=== PATIENT | male | born 1995 | race Caucasian/White ===

== ENCOUNTER 2017-02-07 20:12 | Emergency (ER) | payer OTHER ==
[2017-02-07 20:17] VITALS: RESP 20
[2017-02-07] MEDS ORDERED: KETOROLAC 30 MG/ML 1 ML VIAL IVP STA (21:03)
[2017-02-07] MEDS ORDERED: SODIUM CHLORIDE 0.9% 1,000 ML IV ONE (21:05)
[2017-02-07] MEDS ORDERED: SODIUM CHLORIDE 0.9% 1,000 ML IV SCH (21:15)
[2017-02-07 21:55] LABS: Basophils # (A) 0.1 k/uL (0-0.2); Basophils % (A) 1 %; CH 25.8; CHCM 31.8; Eosinophils # (A) 0.1 k/uL (0-0.7); Eosinophils % (A) 1 %; HCT 48.5 % (39.0-53.0); HDW 2.68; HGB 15.6 gm/dL (13.0-17.5); Hypochromasia Slight; Luc # (Auto) 0.27; Luc % (Auto) 3; Lymphocytes # (A) 1.5 k/uL (1.0-4.8); Lymphocytes % (A) 15 %; MCH 26.1 pg (25.0-35.0); MCHC 32.1 g/dL (31.0-37.0); MCV 81.2 fL (80.0-100.0); Mean Platelet Volume 7.5; Monocytes # (A) 0.5 k/uL (0-1.0); Monocytes % (A) 6 %; Neutrophils % (A) 74 %; RBC 5.97 m/uL (4.30-5.90); RDW 14.4 % (11.5-15.5); WBC 9.4 k/uL (3.8-10.6)
--- NOTE | 2017-02-07 21:58 | ED ---
Headache HPI - General Chief Complaint: Headache Stated Complaint: HBP; hx of open heart surgery Time Seen by Provider: 02/07/17 20:53 Source: RN notes reviewed Mode of arrival: ambulatory Limitations: no limitations - History of Present Illness Initial Comments: Patient is a 21-year-old male with a chief complaint of a headache for approximately few hours. Patient reports that he has a history of tricuspid valve replacement. 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 He states that he had a heart valve replacement in 2011. Patient states that today he did drink 5 red bulls which could be the cause of his headache. He states that he's had no chest pain or shortness of breath. Patient denies any nausea or vomiting fever or chills. Patient reports last drug use was approximately one month ago. - Related Data Home Medications Medication Instructions Recorded Confirmed Aspirin [Adult Low Dose Aspirin EC] 1 tab PO DAILY 02/07/17 02/07/17 Metoprolol Succinate [Toprol XL] 1 tab PO DAILY 02/07/17 02/07/17 Allergies Allergy/AdvReac Type Severity Reaction Status Date / Time No Known Allergies Allergy Verified 02/07/17 20:15 Review of Systems ROS Statement: Those systems with pertinent positive or pertinent negative responses have been documented in the HPI. ROS Other: All systems not noted in ROS Statement are negative. Past Medical History Past Medical History: Hypertension History of Any Multi-Drug Resistant Organisms: None Reported Additional Past Surgical History / Comment(s): heart valve Past Psychological History: No Psychological Hx Reported Smoking Status: Current every day smoker Past Alcohol Use History: Occasional Past Drug Use History: Marijuana General Exam Limitations: no limitations General appearance: alert, in no apparent distress Head exam: Present: atraumatic, normocephalic, normal inspection Eye exam: Present: normal appearance, PERRL, EOMI, other (Her dilated.). Absent : scleral icterus, conjunctival injection, periorbital swelling ENT exam: Present: normal exam, mucous membranes moist Neck exam: Present: normal inspection. Absent: tenderness, meningismus, lymphadenopathy Respiratory exam: Present: normal lung sounds bilaterally. Absent: respiratory distress, wheezes, rales, rhonchi, stridor Cardiovascular Exam: Present: regular rate, normal rhythm, normal heart sounds. Absent: systolic murmur, diastolic murmur, rubs, gallop, clicks GI/Abdominal exam: Present: soft, normal bowel sounds. Absent: distended, tenderness, guarding, rebound, rigid Extremities exam: Present: normal inspection, full ROM, normal capillary refill. Absent: tenderness, pedal edema, joint swelling, calf tenderness Back exam: Present: normal inspection Neurological exam: Present: alert, oriented X3, CN II-XII intact Psychiatric exam: Present: normal affect, normal mood Skin exam: Present: warm, dry, intact, normal color. Absent: rash Course Vital Signs 02/07/17 02/07/17 20:16 23:10 Temperature 98.2 F 98.3 F Pulse Rate 54 L 56 L Respiratory 20 20 Rate Blood Pressure 142/86 122/58 O2 Sat by Pulse 97 99 Oximetry - Reevaluation(s) Reevaluation #1: 02/07/17 22:43 Patient was reevaluated this time and reports that he is feeling much better after IV fluids and Toradol for his headache. Patient reports that he will follow-up with primary care provider. Return parameters were discussed. Medical Decision Making - Medical Decision Making Patient is a 21 year old male with a hcomplaint of headache for a few. hours. Patient reports he took his blood pressure and ti was 170/90. He reports he drank 5 redbulls today. Patient statesn that he has a history of endocarditis with IV drug use. He states he has had no fever, chest pain, shortness of breath , nausea, or vomiting. Patient noriega a history of heart valve replacement . Patient given IV fluids, toradol and labs obtained. Labs show no acute abnormalities. PAtient advised to follow up with PCP and reports that he is feeling much better after medication. Patient wants to go home at this time. Retrun prameters dicussed. - Lab Data Result diagrams: 02/07/17 21:40 02/07/17 21:40 Lab Results 02/07/17 02/07/17 02/07/17 Range/Units 21:40 21:40 21:40 WBC 9.4 (3.8-10.6) k/uL RBC 5.97 H (4.30-5.90) m/uL Hgb 15.6 (13.0-17.5) gm/dL Hct 48.5 (39.0-53.0) % MCV 81.2 (80.0-100.0) fL MCH 26.1 (25.0-35.0) pg MCHC 32.1 (31.0-37.0) g/dL RDW 14.4 (11.5-15.5) % Plt Count 292 (150-450) k/uL Neutrophils % 74 % Lymphocytes % 15 % Monocytes % 6 % Eosinophils % 1 % Basophils % 1 % Neutrophils # 7.0 (1.3-7.7) k/uL Lymphocytes # 1.5 (1.0-4.8) k/uL Monocytes # 0.5 (0-1.0) k/uL Eosinophils # 0.1 (0-0.7) k/uL Basophils # 0.1 (0-0.2) k/uL Hypochromasia Slight Sodium 146 H (137-145) mmol/L Potassium 4.1 (3.5-5.1) mmol/L Chloride 106 (98-107) mmol/L Carbon Dioxide 25 (22-30) mmol/L Anion Gap 15 mmol/L BUN 8 L (9-20) mg/dL Creatinine 1.00 (0.66-1.25) mg/dL Est GFR (MDRD) Af Amer >60 (>60 ml/min/1.73 sqM) Est GFR (MDRD) Non-Af >60 (>60 ml/min/1.73 sqM) Glucose 100 H (74-99) mg/dL Calcium 10.6 H (8.4-10.2) mg/dL Total Creatine Kinase 70 (55-170) U/L CK-MB (CK-2) 0.3 (0.0-2.4) ng/mL CK-MB (CK-2) Rel Index 0.4 Troponin I <0.012 (0.000-0.034) ng/mL 02/07/17 22:43 EKG shows sinus bradycardia with ventricular rate of 56 bpm. IN 26 ms. QRS duration 96 seconds. QT/QTc is 4:30/422 Alexsandra's hands. No evidence of ST elevation or T-wave inversion. Disposition Clinical Impression: Headache Disposition: HOME SELF-CARE Condition: Good Instructions: Acute Headache (ED) Additional Instructions: She must follow-up with his primary care provider. Return to emergency department if any alarming signs or symptoms occur. Continue taking Motrin Tylenol for headache. Referrals: Ian Do MD [Primary Care Provider] - 1-2 days Time of Disposition: 22:44
[2017-02-07 22:04] LABS: Anion Gap 15 mmol/L; Blood Urea Nitrogen 8 mg/dL (9-20); Calcium 10.6 mg/dL (8.4-10.2); Carbon Dioxide 25 mmol/L (22-30); Chloride 106 mmol/L (98-107); Glucose 100 mg/dL (74-99); Non-African American GFR(MDRD) >60 (>60 ml/min/1.73 sqM); Potassium 4.1 mmol/L (3.5-5.1); Sodium 146 mmol/L (137-145)
[2017-02-07 22:14] LABS: Creatine Kinase 70 U/L (55-170)
[2017-02-07 22:27] LABS: Creatine Kinase MB 0.3 ng/mL (0.0-2.4); Troponin I <0.012 ng/mL (0.000-0.034)
[2017-02-07 23:15] VITALS: BP 122/58; PULSE 56; TEMP 98.3
== END 2017-02-07 23:10 | disposition home or self-care (01) ==
LOC: EC 20:12
DX: R51 Headache (principal); I10 Essential (primary) hypertension; F17.200 Nicotine dependence, unspecified, uncomplicated; Z95.2 Presence of prosthetic heart valve; Z79.82 Long term (current) use of aspirin; Z79.899 Other long term (current) drug therapy
CPT/HCPCS: 99284; 96374; 96361; 93005; 36415; 80048; 82550; 82553; 84484; 85025; J1885

== ENCOUNTER 2017-02-20 01:34 | Emergency (ER) | payer OTHER ==
[2017-02-20 02:05] VITALS: BP 139/87; PULSE 117; RESP 20; TEMP 97.4
--- NOTE | 2017-02-20 03:02 | ED ---
Psych HPI - General Chief Complaint: Psychiatric Symptoms Stated Complaint: Mental Health Time Seen by Provider: 02/20/17 02:14 Source: patient, RN notes reviewed Mode of arrival: ambulatory - History of Present Illness Initial Comments: Patient is a 21-year-old male with chief complaint of suicidal ideation and depression. Patient states that he has no specific plan to harm himself he just has thoughts of a needs to. Patient denies any homicidal or auditory or visual hallucinations. Patient reports that she's had multiple stressors in his life including not having a current place to stay, loosing his girlfriend, having a job over the past 2 months. Patient reports that he does not see psychiatrist or his ever been evaluated. Eating does not take any medication regularly. Patient reports that he does have a history of heroin abuse. He has a history of heart valve replacement due to IV drug use. Patient reports he is currently on probation. Patient states that he has not abused heroin in the past month. He does smoke marijuana occasionally. He denies any alcohol use. Patient reports that he was diagnosed with a history of social anxiety and does have tremors whenever he is in a social situation. Patient denies any recent fever, chills, shortness of breath, chest pain, back pain, abdominal pain , nausea vomiting, numbness or tingling, dysuria or hematuria, constipation or diarrhea, headaches or visual changes, or any other current symptoms - Related Data Home Medications Medication Instructions Recorded Confirmed Aspirin [Adult Low Dose Aspirin EC] 1 tab PO DAILY 02/07/17 02/20/17 Metoprolol Succinate [Toprol XL] 1 tab PO DAILY 02/07/17 02/20/17 Allergies Allergy/AdvReac Type Severity Reaction Status Date / Time No Known Allergies Allergy Verified 02/07/17 20:15 Review of Systems ROS Statement: Those systems with pertinent positive or pertinent negative responses have been documented in the HPI. ROS Other: All systems not noted in ROS Statement are negative. Past Medical History Past Medical History: Hypertension History of Any Multi-Drug Resistant Organisms: None Reported Additional Past Surgical History / Comment(s): heart valve Past Psychological History: No Psychological Hx Reported Smoking Status: Current every day smoker Past Alcohol Use History: Occasional Past Drug Use History: Marijuana General Exam - General Exam Comments Initial Comments: Well-appearing 21-year-old male. No acute distress. Limitations: no limitations General appearance: alert, in no apparent distress Head exam: Present: atraumatic, normocephalic, normal inspection Eye exam: Present: normal appearance, PERRL, EOMI. Absent: scleral icterus, conjunctival injection, periorbital swelling ENT exam: Present: normal exam, mucous membranes moist Neck exam: Present: normal inspection. Absent: tenderness, meningismus, lymphadenopathy Respiratory exam: Present: normal lung sounds bilaterally. Absent: respiratory distress, wheezes, rales, rhonchi, stridor Cardiovascular Exam: Present: regular rate, normal rhythm, normal heart sounds. Absent: systolic murmur, diastolic murmur, rubs, gallop, clicks GI/Abdominal exam: Present: soft, normal bowel sounds. Absent: distended, tenderness, guarding, rebound, rigid Extremities exam: Present: normal inspection, full ROM, normal capillary refill. Absent: tenderness, pedal edema, joint swelling, calf tenderness Back exam: Present: normal inspection Neurological exam: Present: alert, oriented X3, CN II-XII intact Psychiatric exam: Present: anxious, suicidal ideation (Patient denies any specific plan, and has vague suggestions of suicidal thoughts.). Absent: normal affect, normal mood Skin exam: Present: warm, dry, intact, normal color. Absent: rash Course Vital Signs 02/20/17 02:01 Temperature 97.4 F L Pulse Rate 117 H Respiratory 20 Rate Blood Pressure 139/87 O2 Sat by Pulse 98 Oximetry Medical Decision Making - Medical Decision Making Patient is a 21-year-old male with chief complaint of depression and anxiety. Patient states he's had a few thoughts of harming himself. He denies any specific plan to do so. Patient was medically cleared and evaluated by EPS. EPS was talking to the patient he stated that he does not have any suicidal thoughts. He reports he does have plans in the future. He states that he is currently staying with a friend ariadne. Patient was given resources and patient refuses to sign in at this time. He adamantly admits that he does not want to harm himself at this time. Patient is tachycardic with a heart rate of 110/m. He does appear to be extremely anxious. Patient will be given 1 mg of Ativan by mouth and discharge. Patient reports he plans to follow up with [facility] tomorrow. Patient is agrees with the treatment plan and states that he will comply. Patient agrees to a safety contract, and plans return if he has any thoughts of harming himself. Disposition Clinical Impression: Anxiety, Depression Disposition: HOME SELF-CARE Condition: Good Instructions: Generalized Anxiety Disorder (ED) Additional Instructions: Patient advised to follow-up tomorrow with [facility]. Return to emergency Department if any alarming signs or symptoms occur including increased suicidal thoughts. Referrals: Ian Do MD [Primary Care Provider] - 1-2 days Time of Disposition: 04:31
[2017-02-20] MEDS ORDERED: LORazepam 1 MG TAB PO STA (04:30)
== END 2017-02-20 04:41 | disposition home or self-care (01) ==
LOC: EC 01:34
DX: F41.9 Anxiety disorder, unspecified (principal); F32.9 Major depressive disorder, single episode, unspecified; R45.851 Suicidal ideations; Z95.2 Presence of prosthetic heart valve; F12.90 Cannabis use, unspecified, uncomplicated; F11.90 Opioid use, unspecified, uncomplicated; Z79.82 Long term (current) use of aspirin; I10 Essential (primary) hypertension; F17.200 Nicotine dependence, unspecified, uncomplicated
CPT/HCPCS: 82075; 99283

== ENCOUNTER 2018-03-05 12:32 | Emergency (ER) | payer OTHER ==
[2018-03-05 12:46] VITALS: TEMP 97.6
[2018-03-05] MEDS ORDERED: MORPHINE SULFATE 4MG/4ML SYRG IVP STA (13:01)
--- NOTE | 2018-03-05 13:10 | XR ---
EXAMINATION TYPE: XR shoulder limited RT DATE OF EXAM: 03/05/2018 COMPARISON: NONE HISTORY: Pain TECHNIQUE: 2 views are submitted FINDINGS: Osseous structures are intact. There is an anterior dislocation of the humeral head. IMPRESSION: Anterior dislocation of the humeral head.
[2018-03-05] MEDS ORDERED: PROPOFOL 10 MG/ML 20 ML VIAL IV STA (13:45)
[2018-03-05] MEDS ORDERED: KETOROLAC 30 MG/ML 1 ML VIAL IVP STA (14:01)
--- NOTE | 2018-03-05 14:09 | ED ---
General Adult HPI - General Source: patient, RN notes reviewed Mode of arrival: ambulatory Limitations: no limitations <Marvin Hernandez - Last Filed: 03/05/18 14:49> <Cameron Pedersen - Last Filed: 03/05/18 15:07> - General Chief complaint: Extremity Injury, Upper Stated complaint: Shoulder pain Time Seen by Provider: 03/05/18 12:49 - History of Present Illness Initial comments: 22-year-old male presents to the emergency department for a chief complaint of right shoulder dislocation. Patient has previously dislocated his shoulder multiple times in the past. He has never seen an orthopedic physician for this. Patient states he was walking down the steps and tripped and fell down about 6 stairs. He caught himself with his right hand shoulder dislocated. Patient denies hitting his head or loss of consciousness. Patient denies injuring any other part of the body. Patient states he has full sensation in the right upper extremity. Patient states he is able to move his right hand. Patient states he is in considerable pain at this time and requests pain medication. Patient has a ride home from the emergency department. (Marvin Hernandez) - Related Data Home Medications Medication Instructions Recorded Confirmed Aspirin [Adult Low Dose Aspirin EC] 1 tab PO DAILY 02/07/17 03/05/18 Metoprolol Tartrate [Metoprolol 25 mg PO TID 03/05/18 03/05/18 Tartrate] Allergies Allergy/AdvReac Type Severity Reaction Status Date / Time Penicillins Allergy Unknown Verified 03/05/18 13:32 Review of Systems ROS Other: All systems not noted in ROS Statement are negative. <Marvin Hernandez - Last Filed: 03/05/18 14:49> ROS Other: All systems not noted in ROS Statement are negative. <Cameron Pedersen - Last Filed: 03/05/18 15:07> ROS Statement: Those systems with pertinent positive or pertinent negative responses have been documented in the HPI. Past Medical History Past Medical History: Hypertension History of Any Multi-Drug Resistant Organisms: None Reported Additional Past Surgical History / Comment(s): heart valve Past Psychological History: No Psychological Hx Reported Smoking Status: Current every day smoker Past Alcohol Use History: Occasional Past Drug Use History: Marijuana <Marvin Hernandez - Last Filed: 03/05/18 14:49> General Exam Limitations: no limitations Head exam: Present: atraumatic, normocephalic, normal inspection Eye exam: Present: normal appearance, PERRL, EOMI. Absent: scleral icterus, conjunctival injection, periorbital swelling Neck exam: Present: normal inspection. Absent: tenderness, meningismus, lymphadenopathy Respiratory exam: Present: normal lung sounds bilaterally. Absent: respiratory distress, wheezes, rales, rhonchi, stridor Cardiovascular Exam: Present: regular rate, normal rhythm, normal heart sounds. Absent: systolic murmur, diastolic murmur, rubs, gallop, clicks Extremities exam: Present: other (Patient's right shoulder appears dislocated. Patient has full range of motion in the right hand. Patient's radial pulses 2+ . Patient has full sensation in the right upper extremity. Neurovascular intact. Capillary refill less than 2 seconds. No tenderness to the shoulder or clavicle.) <Marvin Hernandez P - Last Filed: 03/05/18 14:49> Course <Marvin Hernandez - Last Filed: 03/05/18 14:49> <Cameron Pedersen - Last Filed: 03/05/18 15:07> Vital Signs 03/05/18 03/05/18 03/05/18 12:43 14:10 14:14 Temperature 97.6 F Pulse Rate 87 68 82 Respiratory 18 16 16 Rate Blood Pressure 123/59 118/64 107/58 O2 Sat by Pulse 100 100 100 Oximetry 03/05/18 03/05/18 03/05/18 14:21 14:26 14:38 Temperature Pulse Rate 85 84 78 Respiratory 16 16 16 Rate Blood Pressure 165/68 98/56 100/54 O2 Sat by Pulse 100 98 99 Oximetry - Reevaluation(s) Reevaluation #1: 03/05/18 15:06 I did reevaluate the patient prior to discharge is awake alert oriented 3 in no distress he feels much improved he has a shoulder immobilizer placed. I have performed a [id number] evaluation the patient was able to reduce patient shoulder and also did perform IV sedation for the procedure. Post reduction x- ray reveals the shoulder is in proper position. (Cameron Pedersen) Procedures - Orthopedic Joint Reduction Joint #1 Consent Obtained: verbal consent, written consent Time Out Performed: Yes Side: right Joint Reduction Location: shoulder Analgesia: procedural sedation Local Anesthetic Used: other anesthetic (Propofol, initially 100 mg or 10 mL was given the patient did require 50 additional milligrams or 5 mL. Done by me. ) Amount of Anesthetic Used (mLs): 15 Shoulder Technique Used (if applicable): external rotation Post-Reduction Neuro Exam: intact Post-Reduction Vascular Exam: intact Post Reduction X-Ray Obtained: Yes Post Reduction X-Ray Results: reduced Splint Applied: Yes Patient Tolerated Procedure: well - Procedural Sedation Procedural Sedation Start Time: 14:12 Procedural Sedation Stop Time: 14:38 Indications: fracture/dislocation reduction ASA Class: I Mallampati Airway Score: 1 Preparation: equipment monitor phototypesetting applied, pulse oximeter, capnometry used, supplemental O2 applied, suction/airway equipment at bedside, IV secured IV Propofol Dose (mgs): 150 <Cameron Pedersen - Last Filed: 03/05/18 15:07> Medical Decision Making <Marvin Hernandez - Last Filed: 03/05/18 14:49> <Cameron Pedersen - Last Filed: 03/05/18 15:07> - Medical Decision Making 22-year-old male presents to the emergency department for a chief complaint of right shoulder dislocation. This has happened multiple times before. Neurovascular intact before procedure. X-ray obtained shows anterior dislocation of the humeral head. Relocation was attempted using 4 mg of morphine. Patient could not tolerate this procedure. Patient was consciously sedated with propofol with Dr. Pedersen. Right shoulder was reduced with no difficulties. Patient tolerated this procedure well. Shoulder x-ray done after the re-reduction shows a reduction of the glenohumeral joint. Hill-Sachs impaction defect is noted. AC joint appears intact. Neurovascular intact after reduction. Shoulder was immobilized. He is now doing much better. He states his shoulder pain is resolved. Patient will follow up with orthopedics in one to 2 days. He is to return to the emergency department if he has continuing pain or any other issues. (Marvin Hernandez) Disposition Time of Disposition: 14:57 <Marvin Hernandez - Last Filed: 03/05/18 14:49> <Cameron Pedersen - Last Filed: 03/05/18 15:07> Clinical Impression: Dislocation of shoulder, anterior Disposition: HOME SELF-CARE Condition: Good Instructions: Shoulder Dislocation (ED) Additional Instructions: Please follow up with orthopedics in one to 2 days. Please return to the emergency department if you have increasing pain or any other difficulties. Please take ibuprofen for pain relief. Please immobilize the shoulder until orthopedics is seen. Referrals: None,Stated [Primary Care Provider] - 1-2 days Willi Liu MD [STAFF PHYSICIAN] - 1-2 days Addendum entered and electronically signed by Marvin Hernandez, PAJosiah 03/05/18 15 :03: Patient is fully alert and oriented on discharge.
[2018-03-05 14:12] VITALS: RESP 16
--- NOTE | 2018-03-05 14:37 | XR ---
EXAMINATION TYPE: XR shoulder limited RT DATE OF EXAM: 03/05/2018 COMPARISON: NONE HISTORY: 22-year-old male with pain, post reduction right shoulder TECHNIQUE: Single AP view FINDINGS: Interval satisfactory reduction of the glenohumeral joint. Hill-Sachs impaction injury is identified superolateral aspect of the humeral head. AC joint appears intact. IMPRESSION: Interval reduction of the glenohumeral joint. Hill-Sachs impaction defect is noted.
[2018-03-05 15:07] VITALS: BP 100/57; PULSE 80
== END 2018-03-05 15:06 | disposition home or self-care (01) ==
LOC: EC 12:32
DX: S43.014A Anterior dislocation of right humerus, initial encounter (principal); I10 Essential (primary) hypertension; F17.200 Nicotine dependence, unspecified, uncomplicated; Z95.2 Presence of prosthetic heart valve; Z79.82 Long term (current) use of aspirin; Z79.899 Other long term (current) drug therapy; Z88.0 Allergy status to penicillin; W10.9XXA Fall (on) (from) unspecified stairs and steps, initial encounter; Y93.01 Activity, walking, marching and hiking; Y92.009 Unspecified place in unspecified non-institutional (private) residence as the place of occurrence of the external cause
CPT/HCPCS: 73020; 99284; 23650; 99152; 99153; 96374; 96372 ×2; L3670; J1885; J2704; J2270

== ENCOUNTER 2018-05-11 14:40 | Emergency (ER) | payer OTHER ==
[2018-05-11] MEDS ORDERED: SODIUM CHLORIDE 0.9% 1,000 ML IV ONE (15:02)
[2018-05-11] MEDS ORDERED: SODIUM CHLORIDE 0.9% 500 ML IV ONE (15:02)
[2018-05-11] MEDS ORDERED: LORazepam 2 MG/ML INJ IV STA (15:03)
--- NOTE | 2018-05-11 15:08 | ED ---
General Adult HPI - General Source: EMS, RN notes reviewed, old records reviewed Mode of arrival: EMS Limitations: altered mental status <Solomon Meadows - Last Filed: 05/11/18 15:08> <Cameron Pedersen - Last Filed: 05/11/18 23:41> - General Chief complaint: Altered Mental Status Stated complaint: Mental Health Time Seen by Provider: 05/11/18 15:01 - History of Present Illness Initial comments: This is a 22-year-old male the ER for evaluation. Patient admits to ER for evaluation of psychiatric evaluation and altered mental state, manic episode, patient doing meth admits to doing meth and hasn't slept in 4 days. Patient manic (Solomon Meadows) - Related Data Home Medications Medication Instructions Recorded Confirmed Aspirin [Adult Low Dose Aspirin EC] 1 tab PO DAILY 02/07/17 05/11/18 Metoprolol Tartrate [Metoprolol 25 mg PO TID 03/05/18 05/11/18 Tartrate] Multivitamin,Therapeutic [Thera] 1 tab PO DAILY 05/11/18 05/11/18 Allergies Allergy/AdvReac Type Severity Reaction Status Date / Time Penicillins Allergy Unknown Verified 03/05/18 13:32 piperacillin [From Zosyn] Allergy Unknown Verified 05/11/18 14:58 tazobactam [From Zosyn] Allergy Unknown Verified 05/11/18 14:58 Review of Systems ROS Other: All systems not noted in ROS Statement are negative. <Solomon Meadows - Last Filed: 05/11/18 15:08> ROS Other: All systems not noted in ROS Statement are negative. <Cameron Pedersen - Last Filed: 05/11/18 23:41> ROS Statement: Those systems with pertinent positive or pertinent negative responses have been documented in the HPI. Past Medical History Past Medical History: Hypertension History of Any Multi-Drug Resistant Organisms: None Reported Additional Past Surgical History / Comment(s): heart valve Past Psychological History: No Psychological Hx Reported Smoking Status: Current every day smoker Past Alcohol Use History: Occasional Past Drug Use History: Marijuana, Methamphetamine <Solomon Meadows - Last Filed: 05/11/18 15:08> General Exam Limitations: altered mental status General appearance: alert, appears intoxicated, anxious Head exam: Present: atraumatic, normocephalic, normal inspection Eye exam: Present: normal appearance, PERRL, EOMI. Absent: scleral icterus, conjunctival injection, periorbital swelling ENT exam: Present: normal exam, mucous membranes dry Neck exam: Present: normal inspection. Absent: tenderness, meningismus, lymphadenopathy Respiratory exam: Present: normal lung sounds bilaterally. Absent: respiratory distress, wheezes, rales, rhonchi, stridor Cardiovascular Exam: Present: normal rhythm, tachycardia, normal heart sounds. Absent: systolic murmur, diastolic murmur, rubs, gallop, clicks GI/Abdominal exam: Present: soft, normal bowel sounds. Absent: distended, tenderness, guarding, rebound, rigid Extremities exam: Present: normal inspection, full ROM, normal capillary refill. Absent: tenderness, pedal edema, joint swelling, calf tenderness Back exam: Present: normal inspection Neurological exam: Present: alert, oriented X3, CN II-XII intact Psychiatric exam: Present: normal affect, normal mood Skin exam: Present: warm, dry, intact, normal color. Absent: rash <Solomon Meadows - Last Filed: 05/11/18 15:08> Course <Solomon Meadows - Last Filed: 05/11/18 15:08> <Cameron Pedersen - Last Filed: 05/11/18 23:41> Vital Signs 05/11/18 05/11/18 05/11/18 14:48 19:25 21:54 Temperature 99.0 F Pulse Rate 124 H 127 H 99 Respiratory 20 19 17 Rate Blood Pressure 140/85 150/81 120/51 O2 Sat by Pulse 99 99 98 Oximetry - Reevaluation(s) Reevaluation #1: 05/11/18 20:33 The patient was endorsed to me by Dr. Meadows at our shift change. The patient is demonstrating erratic behavior with tangential thoughts some outbursts. Patient was evaluated by psychiatric service he does require admission at this time no beds are available. Patient will require sedation and IV hydration as he pulled out his IV. After this he should be medically cleared for transfer to an appropriate facility. A clinical physician certification was filled out by me. (Cameron Pedersen) Medical Decision Making <Solomon Meadows - Last Filed: 05/11/18 15:08> - Lab Data Result diagrams: 05/11/18 15:03 05/11/18 15:03 <Cameron Pedersen - Last Filed: 05/11/18 23:41> - Medical Decision Making The patient was evaluated by psychiatric service she will be transferred to [facility]. Dr. Abbasi is the accepting physician. (Cameron Pedersen) - Lab Data Lab Results 05/11/18 05/11/18 05/11/18 Range/Units 15:03 15:03 15:03 WBC (3.8-10.6) k/uL RBC (4.30-5.90) m/uL Hgb (13.0-17.5) gm/dL Hct (39.0-53.0) % MCV (80.0-100.0) fL MCH (25.0-35.0) pg MCHC (31.0-37.0) g/dL RDW (11.5-15.5) % Plt Count (150-450) k/uL Neutrophils % % Lymphocytes % % Monocytes % % Eosinophils % % Basophils % % Neutrophils # (1.3-7.7) k/uL Lymphocytes # (1.0-4.8) k/uL Monocytes # (0-1.0) k/uL Eosinophils # (0-0.7) k/uL Basophils # (0-0.2) k/uL PT (9.0-12.0) sec INR (<1.2) APTT (22.0-30.0) sec Sodium 147 H (137-145) mmol/L Potassium 3.9 (3.5-5.1) mmol/L Chloride 109 H (98-107) mmol/L Carbon Dioxide 17 L (22-30) mmol/L Anion Gap 21 mmol/L BUN 16 (9-20) mg/dL Creatinine 1.00 (0.66-1.25) mg/dL Est GFR (CKD-EPI)AfAm >90 (>60 ml/min/1.73 sqM) Est GFR (CKD-EPI)NonAf >90 (>60 ml/min/1.73 sqM) Glucose 77 (74-99) mg/dL Calcium 10.3 H (8.4-10.2) mg/dL Total Bilirubin 2.3 H (0.2-1.3) mg/dL AST 62 H (17-59) U/L ALT 84 H (21-72) U/L Alkaline Phosphatase 101 (38-126) U/L Ammonia 23 (<30) umol/L Total Creatine Kinase 791 H (55-170) U/L CK-MB (CK-2) 6.7 H* (0.0-2.4) ng/mL CK-MB (CK-2) Rel Index 0.8 Troponin I <0.012 (0.000-0.034) ng/mL Total Protein 8.1 (6.3-8.2) g/dL Albumin 5.0 (3.5-5.0) g/dL Lipase 19 L (23-300) U/L Urine Color Urine Appearance (Clear) Urine pH (5.0-8.0) Ur Specific [place] (1.001-1.035) Urine Protein (Negative) Urine Glucose (UA) (Negative) Urine Ketones (Negative) Urine Blood (Negative) Urine Nitrite (Negative) Urine Bilirubin (Negative) Urine Urobilinogen (<2.0) mg/dL Ur Leukocyte Esterase (Negative) Urine RBC (0-5) /hpf Urine WBC (0-5) /hpf Urine Mucus (None) /hpf Salicylates <1.0 mg/dL Urine Opiates Screen (NotDetected) Ur Oxycodone Screen (NotDetected) Urine Methadone Screen (NotDetected) Ur Propoxyphene Screen (NotDetected) Acetaminophen <10.0 ug/mL Ur Barbiturates Screen (NotDetected) U Tricyclic Antidepress (NotDetected) Ur Phencyclidine Scrn (NotDetected) Ur Amphetamines Screen (NotDetected) U Methamphetamines Scrn (NotDetected) U Benzodiazepines Scrn (NotDetected) Urine Cocaine Screen (NotDetected) U Marijuana (THC) Screen (NotDetected) Serum Alcohol <10 mg/dL 05/11/18 05/11/18 05/11/18 Range/Units 15:03 15:03 19:58 WBC 11.2 H (3.8-10.6) k/uL RBC 5.63 (4.30-5.90) m/uL Hgb 15.4 (13.0-17.5) gm/dL Hct 48.0 (39.0-53.0) % MCV 85.2 (80.0-100.0) fL MCH 27.3 (25.0-35.0) pg MCHC 32.1 (31.0-37.0) g/dL RDW 14.5 (11.5-15.5) % Plt Count 260 (150-450) k/uL Neutrophils % 72 % Lymphocytes % 14 % Monocytes % 11 % Eosinophils % 0 % Basophils % 0 % Neutrophils # 8.1 H (1.3-7.7) k/uL Lymphocytes # 1.5 (1.0-4.8) k/uL Monocytes # 1.2 H (0-1.0) k/uL Eosinophils # 0.0 (0-0.7) k/uL Basophils # 0.0 (0-0.2) k/uL PT 12.0 (9.0-12.0) sec INR 1.3 H (<1.2) APTT 24.2 (22.0-30.0) sec Sodium (137-145) mmol/L Potassium (3.5-5.1) mmol/L Chloride (98-107) mmol/L Carbon Dioxide (22-30) mmol/L Anion Gap mmol/L BUN (9-20) mg/dL Creatinine (0.66-1.25) mg/dL Est GFR (CKD-EPI)AfAm (>60 ml/min/1.73 sqM) Est GFR (CKD-EPI)NonAf (>60 ml/min/1.73 sqM) Glucose (74-99) mg/dL Calcium (8.4-10.2) mg/dL Total Bilirubin (0.2-1.3) mg/dL AST (17-59) U/L ALT (21-72) U/L Alkaline Phosphatase (38-126) U/L Ammonia (<30) umol/L Total Creatine Kinase (55-170) U/L CK-MB (CK-2) (0.0-2.4) ng/mL CK-MB (CK-2) Rel Index Troponin I (0.000-0.034) ng/mL Total Protein (6.3-8.2) g/dL Albumin (3.5-5.0) g/dL Lipase (23-300) U/L Urine Color Yellow Urine Appearance Clear (Clear) Urine pH 6.0 (5.0-8.0) Ur Specific [place] 1.027 (1.001-1.035) Urine Protein 2+ H (Negative) Urine Glucose (UA) Negative (Negative) Urine Ketones 4+ H (Negative) Urine Blood Negative (Negative) Urine Nitrite Negative (Negative) Urine Bilirubin 1+ H (Negative) Urine Urobilinogen 3.0 (<2.0) mg/dL Ur Leukocyte Esterase Negative (Negative) Urine RBC <1 (0-5) /hpf Urine WBC 2 (0-5) /hpf Urine Mucus Many H (None) /hpf Salicylates mg/dL Urine Opiates Screen Not Detected (NotDetected) Ur Oxycodone Screen Not Detected (NotDetected) Urine Methadone Screen Not Detected (NotDetected) Ur Propoxyphene Screen Not Detected (NotDetected) Acetaminophen ug/mL Ur Barbiturates Screen Not Detected (NotDetected) U Tricyclic Antidepress Not Detected (NotDetected) Ur Phencyclidine Scrn Not Detected (NotDetected) Ur Amphetamines Screen Detected H (NotDetected) U Methamphetamines Scrn Detected H (NotDetected) U Benzodiazepines Scrn Detected H (NotDetected) Urine Cocaine Screen Not Detected (NotDetected) U Marijuana (THC) Screen Detected H (NotDetected) Serum Alcohol mg/dL Disposition <Solomon Meadows - Last Filed: 05/11/18 15:08> - Out of Hospital Transfer - Req. Specs Out of Hospital Transfer - Requested Specifics: Psychiatric Non-ICU <Cameron Pedersen - Last Filed: 05/11/18 23:41> Clinical Impression: Acute psychosis, Drug abuse Disposition: TRANSFER TO PSYCH HOSP/UNIT Condition: Stable Referrals: None,Stated [Primary Care Provider] - 1-2 days
[2018-05-11 15:40] LABS: INR 1.3 (<1.2); Partial Thromboplastin Time 24.2 sec (22.0-30.0)
[2018-05-11 15:43] LABS: Basophils % (A) 0 %; Eosinophils % (A) 0 %; HGB 15.4 gm/dL (13.0-17.5); Lymphocytes # (A) 1.5 k/uL (1.0-4.8); Lymphocytes % (A) 14 %; MCH 27.3 pg (25.0-35.0); MCHC 32.1 g/dL (31.0-37.0); MCV 85.2 fL (80.0-100.0); Monocytes # (A) 1.2 k/uL (0-1.0); Monocytes % (A) 11 %; Neutrophils # (A) 8.1 k/uL (1.3-7.7); Neutrophils % (A) 72 %; Platelet Count 260 k/uL (150-450); RBC 5.63 m/uL (4.30-5.90); RDW 14.5 % (11.5-15.5); WBC 11.2 k/uL (3.8-10.6)
[2018-05-11 15:50] LABS: ALT 84 U/L (21-72); AST 62 U/L (17-59); Acetaminophen <10.0 ug/mL; Alcohol <10 mg/dL; Alkaline Phosphatase 101 U/L (38-126); Anion Gap 21 mmol/L; Blood Urea Nitrogen 16 mg/dL (9-20); Calcium 10.3 mg/dL (8.4-10.2); Carbon Dioxide 17 mmol/L (22-30); Chloride 109 mmol/L (98-107); Glucose 77 mg/dL (74-99); Lipase 19 U/L (23-300); Potassium 3.9 mmol/L (3.5-5.1); Salicylate <1.0 mg/dL; Sodium 147 mmol/L (137-145); Total Bilirubin 2.3 mg/dL (0.2-1.3); Total Protein 8.1 g/dL (6.3-8.2)
[2018-05-11 15:52] LABS: Creatine Kinase 791 U/L (55-170)
[2018-05-11 16:05] LABS: Troponin I <0.012 ng/mL (0.000-0.034)
[2018-05-11 16:08] LABS: Creatine Kinase MB 6.7 ng/mL (0.0-2.4)
[2018-05-11] MEDS ORDERED: SODIUM CHLORIDE 0.9% 1,000 ML IV STA ×2 (16:22→19:22)
[2018-05-11] MEDS ORDERED: LORazepam 2 MG/ML INJ IM STA (19:21)
[2018-05-11] MEDS ORDERED: ZIPRASIDONE 20 MG VIAL IM STA (19:21)
[2018-05-11] MEDS ORDERED: SODIUM CHLORIDE 0.9% 2,000 ML IV ONE (19:22)
[2018-05-11 20:08] LABS: Appearance,Urine Clear (Clear); Bilirubin,Urine 1+ (Negative); Blood,Urine Negative (Negative); Color,Urine Yellow; Glucose,Urine (UA) Negative (Negative); Ketones,Urine 4+ (Negative); Leukocyte Esterase,Urine Negative (Negative); Mucus,Urine Many /hpf; Nitrite,Urine Negative (Negative); Protein,Urine 2+ (Negative); RBC,Urine <1 /hpf (0-5); Specific Gravity,Urine 1.027 (1.001-1.035); WBC,Urine 2 /hpf (0-5)
[2018-05-11 20:15] LABS: Amphetamine Screen,Urine Detected (NotDetected); Barbiturate Screen,Urine Not Detected (NotDetected); Benzodiazepines Screen,Urine Detected (NotDetected); Cocaine Screen,Urine Not Detected (NotDetected); Methadone Screen, Urine Not Detected (NotDetected); Opiate Screen,Urine Not Detected (NotDetected); Oxycodone Screen, Urine Not Detected (NotDetected); Phencyclidine Screen,Urine Not Detected (NotDetected); Tricyclic Antidepressant,Urine Not Detected (NotDetected); Urn Cannabinoid Scrn Detected (NotDetected)
[2018-05-12 00:03] VITALS: BP 96/53; PULSE 83; RESP 18; TEMP 97.7
== END 2018-05-12 00:21 ==
LOC: EC 14:40
DX: F23 Brief psychotic disorder (principal); F15.10 Other stimulant abuse, uncomplicated; I10 Essential (primary) hypertension; F17.200 Nicotine dependence, unspecified, uncomplicated; Z79.82 Long term (current) use of aspirin; Z79.899 Other long term (current) drug therapy; Z88.0 Allergy status to penicillin; Z88.1 Allergy status to other antibiotic agents
CPT/HCPCS: 36415; 80053; 82140; 82550; 82553; 83690; 84484; 85025; 85610; 85730; 81001; 80306; 83520 ×2; 80320; 99285; 96374; 96360; 96361 ×5; 96372 ×2; J2060; J3486

== ENCOUNTER 2018-05-15 17:01 | Emergency (ER) | payer OTHER ==
[2018-05-15 17:17] VITALS: RESP 18
[2018-05-15] MEDS ORDERED: BENZTROPINE 2 MG/2 ML AMP IV STA (17:41)
[2018-05-15] MEDS ORDERED: SODIUM CHLORIDE 0.9% 500 ML IV STA (17:44)
--- NOTE | 2018-05-15 18:08 | ED ---
General Adult HPI - General Chief complaint: Recheck/Abnormal Lab/Rx Stated complaint: POSS MED REACTION, FACE AND NECK TENSION Time Seen by Provider: 05/15/18 17:32 Source: patient Mode of arrival: ambulatory Limitations: no limitations - History of Present Illness Initial comments: 22 yo male presenting for evaluation of neck and face pain. Started on Haldol and Vistoril 2 days ago and sx just started today. States his head is being forced into a flexed and right rotated direction and his jaw feels tight. Denies previous symptoms similar. Never taken medications before. No SOB, chest pain, change in voice, rashes, or other symptoms. - Related Data Home Medications Medication Instructions Recorded Confirmed Aspirin [Adult Low Dose Aspirin EC] 1 tab PO DAILY 02/07/17 05/11/18 Metoprolol Tartrate [Metoprolol 25 mg PO TID 03/05/18 05/11/18 Tartrate] Multivitamin,Therapeutic [Thera] 1 tab PO DAILY 05/11/18 05/11/18 Previous Rx's Medication Instructions Recorded Benztropine Mesylate [Cogentin] 1 mg PO DAILY #3 tablet 05/15/18 Allergies Allergy/AdvReac Type Severity Reaction Status Date / Time Penicillins Allergy Unknown Verified 05/15/18 17:12 piperacillin [From Zosyn] Allergy Unknown Verified 05/15/18 17:12 tazobactam [From Zosyn] Allergy Unknown Verified 05/15/18 17:12 Review of Systems ROS Statement: Those systems with pertinent positive or pertinent negative responses have been documented in the HPI. ROS Other: All systems not noted in ROS Statement are negative. Constitutional: Denies: fever, chills Eyes: Denies: eye pain, vision change ENT: Denies: ear pain, throat pain Respiratory: Denies: cough, dyspnea, wheezes, hemoptysis, stridor Cardiovascular: Denies: chest pain, palpitations, dyspnea on exertion, orthopnea , edema Endocrine: Denies: fatigue, polydipsia, polyuria Gastrointestinal: Denies: abdominal pain, nausea, vomiting Genitourinary: Denies: urgency, dysuria Musculoskeletal: Reports: other (facial and neck pain). Denies: back pain, arthralgia, myalgia Skin: Denies: rash, lesions Neurological: Denies: headache, weakness Psychiatric: Denies: anxiety, depression Hematological/Lymphatic: Denies: easy bleeding, easy bruising Past Medical History Past Medical History: Hypertension History of Any Multi-Drug Resistant Organisms: None Reported Additional Past Surgical History / Comment(s): heart valve replacement Past Psychological History: Bipolar, Depression Smoking Status: Current every day smoker Past Alcohol Use History: Occasional Past Drug Use History: Marijuana, Methamphetamine General Exam Limitations: no limitations General appearance: alert, in no apparent distress Head exam: Present: atraumatic, normocephalic, other (face in grimace, neck in flexion/right-rotation) Eye exam: Present: normal appearance, PERRL, EOMI. Absent: scleral icterus, conjunctival injection, periorbital swelling ENT exam: Present: normal exam, mucous membranes moist Neck exam: Present: other. Absent: normal inspection, full ROM Respiratory exam: Present: normal lung sounds bilaterally. Absent: respiratory distress, wheezes, rales, rhonchi, stridor Cardiovascular Exam: Present: regular rate, normal rhythm, normal heart sounds. Absent: systolic murmur, diastolic murmur, rubs, gallop, clicks GI/Abdominal exam: Present: soft, normal bowel sounds. Absent: distended, tenderness, guarding, rebound, rigid Rectal exam: Present: deferred Extremities exam: Present: normal inspection, full ROM, normal capillary refill. Absent: tenderness, pedal edema, joint swelling, calf tenderness Back exam: Present: normal inspection Neurological exam: Present: alert, oriented X3, CN II-XII intact Psychiatric exam: Present: normal affect, normal mood Skin exam: Present: warm, dry, intact, normal color. Absent: rash Course Vital Signs 05/15/18 05/15/18 17:12 19:02 Temperature 98.4 F 97.6 F Pulse Rate 80 63 Respiratory 18 18 Rate Blood Pressure 128/77 110/63 O2 Sat by Pulse 99 97 Oximetry Medical Decision Making - Medical Decision Making 22 yo male recently started on Haldol and Vistoril presenting for evaluation of face and neck pain due to spasm forcing neck into flexion/rotation and face into grimace. Presentation is consistent with dystonic reaction. Patient provided with a 2 mg dose of Cogentin and on reevaluation 15 minutes later had resolution of all symptoms. Advised to discontinue taking the Haldol and given a three-day prescription of Cogentin to continue taking. He has outpatient psychiatry follow-up and was advised to keep that appointment to determine whether or not a another medication would be more suitable. Further advised to return if symptoms should worsen or persist. The patient and his family acknowledged an understanding of all information provided and agreed with this plan of care. Disposition Clinical Impression: Dystonic drug reaction Disposition: HOME SELF-CARE Condition: Stable Instructions: Haloperidol (By injection) Additional Instructions: Please use medication as discussed. Please follow up with family doctor if symptoms have not improved over the next two days. Please return to the emergency room if your symptoms increase or worsen or for any other concerns. Prescriptions: Benztropine Mesylate [Cogentin] 1 mg PO DAILY #3 tablet Is patient prescribed a controlled substance at d/c from ED?: No Referrals: Sanam Christopher MD [STAFF PHYSICIAN] - 1-2 days Time of Disposition: 18:51
[2018-05-15 19:06] VITALS: BP 110/63; PULSE 63; TEMP 97.6
== END 2018-05-15 19:07 | disposition home or self-care (01) ==
LOC: EC 17:01
DX: G24.09 Other drug induced dystonia (principal); T43.4X5A Adverse effect of butyrophenone and thiothixene neuroleptics, initial encounter; T43.595A Adverse effect of other antipsychotics and neuroleptics, initial encounter; I10 Essential (primary) hypertension; F17.200 Nicotine dependence, unspecified, uncomplicated; Z88.0 Allergy status to penicillin; Z88.1 Allergy status to other antibiotic agents; Z79.82 Long term (current) use of aspirin; Z79.899 Other long term (current) drug therapy
CPT/HCPCS: 99283; 96374; 96361; J0515

== ENCOUNTER 2018-05-29 13:50 | Observation (INO) | payer OTHER ==
[2018-05-29] MEDS ORDERED: SODIUM CHLORIDE 0.9% 1,000 ML IV STA ×2 (14:15)
[2018-05-29] MEDS ORDERED: LORazepam 2 MG/ML INJ IV STA (14:16)
--- NOTE | 2018-05-29 14:18 | ED ---
SOB HPI - General Chief Complaint: Shortness of Breath Stated Complaint: Tachycardia Time Seen by Provider: 05/29/18 14:11 Source: patient Mode of arrival: EMS Limitations: no limitations - History of Present Illness Initial Comments: Patient is a 22-year-old male presenting for shortness breath. He says that he ate methamphetamines approximately 24 hours ago and he noted that his blood pressure was high when he was walking today. He admits to some shortness of breath but no chest pain. He denies any abdominal pain or nausea/vomiting/ diarrhea. He also denies any other neurologic symptoms. - Related Data Home Medications Medication Instructions Recorded Confirmed Aspirin [Adult Low Dose Aspirin EC] 1 tab PO DAILY 02/07/17 05/11/18 Metoprolol Tartrate 25 mg PO TID 03/05/18 05/11/18 Multivitamin,Therapeutic [Thera] 1 tab PO DAILY 05/11/18 05/11/18 Previous Rx's Medication Instructions Recorded Benztropine Mesylate [Cogentin] 1 mg PO DAILY #3 tablet 05/15/18 Allergies Allergy/AdvReac Type Severity Reaction Status Date / Time Penicillins Allergy Unknown Verified 05/15/18 17:12 piperacillin [From Zosyn] Allergy Unknown Verified 05/15/18 17:12 tazobactam [From Zosyn] Allergy Unknown Verified 05/15/18 17:12 Review of Systems ROS Statement: Those systems with pertinent positive or pertinent negative responses have been documented in the HPI. Constitutional: Negative for chills, fatigue and fever. HENT: Negative for congestion. Respiratory: Negative for chest tightness, and wheezing. Negative for cough. Positive for shortness of breath Cardiovascular: Negative for chest pain and palpitations. Gastrointestinal: Negative for abdominal pain. Negative for abdominal distention , diarrhea, nausea and vomiting. Genitourinary: Negative for dysuria. Musculoskeletal: Negative for back pain, neck pain and neck stiffness. Skin: Negative for color change. Neurological: Negative for dizziness, speech difficulty, weakness and light- headedness. Psychiatric/Behavioral: Negative for agitation and confusion. The patient is not nervous/anxious. ROS Other: All systems not noted in ROS Statement are negative. Past Medical History Past Medical History: Hypertension Additional Past Medical History / Comment(s): Endocarditis History of Any Multi-Drug Resistant Organisms: None Reported Additional Past Surgical History / Comment(s): heart valve replacement Past Psychological History: Bipolar, Depression Smoking Status: Current every day smoker Past Alcohol Use History: Daily Past Drug Use History: Marijuana, Methamphetamine General Exam - General Exam Comments Initial Comments: Constitutional: Pt is oriented to person, place, and time. Pt appears well- developed and well-nourished. No distress. HENT: Head: Normocephalic and atraumatic. Eyes: EOM are normal. Pupils dilated bilaterally at 7 mm and reactive to light. Neck: Normal range of motion. Neck supple. Cardiovascular: Tachycardia present, regular rhythm, S1 normal, S2 normal and normal heart sounds. Exam reveals no gallop and no friction rub. No murmur heard. Pulmonary/Chest: Effort normal and breath sounds normal. No tachypnea and no bradypnea. No respiratory distress. No wheezes or rales noted. Abdominal: Soft. Bowel sounds are normal. Pt exhibits no shifting dullness, no distension, no pulsatile liver, no fluid wave, no abdominal bruit and no ascites. There is no tenderness. There is no rigidity, no rebound, no guarding, no tenderness at McBurney's point and negative Liu's sign. Musculoskeletal: Normal range of motion. Neurological: Pt is alert and oriented to person, place, and time. No cranial nerve deficit. Skin: Skin is warm and dry. No rash noted. Pt is not diaphoretic. No erythema. No pallor. Psychiatric: Pt has a normal mood and affect. Pt behavior is normal. Thought content normal. Limitations: no limitations Course Vital Signs 05/29/18 05/29/18 05/29/18 14:11 15:23 15:49 Temperature 98.8 F Pulse Rate 137 H 133 H 129 H Respiratory 24 18 18 Rate Blood Pressure 161/97 157/86 138/68 O2 Sat by Pulse 99 98 100 Oximetry Medical Decision Making - Medical Decision Making Laboratory studies showed his service mild leukocytosis of 13.9 but there is no identifiable source of infection as chest x-ray was negative. There was findings concerning on the EKG with ST depressions noted as documented on the portion of this note. Therefore the patient was given aspirin. Additionally because of the prolonged QTC, this felt that the patient was not safe to be discharged home as he was at a significant risk of developing torsades and therefore the patient was given magnesium intravenously. Additionally, he has other risk factors such as artificial heart valve that predispose him for etiology such as endocarditis. Explained all labs and diagnostic test results and that we will admit patient to hospital. Pt is agreeable to plan and case has been discussed with Dr. Dawn and they agree to accept the pt. - Lab Data Result diagrams: 05/29/18 14:31 05/29/18 14:31 Lab Results 05/29/18 05/29/18 05/29/18 Range/Units 14:31 14:31 14:31 WBC 13.9 H (3.8-10.6) k/uL RBC 5.91 H (4.30-5.90) m/uL Hgb 16.2 (13.0-17.5) gm/dL Hct 49.5 (39.0-53.0) % MCV 83.8 (80.0-100.0) fL MCH 27.4 (25.0-35.0) pg MCHC 32.7 (31.0-37.0) g/dL RDW 14.3 (11.5-15.5) % Plt Count 332 (150-450) k/uL Neutrophils % 78 % Lymphocytes % 10 % Monocytes % 9 % Eosinophils % 0 % Basophils % 1 % Neutrophils # 10.8 H (1.3-7.7) k/uL Lymphocytes # 1.4 (1.0-4.8) k/uL Monocytes # 1.3 H (0-1.0) k/uL Eosinophils # 0.0 (0-0.7) k/uL Basophils # 0.1 (0-0.2) k/uL PT 11.9 (9.0-12.0) sec INR 1.3 H (<1.2) APTT 24.0 (22.0-30.0) sec Sodium 140 (137-145) mmol/L Potassium 3.7 (3.5-5.1) mmol/L Chloride 104 (98-107) mmol/L Carbon Dioxide 18 L (22-30) mmol/L Anion Gap 18 mmol/L BUN 26 H (9-20) mg/dL Creatinine 1.90 H (0.66-1.25) mg/dL Est GFR (CKD-EPI)AfAm 56 (>60 ml/min/1.73 sqM) Est GFR (CKD-EPI)NonAf 49 (>60 ml/min/1.73 sqM) Glucose 127 H (74-99) mg/dL Calcium 10.6 H (8.4-10.2) mg/dL Magnesium 1.8 (1.6-2.3) mg/dL Total Bilirubin 1.7 H (0.2-1.3) mg/dL AST 43 (17-59) U/L ALT 59 (21-72) U/L Alkaline Phosphatase 98 (38-126) U/L Troponin I (0.000-0.034) ng/mL Total Protein 8.3 H (6.3-8.2) g/dL Albumin 5.1 H (3.5-5.0) g/dL 05/29/18 Range/Units 14:31 WBC (3.8-10.6) k/uL RBC (4.30-5.90) m/uL Hgb (13.0-17.5) gm/dL Hct (39.0-53.0) % MCV (80.0-100.0) fL MCH (25.0-35.0) pg MCHC (31.0-37.0) g/dL RDW (11.5-15.5) % Plt Count (150-450) k/uL Neutrophils % % Lymphocytes % % Monocytes % % Eosinophils % % Basophils % % Neutrophils # (1.3-7.7) k/uL Lymphocytes # (1.0-4.8) k/uL Monocytes # (0-1.0) k/uL Eosinophils # (0-0.7) k/uL Basophils # (0-0.2) k/uL PT (9.0-12.0) sec INR (<1.2) APTT (22.0-30.0) sec Sodium (137-145) mmol/L Potassium (3.5-5.1) mmol/L Chloride (98-107) mmol/L Carbon Dioxide (22-30) mmol/L Anion Gap mmol/L BUN (9-20) mg/dL Creatinine (0.66-1.25) mg/dL Est GFR (CKD-EPI)AfAm (>60 ml/min/1.73 sqM) Est GFR (CKD-EPI)NonAf (>60 ml/min/1.73 sqM) Glucose (74-99) mg/dL Calcium (8.4-10.2) mg/dL Magnesium (1.6-2.3) mg/dL Total Bilirubin (0.2-1.3) mg/dL AST (17-59) U/L ALT (21-72) U/L Alkaline Phosphatase (38-126) U/L Troponin I <0.012 (0.000-0.034) ng/mL Total Protein (6.3-8.2) g/dL Albumin (3.5-5.0) g/dL - EKG Data EKG Comments: EKG shows sinus tachycardia with a rate of 1 25 bpm, NE interval 148, QRS duration 96, QTC 583. There is mild ST depressions in lead 2, V4, V5, V6 measuring 1-2 mm with no elevation Disposition Clinical Impression: Acute electrocardiogram changes, SIRS (systemic inflammatory response syndrome) Disposition: [facility] Condition: Fair Referrals: None,Stated [Primary Care Provider] - 1-2 days Decision to Admit Reason: Admit from EC Decision Date: 05/29/18 Decision Time: 16:24
[2018-05-29 14:50] LABS: Basophils # (A) 0.1 k/uL (0-0.2); Basophils % (A) 1 %; Eosinophils % (A) 0 %; HCT 49.5 % (39.0-53.0); HGB 16.2 gm/dL (13.0-17.5); Lymphocytes # (A) 1.4 k/uL (1.0-4.8); Lymphocytes % (A) 10 %; MCH 27.4 pg (25.0-35.0); MCHC 32.7 g/dL (31.0-37.0); MCV 83.8 fL (80.0-100.0); Mean Platelet Volume 6.9; Monocytes # (A) 1.3 k/uL (0-1.0); Monocytes % (A) 9 %; Neutrophils # (A) 10.8 k/uL (1.3-7.7); Neutrophils % (A) 78 %; Platelet Count 332 k/uL (150-450); RBC 5.91 m/uL (4.30-5.90); RDW 14.3 % (11.5-15.5); WBC 13.9 k/uL (3.8-10.6)
[2018-05-29 14:55] LABS: Albumin 5.1 g/dL (3.5-5.0); Calcium 10.6 mg/dL (8.4-10.2); Magnesium 1.8 mg/dL (1.6-2.3); Potassium 3.7 mmol/L (3.5-5.1); Total Bilirubin 1.7 mg/dL (0.2-1.3); Total Protein 8.3 g/dL (6.3-8.2)
[2018-05-29 14:56] LABS: INR 1.3 (<1.2); Prothrombin Time 11.9 sec (9.0-12.0)
--- NOTE | 2018-05-29 15:16 | XR ---
EXAMINATION TYPE: XR chest 2V DATE OF EXAM: 05/29/2018 COMPARISON: NONE HISTORY: Chest pain, difficulty breathing TECHNIQUE: Frontal and lateral views of the chest are obtained. FINDINGS: Patient is post median sternotomy. There are overlying cardiac leads. Patient is post cardi ac valve replacement. There is no focal air space opacity, pleural effusion, or pneumothorax seen. The cardiac silhouette size is within normal limits. Prominent lung volume could be indicative of CO PD. The osseous structures are intact. IMPRESSION: No acute cardiopulmonary process.
[2018-05-29] MEDS ORDERED: ASPIRIN 81 MG PO STA (16:17)
[2018-05-29] MEDS ORDERED: MAGNESIUM SULFATE-D5W PMX 1 GM in DEXTROSE/WATER 1 100ML.BAG IVPB STA (16:17)
[2018-05-29] MEDS ORDERED: NALOXONE 0.4 MG/ML 1 ML VIAL IV PRN (16:19)
--- NOTE | 2018-05-29 17:03 | P.HPIM ---
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 In the emergency department he underwent an extensive evaluation. On arrival he was found to be tachycardic with a pulse of 137. Laboratory analysis reveals an elevated white blood cell count at 13.9. Elevated BUNs 26 and elevated creatinine at 1.90. Patient also had an anion gap metabolic acidosis. He was given a dose of aspirin. A 1 L fluid bolus and 1 dose of Ativan. We were called for admission. Patient seen and examined at bedside in the emergency department. He states that he took meth 2 days ago. Since that point in time he has been up and walking the streets all over the city. He has not slept. Yesterday he started developing shortness of breath that was worse with exertion and better with rest. He felt slightly lightheaded and dizzy but did not pass out. He noticed diffuse diaphoresis yesterday that stopped today. He is trying to keep up on drinking water but started having vomiting of water. He also noted a dry cough. He denied any palpitations or chest pain. He denies any diarrhea or constipation. He is not sure if he had a fever. He denies any dysuria. He had been at rehab and had been clean for 2 years and then relapsed approximately one month ago. He has been using the meth IV. He reports that he has had endocarditis 2 times in the past one require a bioprosthetic valve in the second resulting in a otoniel-valvular leak. He is supposed to taking aspirin 81 mg every day and metoprolol 25 mg daily but has not been taking either. He denies any other complaints. He is not having any numbness or tingling. No weakness. No blurry vision. Review of Systems Pertinent positives and negatives as discussed in HPI, a complete review of systems was performed and all other systems are negative. 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 Past Psychological History: Bipolar, Depression Smoking Status: Current every day smoker Past Alcohol Use History: Rare Past Drug Use History: Marijuana, Methamphetamine Additional History: Lives with his mother, works doing odd jobs, history of IV heroin abuse - Past Family History family Additional Family Medical History / Comment(s): States multiple family members with heart disease on his mother's side of the family. Medications and Allergies Home Medications Medication Instructions Recorded Confirmed Type Haloperidol [Haldol] 5 mg PO BID 05/29/18 05/29/18 History Allergies Allergy/AdvReac Type Severity Reaction Status Date / Time Penicillins Allergy Unknown Verified 05/29/18 16:38 piperacillin [From Zosyn] Allergy Unknown Verified 05/29/18 16:38 tazobactam [From Zosyn] Allergy Unknown Verified 05/29/18 16:38 Physical Exam Osteopathic Statement: *. No significant issues noted on an osteopathic structural exam other than those noted in the History and Physical/Consult. Vitals: Vital Signs Temp Pulse Resp BP Pulse Ox 05/29/18 15:49 129 H 18 138/68 100 05/29/18 15:23 133 H 18 157/86 98 05/29/18 14:11 98.8 F 137 H 24 161/97 99 Intake and Output 05/29/18 05/29/18 05/29/18 06:59 14:59 22:59 Other: Weight 81.647 kg General: non toxic, no distress, appears at stated age, normal weight Derm: no unusual rashes/lesions no unusual ecchymoses, warm, dry Head: atraumatic, normocephalic, symmetric Eyes: EOMI, no lid lag, anicteric sclera, dilated but reactive to light ENT: Nose and ears atraumatic, no thrush, no pharyngeal erythema Neck: No thyromegaly, no cervical lymphadenopathy, trachea midline, supple Mouth: no lip lesion, mucus membranes dry Cardiovascular: S1 and S2 tachycardic, no murmur, positive posterior tibial pulse bilateral, no edema, capillary refill less than 2 seconds Lungs: Decreased breath sounds bilateral bases, no rhonchi, no rales , no accessory muscle use Abdominal: soft, nontender to palpation, no guarding, no appreciable organomegaly, normal bowel sounds Ext: no gross muscle atrophy, muscle strength 5 out of 5 in all 4 extremities grossly, no contractures, Neuro: CN II-XI grossly intact, light touch intact all 4 extremities, finger to nose within normal limits, Psych: Alert, oriented, flight of ideas, difficulty sitting still Results CBC & Chem 7: 05/29/18 14:31 05/29/18 14:31 Labs: Abnormal Lab Results - Last 24 Hours (Table) 05/29/18 05/29/18 05/29/18 Range/Units 14:31 14:31 14:31 WBC 13.9 H (3.8-10.6) k/uL RBC 5.91 H (4.30-5.90) m/uL Neutrophils # 10.8 H (1.3-7.7) k/uL Monocytes # 1.3 H (0-1.0) k/uL INR 1.3 H (<1.2) Carbon Dioxide 18 L (22-30) mmol/L BUN 26 H (9-20) mg/dL Creatinine 1.90 H (0.66-1.25) mg/dL Glucose 127 H (74-99) mg/dL Calcium 10.6 H (8.4-10.2) mg/dL Total Bilirubin 1.7 H (0.2-1.3) mg/dL Total Protein 8.3 H (6.3-8.2) g/dL Albumin 5.1 H (3.5-5.0) g/dL Comments: EKG is reviewed by myself reveals sinus tachycardia at rate of 125. Prolonged QT interval with nonspecific ST-T wave changes. Normal axis Thrombosis Risk Factor Assmnt - DVT/VTE Prophylaxis DVT/VTE Prophylaxis: Pharmacologic Prophylaxis ordered Assessment and Plan Assessment: KAYLI due to dehydration - IVF - avoid nephrotoxic agents - repeat BMP in AM if not improved then renal ultrasound SIRS - no identified infection at this time - history of endocarditis - check blood cultures and UA, CXR is negative. Anion gap metabolic acidosis -Check stat lactic acid -IV fluids -Await urine drug screen -Check serum osmolality IVDA with meth - cesstion - ativan for withdrawal symptoms. Tobacco abuse - Cessation - nicotine replacement Tachycardia - likely due to dehydration, possibly due to betablocker withdrawal - resume home metoprolol The patient is admitted with an anticipated greater than 2 midnight stay for evaluation of acute kidney injury due to dehydration and systemic inflammatory response syndrome with high probability of infectious endocarditis. Surrogate decision-maker: Mother CODE STATUS:Full DVT prophylaxis: Lovenox Discussed with: Patient, ED physician Anticipated discharge date: 05/31/[address]: home A total of 65 minutes was spent on the care of this complex patient more than 50% of the time was spent in counseling and care coordination.
[2018-05-29] MEDS ORDERED: ACETAMINOPHEN TAB 325 MG TAB PO PRN (17:09)
[2018-05-29] MEDS ORDERED: HYDROcodone/APAP 5-325MG 1 EACH TAB PO PRN (17:09)
[2018-05-29 17:24] LABS: Cocaine Screen,Urine Not Detected (NotDetected); Phencyclidine Screen,Urine Not Detected (NotDetected); Urn Cannabinoid Scrn Detected (NotDetected)
[2018-05-29 17:25] LABS: Amphetamine Screen,Urine Detected (NotDetected); Barbiturate Screen,Urine Not Detected (NotDetected); Benzodiazepines Screen,Urine Detected (NotDetected); Methadone Screen, Urine Not Detected (NotDetected); Opiate Screen,Urine Not Detected (NotDetected); Oxycodone Screen, Urine Not Detected (NotDetected); Tricyclic Antidepressant,Urine Not Detected (NotDetected)
[2018-05-29] MEDS: METOPROLOL TARTRATE 25 MG TAB PO SCH (17:45)
[2018-05-29] MEDS: LORazepam 1 MG TAB PO PRN (17:45)
[2018-05-29 17:49] LABS: Appearance,Urine Cloudy (Clear); Bilirubin,Urine Negative (Negative); Blood,Urine Trace (Negative); Color,Urine Yellow; Glucose,Urine (UA) Negative (Negative); Hyaline Casts,Urine 116 /lpf (0-2); Ketones,Urine Trace (Negative); Leukocyte Esterase,Urine Negative (Negative); Mucus,Urine Moderate /hpf; Nitrite,Urine Negative (Negative); PH, Urine 5.5 (5.0-8.0); Protein,Urine 2+ (Negative); Specific Gravity,Urine 1.024 (1.001-1.035); Squamous Epithelial Cell,Urine 1 /hpf (0-4); WBC,Urine 3 /hpf (0-5)
[2018-05-29 21:56] VITALS: BMI 24.4
[2018-05-30] MEDS: SODIUM CHLORIDE 0.9% 1,000 ML IV SCH ×3 (00:30→08:58)
[2018-05-30] MEDS: LORazepam 1 MG TAB PO PRN (00:30)
[2018-05-30] MEDS ORDERED: HALOPERIDOL 5 MG TAB PO STA (00:59)
[2018-05-30 05:54] VITALS: RESP 16
[2018-05-30 06:16] LABS: HCT 41.7 % (39.0-53.0); HGB 13.7 gm/dL (13.0-17.5); MCH 28.3 pg (25.0-35.0); MCHC 32.9 g/dL (31.0-37.0); Mean Platelet Volume 6.7; Platelet Count 253 k/uL (150-450); RBC 4.84 m/uL (4.30-5.90); RDW 14.2 % (11.5-15.5); WBC 8.4 k/uL (3.8-10.6)
[2018-05-30 06:27] LABS: ALT 53 U/L (21-72); AST 39 U/L (17-59); Albumin 3.8 g/dL (3.5-5.0); Alkaline Phosphatase 68 U/L (38-126); Anion Gap 11 mmol/L; Blood Urea Nitrogen 25 mg/dL (9-20); Calcium 9.3 mg/dL (8.4-10.2); Carbon Dioxide 21 mmol/L (22-30); Chloride 110 mmol/L (98-107); Glucose 78 mg/dL (74-99); Potassium 4.1 mmol/L (3.5-5.1); Sodium 142 mmol/L (137-145); Total Bilirubin 1.2 mg/dL (0.2-1.3); Total Protein 6.3 g/dL (6.3-8.2)
[2018-05-30] MEDS ORDERED: PANTOPRAZOLE 40 MG TABLET PO SCH (07:30)
[2018-05-30] MEDS: METOPROLOL TARTRATE 25 MG TAB PO SCH (08:55)
[2018-05-30] MEDS ORDERED: NICOTINE 21MG/24HR PATCH TRANSDERM SCH (09:00)
[2018-05-30] MEDS ORDERED: ASPIRIN 81 MG PO SCH (09:00)
--- NOTE | 2018-05-30 11:17 | P.DS ---
Providers Date of admission: 05/29/18 16:19 Expected date of discharge: 05/30/18 Attending physician: Gwendolyn Dawn DO Primary care physician: Stated None Hospital Course: Discharge Diagnosis: Acute kidney injury due to dehydration Systemic inflammatory response syndrome. No evidence of sepsis. 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 In the emergency department he underwent an extensive evaluation. On arrival he was found to be tachycardic with a pulse of 137. Laboratory analysis reveals an elevated white blood cell count at 13.9. Elevated BUN 26 and elevated creatinine at 1.90. Patient also had an anion gap metabolic acidosis. He was given a dose of aspirin. A 1 L fluid bolus and 1 dose of Ativan. He was admitted with concern for developing sepsis with his history of endocarditis. He was started on IV fluids. Blood cultures were obtained. He did become agitated overnight requiring a sitter. By the morning after admission he was alert and oriented 3. He had a clear thought process was able to understand his reason for hospitalization. His labs are back to baseline. He had not developed any fevers. He was determined stable for discharge and had improved faster than anticipated. He will need to establish a primary care physician is given the [facility]. He will also need to follow with cardiology and has given Dr. Singer information. He was out of his metoprolol at home and this will be refilled for him. He was also informed to start taking his baby aspirin again. We discussed staying hydrated over the next several days. We also discussed abstaining from illicit substances and thinking about going back to rehab. He was discharged home in stable condition. Patient seen and examined at bedside. No chest pain, shortness of breath, nausea, or vomiting. Feeling better than yesterday but still tired. Vital signs reviewed and stable. General: non toxic, no distress, appears at stated age, disheveled Derm: warm, dry Head: atraumatic, normocephalic, symmetric Eyes: EOMI, no lid lag, anicteric sclera Mouth: no lip lesion, mucus membranes moist Cardiovascular: S1S2 reg, no murmur, positive posterior tibial pulse bilateral, Lungs: CTA bilateral, no rhonchi, no rales , no accessory muscle use Abdominal: soft, nontender to palpation, no guarding, no appreciable organomegaly Ext: no gross muscle atrophy, no edema, no contractures Neuro: CN II-XI grossly intact, no focal neuro deficits Psych: Alert, oriented, appropriate affect A total of 25 minutes of time were spent preparing this complex discharge summary . Patient Condition at Discharge: Fair Plan - Discharge Summary New Discharge Prescriptions: New Aspirin 81 mg PO DAILY chew Metoprolol Tartrate [Lopressor] 25 mg PO DAILY #30 tab Discontinued Haloperidol [Haldol] 5 mg PO BID Discharge Medication List Aspirin 81 mg PO DAILY chew 05/30/18 [Rx] Metoprolol Tartrate [Lopressor] 25 mg PO DAILY #30 tab 05/30/18 [Rx] Follow up Appointment(s)/Referral(s): None,Stated [Primary Care Provider] - 1-2 days [facility] [NON-STAFF] - 1 Week Roberto Singer MD [STAFF PHYSICIAN] - 1 Week Patient Instructions/Handouts: Dehydration (DC) Activity/Diet/Wound Care/Special Instructions: Heart healthy diet activity as tolerated Abstain from illicit drugs Discharge Disposition: HOME SELF-CARE
[2018-05-30 11:57] VITALS: BP 101/55; PULSE 66; TEMP 97.6
== END 2018-05-30 13:46 | disposition home or self-care (01) ==
LOC: EC 13:50 → INTOOBSV 16:19 → 6SEL 16:19 → UNDODISIN 05-30 13:46
PROVIDERS: ADMIT Internal Medicine; ATTEND Internal Medicine
DX: N17.9 Acute kidney failure, unspecified (principal); E86.0 Dehydration; R65.10 Systemic inflammatory response syndrome (SIRS) of non-infectious origin without acute organ dysfunction; E87.2 Acidosis; F15.93 Other stimulant use, unspecified with withdrawal; F17.200 Nicotine dependence, unspecified, uncomplicated; F31.9 Bipolar disorder, unspecified; Z95.2 Presence of prosthetic heart valve; I10 Essential (primary) hypertension; R45.1 Restlessness and agitation; Z79.82 Long term (current) use of aspirin; Z79.899 Other long term (current) drug therapy; Z88.1 Allergy status to other antibiotic agents; Z88.0 Allergy status to penicillin; Z82.49 Family history of ischemic heart disease and other diseases of the circulatory system; Z71.6 Tobacco abuse counseling; Z71.51 Drug abuse counseling and surveillance of drug abuser; T44.7X5A Adverse effect of beta-adrenoreceptor antagonists, initial encounter; I45.81 Long QT syndrome; T39.016A Underdosing of aspirin, initial encounter; T44.7X6A Underdosing of beta-adrenoreceptor antagonists, initial encounter; R06.02 Shortness of breath
CPT/HCPCS: 96366 ×2; 96361 ×3; 96365; 96375; 99285; 36415; 93005; 83930; 80053 ×2; 83605; 83735 ×2; 84484; 85025; 85027; 85610; 85730; 81001; 87040; 80306; 71046; G0378 ×2; S4990; J2060; J3475

== ENCOUNTER 2018-07-31 18:23 | Emergency (ER) | payer OTHER ==
[2018-07-31] MEDS ORDERED: SODIUM CHLORIDE 0.9% 1,000 ML IV STA (19:04)
[2018-07-31] MEDS ORDERED: SODIUM CHLORIDE 0.9% 2,000 ML IV STA (19:04)
--- NOTE | 2018-07-31 19:25 | XR ---
EXAMINATION TYPE: XR chest 2V DATE OF EXAM: 07/31/2018 COMPARISON: 05/29/2018 HISTORY: 22-year-old male with chest pain TECHNIQUE: PA and lateral views FINDINGS: The cardiomediastinal silhouette, aorta, and pulmonary vasculature are within normal limits. Median s ternotomy wires are present with prosthetic cardiac valve. Increased AP chest dimension. Lungs and pl eural spaces are clear. IMPRESSION: Prosthetic cardiac valve. No acute cardiopulmonary process.
[2018-07-31 19:43] VITALS: TEMP 97.7
[2018-07-31 19:43] LABS: Basophils % (A) 0 %; Eosinophils # (A) 0.1 k/uL (0-0.7); Eosinophils % (A) 1 %; HCT 50.3 % (39.0-53.0); HGB 16.3 gm/dL (13.0-17.5); Lymphocytes % (A) 8 %; MCH 28.1 pg (25.0-35.0); MCHC 32.4 g/dL (31.0-37.0); MCV 86.8 fL (80.0-100.0); Mean Platelet Volume 6.8; Monocytes # (A) 1.1 k/uL (0-1.0); Monocytes % (A) 9 %; Neutrophils # (A) 9.9 k/uL (1.3-7.7); Neutrophils % (A) 81 %; Platelet Count 287 k/uL (150-450); RDW 15.2 % (11.5-15.5); WBC 12.2 k/uL (3.8-10.6)
[2018-07-31 19:52] LABS: INR 1.2 (<1.2); Partial Thromboplastin Time 23.4 sec (22.0-30.0); Prothrombin Time 11.8 sec (9.0-12.0)
[2018-07-31 19:53] LABS: Albumin 5.8 g/dL (3.5-5.0); Magnesium 1.7 mg/dL (1.6-2.3); Total Bilirubin 1.8 mg/dL (0.2-1.3); Total Protein 9.9 g/dL (6.3-8.2)
[2018-07-31 20:37] VITALS: BP 122/36; PULSE 111; RESP 20
--- NOTE | 2018-07-31 20:49 | ED ---
General Adult HPI - General Chief complaint: Recheck/Abnormal Lab/Rx Stated complaint: cough Time Seen by Provider: 07/31/18 18:53 Source: patient Mode of arrival: ambulatory Limitations: no limitations - History of Present Illness Initial comments: Patient is a 22-year-old male presenting with a history of alcohol and drug abuse. 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 The pain was a stabbing sensation without radiation and he said that his heart rate was 180. He also admits to having at least 30 episodes of vomiting but no diarrhea and stated that he was lightheaded. Initially, he said that he uses no drugs within the last couple weeks but then finally admitted to using methamphetamine this morning. - Related Data Previous Rx's Medication Instructions Recorded Aspirin 81 mg PO DAILY chew 05/30/18 Metoprolol Tartrate 25 mg PO BID #60 tab 05/30/18 Allergies Allergy/AdvReac Type Severity Reaction Status Date / Time Penicillins Allergy Unknown Verified 07/31/18 18:40 piperacillin [From Zosyn] Allergy Unknown Verified 07/31/18 18:40 tazobactam [From Zosyn] Allergy Unknown Verified 07/31/18 18:40 Review of Systems ROS Statement: Those systems with pertinent positive or pertinent negative responses have been documented in the HPI. Constitutional: Negative for chills, fatigue and fever. HENT: Negative for congestion. Respiratory: Negative for chest tightness, shortness of breath and wheezing. Negative for cough Cardiovascular: Negative for chest pain and palpitations. Gastrointestinal: Positive for abdominal pain. Negative for abdominal distention , diarrhea, positive for nausea and vomiting. Genitourinary: Negative for dysuria. Musculoskeletal: Negative for back pain, neck pain and neck stiffness. Skin: Negative for color change. Neurological: Negative for dizziness, speech difficulty, weakness and positive for light-headedness. Psychiatric/Behavioral: Negative for agitation and confusion. Negative for anxiety ROS Other: All systems not noted in ROS Statement are negative. 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 Past Psychological History: Bipolar, Depression Smoking Status: Current every day smoker Past Alcohol Use History: Rare Past Drug Use History: Heroin, IV Drug Use, Marijuana, Methamphetamine - Past Family History family Additional Family Medical History / Comment(s): States multiple family members with heart disease on his mother's side of the family. General Exam - General Exam Comments Initial Comments: Constitutional: Pt is oriented to person, place, and time. Pt appears well- developed and well-nourished. No distress. HENT: Head: Normocephalic and atraumatic. Eyes: EOM are normal. Pupils 7-8 mm bilaterally and reactive Neck: Normal range of motion. Neck supple. Cardiovascular: Tachycardic, regular rhythm, S1 normal, S2 normal and normal heart sounds. Exam reveals no gallop and no friction rub. No murmur heard. Pulmonary/Chest: Effort normal and breath sounds normal. No tachypnea and no bradypnea. No respiratory distress. No wheezes or rales noted. Abdominal: Soft. Bowel sounds are normal. Pt exhibits no shifting dullness, no distension, no pulsatile liver, no fluid wave, no abdominal bruit and no ascites. There is no tenderness. There is no rigidity, no rebound, no guarding, no tenderness at McBurney's point and negative Liu's sign. Musculoskeletal: Normal range of motion. Neurological: Pt is alert and oriented to person, place, and time. No cranial nerve deficit. Skin: Skin is warm and dry. No rash noted. Pt is not diaphoretic. No erythema. No pallor. Psychiatric: Pt has a normal mood and affect. Pt behavior is normal. Thought content normal. Limitations: no limitations Course Vital Signs 07/31/18 07/31/18 07/31/18 18:37 19:42 20:00 Temperature 99.1 F 97.7 F Pulse Rate 134 H 119 H 111 H Respiratory 18 18 20 Rate Blood Pressure 133/73 123/77 122/36 O2 Sat by Pulse 98 99 97 Oximetry - Reevaluation(s) Reevaluation #1: 07/31/18 20:58 Patient was explained that he had evidence of acute kidney injury and that he should be admitted to hospital. However, he stated that he did not want to and he would like to leave. It was explained that this would not be advisable as leaving AGAINST MEDICAL ADVICE could result in or disability. He expressed understanding and stated that he was willing to take that risk. He also requested a prescription for metoprolol but is explained that this would not be appropriate as he was still tachycardic in the 125 and the evaluation and workup has not been completed. Nonetheless, he was advised to follow-up with cardiology and GI an outpatient basis and/or return to emergency department if the symptoms worsen.. EKG Findings - EKG Comments: EKG Findings:: EKG shows sinus tachycardia rate of 113, NV interval 126, QRS 100 , QTC 559. There is no significant ST depressions or elevations. Medical Decision Making - Medical Decision Making As described in the progress note section, patient left against bilingual medical assistant. It was also explained to him that he had prolonged QTC and that this could result in arrhythmias which could be fatal.Explained all labs and diagnostic test results and that we will discharge the patient home and patient is to follow up with PCP in 1-2 days and return to the ED if symptoms worsen. Pt is agreeable to plan. - Lab Data Result diagrams: 07/31/18 19:33 07/31/18 19:33 Lab Results 07/31/18 07/31/18 07/31/18 Range/Units 19:33 19:33 19:33 WBC 12.2 H (3.8-10.6) k/uL RBC 5.80 (4.30-5.90) m/uL Hgb 16.3 (13.0-17.5) gm/dL Hct 50.3 (39.0-53.0) % MCV 86.8 (80.0-100.0) fL MCH 28.1 (25.0-35.0) pg MCHC 32.4 (31.0-37.0) g/dL RDW 15.2 (11.5-15.5) % Plt Count 287 (150-450) k/uL Neutrophils % 81 % Lymphocytes % 8 % Monocytes % 9 % Eosinophils % 1 % Basophils % 0 % Neutrophils # 9.9 H (1.3-7.7) k/uL Lymphocytes # 1.0 (1.0-4.8) k/uL Monocytes # 1.1 H (0-1.0) k/uL Eosinophils # 0.1 (0-0.7) k/uL Basophils # 0.0 (0-0.2) k/uL PT 11.8 (9.0-12.0) sec INR 1.2 H (<1.2) APTT 23.4 (22.0-30.0) sec Sodium 145 (137-145) mmol/L Potassium 5.0 (3.5-5.1) mmol/L Chloride 100 (98-107) mmol/L Carbon Dioxide 21 L (22-30) mmol/L Anion Gap 24 mmol/L BUN 37 H (9-20) mg/dL Creatinine 2.14 H (0.66-1.25) mg/dL Est GFR (CKD-EPI)AfAm 49 (>60 ml/min/1.73 sqM) Est GFR (CKD-EPI)NonAf 42 (>60 ml/min/1.73 sqM) Glucose 86 (74-99) mg/dL Calcium 11.0 H (8.4-10.2) mg/dL Magnesium 1.7 (1.6-2.3) mg/dL Total Bilirubin 1.8 H (0.2-1.3) mg/dL AST 62 H (17-59) U/L ALT 26 (21-72) U/L Alkaline Phosphatase 106 (38-126) U/L Troponin I (0.000-0.034) ng/mL Total Protein 9.9 H (6.3-8.2) g/dL Albumin 5.8 H (3.5-5.0) g/dL Lipase (23-300) U/L 07/31/18 07/31/18 Range/Units 19:33 19:33 WBC (3.8-10.6) k/uL RBC (4.30-5.90) m/uL Hgb (13.0-17.5) gm/dL Hct (39.0-53.0) % MCV (80.0-100.0) fL MCH (25.0-35.0) pg MCHC (31.0-37.0) g/dL RDW (11.5-15.5) % Plt Count (150-450) k/uL Neutrophils % % Lymphocytes % % Monocytes % % Eosinophils % % Basophils % % Neutrophils # (1.3-7.7) k/uL Lymphocytes # (1.0-4.8) k/uL Monocytes # (0-1.0) k/uL Eosinophils # (0-0.7) k/uL Basophils # (0-0.2) k/uL PT (9.0-12.0) sec INR (<1.2) APTT (22.0-30.0) sec Sodium (137-145) mmol/L Potassium (3.5-5.1) mmol/L Chloride (98-107) mmol/L Carbon Dioxide (22-30) mmol/L Anion Gap mmol/L BUN (9-20) mg/dL Creatinine (0.66-1.25) mg/dL Est GFR (CKD-EPI)AfAm (>60 ml/min/1.73 sqM) Est GFR (CKD-EPI)NonAf (>60 ml/min/1.73 sqM) Glucose (74-99) mg/dL Calcium (8.4-10.2) mg/dL Magnesium (1.6-2.3) mg/dL Total Bilirubin (0.2-1.3) mg/dL AST (17-59) U/L ALT (21-72) U/L Alkaline Phosphatase (38-126) U/L Troponin I 0.023 (0.000-0.034) ng/mL Total Protein (6.3-8.2) g/dL Albumin (3.5-5.0) g/dL Lipase 33 (23-300) U/L Disposition Clinical Impression: Hematemesis, Tachycardia, Acute kidney injury Disposition: Left Against Medical Advice Condition: Poor Referrals: None,Stated [Primary Care Provider] - 1-2 days Zhane Bar MD [STAFF PHYSICIAN] - 1-2 days Dhruv Bar MD [STAFF PHYSICIAN] - 1-2 days Time of Disposition: 21:01
== END 2018-07-31 21:08 | disposition left against medical advice (07) ==
LOC: EC 18:23
DX: N17.9 Acute kidney failure, unspecified (principal); K92.0 Hematemesis; R00.0 Tachycardia, unspecified; F17.200 Nicotine dependence, unspecified, uncomplicated; Z88.0 Allergy status to penicillin; Z88.1 Allergy status to other antibiotic agents; Z95.2 Presence of prosthetic heart valve
CPT/HCPCS: 36415; 71046; 80053; 83690; 83735; 84484; 85025; 85610; 85730; 93005; 96360; 99284

== ENCOUNTER 2018-08-01 10:34 | Emergency (ER) | payer OTHER ==
[2018-08-01 10:43] VITALS: TEMP 98.2
[2018-08-01] MEDS ORDERED: SODIUM CHLORIDE 0.9% 1,000 ML IV STA (10:59)
[2018-08-01 11:29] LABS: Basophils % (A) 0 %; Eosinophils # (A) 0.1 k/uL (0-0.7); Eosinophils % (A) 1 %; HCT 47.7 % (39.0-53.0); Lymphocytes # (A) 1.6 k/uL (1.0-4.8); Lymphocytes % (A) 16 %; MCH 28.5 pg (25.0-35.0); MCHC 33.6 g/dL (31.0-37.0); MCV 84.7 fL (80.0-100.0); Mean Platelet Volume 7.3; Monocytes # (A) 1.1 k/uL (0-1.0); Monocytes % (A) 11 %; Neutrophils # (A) 6.8 k/uL (1.3-7.7); Neutrophils % (A) 68 %; Platelet Count 286 k/uL (150-450); RBC 5.63 m/uL (4.30-5.90); RDW 15.3 % (11.5-15.5); WBC 9.9 k/uL (3.8-10.6)
--- NOTE | 2018-08-01 11:30 | ED ---
General Adult HPI - General Chief complaint: Recheck/Abnormal Lab/Rx Stated complaint: hematemesis Source: patient Mode of arrival: ambulatory Limitations: no limitations - History of Present Illness Initial comments: Dictation was produced using [facility] dictation software. please excuse any grammatical, word or spelling errors. Chief Complaint: 22-year-old male with past medical history of polysubstance abuse presents after leaving AMA yesterday for acute kidney injury and GI bleed. History of Present Illness: Patient is a 22 male who was seen in the emergency department yesterday. He was diagnosed with acute kidney injury and GI bleed. He was told that they would like to admit him to the emergency department yesterday however he left AGAINST MEDICAL ADVICE due to personal reasons. Patient states that he went to work earlier today however left. Patient denies any other complaints. The ROS documented in this emergency department record has been reviewed and confirmed by me. Those systems with pertinent positive or negative responses have been documented in the HPI. All other systems are other negative and/or noncontributory. - Related Data Previous Rx's Medication Instructions Recorded Aspirin 81 mg PO DAILY chew 05/30/18 Metoprolol Tartrate 25 mg PO BID #60 tab 05/30/18 Famotidine [Pepcid] 40 mg PO BID #20 tab 08/01/18 Metoprolol Tartrate [Lopressor] 25 mg PO BID #20 tablet 08/01/18 Allergies Allergy/AdvReac Type Severity Reaction Status Date / Time Penicillins Allergy Unknown Verified 08/01/18 10:43 piperacillin [From Zosyn] Allergy Unknown Verified 08/01/18 10:43 tazobactam [From Zosyn] Allergy Unknown Verified 08/01/18 10:43 Review of Systems ROS Statement: Those systems with pertinent positive or pertinent negative responses have been documented in the HPI. ROS Other: All systems not noted in ROS Statement are negative. 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 Past Psychological History: Bipolar, Depression Smoking Status: Current every day smoker Past Alcohol Use History: Rare Past Drug Use History: IV Drug Use, Marijuana, Methamphetamine - Past Family History family Additional Family Medical History / Comment(s): States multiple family members with heart disease on his mother's side of the family. General Exam - General Exam Comments Initial Comments: PHYSICAL EXAM: General Impression: Alert and oriented x3, not in acute distress HEENT: Normocephalic atraumatic, extra-ocular movements intact, pupils equal and reactive to light bilaterally, mucous membranes moist. Cardiovascular: Heart regular rate and rhythm, S1&S2 audible, no murmurs, rubs or gallops Chest: Lungs clear to auscultation bilaterally, no rhonchi, no wheeze, no rales Abdomen: Bowel sounds present, abdomen soft, non-tender, non-distended, no organomegaly Musculoskeletal: Pulses present and equal in all extremities, no peripheral edema Motor: Power 5/5 bilaterally, no focal deficits noted Neurological: CN II-XII grossly intact, no focal motor or sensory deficits noted Skin: Intact with no visualized rashes Psych: Normal affect and mood Limitations: no limitations Course Vital Signs 08/01/18 08/01/18 10:40 10:56 Temperature 98.2 F Pulse Rate 114 H Pulse Rate [ 114 H Pulse Oximetery ] Respiratory 16 Rate Blood Pressure 123/68 O2 Sat by Pulse 98 Oximetry Medical Decision Making - Medical Decision Making ED course: 32-year-old male presents after being diagnosed yesterday for acute kidney injury and GI bleed presents after leaving AMA yesterday. As upon arrival shows heart rate of 114. Repeat labs obtained. CBC is unremarkable. Hemoglobin stable at 16.0. Cardiac panel is negative. Metabolic panel shows cranial 1.05 which is dramatically improved from yesterday. Patient states he has been hydrating himself since yesterday. Mom hyperglycemia 113. Rest of laboratory evaluation obtained is within acceptable limits. Patient has a bilirubin of 1.8. not having any right upper quadrant symptoms. X-ray of the abdomen and chest shows no acute processes. Patient was not expecting any episodes of emesis or diarrhea in the emergency department. He is given GI follow-up. Patient also given prescription for Pepcid. Still to follow-up with the GI doctor for likely upper endoscopy for possible gastritis versus peptic ulcer disease. Patient is understandable and agreeable to discharge. He is told to come back to the emergency Department with any worsening symptoms. He also requested refill on his metoprolol. EKG Interpretation: A 12 lead EKG was obtained. It was interpreted by myself and attending physician. There is a P wave before every QRS complex. Rate is 103. Rhythm is sinus tachycardia, ID interval 122, QRS 94, QTc 442. QT is not prolonged. No ST segment depression or elevation. Overall, this EKG is unremarkable - Lab Data Result diagrams: 08/01/18 11:17 08/01/18 11:17 Lab Results 08/01/18 08/01/18 08/01/18 Range/Units 11:17 11:17 11:17 WBC 9.9 (3.8-10.6) k/uL RBC 5.63 (4.30-5.90) m/uL Hgb 16.0 (13.0-17.5) gm/dL Hct 47.7 (39.0-53.0) % MCV 84.7 (80.0-100.0) fL MCH 28.5 (25.0-35.0) pg MCHC 33.6 (31.0-37.0) g/dL RDW 15.3 (11.5-15.5) % Plt Count 286 (150-450) k/uL Neutrophils % 68 % Lymphocytes % 16 % Monocytes % 11 % Eosinophils % 1 % Basophils % 0 % Neutrophils # 6.8 (1.3-7.7) k/uL Lymphocytes # 1.6 (1.0-4.8) k/uL Monocytes # 1.1 H (0-1.0) k/uL Eosinophils # 0.1 (0-0.7) k/uL Basophils # 0.0 (0-0.2) k/uL PT 11.5 (9.0-12.0) sec INR 1.2 H (<1.2) Sodium 140 (137-145) mmol/L Potassium 3.6 (3.5-5.1) mmol/L Chloride 103 (98-107) mmol/L Carbon Dioxide 22 (22-30) mmol/L Anion Gap 15 mmol/L BUN 29 H (9-20) mg/dL Creatinine 1.05 (0.66-1.25) mg/dL Est GFR (CKD-EPI)AfAm >90 (>60 ml/min/1.73 sqM) Est GFR (CKD-EPI)NonAf >90 (>60 ml/min/1.73 sqM) Glucose 113 H (74-99) mg/dL Calcium 10.0 (8.4-10.2) mg/dL Total Bilirubin 1.8 H (0.2-1.3) mg/dL AST 62 H (17-59) U/L ALT 32 (21-72) U/L Alkaline Phosphatase 80 (38-126) U/L Total Protein 8.0 (6.3-8.2) g/dL Albumin 4.8 (3.5-5.0) g/dL Lipase 27 (23-300) U/L Disposition Clinical Impression: Dehydration Disposition: HOME SELF-CARE Condition: Good Prescriptions: Famotidine [Pepcid] 40 mg PO BID #20 tab Metoprolol Tartrate [Lopressor] 25 mg PO BID #20 tablet Is patient prescribed a controlled substance at d/c from ED?: No Referrals: None,Stated [Primary Care Provider] - 1-2 days Maik Castillo MD [STAFF PHYSICIAN] - 1-2 days Time of Disposition: 12:23
[2018-08-01 11:40] LABS: ALT 32 U/L (21-72); AST 62 U/L (17-59); Albumin 4.8 g/dL (3.5-5.0); Alkaline Phosphatase 80 U/L (38-126); Anion Gap 15 mmol/L; Blood Urea Nitrogen 29 mg/dL (9-20); Carbon Dioxide 22 mmol/L (22-30); Chloride 103 mmol/L (98-107); Glucose 113 mg/dL (74-99); Lipase 27 U/L (23-300); Potassium 3.6 mmol/L (3.5-5.1); Sodium 140 mmol/L (137-145); Total Bilirubin 1.8 mg/dL (0.2-1.3)
[2018-08-01 11:48] LABS: INR 1.2 (<1.2); Prothrombin Time 11.5 sec (9.0-12.0)
--- NOTE | 2018-08-01 12:05 | XR ---
EXAMINATION TYPE: Acute abdominal series DATE OF EXAM: 08/01/2018 COMPARISON: Chest 07/31/2020 HISTORY: 22-year-old male acute kidney injury, GI bleed, pain TECHNIQUE: Supine, upright, and left side down lateral decubitus views of the abdomen are obtained. FINDINGS: Portable view of the chest is stable with median sternotomy wires, prosthetic cardiac valve, normal a blanche, and pulmonary vasculature. Hazy peripheral mid to lower lung densities likely relate to overlyi ng soft tissue. No consolidation or pleural effusion. No evidence for free intraperitoneal air. No dilated small bowel or air-fluid levels. No significant stool burden. Scattered air is seen throughout the colon extending distally into the rectum. Calcifications in the pelvis likely represent phleboliths. No suspicious calcifications are seen. IMPRESSION: 1. Stable exam of the chest without acute process. 2. No evidence for free air or bowel obstruction. No significant stool burden.
[2018-08-01 12:40] VITALS: BP 125/69; PULSE 68; RESP 18
[2018-08-03 09:58] LABS: Hemoglobin A1C 4.8 % (4.0-6.0)
== END 2018-08-01 12:47 | disposition home or self-care (01) ==
LOC: EC 10:34
DX: E86.0 Dehydration (principal); R73.9 Hyperglycemia, unspecified; R00.0 Tachycardia, unspecified; F17.200 Nicotine dependence, unspecified, uncomplicated; Z88.0 Allergy status to penicillin; Z95.2 Presence of prosthetic heart valve; Z82.49 Family history of ischemic heart disease and other diseases of the circulatory system; Z53.20 Procedure and treatment not carried out because of patient's decision for unspecified reasons
CPT/HCPCS: 36415; 74022; 80053; 83036; 83690; 85025; 85610; 86850; 86900; 86901; 93005; 99285

== ENCOUNTER 2018-08-28 19:52 | Inpatient (IN) | payer MEDICAID, OTHER ==
--- NOTE | 2018-08-28 20:48 | ED ---
Psych HPI - General Source: patient, RN notes reviewed Mode of arrival: ambulatory Limitations: no limitations <Flor Mak - Last Filed: 08/29/18 02:58> <Dandy Cole - Last Filed: 08/29/18 07:01> <Cricket Alan - Last Filed: 08/30/18 14:34> - General Chief Complaint: Psychiatric Symptoms Stated Complaint: Mental Health Time Seen by Provider: 08/28/18 20:13 - History of Present Illness Initial Comments: This is a 22-year-old male who presents to the emergency department for mental health evaluation. Patient reports doing methamphetamine at 3 AM. He states that he does frequently do methamphetamine. He reports a history of bipolar depression. He states that he used to take medication for it but has not been taking it for the past 7-8 months. Patient states that throughout the day today he feels like he was being followed by a regional director. He states that he feels suicidal. He states earlier today he tied a brick to his leg and planned on drowning himself. Instead, he called his mom and came to the emergency department. He denies any auditory hallucinations. States he does methamphetamine and marijuana. Denies alcohol use. Patient does report a history of endocarditis with valve replacement in 2011. He denies any recent fevers or chills, chest pain or shortness of breath, abdominal pain, nausea or vomiting. He states he is prescribed something for hypertension but lost it a while back. (Flor Mak) - Related Data Previous Rx's Medication Instructions Recorded Aspirin 81 mg PO DAILY chew 05/30/18 Metoprolol Tartrate 25 mg PO BID #60 tab 05/30/18 Famotidine [Pepcid] 40 mg PO BID #20 tab 08/01/18 Metoprolol Tartrate [Lopressor] 25 mg PO BID #20 tablet 08/01/18 Allergies Allergy/AdvReac Type Severity Reaction Status Date / Time Penicillins Allergy Unknown Verified 08/28/18 19:58 piperacillin [From Zosyn] Allergy Unknown Verified 08/28/18 19:58 tazobactam [From Zosyn] Allergy Unknown Verified 08/28/18 19:58 Review of Systems ROS Other: All systems not noted in ROS Statement are negative. <Flor Mak - Last Filed: 08/29/18 02:58> ROS Other: All systems not noted in ROS Statement are negative. <Dandy Cole - Last Filed: 08/29/18 07:01> ROS Other: All systems not noted in ROS Statement are negative. <Cricket Alan - Last Filed: 08/30/18 14:34> ROS Statement: Those systems with pertinent positive or pertinent negative responses have been documented in the HPI. 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 Past Psychological History: Bipolar, Depression Smoking Status: Current every day smoker Past Alcohol Use History: None Reported Past Drug Use History: IV Drug Use, Marijuana, Methamphetamine - Past Family History family Additional Family Medical History / Comment(s): States multiple family members with heart disease on his mother's side of the family. <Flor Mak - Last Filed: 08/29/18 02:58> General Exam Limitations: no limitations <lFor Mak - Last Filed: 08/29/18 02:58> <Dandy Cole - Last Filed: 08/29/18 07:01> <Cricket Alan - Last Filed: 08/30/18 14:34> - General Exam Comments Initial Comments: General: Awake and alert, well-developed; in no apparent distress. HEENT: Head atraumatic, normocephalic. Pupils are equal, round and reactive to light. Pupils are equally dilated. Extraocular movements intact. Oropharynx moist without erythema or exudate. Neck: Supple. Normal ROM. Cardiovascular: Regular rate and rhythm. No murmurs, rubs or gallops. Chest symmetrical. Respiratory: Lungs clear to auscultation bilaterally. No wheezes, rales or rhonchi. Normal respiratory effort with no use of accessory muscles. Musculoskeletal: Normal ROM, no tenderness bilateral upper and lower extremities. Ambulating normally. Skin: [place], warm and dry. Neurological: Alert and oriented x3. CN II-XII grossly intact. Speech is fluent and answers are appropriate. No focal neuro deficits. Psychiatric: Anxious and shaking. Hyperverbal. Paranoid. (Flor Mak) Course <Flor Mak - Last Filed: 08/29/18 02:58> <Dandy Cole - Last Filed: 08/29/18 07:01> <Cricket Alan - Last Filed: 08/30/18 14:34> Vital Signs 08/28/18 08/28/18 08/29/18 19:54 23:43 12:15 Temperature 97.6 F 97.6 F Pulse Rate 124 H 110 H 76 Respiratory 18 20 16 Rate Blood Pressure 158/82 153/98 95/54 O2 Sat by Pulse 97 99 Oximetry 08/29/18 08/30/18 08/30/18 19:18 06:39 13:02 Temperature 97.6 F 97.8 F Pulse Rate 81 65 86 Respiratory 16 16 18 Rate Blood Pressure 107/55 124/70 127/68 O2 Sat by Pulse 100 97 100 Oximetry - Reevaluation(s) Reevaluation #1: Patient evaluated by [facility] and they are recommending admission for suicidal ideation and paranoia. Petition signed by the EPS nurseEugenia. Labs are drawn for pending transfer. 08/28/18 23:28 (Flor Mak) Medical Decision Making - Lab Data Result diagrams: 08/28/18 23:23 08/28/18 23:23 <Flor Mak - Last Filed: 08/29/18 02:58> - Lab Data Result diagrams: 08/28/18 23:23 08/28/18 23:23 <Dandy Cole - Last Filed: 08/29/18 07:01> - Lab Data Result diagrams: 08/28/18 23:23 08/28/18 23:23 <Cricket Alan - Last Filed: 08/30/18 14:34> - Medical Decision Making This is a 22-year-old male who presents to the emergency department for mental health evaluation. Patient does admit to taking methamphetamine. He reports a history of bipolar depression. He states today he has been paranoid about a regional director following him. He also reports suicidal ideation and plans. He was evaluated by [facility] and they are recommending inpatient treatment. Petition filled out by [facility] nurseEugenia and cert is completed by attending physician, Dr. Cole. (Flor Mak) I saw this patient in conjunction with the physician gallery assistant. I performed independent history and physical exam. Agree with case management. I did see this patient and conduct history and physical. He is displaying disorganized thought processes as well as delusional thought content, being very paranoid as well. He is not completely forthcoming but does discuss suicidal ideation. The clinical certification is completed. (Dandy Cole) Notified by mental health services that repeat certificate would need to be done and that they would admit patient. Patient reevaluated by myself, Dr. Alan. Patient admits to feeling paranoid and does relate this with his methamphetamine use. Patient states he has been using methamphetamine intermittently over the past 6 months. Patient has not been sleeping for 2 days prior to coming to the hospital. Patient states he has slept very well since being here. Patient states he did have suicidal thoughts. Patient states his paranoia was related to thinking the police were going to get him for his warrants. Positive clinical certificate completed again. Previous certificate was completed by Dr. Beal. (Cricket Alan) - Lab Data Lab Results 08/28/18 08/28/18 08/29/18 Range/Units 23:23 23:23 09:55 WBC 7.9 (3.8-10.6) k/uL RBC 5.27 (4.30-5.90) m/uL Hgb 15.1 (13.0-17.5) gm/dL Hct 46.7 (39.0-53.0) % MCV 88.6 (80.0-100.0) fL MCH 28.6 (25.0-35.0) pg MCHC 32.3 (31.0-37.0) g/dL RDW 15.2 (11.5-15.5) % Plt Count 233 (150-450) k/uL Neutrophils % 64 % Lymphocytes % 23 % Monocytes % 9 % Eosinophils % 1 % Basophils % 0 % Neutrophils # 5.0 (1.3-7.7) k/uL Lymphocytes # 1.8 (1.0-4.8) k/uL Monocytes # 0.7 (0-1.0) k/uL Eosinophils # 0.1 (0-0.7) k/uL Basophils # 0.0 (0-0.2) k/uL Sodium 141 (137-145) mmol/L Potassium 4.3 (3.5-5.1) mmol/L Chloride 108 H (98-107) mmol/L Carbon Dioxide 21 L (22-30) mmol/L Anion Gap 12 mmol/L BUN 15 (9-20) mg/dL Creatinine 0.95 (0.66-1.25) mg/dL Est GFR (CKD-EPI)AfAm >90 (>60 ml/min/1.73 sqM) Est GFR (CKD-EPI)NonAf >90 (>60 ml/min/1.73 sqM) Glucose 69 L (74-99) mg/dL Calcium 9.8 (8.4-10.2) mg/dL Total Bilirubin 1.9 H (0.2-1.3) mg/dL AST 43 (17-59) U/L ALT 29 (21-72) U/L Alkaline Phosphatase 82 (38-126) U/L Total Protein 7.8 (6.3-8.2) g/dL Albumin 4.7 (3.5-5.0) g/dL Urine Color Yellow Urine Appearance Cloudy (Clear) Urine pH 5.5 (5.0-8.0) Ur Specific [place] 1.029 (1.001-1.035) Urine Protein 1+ H (Negative) Urine Glucose (UA) Negative (Negative) Urine Ketones 1+ H (Negative) Urine Blood Negative (Negative) Urine Nitrite Negative (Negative) Urine Bilirubin Negative (Negative) Urine Urobilinogen 3.0 (<2.0) mg/dL Ur Leukocyte Esterase Negative (Negative) Urine RBC 1 (0-5) /hpf Urine WBC 6 H (0-5) /hpf Urine Mucus Many H (None) /hpf Urine Opiates Screen Not Detected (NotDetected) Ur Oxycodone Screen Not Detected (NotDetected) Urine Methadone Screen Not Detected (NotDetected) Ur Propoxyphene Screen Not Detected (NotDetected) Ur Barbiturates Screen Not Detected (NotDetected) U Tricyclic Antidepress Not Detected (NotDetected) Ur Phencyclidine Scrn Not Detected (NotDetected) Ur Amphetamines Screen Detected H (NotDetected) U Methamphetamines Scrn Detected H (NotDetected) U Benzodiazepines Scrn Detected H (NotDetected) Urine Cocaine Screen Detected H (NotDetected) U Marijuana (THC) Screen Detected H (NotDetected) Disposition Is patient prescribed a controlled substance at d/c from ED?: No <Flor Mak - Last Filed: 08/29/18 02:58> <Dandy Cole - Last Filed: 08/29/18 07:01> <Cricket Alan - Last Filed: 08/30/18 14:34> Clinical Impression: Suicidal ideation, Acute paranoia Disposition: TRANSFER TO PSYCH HOSP/UNIT Condition: Fair Referrals: None,Stated [Primary Care Provider] - 1-2 days
[2018-08-28 23:47] LABS: Basophils % (A) 0 %; Eosinophils # (A) 0.1 k/uL (0-0.7); Eosinophils % (A) 1 %; HCT 46.7 % (39.0-53.0); HGB 15.1 gm/dL (13.0-17.5); Lymphocytes # (A) 1.8 k/uL (1.0-4.8); Lymphocytes % (A) 23 %; MCH 28.6 pg (25.0-35.0); MCHC 32.3 g/dL (31.0-37.0); MCV 88.6 fL (80.0-100.0); Monocytes # (A) 0.7 k/uL (0-1.0); Monocytes % (A) 9 %; Neutrophils % (A) 64 %; Platelet Count 233 k/uL (150-450); RBC 5.27 m/uL (4.30-5.90); RDW 15.2 % (11.5-15.5); WBC 7.9 k/uL (3.8-10.6)
[2018-08-28 23:54] LABS: ALT 29 U/L (21-72); AST 43 U/L (17-59); Albumin 4.7 g/dL (3.5-5.0); Anion Gap 12 mmol/L; Blood Urea Nitrogen 15 mg/dL (9-20); Calcium 9.8 mg/dL (8.4-10.2); Carbon Dioxide 21 mmol/L (22-30); Chloride 108 mmol/L (98-107); Glucose 69 mg/dL (74-99); Potassium 4.3 mmol/L (3.5-5.1); Sodium 141 mmol/L (137-145); Total Bilirubin 1.9 mg/dL (0.2-1.3); Total Protein 7.8 g/dL (6.3-8.2)
[2018-08-28 23:55] LABS: Alkaline Phosphatase 82 U/L (38-126)
[2018-08-29] MEDS ORDERED: LORazepam 1 MG TAB PO STA (00:06)
[2018-08-29 10:20] LABS: Appearance,Urine Cloudy (Clear); Bilirubin,Urine Negative (Negative); Blood,Urine Negative (Negative); Color,Urine Yellow; Glucose,Urine (UA) Negative (Negative); Ketones,Urine 1+ (Negative); Leukocyte Esterase,Urine Negative (Negative); Mucus,Urine Many /hpf; Nitrite,Urine Negative (Negative); PH, Urine 5.5 (5.0-8.0); Protein,Urine 1+ (Negative); RBC,Urine 1 /hpf (0-5); Specific Gravity,Urine 1.029 (1.001-1.035); WBC,Urine 6 /hpf (0-5)
[2018-08-29 10:28] LABS: Amphetamine Screen,Urine Detected (NotDetected); Benzodiazepines Screen,Urine Detected (NotDetected); Cocaine Screen,Urine Detected (NotDetected); Opiate Screen,Urine Not Detected (NotDetected); Phencyclidine Screen,Urine Not Detected (NotDetected); Urn Cannabinoid Scrn Detected (NotDetected)
[2018-08-29 10:29] LABS: Barbiturate Screen,Urine Not Detected (NotDetected); Methadone Screen, Urine Not Detected (NotDetected); Oxycodone Screen, Urine Not Detected (NotDetected); Tricyclic Antidepressant,Urine Not Detected (NotDetected)
[2018-08-30] MEDS ORDERED: MAG HYDROX/AL HYDROX/SIMETH 30 ML CUP PO PRN (15:31)
[2018-08-30] MEDS ORDERED: ACETAMINOPHEN TAB 325 MG TAB PO PRN (15:31)
[2018-08-30] MEDS ORDERED: LORazepam 1 MG TAB PO PRN (15:31)
[2018-08-30] MEDS ORDERED: MAGNESIUM HYDROXIDE 2,400 MG/10 ML CUP PO PRN (15:31)
[2018-08-30] MEDS ORDERED: HALOPERIDOL LACTATE 5 MG/ML 1 ML VIAL IM PRN (15:34)
[2018-08-30] MEDS ORDERED: HALOPERIDOL 1 MG TAB PO PRN (15:34)
[2018-08-30 16:00] VITALS: BMI 22.5
--- NOTE | 2018-08-30 18:14 | P.MDCNMH ---
History of Present Illness H&P Date: 08/30/18 Chief Complaint: Suicidal ideation 22-year-old male with PMH of HTN, endocarditis status post valve replacement, bipolar disorder, methamphetamine use presents to the ED for suicidal ideation. Patient reports feeling paranoid after doing methamphetamines and on Thursday around 3 AM. Patient reports that he felt like he was being followed by the police. He was actively concerned as he had a warrant out for his arrest at that time. Patient reports coming to the hospital to "calm down". He also had suicidal ideation at that time. He also has a history of endocarditis, underwent open heart valve replacement in 2011. He denies any exertional shortness of breath or chest pain. He denies orthopnea, PND or lower extremity edema. He denies headaches, nausea, vomiting, fever, cough, palpitations, changes in urination or bowel habits. No changes in appetite or weight. No numbness, weakness, or tingling of the extremities. Of note, patient has a history of IV drug use. Patient reports no IV drug use in the past 2 months. Patient reports doing half gram of methamphetamines daily , about $50. Of note, patient smokes one pack a day since the age of 15. 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 Past Psychological History: Bipolar, Depression Smoking Status: Current every day smoker Past Alcohol Use History: None Reported Past Drug Use History: IV Drug Use, Marijuana, Methamphetamine - Past Family History family Additional Family Medical History / Comment(s): States multiple family members with heart disease on his mother's side of the family. Medications and Allergies Home Medications Medication Instructions Recorded Confirmed Type Aspirin 81 mg PO DAILY chew 05/30/18 08/30/18 Rx Metoprolol Tartrate 25 mg PO BID #60 tab 05/30/18 08/30/18 Rx Famotidine [Pepcid] 40 mg PO BID #20 tab 08/01/18 08/30/18 Rx Buspar 1 tab PO BID 08/30/18 08/30/18 History QUEtiapine FUMARATE [SEROquel] 200 mg PO HS 08/30/18 08/30/18 History Seroquel 1 tab PO HS 08/30/18 08/30/18 History Allergies Allergy/AdvReac Type Severity Reaction Status Date / Time Penicillins Allergy Unknown Verified 08/30/18 17:12 piperacillin [From Zosyn] Allergy Unknown Verified 08/30/18 17:12 tazobactam [From Zosyn] Allergy Unknown Verified 08/30/18 17:12 haloperidol [From Haldol] AdvReac Anaphylaxis Verified 08/30/18 17:12 Physical Exam Vitals: Vital Signs Temp Pulse Pulse Resp BP BP Pulse Ox 08/30/18 16:06 97.2 F L 75 18 112/81 08/30/18 15:52 97.2 F L 78 18 112/81 08/30/18 13:02 97.8 F 86 18 127/68 100 08/30/18 06:39 97.6 F 65 16 124/70 97 08/29/18 19:18 81 16 107/55 100 Intake and Output 08/30/18 08/30/18 08/30/18 06:59 14:59 22:59 Other: Weight 75.299 kg General: [non toxic], [no distress], [appears at stated age] Derm: [warm], [dry] Head: [atraumatic], [normocephalic], [symmetric] Eyes: [EOMI], [no lid lag], [anicteric sclera] Mouth: [no lip lesion], [mucus membranes moist] Cardiovascular: [S1S2 reg], [+ murmur], [positive DP pulse bilateral] Lungs: [CTA bilateral], [no rhonchi, no rales] , [no accessory muscle use] Abdominal: [soft], [ nontender to palpation], [no guarding], [no appreciable organomegaly] Ext: [no gross muscle atrophy], [no edema], [no contractures] Neuro: [ CN II-XI grossly intact], [no focal neuro deficits] Psych: [Alert], [oriented], [appropriate affect] Cranial Nerve Examination - Cranial Nerves Cranial Nerve II- Optic: Intact Cranial Nerve III- Oculomotor: Intact Cranial Nerve IV- Trochlear: Intact Cranial Nerve V- Trigeminal: Intact Cranial Nerve - Abducens: Intact Cranial Nerve VII- Facial: Intact Cranial Nerve VIII- Auditory: Intact Cranial Nerve IX- Glossopharyngeal: Intact Cranial Nerve X- Vagus: Intact Cranial Nerve XI- Accessory: Intact Cranial Nerve XII- Hypoglossal: Intact Results CBC & Chem 7: 08/28/18 23:23 08/28/18 23:23 Assessment and Plan Assessment: Assessment and Plan 1. Hypertension: BP is 112/81. Continue metoprolol 25 mg by mouth twice a day. Monitor vitals, adjust medications as necessary. 2. h/o Endocarditis: Stable. Patient has no concerns for heart failure. He has lost follow-up with his investment accounting clerk, and will need one prior to discharge. Continue metoprolol. Patient previously on aspirin, will discontinue as aspirin has not shown to decrease the risk of embolic events in patients with infective endocarditis. 3. Polysubstance abuse: UDS is positive for marijuana, cocaine, benzodiazepine, methamphetamine, amphetamines. Continue Ativan 1 mg by mouth 3 times a day as needed for anxiety and agitation. Continue nicotine patch 14 mg/24H. 4. Suicidal ideation/ Bipolar disorder: Patient is not currently suicidal. Previously on Buspar and Seroquel, has not taken medication recently. Management per Psych. 5. DVT/GI Prophylaxis: Low concern for DVT, encourage early mobilization. Pepcid 40 mg by mouth twice a day. Patient was likely paranoid, secondary to methamphetamine use given that he had a warrant out for his arrest. He is currently not suicidal. We will resume his home medications. He will need a investment accounting clerk on discharge. The rest of management as per psych.
[2018-08-30] MEDS: FAMOTIDINE 20 MG TAB PO SCH (20:27)
[2018-08-30] MEDS: METOPROLOL TARTRATE 25 MG TAB PO SCH (20:27)
[2018-08-31 07:06] VITALS: TEMP 97.7
[2018-08-31] MEDS: METOPROLOL TARTRATE 25 MG TAB PO SCH ×2 (08:46→20:19)
[2018-08-31] MEDS: FAMOTIDINE 20 MG TAB PO SCH ×2 (08:46→20:19)
[2018-08-31] MEDS ORDERED: NICOTINE 14MG/24HR PATCH TRANSDERM SCH (09:00)
--- NOTE | 2018-08-31 11:37 | P.HP ---
Psychiatric H&P - . History & Physical: Allergies Allergy/AdvReac Type Severity Reaction Status Date / Time Penicillins Allergy Unknown Verified 08/30/18 17:12 piperacillin [From Zosyn] Allergy Unknown Verified 08/30/18 17:12 tazobactam [From Zosyn] Allergy Unknown Verified 08/30/18 17:12 haloperidol [From Haldol] AdvReac Anaphylaxis Verified 08/30/18 17:12 Vital Signs Temp 97.7 F 08/31/18 06:44 Pulse 89 08/31/18 09:22 Resp 18 08/31/18 09:22 BP 134/61 08/31/18 09:22 Pulse Ox 100 08/30/18 13:02 Intake & Output 08/30/18 08/31/18 08/31/18 18:59 06:59 18:59 Weight 75.299 kg 75.299 kg Laboratory Last Values WBC 7.9 k/uL (3.8-10.6) 08/28/18 23:23 RBC 5.27 m/uL (4.30-5.90) 08/28/18 23:23 Hgb 15.1 gm/dL (13.0-17.5) 08/28/18 23:23 Hct 46.7 % (39.0-53.0) 08/28/18 23:23 MCV 88.6 fL (80.0-100.0) 08/28/18 23:23 MCH 28.6 pg (25.0-35.0) 08/28/18 23:23 MCHC 32.3 g/dL (31.0-37.0) 08/28/18 23:23 RDW 15.2 % (11.5-15.5) 08/28/18 23:23 Plt Count 233 k/uL (150-450) 08/28/18 23:23 Neutrophils % 64 % 08/28/18 23:23 Lymphocytes % 23 % 08/28/18 23:23 Monocytes % 9 % 08/28/18 23:23 Eosinophils % 1 % 08/28/18 23:23 Basophils % 0 % 08/28/18 23:23 Neutrophils # 5.0 k/uL (1.3-7.7) 08/28/18 23:23 Lymphocytes # 1.8 k/uL (1.0-4.8) 08/28/18 23:23 Monocytes # 0.7 k/uL (0-1.0) 08/28/18 23:23 Eosinophils # 0.1 k/uL (0-0.7) 08/28/18 23:23 Basophils # 0.0 k/uL (0-0.2) 08/28/18 23:23 Sodium 141 mmol/L (137-145) 08/28/18 23:23 Potassium 4.3 mmol/L (3.5-5.1) 08/28/18 23:23 Chloride 108 mmol/L (98-107) H 08/28/18 23:23 Carbon Dioxide 21 mmol/L (22-30) L 08/28/18 23:23 Anion Gap 12 mmol/L 08/28/18 23:23 BUN 15 mg/dL (9-20) 08/28/18 23:23 Creatinine 0.95 mg/dL (0.66-1.25) 08/28/18 23:23 Est GFR (CKD-EPI)AfAm >90 (>60 ml/min/1.73 sqM) 08/28/18 23:23 Est GFR (CKD-EPI)NonAf >90 (>60 ml/min/1.73 sqM) 08/28/18 23:23 Glucose 69 mg/dL (74-99) L 08/28/18 23:23 Calcium 9.8 mg/dL (8.4-10.2) 08/28/18 23:23 Total Bilirubin 1.9 mg/dL (0.2-1.3) H 08/28/18 23:23 AST 43 U/L (17-59) 08/28/18 23:23 ALT 29 U/L (21-72) 08/28/18 23:23 Alkaline Phosphatase 82 U/L (38-126) 08/28/18 23:23 Total Protein 7.8 g/dL (6.3-8.2) 08/28/18 23:23 Albumin 4.7 g/dL (3.5-5.0) 08/28/18 23:23 Triglycerides 65 mg/dL (<150) 08/28/18 23:23 Cholesterol 144 mg/dL (<200) 08/28/18 23:23 LDL Cholesterol, Calc 74 mg/dL (0-99) 08/28/18 23:23 HDL Cholesterol 57 mg/dL (40-60) 08/28/18 23:23 TSH 1.120 mIU/L (0.465-4.680) 08/28/18 23:23 Urine Color Yellow 08/29/18 09:55 Urine Appearance Cloudy (Clear) 08/29/18 09:55 Urine pH 5.5 (5.0-8.0) 08/29/18 09:55 Ur Specific [place] 1.029 (1.001-1.035) 08/29/18 09:55 Urine Protein 1+ (Negative) H 08/29/18 09:55 Urine Glucose (UA) Negative (Negative) 08/29/18 09:55 Urine Ketones 1+ (Negative) H 08/29/18 09:55 Urine Blood Negative (Negative) 08/29/18 09:55 Urine Nitrite Negative (Negative) 08/29/18 09:55 Urine Bilirubin Negative (Negative) 08/29/18 09:55 Urine Urobilinogen 3.0 mg/dL (<2.0) 08/29/18 09:55 Ur Leukocyte Esterase Negative (Negative) 08/29/18 09:55 Urine RBC 1 /hpf (0-5) 08/29/18 09:55 Urine WBC 6 /hpf (0-5) H 08/29/18 09:55 Urine Mucus Many /hpf (None) H 08/29/18 09:55 Urine Opiates Screen Not Detected (NotDetected) 08/29/18 09:55 Ur Oxycodone Screen Not Detected (NotDetected) 08/29/18 09:55 Urine Methadone Screen Not Detected (NotDetected) 08/29/18 09:55 Ur Propoxyphene Screen Not Detected (NotDetected) 08/29/18 09:55 Ur Barbiturates Screen Not Detected (NotDetected) 08/29/18 09:55 U Tricyclic Antidepress Not Detected (NotDetected) 08/29/18 09:55 Ur Phencyclidine Scrn Not Detected (NotDetected) 08/29/18 09:55 Ur Amphetamines Screen Detected (NotDetected) H 08/29/18 09:55 U Methamphetamines Scrn Detected (NotDetected) H 08/29/18 09:55 U Benzodiazepines Scrn Detected (NotDetected) H 08/29/18 09:55 Urine Cocaine Screen Detected (NotDetected) H 08/29/18 09:55 U Marijuana (THC) Screen Detected (NotDetected) H 08/29/18 09:55 08/31/18 11:27 IDENTIFYING DATA: This patient is a 22-year-old single male who is admitted to the mental health unit through the emergency room for acute symptoms of psychosis and suicidal ideation. HPI: Patient presents with a petition stating "Rudy is experiencing significant paranoia and suicidal intent by overdose. Rudy has extensive history of substance use challenges opiates cocaine and methamphetamine." The patient states he presented to the hospital Kee evening. He admits that he was feeling paranoid and felt that the police were after him. As a result he felt unsafe and had suicidal thoughts. He has an extensive history of substance use. He has been in the emergency room for an extended period of time and he states that the symptoms of psychosis have abated. He believes they were induced by regular use of methamphetamine and cocaine and marijuana. He states he has experienced substance induced psychosis several times in the past. He reports that he came to the hospital as he felt unsafe and he knew that he would be Safe here. He reports no auditory or visual hallucinations at this time he reports no paranoid or persecutory thinking. He states he does not feel hopeless he has no suicidal or homicidal ideation intent or plan. He does struggle with anxiety symptoms. He endorses no history of hypomanic or manic episodes. He reports no immediate access to firearms. PAST PSYCHIATRIC HISTORY: This is his third inpatient psychiatric admission. He reports no intentional suicide attempts but he has had overdoses in the past which required use of Narcan. He had been prescribed Haldol Seroquel and BuSpar in the past but he does not take those on an outpatient basis and does not feel that he needs any prescribed psychotropic medication at this time. He endorses no history of cutting or other self-injurious behavior. PMH: History of endocarditis he has undergone repair/for placement of his tricuspid valve and states that he will require another surgery. This was due to intravenous use of heroin. ALLERGIES: Penicillin Haldol tazobactam MEDICATIONS: None CHEMICAL DEPENDENCY HISTORY: Reports no use of alcohol, he reports using marijuana daily, cocaine use is intermittent and not regular, methamphetamine has been frequent for the last 6 months. He states that he will go on several day binges using methamphetamine. He states that he last used heroin 2 weeks ago he did overuse and required use of Narcan. He has been in inpatient chemical dependency treatment for 90 days in the past he states he was clean for 1 year afterwards. He is hoping to go to rehab again. FAMILY PSYCHIATRIC HISTORY: His sister is known to have bipolar disorder, no suicides in the family FAMILY CHEMICAL DEPENDENCY HISTORY: His mother is known to be opiate-dependent she has been clean from heroin for 1.5 years, his father is known to use alcohol and methamphetamine SOCIAL HISTORY: The patient is 22 years old she single he has a 2-year-old daughter that resides with her mother in [place]. He states that he gets to see her on video chat every 2 weeks. The patient is unemployed he states he lives with his mother and stays on couches of friends when he is using. He has an 11th grade education no history of service. He is originally from the [facility]. He has 1 biological sibling a sister. Legal history is extensive he's been arrested for larceny manufacturing and delivery of controlled substances possession of cocaine, etc. He states he was placed on probation in 2011 that was due to in 18 months but he keeps violating and the probation gets extended period he states it's possible he could face 1 year in alf. Abuse history none reported. MENTAL STATUS EXAM: The patient is a thin male appearing his stated age he is dressed in his own clothing hygiene and grooming are adequate. Speech is fluent he does have a mild lisp. He reports his mood is much improved he is reporting no acute suicidal or homicidal ideation intent or plan. He is endorsing no auditory or visual hallucinations or any specific delusions. There is no observed evidence of psychosis. He is observed early in the day relating appropriately to peers. He does not appear hypomanic or manic. He is mildly circumstantial but demonstrates no tangential thinking loose associations or flight of ideas. He demonstrates no verbal or physical aggressiveness. He demonstrates no abnormal involuntary movements. He is chewing on a straw during the course of the interview. He is oriented to person place and date he is able to spell world backwards. STRENGTHS/WEAKNESSES: During to receive voluntary treatment and attend inpatient chemical dependency treatment, weaknesses: Ongoing substance use INTELLECTUAL FUNCTIONING: Average IMPRESSIONS: [] 1. Substance induced psychosis, anxiety unspecified, methamphetamine use disorder, opioid use disorder, cannabis use disorder, cocaine use disorder 2. History of endocarditis with repair of tricuspid valve PLAN: The patient has been admitted to the mental health unit he is willing to sign in voluntarily. We reviewed his presenting symptoms and treatment options. It does not appear he requires a psychiatric medication at this time. We agree that he should attend inpatient chemical dependency treatment and he will call the access line this morning. He will be seen by internal medicine for routine history and physical exam. Social work will meet with him to complete a psychosocial assessment. We will monitor him for safety and encourage full participation in group. We will involve family in treatment and discharge planning as he will allow. I expect she'll be appropriate for discharge in the next 1-2 days.
[2018-08-31 16:00] LABS: Hemoglobin A1C 4.9 % (4.0-6.0)
[2018-08-31] MEDS: NICOTINE POLACRILEX 2 MG GUM BUCCAL PRN ×2 (17:25→20:38)
[2018-09-01] MEDS: METOPROLOL TARTRATE 25 MG TAB PO SCH (08:05)
[2018-09-01] MEDS: FAMOTIDINE 20 MG TAB PO SCH (08:05)
[2018-09-01 08:06] VITALS: BP 110/75; PULSE 77; RESP 18
[2018-09-01] MEDS: NICOTINE POLACRILEX 2 MG GUM BUCCAL PRN (08:54)
--- NOTE | 2018-09-01 10:01 | P.DS ---
Providers Date of admission: 08/30/18 15:12 Expected date of discharge: 09/01/18 Attending physician: Travis Fernando Consults: 08/30/18 15:31 Consult Physician Routine Consulting Provider: Nicolás Freed Consult Reason/Comments: H and P Do you want consulting provider notified?: Yes Primary care physician: Stated None - Discharge Diagnosis(es) (1) Substance-induced psychotic disorder Current Visit: Yes Status: Acute Priority: High (2) Methamphetamine use disorder, moderate Current Visit: Yes Status: Acute Priority: High (3) Opioid use disorder Current Visit: Yes Status: Acute Priority: Medium (4) Cannabis use disorder, mild, abuse Current Visit: Yes Status: Acute Priority: Medium (5) Cocaine use disorder Current Visit: Yes Status: Acute Priority: Medium Hospital Course: Brief summary of admission note: This patient is a 22-year-old single male who was admitted to the mental health unit through the emergency room for acute symptoms of psychosis and reported suicidal ideation. The patient reported feeling paranoid and felt that the police were after him. He felt unsafe and presented to the hospital. He has an extensive history of substance use. He has been using methamphetamine on a daily basis as well as cocaine and marijuana less frequently. For full details please refer to the psychiatric evaluation dated 08/31/2018. Summary of hospital course: The patient was admitted to the mental health unit he did sign in voluntarily. We reviewed his presenting symptoms and treatment options. Yesterday his symptoms of psychosis had resolved. We did not need to initiate an antipsychotic medication. He has been participating in group he has been able to sleep at night he is attending to his activities of daily living. It's clear that his presentation was due to substance use. He is willing to attend inpatient chemical dependency treatment and those arrangements are being made. He plans on staying with his mother upon discharge. The patient was seen by internal medicine for routine history and physical exam. Social work has met with the patient to complete a psychosocial assessment and begin discharge planning. He demonstrated no aggressive behavior and has been cooperative throughout his stay. Mental status exam: The patient is a male appearing his stated age. He is dressed in his own clothing hygiene grooming are adequate. Eye contact is appropriate. Speech is fluent spontaneous nonpressured. He endorses his mood as being good. Affect is euthymic and appropriately expressive. He reports no hopelessness thinking and no suicidal ideation intent or plan. He is reporting no homicidal ideation intent or plan. He reports no auditory or visual hallucinations or any specific delusions. There is no observed evidence of psychosis. He demonstrates a linear thought process he demonstrates no tangential thinking loose associations or flight of ideas. He does not appear hypomanic or manic. He is oriented to person place and date. He demonstrates no verbal or physical aggressiveness. Impressions 1. Substance induced psychosis, anxiety unspecified, methamphetamine use disorder, opioid use disorder, cannabis use disorder, cocaine use disorder 2. History of endocarditis with repair of tricuspid valve Plan: The patient will be discharged from the mental health unit today. He plans on residing with his mother. He is not prescribed any psychotropic medication at this time. He plans on attending inpatient chemical dependency treatment and arrangements are being made in terms of the start date. The patient is instructed to abstain from any use of alcohol marijuana or any other illicit drug as it will again exacerbate symptoms of psychosis and elevate his safety risk. There is no imminent safety risk at this time he is appropriate for discharge to inpatient chemical dependency treatment/outpatient care. He is instructed to return to the hospital with any acute safety concerns. He strongly encouraged to follow up with a primary care physician and cardiology regarding his previous history of endocarditis. He will be continued on the Lopressor as prescribed. Patient Condition at Discharge: Stable Plan - Discharge Summary Discharge Rx Participant: No New Discharge Prescriptions: New Nicotine Polacrilex [Nicorette] 2 mg BUCCAL Q2HR PRN #30 gum PRN Reason: Nicotine Cravings Continue Aspirin 81 mg PO DAILY #30 chew Famotidine [Pepcid] 40 mg PO BID #60 tab Metoprolol Tartrate 25 mg PO BID #60 tab Discontinued QUEtiapine FUMARATE [SEROquel] 200 mg PO HS Seroquel 1 tab PO HS Buspar 1 tab PO BID Discharge Medication List Aspirin 81 mg PO DAILY #30 chew 09/01/18 [Rx] Famotidine [Pepcid] 40 mg PO BID #60 tab 09/01/18 [Rx] Metoprolol Tartrate 25 mg PO BID #60 tab 09/01/18 [Rx] Nicotine Polacrilex [Nicorette] 2 mg BUCCAL Q2HR PRN #30 gum 09/01/18 [Rx] Follow up Appointment(s)/Referral(s): None,Stated [Primary Care Provider] - 1-2 days Activity/Diet/Wound Care/Special Instructions: Per medical Dr. Delcid, please make appointment with a property worker prior to being discharged from mental health.
== END 2018-09-01 12:39 | disposition home or self-care (01) | DRG 897 ==
LOC: EC 19:52 → 3MHU 08-30 15:12 → UNDODISIN 08-31 12:19 → 3MHU 09-01 06:35
PROVIDERS: ADMIT Psychiatry & Neurology Psychiatry; ATTEND Psychiatry & Neurology Psychiatry
DX: F11.159 Opioid abuse with opioid-induced psychotic disorder, unspecified (principal); F15.259 Other stimulant dependence with stimulant-induced psychotic disorder, unspecified; F31.30 Bipolar disorder, current episode depressed, mild or moderate severity, unspecified; R45.851 Suicidal ideations; F12.159 Cannabis abuse with psychotic disorder, unspecified; F14.159 Cocaine abuse with cocaine-induced psychotic disorder, unspecified; F17.200 Nicotine dependence, unspecified, uncomplicated; F41.9 Anxiety disorder, unspecified; I10 Essential (primary) hypertension; Z79.82 Long term (current) use of aspirin; Z95.2 Presence of prosthetic heart valve; Z88.1 Allergy status to other antibiotic agents; Z88.0 Allergy status to penicillin; Z79.899 Other long term (current) drug therapy
CPT/HCPCS: 36415; 80053; 80061; 80306; 81001; 82075; 83036; 84443; 85025; 99285

== ENCOUNTER 2019-01-26 13:56 | Emergency (ER) | payer OTHER ==
[2019-01-26 14:04] VITALS: TEMP 98.5
[2019-01-26] MEDS ORDERED: LORazepam 2 MG/ML INJ IV STA (14:16)
[2019-01-26] MEDS ORDERED: SODIUM CHLORIDE 0.9% 1,000 ML IV ONE (14:30)
--- NOTE | 2019-01-26 14:30 | ED ---
General Adult HPI - General Source: patient, RN notes reviewed Mode of arrival: ambulatory Limitations: no limitations <Solomon Barros - Last Filed: 01/26/19 16:53> <Solomon Meadows - Last Filed: 01/26/19 19:19> - General Chief complaint: Arrhythmia/Palpitations Stated complaint: palpitations Time Seen by Provider: 01/26/19 14:00 - History of Present Illness Initial comments: This is a 23-year-old male with a past medical history significant for drug abuse in particular methamphetamines. Patient states he took it today family states he did not per patient comes in because his heart is racing and according to family is not making sense. Patient keeps stating he feels his heart racing and he keeps grabbing his chest. Patient is babbling and not making much sense of family is giving most of the history. Family states is far as they know he hasn't done any methamphetamines has been home all day. Family states he has gone through episodes like this where he gets very paranoid and hyper and had his heart is racing after he used methamphetamine. Family states they have not noted him to be sick recently with a cough short of breath or any nausea vomiting diarrhea. Patient does deny any pain (Solomon Barros) - Related Data Home Medications Medication Instructions Recorded Confirmed No Known Home Medications 01/26/19 01/26/19 Allergies Allergy/AdvReac Type Severity Reaction Status Date / Time Penicillins Allergy Unknown Verified 01/26/19 14:17 piperacillin [From Zosyn] Allergy Unknown Verified 01/26/19 14:17 tazobactam [From Zosyn] Allergy Unknown Verified 01/26/19 14:17 haloperidol [From Haldol] AdvReac Anaphylaxis Verified 01/26/19 14:17 Review of Systems ROS Other: All systems not noted in ROS Statement are negative. <Solomon Barros - Last Filed: 01/26/19 16:53> ROS Other: All systems not noted in ROS Statement are negative. <Solomon Meadows - Last Filed: 01/26/19 19:19> ROS Statement: Those systems with pertinent positive or pertinent negative responses have been documented in the HPI. 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 Past Psychological History: Bipolar, Depression Smoking Status: Current every day smoker Past Alcohol Use History: None Reported Past Drug Use History: IV Drug Use, Marijuana, Methamphetamine - Past Family History family Additional Family Medical History / Comment(s): States multiple family members with heart disease on his mother's side of the family. <Solomon Barros - Last Filed: 01/26/19 16:53> General Exam Limitations: no limitations <Solomon Barros - Last Filed: 01/26/19 16:53> <Solomon Meadows - Last Filed: 01/26/19 19:19> - General Exam Comments Initial Comments: GENERAL: Patient is well-developed and well-nourished. Patient is nontoxic and well- hydrated and is in mild distress. ENT: Neck is soft and supple. No significant lymphadenopathy is noted. Oropharynx is clear. Moist mucous membranes. Neck has full range of motion without eliciting any pain. EYES: The sclera were anicteric and conjunctiva were pink and moist. Extraocular movements were intact and pupils were equal round and reactive to light. Eyelids were unremarkable. PULMONARY: Unlabored respirations. Good breath sounds bilaterally. No audible rales rhonchi or wheezing was noted. CARDIOVASCULAR: Patient is tachycardic at about 140 beats a minute. ABDOMEN: Soft and nontender with normal bowel sounds. No palpable organomegaly was noted. There is no palpable pulsatile mass. SKIN: Skin is clear with no lesions or rashes and otherwise unremarkable. NEUROLOGIC: Patient is alert and oriented x3 patient appears to know where he is and answers questions fairly accurately but in between the questions she babbles about things that don't really pertain to what is going on in front of him.. Cranial nerves II through XII are grossly intact. Motor all 4 extremities appears to be intact. Speech to be intact. MUSCULOSKELETAL: Normal extremities with adequate strength and full range of motion. No lower extremity swelling or edema. No calf tenderness. LYMPHATICS: No significant lymphadenopathy is noted PSYCHIATRIC: Patient is babbling and not always making sense. (Solomon Barros) Vital Signs 01/26/19 01/26/19 01/26/19 14:02 15:30 16:54 Temperature 98.5 F Pulse Rate 150 H 111 H 95 Pulse Rate [ 111 H Bilateral Radial] Respiratory 20 22 16 Rate Blood Pressure 166/118 137/97 O2 Sat by Pulse 100 96 96 Oximetry Medical Decision Making - Lab Data Result diagrams: 01/26/19 15:18 01/26/19 15:18 <Solomon Barros - Last Filed: 01/26/19 16:53> - Lab Data Result diagrams: 01/26/19 15:18 01/26/19 15:18 <Solomon Meadows - Last Filed: 01/26/19 19:19> - Medical Decision Making EKG shows sinus tachycardia at 137 bpm OK interval is 112 QRS 98 QT interval 370 QTC is 558. Patient's chest x-ray shows no acute abnormality. Patient received 2 of Ativan. I went back into the room I reevaluated the patient had pulled out his IV fully dressed and refused to give us a urine and refused to do any more testing and wanted to leave immediately. At this point time patient states he is not leaving but is not definitely stating he is can wait and talk to his mother and determine what to do from there. Dr. Meadows take over the care of this patient at 5 PM. (Solomon Barros) 23 male the ER for evaluation. Patient's family is at bedside, patient is refusing admission, mother will take patient home (Solomon Meadows) - Lab Data Lab Results 01/26/19 01/26/19 01/26/19 Range/Units 15:18 15:18 15:18 WBC 5.4 (3.8-10.6) k/uL RBC 5.51 (4.30-5.90) m/uL Hgb 15.9 (13.0-17.5) gm/dL Hct 48.5 (39.0-53.0) % MCV 88.0 (80.0-100.0) fL MCH 28.9 (25.0-35.0) pg MCHC 32.8 (31.0-37.0) g/dL RDW 13.6 (11.5-15.5) % Plt Count 288 (150-450) k/uL Neutrophils % 64 % Lymphocytes % 22 % Monocytes % 9 % Eosinophils % 2 % Basophils % 1 % Neutrophils # 3.5 (1.3-7.7) k/uL Lymphocytes # 1.2 (1.0-4.8) k/uL Monocytes # 0.5 (0-1.0) k/uL Eosinophils # 0.1 (0-0.7) k/uL Basophils # 0.0 (0-0.2) k/uL PT 11.4 (9.0-12.0) sec INR 1.1 (<1.2) APTT 25.8 (22.0-30.0) sec Sodium 143 (137-145) mmol/L Potassium 3.6 (3.5-5.1) mmol/L Chloride 108 H (98-107) mmol/L Carbon Dioxide 21 L (22-30) mmol/L Anion Gap 14 mmol/L BUN 15 (9-20) mg/dL Creatinine 0.88 (0.66-1.25) mg/dL Est GFR (CKD-EPI)AfAm >90 (>60 ml/min/1.73 sqM) Est GFR (CKD-EPI)NonAf >90 (>60 ml/min/1.73 sqM) Glucose 91 (74-99) mg/dL Calcium 10.7 H (8.4-10.2) mg/dL Magnesium 1.8 (1.6-2.3) mg/dL Total Bilirubin 2.1 H (0.2-1.3) mg/dL AST 27 (17-59) U/L ALT 41 (21-72) U/L Alkaline Phosphatase 92 (38-126) U/L Troponin I (0.000-0.034) ng/mL Total Protein 8.5 H (6.3-8.2) g/dL Albumin 5.3 H (3.5-5.0) g/dL Urine Opiates Screen (NotDetected) Ur Oxycodone Screen (NotDetected) Urine Methadone Screen (NotDetected) Ur Propoxyphene Screen (NotDetected) Ur Barbiturates Screen (NotDetected) U Tricyclic Antidepress (NotDetected) Ur Phencyclidine Scrn (NotDetected) Ur Amphetamines Screen (NotDetected) U Methamphetamines Scrn (NotDetected) U Benzodiazepines Scrn (NotDetected) Urine Cocaine Screen (NotDetected) U Marijuana (THC) Screen (NotDetected) 01/26/19 01/26/19 Range/Units 15:18 18:10 WBC (3.8-10.6) k/uL RBC (4.30-5.90) m/uL Hgb (13.0-17.5) gm/dL Hct (39.0-53.0) % MCV (80.0-100.0) fL MCH (25.0-35.0) pg MCHC (31.0-37.0) g/dL RDW (11.5-15.5) % Plt Count (150-450) k/uL Neutrophils % % Lymphocytes % % Monocytes % % Eosinophils % % Basophils % % Neutrophils # (1.3-7.7) k/uL Lymphocytes # (1.0-4.8) k/uL Monocytes # (0-1.0) k/uL Eosinophils # (0-0.7) k/uL Basophils # (0-0.2) k/uL PT (9.0-12.0) sec INR (<1.2) APTT (22.0-30.0) sec Sodium (137-145) mmol/L Potassium (3.5-5.1) mmol/L Chloride (98-107) mmol/L Carbon Dioxide (22-30) mmol/L Anion Gap mmol/L BUN (9-20) mg/dL Creatinine (0.66-1.25) mg/dL Est GFR (CKD-EPI)AfAm (>60 ml/min/1.73 sqM) Est GFR (CKD-EPI)NonAf (>60 ml/min/1.73 sqM) Glucose (74-99) mg/dL Calcium (8.4-10.2) mg/dL Magnesium (1.6-2.3) mg/dL Total Bilirubin (0.2-1.3) mg/dL AST (17-59) U/L ALT (21-72) U/L Alkaline Phosphatase (38-126) U/L Troponin I <0.012 (0.000-0.034) ng/mL Total Protein (6.3-8.2) g/dL Albumin (3.5-5.0) g/dL Urine Opiates Screen Not Detected (NotDetected) Ur Oxycodone Screen Not Detected (NotDetected) Urine Methadone Screen Not Detected (NotDetected) Ur Propoxyphene Screen Not Detected (NotDetected) Ur Barbiturates Screen Not Detected (NotDetected) U Tricyclic Antidepress Not Detected (NotDetected) Ur Phencyclidine Scrn Not Detected (NotDetected) Ur Amphetamines Screen Detected H (NotDetected) U Methamphetamines Scrn Detected H (NotDetected) U Benzodiazepines Scrn Detected H (NotDetected) Urine Cocaine Screen Not Detected (NotDetected) U Marijuana (THC) Screen Detected H (NotDetected) Disposition <Solomon Barros - Last Filed: 01/26/19 16:53> Is patient prescribed a controlled substance at d/c from ED?: No <Solomon Meadows - Last Filed: 01/26/19 19:19> Clinical Impression: Methamphetamine abuse, Acute paranoia Disposition: HOME SELF-CARE Condition: Fair Instructions (If sedation given, give patient instructions): Polysubstance Abuse (ED) Referrals: None,Stated [Primary Care Provider] - 1-2 days
[2019-01-26 15:38] LABS: Basophils % (A) 1 %; Eosinophils # (A) 0.1 k/uL (0-0.7); Eosinophils % (A) 2 %; HCT 48.5 % (39.0-53.0); HGB 15.9 gm/dL (13.0-17.5); Lymphocytes # (A) 1.2 k/uL (1.0-4.8); Lymphocytes % (A) 22 %; MCH 28.9 pg (25.0-35.0); MCHC 32.8 g/dL (31.0-37.0); Mean Platelet Volume 6.3; Monocytes # (A) 0.5 k/uL (0-1.0); Monocytes % (A) 9 %; Neutrophils # (A) 3.5 k/uL (1.3-7.7); Neutrophils % (A) 64 %; Platelet Count 288 k/uL (150-450); RBC 5.51 m/uL (4.30-5.90); RDW 13.6 % (11.5-15.5); WBC 5.4 k/uL (3.8-10.6)
[2019-01-26 15:50] LABS: INR 1.1 (<1.2); Partial Thromboplastin Time 25.8 sec (22.0-30.0); Prothrombin Time 11.4 sec (9.0-12.0)
[2019-01-26 15:56] LABS: ALT 41 U/L (21-72); AST 27 U/L (17-59); Albumin 5.3 g/dL (3.5-5.0); Alkaline Phosphatase 92 U/L (38-126); Anion Gap 14 mmol/L; Blood Urea Nitrogen 15 mg/dL (9-20); Calcium 10.7 mg/dL (8.4-10.2); Carbon Dioxide 21 mmol/L (22-30); Chloride 108 mmol/L (98-107); Glucose 91 mg/dL (74-99); Magnesium 1.8 mg/dL (1.6-2.3); Potassium 3.6 mmol/L (3.5-5.1); Sodium 143 mmol/L (137-145); Total Bilirubin 2.1 mg/dL (0.2-1.3); Total Protein 8.5 g/dL (6.3-8.2)
[2019-01-26 16:58] VITALS: PULSE 95; RESP 16
--- NOTE | 2019-01-26 17:28 | XR ---
EXAMINATION TYPE: XR chest 2V DATE OF EXAM: 01/26/2019 COMPARISON: 07/31/2018 HISTORY: Palpitations TECHNIQUE: Frontal and lateral views of the chest are obtained. FINDINGS: There is no heart failure nor confluent pneumonic infiltrate. Costophrenic angles are miya r. There is cardiac surgery noted. Bony thorax is intact. Heart size is normal. IMPRESSION: No active cardiopulmonary disease. Normal heart. No change.
[2019-01-26 18:49] LABS: Cocaine Screen,Urine Not Detected (NotDetected); Phencyclidine Screen,Urine Not Detected (NotDetected); Urn Cannabinoid Scrn Detected (NotDetected)
[2019-01-26 18:50] LABS: Amphetamine Screen,Urine Detected (NotDetected); Barbiturate Screen,Urine Not Detected (NotDetected); Benzodiazepines Screen,Urine Detected (NotDetected); Methadone Screen, Urine Not Detected (NotDetected); Opiate Screen,Urine Not Detected (NotDetected); Oxycodone Screen, Urine Not Detected (NotDetected); Tricyclic Antidepressant,Urine Not Detected (NotDetected)
[2019-01-26 19:27] VITALS: BP 128/83
== END 2019-01-26 19:27 | disposition home or self-care (01) ==
LOC: EC 13:56
DX: F22 Delusional disorders (principal); F15.10 Other stimulant abuse, uncomplicated; F17.200 Nicotine dependence, unspecified, uncomplicated; Z88.0 Allergy status to penicillin; Z88.1 Allergy status to other antibiotic agents; Z88.8 Allergy status to other drugs, medicaments and biological substances; R00.0 Tachycardia, unspecified
CPT/HCPCS: 36415; 93005; 80053; 83735; 84484; 85025; 85610; 85730; 80306; 71046; 99285; 96374; 96361 ×4; J2060

== ENCOUNTER 2020-02-12 | Emergency (ER) | payer OTHER | END 2020-02-12 10:57 | disposition home or self-care (01) | CPT/HCPCS: 99283 ==

== ENCOUNTER 2020-03-02 11:56 | Emergency (ER) | payer OTHER ==
[2020-03-02 12:03] VITALS: BP 123/82; RESP 20; TEMP 98.5
[2020-03-02] MEDS ORDERED: LORazepam 1 MG TAB PO STA (12:26)
--- NOTE | 2020-03-02 12:27 | ED ---
General Adult HPI - General Chief complaint: Anxiety Stated complaint: Anexity Time Seen by Provider: 03/02/20 12:00 Source: patient, RN notes reviewed, old records reviewed Mode of arrival: ambulatory Limitations: no limitations - History of Present Illness Initial comments: This is a 24-year-old male who presents emergency Department complaining of an xiety. Patient states she's had for at least a year. Patient states he has not followed up with anybody but he would like to follow-up with [facility] but he has not made any effort. Patient denies any suicidal homicidal ideations. Patient denies hearing any voices or seeing anything abnormal. Patient denies any drug use or alcohol use. Patient denies any physical complaints today. Patient states if he could just have some information about who to call her who to contact for follow-up he would be happy with that. - Related Data Home Medications Medication Instructions Recorded Confirmed No Known Home Medications 01/26/19 01/26/19 Allergies Allergy/AdvReac Type Severity Reaction Status Date / Time Penicillins Allergy Unknown Verified 03/02/20 12:02 piperacillin [From Zosyn] Allergy Unknown Verified 03/02/20 12:02 tazobactam [From Zosyn] Allergy Unknown Verified 03/02/20 12:02 haloperidol [From Haldol] AdvReac Anaphylaxis Verified 03/02/20 12:02 Review of Systems ROS Statement: Those systems with pertinent positive or pertinent negative responses have been documented in the HPI. ROS Other: All systems not noted in ROS Statement are negative. 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 Past Psychological History: Bipolar, Depression Smoking Status: Current every day smoker Past Alcohol Use History: None Reported Past Drug Use History: IV Drug Use, Marijuana, Methamphetamine - Past Family History family Additional Family Medical History / Comment(s): States multiple family members with heart disease on his mother's side of the family. General Exam - General Exam Comments Initial Comments: GENERAL: Patient is well-developed and well-nourished. Patient is nontoxic and well- hydrated and is in mild distress. ENT: Neck is soft and supple. No significant lymphadenopathy is noted. Oropharynx is clear. Moist mucous membranes. Neck has full range of motion without eliciting any pain. EYES: The sclera were anicteric and conjunctiva were pink and moist. Extraocular mo vements were intact and pupils were equal round and reactive to light. Eyelids were unremarkable. PULMONARY: Unlabored respirations. Good breath sounds bilaterally. No audible rales rhonchi or wheezing was noted. CARDIOVASCULAR: There is a regular rate and rhythm without any murmurs gallops or rubs. ABDOMEN: Soft and nontender with normal bowel sounds. SKIN: Skin is clear with no lesions or rashes and otherwise unremarkable. NEUROLOGIC: Patient is alert and oriented x3. Cranial nerves II through XII are grossly intact. Motor and sensory are also intact. Normal speech, volume and content. Symmetrical smile. MUSCULOSKELETAL: Normal extremities with adequate strength and full range of motion. LYMPHATICS: No significant lymphadenopathy is noted PSYCHIATRIC: Patient is mildly anxious Limitations: no limitations Course Vital Signs 03/02/20 12:00 Temperature 98.5 F Pulse Rate 131 H Respiratory 20 Rate Blood Pressure 123/82 O2 Sat by Pulse 97 Oximetry Disposition Clinical Impression: Anxiety Disposition: HOME SELF-CARE Condition: Good Instructions (If sedation given, give patient instructions): Generalized Anxiety Disorder (ED) Is patient prescribed a controlled substance at d/c from ED?: No Referrals: None,Stated [Primary Care Provider] - 1-2 days Time of Disposition: 12:27
[2020-03-02 12:37] VITALS: PULSE 110
== END 2020-03-02 12:37 | disposition home or self-care (01) ==
LOC: EC 11:56
DX: F41.9 Anxiety disorder, unspecified (principal); F17.200 Nicotine dependence, unspecified, uncomplicated; Z88.0 Allergy status to penicillin; Z88.8 Allergy status to other drugs, medicaments and biological substances; Z86.59 Personal history of other mental and behavioral disorders
CPT/HCPCS: 99283

== ENCOUNTER 2020-08-14 23:11 | Emergency (ER) | payer OTHER ==
[2020-08-14 23:18] VITALS: BP 120/79; PULSE 100; RESP 18; TEMP 98.7
--- NOTE | 2020-08-14 23:32 | ED ---
Psych HPI - General Chief Complaint: Psychiatric Symptoms Stated Complaint: Mental health Time Seen by Provider: 08/14/20 23:16 Source: patient, RN notes reviewed Mode of arrival: ambulatory Limitations: no limitations - History of Present Illness Initial Comments: 24-year-old male presents emergency Department with chief complaint of anxiety, depression. Patient states that he has severe anxiety he started on medications. Patient's been having intermittent suicidal patient with out plan. Patient states that it's he does not have a current counselor or psychiatrist. He denies any homicidal ideation. He does have a history of drug abuse but states he has not been using recently no alcohol abuse. Patient states that he had a tricuspid valve replacement secondary to endocarditis from IV drug use. Patient states this was performed in 2012. Patient denies any other complaints at this time. - Related Data Home Medications Medication Instructions Recorded Confirmed No Known Home Medications 01/26/19 01/26/19 Allergies Allergy/AdvReac Type Severity Reaction Status Date / Time Penicillins Allergy Unknown Verified 08/14/20 23:18 piperacillin [From Zosyn] Allergy Unknown Verified 08/14/20 23:18 tazobactam [From Zosyn] Allergy Unknown Verified 08/14/20 23:18 haloperidol [From Haldol] AdvReac Anaphylaxis Verified 08/14/20 23:18 Review of Systems ROS Statement: Those systems with pertinent positive or pertinent negative responses have been documented in the HPI. ROS Other: All systems not noted in ROS Statement are negative. 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 Past Psychological History: Bipolar, Depression Smoking Status: Current every day smoker Past Alcohol Use History: None Reported Past Drug Use History: IV Drug Use, Marijuana, Methamphetamine - Past Family History family Additional Family Medical History / Comment(s): States multiple family members with heart disease on his mother's side of the family. General Exam General appearance: alert, in no apparent distress Head exam: Present: atraumatic, normocephalic, normal inspection Eye exam: Present: normal appearance, PERRL, EOMI. Absent: scleral icterus, conjunctival injection, periorbital swelling ENT exam: Present: normal exam, normal oropharynx, mucous membranes moist Neck exam: Present: normal inspection, full ROM. Absent: tenderness, meningismus, lymphadenopathy Respiratory exam: Present: normal lung sounds bilaterally. Absent: respiratory distress, wheezes, rales, rhonchi, stridor Cardiovascular Exam: Present: regular rate, normal rhythm. Absent: normal heart sounds, systolic murmur, diastolic murmur, rubs, gallop, clicks GI/Abdominal exam: Present: soft, normal bowel sounds. Absent: distended, tenderness, guarding, rebound, rigid Neurological exam: Present: alert, oriented X3 Psychiatric exam: Present: depressed Course Vital Signs 08/14/20 23:14 Temperature 98.7 F Pulse Rate 100 Respiratory 18 Rate Blood Pressure 120/79 O2 Sat by Pulse 99 Oximetry Medical Decision Making - Medical Decision Making 24-year-old male presented for psychiatric evaluation evaluated by EPS case discussed with psychiatrist recommends outpatient treatment. Patient denies an suicidal currently. Patient contracted for safety. Patient's mother was conta cted and agrees with the patient being discharged home. Disposition Clinical Impression: Depression Disposition: HOME SELF-CARE Condition: Stable Instructions (If sedation given, give patient instructions): Depression (DC) Additional Instructions: Please return to the Emergency Department if symptoms worsen or any other concerns. Is patient prescribed a controlled substance at d/c from ED?: No Referrals: None,Stated [Primary Care Provider] - 1-2 days Time of Disposition: 01:47
[2020-08-15 01:57] LABS: Amphetamine Screen,Urine Not Detected (NotDetected); Barbiturate Screen,Urine Not Detected (NotDetected); Benzodiazepines Screen,Urine Not Detected (NotDetected); Cocaine Screen,Urine Not Detected (NotDetected); Methadone Screen, Urine Not Detected (NotDetected); Opiate Screen,Urine Not Detected (NotDetected); Oxycodone Screen, Urine Not Detected (NotDetected); Phencyclidine Screen,Urine Not Detected (NotDetected); Tricyclic Antidepressant,Urine Not Detected (NotDetected); Urn Cannabinoid Scrn Detected (NotDetected)
== END 2020-08-15 02:04 | disposition home or self-care (01) ==
LOC: EC 23:11
DX: F32.9 Major depressive disorder, single episode, unspecified (principal); F17.200 Nicotine dependence, unspecified, uncomplicated; F19.11 Other psychoactive substance abuse, in remission; F41.9 Anxiety disorder, unspecified; Z88.0 Allergy status to penicillin; Z88.8 Allergy status to other drugs, medicaments and biological substances; Z95.2 Presence of prosthetic heart valve
CPT/HCPCS: 80306; 82075; 99285

== ENCOUNTER 2020-08-28 07:01 | Inpatient (IN) | payer MEDICAID ==
[2020-08-28] MEDS ORDERED: MAGNESIUM HYDROXIDE 2,400 MG/10 ML CUP PO PRN (12:14)
[2020-08-28] MEDS ORDERED: LORazepam 1 MG TAB PO PRN (12:14)
[2020-08-28] MEDS ORDERED: ZIPRASIDONE 20 MG VIAL IM PRN (12:14)
[2020-08-28] MEDS: NICOTINE 21MG/24HR PATCH TRANSDERM SCH ×2 (13:03→20:27)
--- NOTE | 2020-08-28 14:44 | P.HP ---
Psychiatric H&P - . H&P Date: 08/28/20 History & Physical: Allergies Allergy/AdvReac Type Severity Reaction Status Date / Time Penicillins Allergy Unknown Unknown Verified 08/28/20 12:22 piperacillin From Zosyn Allergy Unknown Unknown Verified 08/28/20 12:22 tazobactam From Zosyn Allergy Unknown Unknown Verified 08/28/20 12:22 haloperidol From Haldol AdvReac Severe Anaphylaxis Verified 08/28/20 12:22 Vital Signs Temp 97.6 F 08/28/20 11:55 Pulse 90 08/28/20 11:55 Resp 20 08/28/20 11:55 BP 114/68 08/28/20 11:55 Pulse Ox 97 08/28/20 11:55 Intake & Output 08/27/20 08/28/20 08/28/20 18:59 06:59 18:59 Weight 79.832 kg 08/28/20 14:37 IDENTIFYING DATA: Patient is a 24-year-old male who currently lives in apartment with other roommates has no kids is single and unemployed. HPI: Patient presented to the hospital after being transferred from [facility] on petition and certificate. Patient claims that he "kept getting high" with drugs and spoke about mold poisoning at his house. He is claiming that he is feeling terrible and appeared to be lethargic and bizarre with loose associations. Patient was also noted to be responding to internal stimuli during the interview. He briefly stated that he was walking from "[facility]" to the hospital however was unclear about why he showed up at the hospital. He is claiming that "I was his walking and walking". He did endorse some mild paranoia. He claims that his mood has been "all right" however did endorse some mild depression at times. He states that he does have some mild anxiety. He claims that his appetite is poor however he says his sleep is fair. He claims that he was hearing voices earlier before coming in the hospital however they have been improving since being on the unit. When asked further about his drug use patient denied using any drugs. He appeared to be guarded at times during the interview. Patient was calm and directable and agreeable to sign voluntary today. He was also agreeable to start Risperdal at nighttime.Pat mayco denies any suicidal or homicidal ideations intent or plan. At this time patient denies any auditory or visual hallucinations. Patient admits to getting high however denies any drug use. He states that he does smoke cigarettes daily. PAST PSYCHIATRIC HISTORY: Patient states that he has a history of substance abuse psychotic episode in the past. Patient denies being on any psychiatric medications. Patient was previously admitted to the mental health unit in 2018 for a substance-induced psychotic episode. Patient denies any psychiatric outpatient follow-up. Patient denies any history of suicide attempts in the past. PMH: He claims that he has a right tricuspid valve replaced. ALLERGIES: as per EMR CHEMICAL DEPENDENCY HISTORY: as per HPI FAMILY PSYCHIATRIC/SUBSTANCE USE HISTORY: He states that his sister has schizophrenia. He claims that there is multiple people in his family with substance use problems. SOCIAL HISTORY: Patient was born and raised in [place] and moved to [facility]. He currently lives with roommates in a apartment and has no kids is single and unemployed. He denies having worked in the past. He states that he did not finish high school. He denies any legal history. MENTAL STATUS EXAM: General Appearance: Patient appears to be stated age is lethargic, responding to internal stimuli however at times to cooperate. Patient appears to have poor hygiene and grooming. Behavior: Patient is seated without any agitated behavior. Responding to internal stimuli at times. Speech: Patient's speech is fluent and nonpressured. Mumbling at times. Mood/Affect: Patient reports their mood is "ok", affect is congruent and constricted. Suicidality/Homicidality: Patient denies having any homicidal ideation intent or plan. Denies any suicidal ideations intent or plan Perceptions: Patient denies any visual hallucinations and denies any auditory hallucinations however did state that he was hearing voices prior to coming into the hospital. Though content/process: Patient is tangential, loose associations at times. Bizarre content at times. Mild paranoia. Memory and concentration: AOX3, grossly intact for the purposes of this session. Can spell "WORLD" backwards Judgment and insight: poor STRENGTHS/WEAKNESSES: strength is that patient is resilient. Weakness is that patient has poor judgment and is impulsive INTELLECT: average IMPRESSIONS: Psychosis unspecified, rule out secondary to substance use. Nicotine dependence PLAN: -Patient is admitted under voluntary status to MHU for stabilization of psychiatric symptoms and safety. Patient has signed adult voluntary form and medication consent and is placed in patient's chart. -Medications : Will start patient on Risperdal 1 mg daily at bedtime for psychosis/insomnia. -Ativan and Geodon PRN for agitation/aggression -Patient adamantly declines using recreational drugs however does have a history of using drugs. Patient is agreeable to give a urine drug screen. -Patient was informed of the risks, benefits and side effects of the medication and patient verbally consented to taking the medications. Patient signed med consent form and was placed in chart. -Internal Medicine consult to perform medical evaluation and physical. -NRT - nicotine patch -SW on board for discharge planning. Encourage patient to participate in groups to work on coping skills. We'll speak with patient about possibly going to rehab upon discharge versus home.
--- NOTE | 2020-08-28 18:39 | P.HPMEDMHU ---
History of Present Illness H&P Date: 08/28/20 Chief Complaint: Psychosis Patient is a 24-year-old male who reports that he has a history of substance abuse psychotic episode in the past that required inpatient psychiatric admission and endocarditis that required tricuspid valve repair who presents as a transfer from [facility] to the inpatient psychiatric unit for psychosis. Medicine has been consulted for history and physical. Patient currently denies any complaints. Patient does not know why he is in no psychiatric unit. Review of Systems 10 ROS reviewed and are negative except as noted in HPI 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 Past Anesthesia/Blood Transfusion Reactions: No Reported Reaction Past Psychological History: Bipolar, Depression Smoking Status: Current every day smoker Past Alcohol Use History: None Reported Past Drug Use History: IV Drug Use, Marijuana, Methamphetamine Additional Drug Use History / Comment(s): amphetamines - Past Family History family Additional Family Medical History / Comment(s): States multiple family members with heart disease on his mother's side of the family. Medications and Allergies Home Medications Medication Instructions Recorded Confirmed Type Metoprolol Tartrate [Lopressor] 25 mg PO DAILY 08/28/20 08/28/20 History Allergies Allergy/AdvReac Type Severity Reaction Status Date / Time Penicillins Allergy Unknown Unknown Verified 08/28/20 12:22 piperacillin [From Zosyn] Allergy Unknown Unknown Verified 08/28/20 12:22 tazobactam [From Zosyn] Allergy Unknown Unknown Verified 08/28/20 12:22 haloperidol [From Haldol] AdvReac Severe Anaphylaxis Verified 08/28/20 12:22 Physical Exam Osteopathic Statement: *. No significant issues noted on an osteopathic structural exam other than those noted in the History and Physical/Consult. Vitals: Vital Signs Temp Pulse Resp BP Pulse Ox 08/28/20 11:55 97.6 F 90 20 114/68 97 Intake and Output 08/28/20 08/28/20 08/28/20 06:59 14:59 22:59 Other: Weight 79.832 kg General: [Alert and oriented, well nourished, no acute distress]. Eye: [PERRL, EOMI, normal conjunctiva]. HENT: [Normocephalic, clear tympanic membranes, normal hearing, moist oral mucosa, no scleral icterus, no sinus tenderness]. Neck: [Supple, non-tender, no carotid bruits, no JVD, no lymphadenopathy]. Lungs: [Clear to auscultation and percussion, non-labored respiration]. Heart: [Normal rate, regular rhythm, no murmur, gallop or edema]. Abdomen: [Soft, non-tender, non-distended, normal bowel sounds, no masses]. Musculoskeletal: [Normal range of motion and strength, no tenderness or swelling]. Skin: [Skin is warm, dry and pink, no rashes or lesions]. Neurologic: [Awake, alert, and oriented X3, CN II-XII intact]. Psychiatric: [Cooperative, appropriate mood and affect]. Cranial Nerve Examination - Cranial Nerves Cranial Nerve II- Optic: Intact Cranial Nerve III- Oculomotor: Intact Cranial Nerve IV- Trochlear: Intact Cranial Nerve V- Trigeminal: Intact Cranial Nerve - Abducens: Intact Cranial Nerve VII- Facial: Intact Cranial Nerve VIII- Auditory: Intact Cranial Nerve IX- Glossopharyngeal: Intact Cranial Nerve X- Vagus: Intact Cranial Nerve XI- Accessory: Intact Cranial Nerve XII- Hypoglossal: Intact Assessment and Plan Assessment: #Psychosis: Neuropsychiatric management. Agree to rule out substance use. Patient started on Risperdal at bedtime. Ativan and Geodon when necessary for agitation. Check urine drug screen. Patient denies any history of IV drug abuse for several years #Hypertension: Resume metoprolol #History of endocarditis that required fine tricuspid repair. Stable CODE STATUS:full code DVT prophylaxis: mechanical Anticipated length of stay > than [address]: home A total of 30 minutes was spent on the care of this complex patient more than 50% of the time was spent in counseling and care coordination.
[2020-08-28] MEDS: ACETAMINOPHEN TAB 325 MG TAB PO PRN (20:26)
[2020-08-28] MEDS ORDERED: risperiDONE 1 MG TAB PO SCH (21:00)
[2020-08-29] MEDS: NICOTINE 21MG/24HR PATCH TRANSDERM SCH ×2 (08:59→21:01)
[2020-08-29 09:34] LABS: Albumin 4.5 g/dL (3.5-5.0); Bilirubin, Delta 0.3 mg/dL (0.0-0.2); Bilirubin,Unconjugated 0.5 mg/dL (0.0-1.1); Total Bilirubin 0.8 mg/dL (0.2-1.3); Total Protein 7.2 g/dL (6.3-8.2)
--- NOTE | 2020-08-29 09:47 | P.PN ---
Progress Note - Text Progress Note Date: 08/29/20 Interval History: Patient was seen sitting in on group this morning and was directable and agree able to speak with news writer in the office. Patient appeared to be calmer and more directable with news writer however continues to endorse paranoia. When asked about his symptoms patient was fairly guarded and claims that he does not know the difference between "magnetic energy and the voices in my head". Patient was speaking about bizarre content however was fluent and logical. He was not responding to internal stimuli today. Patient claims that his mood is "fine" and denies any anxiety today. When asked about the group that he was in he states that "it's freedom of speech". He states that he did not sleep well last night however did not describe why. At this time patient denies any suicidal or homical ideations, intent or plan. Patient denies any visual hallucinations and denies any paranoia or delusions. Patient denies any side effects from the medications and has been compliant with meds. Mental Status Exam: General Appearance: Patient appears to be stated age is more alert today, continues to be guarded and bizarre. Patient appears to have improving hygiene and grooming. Behavior: Patient is seated without any agitated behavior. Guarded and bizarre. Speech: Patient's speech is fluent and nonpressured. Mood/Affect: Patient reports their mood is "fine", affect is congruent and constricted. Suicidality/Homicidality: Patient denies having any homicidal ideation intent or plan. Denies any suicidal ideations intent or plan Perceptions: Patient denies any visual hallucinations and denies any auditory hallucinations Though content/process: Patient is tangential. Bizarre content at times. paranoia. Memory and concentration: AOX3, grossly intact for the purposes of this session Judgment and insight: poor, improving midlyl Assessment Psychosis unspecified, rule out secondary to substance use. Nicotine dependence Plan: -Patient continues to meet criteria for inpatient psychiatric admission for symptom stabilization and safety. Patient has signed adult voluntary form and medication consent and was placed in patient's chart. -Medications: Increased Risperdal 2 mg daily at bedtime for psychosis/insomnia. -When necessary Ativan and Geodon for agitation/aggression. -uds currently pending. -NRT - nicotine patch -SW on board for discharge planning. Encouraged the patient to participate in milieu. We'll speak with patient about possibly going to rehab upon discharge versus home.
[2020-08-29] MEDS: METOPROLOL TARTRATE 25 MG TAB PO SCH ×2 (12:14→21:01)
[2020-08-29] MEDS: risperiDONE 2 MG TAB PO SCH (21:00)
[2020-08-29 22:22] LABS: Hemoglobin A1C 5.1 % (4.0-6.0)
[2020-08-30] MEDS: NICOTINE 21MG/24HR PATCH TRANSDERM SCH (09:38)
[2020-08-30] MEDS: METOPROLOL TARTRATE 25 MG TAB PO SCH ×2 (09:39→20:48)
--- NOTE | 2020-08-30 09:41 | P.PN ---
Progress Note - Text Progress Note Date: 08/30/20 Interval History: Patient was seen laying on his bed this morning and was directable and agreeable to speak with investment underwriter in the office. Patient appeared to be calmer and more directable today. Patient's paranoia has significantly been improving and patient was not mentioning anybody to follow him or out to harm him. He was more trustworthy of investment underwriter today during conversation. He continues to be vague about his situation at home and states that "I'm going to the same situation when I leave here". He claims that the voices he was experiencing have been significantly improving. He states that he was able to sleep well throughout the night. Today he denies any depression or anxiety. He was more fluent and logical in his thought process. He was not responding to internal stimuli today. At this time patient denies any suicidal or homical ideations, intent or plan. Patient denies any visual hallucinations and denies any paranoia or delusions. Patient denies any side effects from the medications and has been compliant with meds. Mental Status Exam: General Appearance: Patient appears to be stated age is more alert today, less guarded and attempts to cooperate. Patient appears to have improving hygiene and grooming. Behavior: Patient is seated without any agitated behavior. Less guarded today. Speech: Patient's speech is fluent and nonpressured. Mood/Affect: Patient reports their mood is "ok", affect is congruent and constricted. Suicidality/Homicidality: Patient denies having any homicidal ideation intent or plan. Denies any suicidal ideations intent or plan Perceptions: Patient denies any visual hallucinations and denies any auditory hallucinations Though content/process: Patient is tangential. Improvement in paranoia. Poverty of content continues to be vague Memory and concentration: AOX3, grossly intact for the purposes of this session Judgment and insight: poor, improving midlyl Assessment Psychosis unspecified, rule out secondary to substance use. Nicotine dependence Plan: -Patient continues to meet criteria for inpatient psychiatric admission for symptom stabilization and safety. Patient has signed adult voluntary form and medication consent and was placed in patient's chart. -Medications: Continue with Risperdal 2 mg daily at bedtime for psychosis/insomnia. -When necessary Ativan and Geodon for agitation/aggression. -uds currently pending. Patient has refused other labs ordered. -NRT - nicotine patch -SW on board for discharge planning. Encouraged the patient to participate in milieu. We'll speak with patient about possibly going to rehab upon discharge versus home. Likely discharge tomorrow.
--- NOTE | 2020-08-30 12:23 | XR ---
EXAMINATION TYPE: XR chest 2V DATE OF EXAM: 08/30/2020 COMPARISON: 01/26/2019 TECHNIQUE: PA and lateral views submitted. HISTORY: Cough FINDINGS: The lungs are clear and there is no pneumothorax, pleural effusion, or focal pneumonia. Postoperati ve change. Heart size normal. No overt failure. Hyperinflation suggests COPD. IMPRESSION: 1. No acute process. 2. COPD.
[2020-08-30] MEDS: risperiDONE 2 MG TAB PO SCH (20:48)
[2020-08-31] MEDS: METOPROLOL TARTRATE 25 MG TAB PO SCH ×2 (08:13→21:29)
[2020-08-31] MEDS: NICOTINE 21MG/24HR PATCH TRANSDERM SCH (08:13)
--- NOTE | 2020-08-31 11:43 | P.PN ---
Progress Note - Text Progress Note Date: 08/31/20 Interval History: Patient was seen laying on his bed this morning sleeping and was directable and agreeable to speak with auto service writer in the office. Patient appeared to be calmer and more directable today however continues to endorse mild paranoia and had poverty of content and speech today. Patient has a flat affect and did not endorse any overnight complaints. Patient is difficult to engage with an conversation however appeared to be less bizarre than yesterday. He continues to be vague and uncooperative with discharge planning and claimed that "I'll stay with some family". He claims that the voices he was experiencing have been significantly improving. He states that he was able to sleep well throughout the night. Today he denies any depression or anxiety. He was not responding to internal stimuli today. At this time patient denies any suicidal or homical ideations, intent or plan. Patient denies any visual hallucinations and denies any paranoia or delusions. Patient denies any side effects from the medications and has been compliant with meds. Patient was noted to be delusional yesterday with nurse according to note and uncooperative when given cup for urine sample. Mental Status Exam: General Appearance: Patient appears to be stated age is more alert today, less guarded however continues to be vague and evasive. Patient appears to have improving hygiene and grooming. Behavior: Patient is seated without any agitated behavior. Vague and evasive today. Speech: Patient's speech is fluent and nonpressured. Mood/Affect: Patient reports their mood is "ok", affect is congruent and constricted. Suicidality/Homicidality: Patient denies having any homicidal ideation intent or plan. Denies any suicidal ideations intent or plan Perceptions: Patient denies any visual hallucinations and denies any auditory hallucinations Though content/process: Patient is tangential. Improvement in paranoia. Poverty of content continues to be vague and evasive when asked about discharge planning. Memory and concentration: AOX3, grossly intact for the purposes of this session Judgment and insight: poor, improving midlyl Assessment Psychosis unspecified, rule out secondary to substance use. Nicotine dependence Plan: -Patient continues to meet criteria for inpatient psychiatric admission for symptom stabilization and safety. Patient has signed adult voluntary form and medication consent and was placed in patient's chart. -Medications: Continue with Risperdal 2 mg daily at bedtime for psychosis/insomnia. Consider increasing over the weekend if needed. -When necessary Ativan and Geodon for agitation/aggression. -uds was refused by patient. Patient has refused other labs ordered. -NRT - nicotine patch -SW on board for discharge planning. Encouraged the patient to participate in milieu. Patient has been uncooperative with discharge planning and not signing release of information to help with planning. We'll continue to work with patient and look at possible discharge early next week.
[2020-08-31] MEDS: risperiDONE 2 MG TAB PO SCH (21:29)
[2020-09-01] MEDS: NICOTINE 21MG/24HR PATCH TRANSDERM SCH (10:01)
[2020-09-01] MEDS: METOPROLOL TARTRATE 25 MG TAB PO SCH ×2 (10:01→21:34)
[2020-09-01] MEDS: ACETAMINOPHEN TAB 325 MG TAB PO PRN (10:02)
--- NOTE | 2020-09-01 20:46 | PN ---
PROGRESS NOTE DATE OF SERVICE: 09/01/2020 CHIEF COMPLAINT: The patient had disorganized thoughts and behavior. He had psychotic symptoms. He had significant substance use issues. INTERVAL HISTORY: The patient has been doing fair. He had a quiet day yesterday. He will come out some in the day area, though mostly he seems to keep to himself and spends a fair amount of time in his room. He did attend a few groups yesterday, though only showed minimal participation. He said that he slept well last night. Today he has been up. Again, he has not chosen to attend groups. When I reviewed substance use issues with the patient, he notes that he had 168 days clean from use of any abusive substances, though then relapsed on August 16. It is noted that he is anticipating discharge fairly soon. We talked about discharge planning. It was difficult to follow his train of thought. He made some odd references about not being discharged this last week because of some group of people who were discharged. There was also some suggestions he made about apparent threatening situations in the community. He was not able to clarify this to any extent. He tolerates his psychotropic medications. MENTAL STATUS: Patient sat with some restlessness. He gave fair eye contact. He responded to questions though very frequently the things he said were somewhat disconnected from the questions at hand. He made references that were hard to follow. His affect was somewhat constricted though not significantly so. He had a fairly calm manner. His mood was reserved, though not down or depressed. He did not appear to be distressed. He seemed to make references that suggested paranoid delusions. He voiced no thoughts of harm. On cognitive exam he did not make an effort to answer formal cognitive questions though was oriented to his circumstances and surroundings. ASSESSMENT: I will continue the current diagnosis and treatment plan. We will continue to engage the patient in individual and group therapeutic activities. I will continue him on Risperdal, though will increase the dose to 3 mg twice a day for apparent continued thought disorder symptoms. I made an effort to review medications briefly, though the patient did not seem to follow the conversation too well. I did make mention of metabolics and movement disorder issues. We will focus on stabilization and discharge planning. MMODL / IJN: [id number] /
[2020-09-01] MEDS: risperiDONE 1 MG TAB PO SCH (21:34)
[2020-09-02] MEDS: METOPROLOL TARTRATE 25 MG TAB PO SCH ×2 (09:04→20:56)
[2020-09-02] MEDS: risperiDONE 1 MG TAB PO SCH ×2 (09:04→20:55)
[2020-09-02] MEDS: NICOTINE 21MG/24HR PATCH TRANSDERM SCH (09:04)
--- NOTE | 2020-09-03 02:11 | PN ---
PROGRESS NOTE DATE OF SERVICE: 09/02/2020 CHIEF COMPLAINT: The patient had disorganized thoughts and behavior. He had psychotic symptoms. He had significant substance use issues. INTERVAL HISTORY: Patient has been doing fair. He had a quiet day yesterday. He comes out in the day area. He wanders about. He will interact some with others. Mostly he seems to have a quiet manner and often appears to be just caught up in his own thoughts. He attended one group yesterday though only stayed about half a group. He did not participate too much in group. He said that he slept well last night. Today he has been up pretty much things are the same for him. He attended one group today and staff noted that he had difficulty attending to activities for more than 5 minutes at a time. He would easily get distracted. When I talked to the patient, he did not voice any specific complaints or concerns. He was still focused on discharge. He suggested he has a family to live with though he was vague about particulars. He did not say much today, so it was hard to assess what issues he may be having with thought disorder. He has not had a problem with increase in his Risperdal. MENTAL STATUS EXAM: Patient gave fair eye contact at best. Psychomotor activity was restless. He answered questions with 1 or 2 word responses. He did not say much. His voice was soft and monotone. Mostly he responded with yes and no answers. His affect was blunted. His mood reserved. It was difficult to say if he was distressed in any way. It was difficult to assess for thought disorder given that he barely made any effort to talk at all. It was difficult to assess for thoughts of harm. He was oriented to circumstances and surroundings. ASSESSMENT: I will continue the current diagnosis and treatment plan. I will continue psychotropic medications the same. I briefly discussed some discharge planning issues with the patient, though he did not really make much effort to engage in the conversation. We will focus on stabilization and discharge planning. MMMIKKIL / IJN: [id number] /
[2020-09-03 06:45] VITALS: TEMP 97.8
[2020-09-03] MEDS: risperiDONE 1 MG TAB PO SCH (09:22)
[2020-09-03] MEDS: NICOTINE 21MG/24HR PATCH TRANSDERM SCH (09:22)
[2020-09-03] MEDS: METOPROLOL TARTRATE 25 MG TAB PO SCH ×2 (09:22→19:54)
--- NOTE | 2020-09-03 11:09 | P.PN ---
Progress Note - Text Progress Note Date: 09/03/20 Interval History: Patient was seen laying on his bed this morning sleeping and was directable and agreeable to speak with magnetic tape typewriter operator in the office. Patient appeared to be somewhat lethargic this morning however was attempting to cooperate more today with a magnetic tape typewriter operator. He appeared to be more appropriate during conversation and was not endorsing any delusions today. No paranoia. Paper Pattern Inspector explained patient's chest x-ray results and the possibility of him having COPD patient wanted to follow-up as an outpatient as he is not expressing any shortness of breath or wheezing. He claims that he is sleeping excessively at nighttime approximately 8 hours. He states that he is no longer hearing any voices at this time. Patient was mildly more cooperative with discharge planning and states that he would like to go back to his mother's house to live with her. Today he denies any depression or anxiety. At this time patient denies any suicidal or homical ideations, intent or plan. Patient denies any visual hallucinations and denies any paranoia or delusions. Patient denies any side effects from the medications and has been compliant with meds. Mental Status Exam: General Appearance: Patient appears to be stated age is mildly more lethargic today, more directable more cooperative. Patient appears to have improving hygiene and grooming. Behavior: Patient is seated without any agitated behavior. More cooperative today. Speech: Patient's speech is fluent and nonpressured. Mood/Affect: Patient reports their mood is "good", affect is congruent and constricted. Suicidality/Homicidality: Patient denies having any homicidal ideation intent or plan. Denies any suicidal ideations intent or plan Perceptions: Patient denies any visual hallucinations and denies any auditory hallucinations Though content/process: Patient is more goal oriented. Continues to have poverty of content. More logical, denies any delusions or paranoia. Memory and concentration: AOX3, grossly intact for the purposes of this session Judgment and insight: Chronically poor, improving midlyl Assessment Psychosis unspecified, rule out secondary to substance use. Nicotine dependence Plan: -Patient continues to meet criteria for inpatient psychiatric admission for symptom stabilization and safety. Patient has signed adult voluntary form and medication consent and was placed in patient's chart. -Medications: Decreased Risperdal 2 mg daily at bedtime + 1mg daily for psychosis/insomnia. -When necessary Ativan and Geodon for agitation/aggression. -uds was refused by patient. Patient has refused other labs ordered. -NRT - nicotine patch -SW on board for discharge planning. Encouraged the patient to participate in milieu. Patient is more cooperative today with discharge planning and claims that he would like to go to his mother's house upon discharge. He was refusing rehab however want to go to narcotics anonymous.
[2020-09-03] MEDS ORDERED: risperiDONE 2 MG TAB PO SCH (21:00)
[2020-09-04 06:47] VITALS: RESP 17
[2020-09-04] MEDS ORDERED: risperiDONE 1 MG TAB PO SCH (09:00)
[2020-09-04] MEDS: METOPROLOL TARTRATE 25 MG TAB PO SCH (09:05)
[2020-09-04] MEDS: NICOTINE 21MG/24HR PATCH TRANSDERM SCH (09:05)
[2020-09-04 09:07] VITALS: BP 131/71; PULSE 97
--- NOTE | 2020-09-04 09:47 | P.DS ---
Providers Date of admission: 08/28/20 11:48 Expected date of discharge: 09/04/20 Attending physician: Fidel Hernandez MD Consults: 08/28/20 12:14 Consult Physician Routine Consulting Provider: Nicolás Freed Consult Reason/Comments: H & P and medical mgmt. Do you want consulting provider notified?: Yes Primary care physician: Stated None - Discharge Diagnosis(es) (1) Unspecified psychosis Current Visit: Yes Status: Acute Priority: High (2) Nicotine dependence Current Visit: Yes Status: Acute Priority: Low Hospital Course: Admission HPI: Patient is a 24-year-old male who currently lives in apartment with other roommates has no kids is single and unemployed. Patient presented to the hospital after being transferred from [facility] on petition and certificate. Patient claims that he "kept getting high" with drugs and spoke about mold poisoning at his house. He is claiming that he is feeling terrible and appeared to be lethargic and bizarre with loose associations. Patient was also noted to be responding to internal stimuli during the interview. He briefly stated that he was walking from "[facility]" to the hospital however was unclear about why he showed up at the hospital. He is claiming that "I was his walking and walking". He did endorse some mild paranoia. He claims that his mood has been "all right" however did endorse some mild depression at times. He states that he does have some mild anxiety. He claims that his appetite is poor however he says his sleep is fair. He claims that he was hearing voices earlier before coming in the hospital however they have been improving since being on the unit. When asked further about his drug use patient denied using any drugs. He appeared to be guarded at times during the interview. Patient was calm and directable and agreeable to sign voluntary today. He was also agreeable to start Risperdal at nighttime.Patient denies any suicidal or homicidal ideations intent or plan. At this time patient denies any auditory or visual hallucinations. Patient admits to getting high however denies any drug use. He states that he does smoke cigarettes daily. Hospital course: Upon admission to the unit patient was initially bizarre and psychotic. Patient was however directable and agreeable to commence treatment. Patient ended up signing voluntary. Patient mainly isolated however overall got along well with other patients on the unit and followed unit protocol. Patient was compliant with the medications and denied any side effects throughout hospital course. Patient was started on Risperdal and titrated up to dose off 2 mg daily at bedtime +1 mg daily for psychosis/insomnia. Patient spoke of his stressors and engaged in therapy both group and individual. Patient was also seen by medical team for history and physical exam. Throughout the course of the hospitalization patient gradually improved with regards to psychosis, mood/anxiety, sleep and improved with reagrds to his insight and judgment. On the day of discharge patient denied any suicidal or homicidal ideations intent or plan denied any auditory or visual hallucinations. Patient endorsed wanting to live for his sobriety and his future. The patient denied any access to guns or weapons. Patient denied any paranoia and did not endorse any delusions. Patient does have a significant history of substance abuse and was counseled on abstaining from all substances including alcohol and marijuana. Patient was offered however declined inpatient substance-abuse rehab. Patient claims that he wanted to cut back his drug use on his own. Patient did not give a urine drug screen on the unit. Patient was also counseled on the medications and need for regular compliance and was encouraged to follow-up with their outpatient appointment for mental health and also for primary care. Prior to discharge, social worker palliative care will return to patient's mother where patient will be discharged to her care to address any concerns or questions. Mental status exam: General Appearance: Patient appears to be stated age is alert, directable, and cooperative. Patient is in no acute distress and has improved hygiene and grooming Behavior: Patient is calmly seated without any agitated behavior. Cooperative Speech: Patient's speech is fluent and nonpressured. Mood/Affect: Patient reports their mood is "ok", affect is congruent and constricted Suicidality/Homicidality: Patient denies having any suicidal or homicidal ideation intent or plan. Perceptions: Patient denies any auditory or visual hallucinations. Though content/process: There is no evidence of any delusional thought content and thought process is linear and goal-directed. Memory and concentration: AOX3, grossly intact for the purposes of this session. Can spell "WORLD" backwards correctly. Judgment and insight: chronically poor, however has improved with guarded prognosis Impression: Psychosis unspecified, likely secondary to substance use Nicotine dependence Plan: -Continue with discharge today as patient has improved and stabilized psychiatrically and is not currently an imminent threat to himself and/or other s. Patient will remain at chronically elevated risk for harm to self and/or others due to his chronically poor insight and substance abuse. -Continue medications: Continue with Risperdal 2 mg daily at bedtime +1 mg daily for psychosis/insomnia. -Patient was counseled on the need for medication compliance and appropriate follow-up at mental health and also primary care for medical issues. Patient verbalized understanding and agreed. -Social work to arrange for and conduct family meeting with patient's mother to ensure safety upon discharge and answer any questions/concerns. Social work also to arrange for patients follow up appointments with [facility] for psychiatric care along with follow up with primary care provider. -Patient counseled on abstaining from recreational drugs and marijuana and a lcohol. Was informed/educated on the adverse effects on their physical and mental health. Patient verbally agreed and understood. Patient was offered substance abuse treatment however declined at this time. Patient claims that he wants to cut back on his drug use himself. Patient was advised to consider rehab in the future. -Patient was instructed to return to the hospital or seek immediate medical care if their psychiatric or medical symptoms do worsen or reoccur. Allergies Allergy/AdvReac Type Severity Reaction Status Date / Time Penicillins Allergy Unknown Unknown Verified 08/28/20 12:22 piperacillin [From Zosyn] Allergy Unknown Unknown Verified 08/28/20 12:22 tazobactam [From Zosyn] Allergy Unknown Unknown Verified 08/28/20 12:22 haloperidol [From Haldol] AdvReac Severe Anaphylaxis Verified 08/28/20 12:[address] Glu mg/dL 100 08/29/20 09:03 Hemoglobin A1c 5.1 % (4.0-6.0) 08/29/20 09:03 Total Bilirubin 0.8 mg/dL (0.2-1.3) 08/29/20 09:03 Conjugated Bilirubin 0.0 mg/dL (0.0-0.3) 08/29/20 09:03 Unconjugated Bilirubin 0.5 mg/dL (0.0-1.1) 08/29/20 09:03 Delta Bilirubin 0.3 mg/dL (0.0-0.2) H 08/29/20 09:03 AST 37 U/L (17-59) 08/29/20 09:03 ALT 40 U/L (4-49) 08/29/20 09:03 Alkaline Phosphatase 93 U/L (38-126) 08/29/20 09:03 Total Protein 7.2 g/dL (6.3-8.2) 08/29/20 09:03 Albumin 4.5 g/dL (3.5-5.0) 08/29/20 09:03 Triglycerides 92 mg/dL (<150) 08/29/20 09:03 Cholesterol 129 mg/dL (<200) 08/29/20 09:03 LDL Cholesterol, Calc 56 mg/dL (0-99) 08/29/20 09:03 HDL Cholesterol 55 mg/dL (40-60) 08/29/20 09:03 TSH 1.320 mIU/L (0.465-4.680) 08/29/20 09:03 Vital Signs Temp 97.8 F 09/03/20 06:45 Pulse 97 09/04/20 09:00 Resp 17 09/04/20 06:46 BP 131/71 09/04/20 09:00 Pulse Ox 99 09/04/20 06:46 Patient Condition at Discharge: Stable Plan - Discharge Summary Discharge Rx Participant: No New Discharge Prescriptions: New Nicotine 21Mg/24Hr Patch [Habitrol] 1 patch TRANSDERM DAILY 14 Days patch Metoprolol Tartrate [Lopressor] 25 mg PO BID 30 Days tab risperiDONE [RisperDAL] 1 mg PO DAILY 30 Days tab risperiDONE [RisperDAL] 2 mg PO HS 30 Days tab Acetaminophen Tab [Tylenol] 650 mg PO Q4HR PRN tab PRN Reason: Pain/Discomfort Discontinued Metoprolol Tartrate [Lopressor] 25 mg PO DAILY Discharge Medication List Acetaminophen Tab [Tylenol] 650 mg PO Q4HR PRN tab 09/04/20 [Rx] Metoprolol Tartrate [Lopressor] 25 mg PO BID 30 Days tab 09/04/20 [Rx] Nicotine 21Mg/24Hr Patch [Habitrol] 1 patch TRANSDERM DAILY 14 Days patch 09/04/20 [Rx] risperiDONE [RisperDAL] 1 mg PO DAILY 30 Days tab 09/04/20 [Rx] risperiDONE [RisperDAL] 2 mg PO HS 30 Days tab 09/04/20 [Rx] Activity/Diet/Wound Care/Special Instructions: Activity and diet as tolerated. Avoid the use of street drugs and alcohol. Take all medications as prescribed. When you are in need of refills on your medications please contact your medical provider and/or outpatient psychiatrist to have this done. Please go to scheduled outpatient appointment for aftercare treatment. If symptoms return or become worse, call the crisis line at and/or go to the nearest emergency room for evaluation. Discharge Disposition: HOME SELF-CARE
[2020-09-04 12:31] VITALS: BMI 26.4
== END 2020-09-04 14:20 | disposition home or self-care (01) | DRG 885 ==
LOC: 3MHU 11:48
PROVIDERS: ADMIT Psychiatry & Neurology Psychiatry; ATTEND Psychiatry & Neurology Psychiatry
DX: F29 Unspecified psychosis not due to a substance or known physiological condition (principal); F17.210 Nicotine dependence, cigarettes, uncomplicated; F22 Delusional disorders; F41.9 Anxiety disorder, unspecified; G47.00 Insomnia, unspecified; I10 Essential (primary) hypertension; Z81.8 Family history of other mental and behavioral disorders; Z91.83 Wandering in diseases classified elsewhere; Z95.2 Presence of prosthetic heart valve; Z79.899 Other long term (current) drug therapy; Z56.0 Unemployment, unspecified; F15.11 Other stimulant abuse, in remission; F11.11 Opioid abuse, in remission; F12.11 Cannabis abuse, in remission
CPT/HCPCS: 71046; 80061; 80076; 83036; 84443

== ENCOUNTER 2020-09-21 02:42 | Inpatient (IN) | payer MEDICAID, OTHER ==
[2020-09-21] MEDS ORDERED: SODIUM CHLORIDE 0.9% 1,000 ML IV STA (03:07)
[2020-09-21 03:45] LABS: Basophils % (A) 1 %; Eosinophils # (A) 0.1 k/uL (0-0.7); Eosinophils % (A) 2 %; HCT 46.7 % (39.0-53.0); Lymphocytes # (A) 1.3 k/uL (1.0-4.8); Lymphocytes % (A) 31 %; MCH 30.5 pg (25.0-35.0); MCHC 32.1 g/dL (31.0-37.0); MCV 94.9 fL (80.0-100.0); Mean Platelet Volume 7.3; Monocytes # (A) 0.4 k/uL (0-1.0); Monocytes % (A) 8 %; Neutrophils # (A) 2.4 k/uL (1.3-7.7); Neutrophils % (A) 56 %; Platelet Count 204 k/uL (150-450); RBC 4.92 m/uL (4.30-5.90); RDW 13.3 % (11.5-15.5); WBC 4.3 k/uL (3.8-10.6)
[2020-09-21 03:56] LABS: ALT 77 U/L (4-49); AST 39 U/L (17-59); Acetaminophen <10.0 ug/mL; African American GFR (CKD) >90 (>60 ml/min/1.73 sqM); Albumin 4.3 g/dL (3.5-5.0); Alcohol <10 mg/dL; Alkaline Phosphatase 90 U/L (38-126); Anion Gap 8 mmol/L; Blood Urea Nitrogen 15 mg/dL (9-20); Calcium 9.6 mg/dL (8.4-10.2); Carbon Dioxide 21 mmol/L (22-30); Chloride 109 mmol/L (98-107); Glucose 106 mg/dL (74-99); Non-African American GFR(CKD) >90 (>60 ml/min/1.73 sqM); Potassium 4.1 mmol/L (3.5-5.1); Salicylate <1.0 mg/dL; Sodium 138 mmol/L (137-145); Total Bilirubin 0.8 mg/dL (0.2-1.3); Total Protein 7.3 g/dL (6.3-8.2)
--- NOTE | 2020-09-21 05:22 | ED ---
Overdose HPI - General Source: patient Mode of arrival: ambulatory Limitations: no limitations - History of Present Illness MD Complaint: intentional overdose Onset/Timin -: hour(s) Intent: want to go to sleep How Overdose Was Discovered: called family/friend Treatments Prior to Arrival: none <Dandy Cole - Last Filed: 09/21/20 05:42> <Solomon Barros - Last Filed: 09/21/20 11:48> - General Chief Complaint: Overdose Stated Complaint: Overdose Time Seen by Provider: 09/21/20 02:45 - History of Present Illness Initial Comments: This patient is 24-year-old man who presents to have evaluation after he had taken an overdose of his risperidone. The patient states that he was feeling stressed and anxious. He took 6-8 mg of risperidone. He states that he was not for feeling suicidal he had just wanted to sleep. (Dandy Cole) - Related Data Home Medications Medication Instructions Recorded Confirmed Sertraline HCl [Zoloft] 50 mg PO DAILY 09/21/20 09/21/20 Previous Rx's Medication Instructions Recorded Acetaminophen Tab [Tylenol] 650 mg PO Q4HR PRN tab 09/04/20 Metoprolol Tartrate [Lopressor] 25 mg PO BID 30 Days tab 09/04/20 Nicotine 21Mg/24Hr Patch [Habitrol] 1 patch TRANSDERM DAILY 14 Days 09/04/20 patch risperiDONE [RisperDAL] 2 mg PO HS 30 Days tab 09/04/20 Allergies Allergy/AdvReac Type Severity Reaction Status Date / Time Penicillins Allergy Unknown Unknown Verified 09/21/20 09:31 piperacillin [From Zosyn] Allergy Unknown Unknown Verified 09/21/20 09:31 tazobactam [From Zosyn] Allergy Unknown Unknown Verified 09/21/20 09:31 haloperidol [From Haldol] AdvReac Severe Anaphylaxis Verified 09/21/20 09:31 Review of Systems ROS Other: All systems not noted in ROS Statement are negative. Constitutional: Denies: fever Eyes: Denies: vision change Respiratory: Denies: cough, dyspnea Cardiovascular: Denies: chest pain, palpitations, orthopnea Gastrointestinal: Denies: abdominal pain, nausea, vomiting Genitourinary: Denies: dysuria Musculoskeletal: Denies: back pain Skin: Denies: as per HPI Neurological: Denies: headache, weakness, numbness Psychiatric: Reports: anxiety, suicidal thoughts. Denies: auditory hallucinations, visual hallucinations, homicidal thoughts <Dandy Cole - Last Filed: 09/21/20 05:42> ROS Other: All systems not noted in ROS Statement are negative. <Solomon Barros - Last Filed: 09/21/20 11:48> ROS Statement: Those systems with pertinent positive or pertinent negative responses have been documented in the HPI. 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 Past Anesthesia/Blood Transfusion Reactions: No Reported Reaction Past Psychological History: Bipolar, Depression Smoking Status: Current every day smoker Past Alcohol Use History: None Reported Past Drug Use History: IV Drug Use, Marijuana, Methamphetamine - Past Family History family Additional Family Medical History / Comment(s): States multiple family members with heart disease on his mother's side of the family. <Dandy Cole - Last Filed: 09/21/20 05:42> General Exam Limitations: no limitations General appearance: alert, in no apparent distress Head exam: Present: atraumatic, normocephalic Eye exam: Present: normal appearance. Absent: scleral icterus, conjunctival injection ENT exam: Present: normal oropharynx Respiratory exam: Present: normal lung sounds bilaterally. Absent: respiratory distress, wheezes, rales, rhonchi, stridor Cardiovascular Exam: Present: regular rate, normal rhythm, normal heart sounds. Absent: systolic murmur, diastolic murmur, rubs GI/Abdominal exam: Absent: distended, tenderness, guarding, rebound, rigid Extremities exam: Present: normal inspection, normal capillary refill. Absent: pedal edema Back exam: Present: normal inspection. Absent: CVA tenderness (R), CVA tenderness (L) Neurological exam: Present: alert Psychiatric exam: Present: normal mood, suicidal ideation. Absent: depressed, agitated, manic, homicidal ideation Skin exam: Present: warm, dry, intact, normal color. Absent: rash <JayeDandy newton - Last Filed: 09/21/20 05:42> Course Vital Signs 09/21/20 09/21/20 09/21/20 02:43 07:27 10:18 Temperature 97.1 F L Pulse Rate 92 69 119 H Respiratory 20 18 18 Rate Blood Pressure 133/83 149/68 139/69 O2 Sat by Pulse 100 98 96 Oximetry 09/21/20 11:18 Temperature Pulse Rate 90 Respiratory 18 Rate Blood Pressure 119/74 O2 Sat by Pulse 99 Oximetry Medical Decision Making - Lab Data Result diagrams: 09/21/20 03:28 09/21/20 03:28 - EKG Data -: EKG Interpreted by Ne EKG shows normal: sinus rhythm, axis (Normal), intervals (Normal), QRS complexes (Incomplete right bundle branch block) Rate: normal (Rate 99 bpm) Interpretation: nonspecific ST-T wave changes <Dandy Cole - Last Filed: 09/21/20 05:42> - Lab Data Result diagrams: 09/21/20 03:28 09/21/20 03:28 <Solomon Barros - Last Filed: 09/21/20 11:48> - Lab Data Lab Results 09/21/20 09/21/20 09/21/20 Range/Units 03:28 03:28 03:28 WBC 4.3 (3.8-10.6) k/uL RBC 4.92 (4.30-5.90) m/uL Hgb 15.0 (13.0-17.5) gm/dL Hct 46.7 (39.0-53.0) % MCV 94.9 (80.0-100.0) fL MCH 30.5 (25.0-35.0) pg MCHC 32.1 (31.0-37.0) g/dL RDW 13.3 (11.5-15.5) % Plt Count 204 (150-450) k/uL Neutrophils % 56 % Lymphocytes % 31 % Monocytes % 8 % Eosinophils % 2 % Basophils % 1 % Neutrophils # 2.4 (1.3-7.7) k/uL Lymphocytes # 1.3 (1.0-4.8) k/uL Monocytes # 0.4 (0-1.0) k/uL Eosinophils # 0.1 (0-0.7) k/uL Basophils # 0.0 (0-0.2) k/uL Sodium 138 (137-145) mmol/L Potassium 4.1 (3.5-5.1) mmol/L Chloride 109 H (98-107) mmol/L Carbon Dioxide 21 L (22-30) mmol/L Anion Gap 8 mmol/L BUN 15 (9-20) mg/dL Creatinine 0.82 (0.66-1.25) mg/dL Est GFR (CKD-EPI)AfAm >90 (>60 ml/min/1.73 sqM) Est GFR (CKD-EPI)NonAf >90 (>60 ml/min/1.73 sqM) Glucose 106 H (74-99) mg/dL Calcium 9.6 (8.4-10.2) mg/dL Total Bilirubin 0.8 (0.2-1.3) mg/dL AST 39 (17-59) U/L ALT 77 H (4-49) U/L Alkaline Phosphatase 90 (38-126) U/L Total Protein 7.3 (6.3-8.2) g/dL Albumin 4.3 (3.5-5.0) g/dL Salicylates <1.0 mg/dL Urine Opiates Screen Not Detected (NotDetected) Ur Oxycodone Screen Not Detected (NotDetected) Urine Methadone Screen Not Detected (NotDetected) Ur Propoxyphene Screen Not Detected (NotDetected) Acetaminophen <10.0 ug/mL Ur Barbiturates Screen Not Detected (NotDetected) U Tricyclic Antidepress Not Detected (NotDetected) Ur Phencyclidine Scrn Not Detected (NotDetected) Ur Amphetamines Screen Not Detected (NotDetected) U Methamphetamines Scrn Not Detected (NotDetected) U Benzodiazepines Scrn Not Detected (NotDetected) Urine Cocaine Screen Not Detected (NotDetected) U Marijuana (THC) Screen Detected H (NotDetected) Serum Alcohol <10 mg/dL Disposition <Dandy Cole - Last Filed: 09/21/20 05:42> Time of Disposition: 11:48 <Solomon Barros - Last Filed: 09/21/20 11:48> Clinical Impression: Overdose, Psychosis, Impulsive Disposition: ADMITTED IP TO THIS [facility] Referrals: None,Stated [Primary Care Provider] - 1-2 days
[2020-09-21 06:39] LABS: Amphetamine Screen,Urine Not Detected (NotDetected); Barbiturate Screen,Urine Not Detected (NotDetected); Benzodiazepines Screen,Urine Not Detected (NotDetected); Cocaine Screen,Urine Not Detected (NotDetected); Methadone Screen, Urine Not Detected (NotDetected); Opiate Screen,Urine Not Detected (NotDetected); Oxycodone Screen, Urine Not Detected (NotDetected); Phencyclidine Screen,Urine Not Detected (NotDetected); Tricyclic Antidepressant,Urine Not Detected (NotDetected); Urn Cannabinoid Scrn Detected (NotDetected)
[2020-09-21] MEDS ORDERED: MAG HYDROX/AL HYDROX/SIMETH 30 ML CUP PO PRN (12:53)
[2020-09-21] MEDS ORDERED: ZIPRASIDONE 20 MG VIAL IM PRN (12:53)
[2020-09-21] MEDS ORDERED: LORazepam 1 MG TAB PO PRN (12:53)
[2020-09-21] MEDS ORDERED: ACETAMINOPHEN TAB 325 MG TAB PO PRN (12:53)
[2020-09-21] MEDS ORDERED: MAGNESIUM HYDROXIDE 2,400 MG/10 ML CUP PO PRN (12:53)
[2020-09-21] MEDS: NICOTINE 21MG/24HR PATCH TRANSDERM SCH ×2 (13:27→13:33)
[2020-09-21] MEDS: SERTRALINE 50 MG TAB PO SCH (13:27)
--- NOTE | 2020-09-21 20:06 | P.CONS ---
History of Present Illness - Reason for Consult Consult date: 09/21/20 - History of Present Illness Patient is a 24-year-old male with a PMH of endocarditis and subsequent tricuspid valve replacement secondary to substance abuse, tobacco abuse, marijuana abuse, and depression who presented to the emergency room after a Risperdal overdose. The patient reports that he was simply trying to sleep and took a handful of his Risperdal roughly 18-20 hours ago. He reports that initially he did feel lethargic but now feels better. He denied any active complaints at the time of evaluation. And, shortness of breath, palpitations. Right cough, fever, chills. Denied abdominal pain, nausea, vomiting, diarrhea. Laboratory evaluation was reviewed with ALT 77, glucose 106, CO2 21, and chloride 109 with urine toxicology positive for marijuana. EKG had revealed a normal sinus rhythm at 99 bpm with an incomplete right bundle dante block with T-wave flattening diffusely. Review of Systems Pertinent positives and negatives as discussed in HPI, a complete review of systems was performed and all other systems are negative. 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 Past Anesthesia/Blood Transfusion Reactions: No Reported Reaction Past Psychological History: Bipolar, Depression Smoking Status: Current every day smoker Past Alcohol Use History: None Reported Past Drug Use History: IV Drug Use, Marijuana, Methamphetamine Additional Drug Use History / Comment(s): amphetamines - Past Family History family Additional Family Medical History / Comment(s): States multiple family members with heart disease on his mother's side of the family. Medications and Allergies Home Medications Medication Instructions Recorded Confirmed Type Acetaminophen Tab [Tylenol] 650 mg PO Q4HR PRN tab 09/04/20 09/21/20 Rx Metoprolol Tartrate [Lopressor] 25 mg PO BID 30 Days tab 09/04/20 09/21/20 Rx Nicotine 21Mg/24Hr Patch [Habitrol] 1 patch TRANSDERM DAILY 14 Days 09/04/20 09/21/20 Rx patch risperiDONE [RisperDAL] 2 mg PO HS 30 Days tab 09/04/20 09/21/20 Rx Sertraline HCl [Zoloft] 50 mg PO DAILY 09/21/20 09/21/20 History Allergies Allergy/AdvReac Type Severity Reaction Status Date / Time Penicillins Allergy Unknown Unknown Verified 09/21/20 09:31 piperacillin [From Zosyn] Allergy Unknown Unknown Verified 09/21/20 09:31 tazobactam [From Zosyn] Allergy Unknown Unknown Verified 09/21/20 09:31 haloperidol [From Haldol] AdvReac Severe Anaphylaxis Verified 09/21/20 09:31 Physical Exam Vitals: Vital Signs Temp Pulse Pulse Resp BP BP Pulse Ox 09/21/20 18:11 97 09/21/20 13:18 97.4 F L 129 H 16 134/81 98 09/21/20 11:18 90 18 119/74 99 09/21/20 10:18 119 H 18 139/69 96 09/21/20 07:27 69 18 149/68 98 09/21/20 02:43 97.1 F L 92 20 133/83 100 Intake and Output 09/21/20 09/21/20 09/21/20 06:59 14:59 22:59 Other: Weight 80.739 kg 83.597 kg General: non toxic, no distress, appears at stated age, normal weight Derm: no unusual rashes/lesions no unusual ecchymoses, warm, dry Head: atraumatic, normocephalic, symmetric Eyes: EOMI, no lid lag, anicteric sclera, pupils equal round reactive to light ENT: Nose and ears atraumatic, no thrush, no pharyngeal erythema Neck: No thyromegaly, no cervical lymphadenopathy, trachea midline, supple Mouth: no lip lesion, mucus membranes moist Cardiovascular: S1S2 reg, no murmur, positive posterior tibial pulse bilateral, no edema, capillary refill less than 2 seconds Lungs: CTA bilateral, no rhonchi, no rales , no accessory muscle use Abdominal: soft, nontender to palpation, no guarding, no appreciable organomegaly, normal bowel sounds Ext: no gross muscle atrophy, muscle strength 5 out of 5 in all 4 extremities grossly, no contractures, Neuro: CN II-XI grossly intact, light touch intact all 4 extremities, finger to nose within normal limits, Psych: Alert, oriented, flat affect Results CBC & Chem 7: 09/21/20 03:28 09/21/20 03:28 Labs: Abnormal Lab Results - Last 24 Hours (Table) 09/21/20 09/21/20 Range/Units 03:28 03:28 Chloride 109 H (98-107) mmol/L Carbon Dioxide 21 L (22-30) mmol/L Glucose 106 H (74-99) mg/dL ALT 77 H (4-49) U/L U Marijuana (THC) Screen Detected H (NotDetected) Assessment and Plan Plan: Abnormal EKG, likely secondary to history of valve replacement -Similar to prior -Patient denying any cardiac complaints at this time Risperdal overdose -As per psychiatry Tobacco, marijuana abuse -Advised on the importance of cessation Thank you for allowing us to participate in the care of this patient. We will follow peripherally. Do not hesitate to contact us with questions. Someone can be reached from the [facility] hospitalist group at all hours of the day at [phone].
[2020-09-21] MEDS ORDERED: risperiDONE 2 MG TAB PO SCH (21:00)
[2020-09-22] MEDS: NICOTINE 21MG/24HR PATCH TRANSDERM SCH (09:13)
[2020-09-22] MEDS: SERTRALINE 50 MG TAB PO SCH (09:13)
--- NOTE | 2020-09-22 09:44 | P.HP ---
Psychiatric H&P - . H&P Date: 09/22/20 History & Physical: Allergies Allergy/AdvReac Type Severity Reaction Status Date / Time Penicillins Allergy Unknown Unknown Verified 09/21/20 09:31 piperacillin [From Zosyn] Allergy Unknown Unknown Verified 09/21/20 09:31 tazobactam [From Zosyn] Allergy Unknown Unknown Verified 09/21/20 09:31 haloperidol [From Haldol] AdvReac Severe Anaphylaxis Verified 09/21/20 09:31 Vital Signs Temp 97.6 F 09/22/20 06:31 Pulse 115 H 09/22/20 06:31 Resp 16 09/22/20 06:31 BP 147/66 09/22/20 06:31 Pulse Ox 98 09/21/20 13:18 Intake & Output 09/21/20 09/22/20 09/22/20 18:59 06:59 18:59 Weight 83.597 kg Laboratory Last Values WBC 4.3 k/uL (3.8-10.6) 09/21/20 03:28 RBC 4.92 m/uL (4.30-5.90) 09/21/20 03:28 Hgb 15.0 gm/dL (13.0-17.5) 09/21/20 03:28 Hct 46.7 % (39.0-53.0) 09/21/20 03:28 MCV 94.9 fL (80.0-100.0) 09/21/20 03:28 MCH 30.5 pg (25.0-35.0) 09/21/20 03:28 MCHC 32.1 g/dL (31.0-37.0) 09/21/20 03:28 RDW 13.3 % (11.5-15.5) 09/21/20 03:28 Plt Count 204 k/uL (150-450) 09/21/20 03:28 Neutrophils % 56 % 09/21/20 03:28 Lymphocytes % 31 % 09/21/20 03:28 Monocytes % 8 % 09/21/20 03:28 Eosinophils % 2 % 09/21/20 03:28 Basophils % 1 % 09/21/20 03:28 Neutrophils # 2.4 k/uL (1.3-7.7) 09/21/20 03:28 Lymphocytes # 1.3 k/uL (1.0-4.8) 09/21/20 03:28 Monocytes # 0.4 k/uL (0-1.0) 09/21/20 03:28 Eosinophils # 0.1 k/uL (0-0.7) 09/21/20 03:28 Basophils # 0.0 k/uL (0-0.2) 09/21/20 03:28 Sodium 138 mmol/L (137-145) 09/21/20 03:28 Potassium 4.1 mmol/L (3.5-5.1) 09/21/20 03:28 Chloride 109 mmol/L (98-107) H 09/21/20 03:28 Carbon Dioxide 21 mmol/L (22-30) L 09/21/20 03:28 Anion Gap 8 mmol/L 09/21/20 03:28 BUN 15 mg/dL (9-20) 09/21/20 03:28 Creatinine 0.82 mg/dL (0.66-1.25) 09/21/20 03:28 Est GFR (CKD-EPI)AfAm >90 (>60 ml/min/1.73 sqM) 09/21/20 03:28 Est GFR (CKD-EPI)NonAf >90 (>60 ml/min/1.73 sqM) 09/21/20 03:28 Glucose 106 mg/dL (74-99) H 09/21/20 03:28 Calcium 9.6 mg/dL (8.4-10.2) 09/21/20 03:28 Total Bilirubin 0.8 mg/dL (0.2-1.3) 09/21/20 03:28 AST 39 U/L (17-59) 09/21/20 03:28 ALT 77 U/L (4-49) H 09/21/20 03:28 Alkaline Phosphatase 90 U/L (38-126) 09/21/20 03:28 Total Protein 7.3 g/dL (6.3-8.2) 09/21/20 03:28 Albumin 4.3 g/dL (3.5-5.0) 09/21/20 03:28 Salicylates <1.0 mg/dL 09/21/20 03:28 Urine Opiates Screen Not Detected (NotDetected) 09/21/20 03:28 Ur Oxycodone Screen Not Detected (NotDetected) 09/21/20 03:28 Urine Methadone Screen Not Detected (NotDetected) 09/21/20 03:28 Ur Propoxyphene Screen Not Detected (NotDetected) 09/21/20 03:28 Acetaminophen <10.0 ug/mL 09/21/20 03:28 Ur Barbiturates Screen Not Detected (NotDetected) 09/21/20 03:28 U Tricyclic Antidepress Not Detected (NotDetected) 09/21/20 03:28 Ur Phencyclidine Scrn Not Detected (NotDetected) 09/21/20 03:28 Ur Amphetamines Screen Not Detected (NotDetected) 09/21/20 03:28 U Methamphetamines Scrn Not Detected (NotDetected) 09/21/20 03:28 U Benzodiazepines Scrn Not Detected (NotDetected) 09/21/20 03:28 Urine Cocaine Screen Not Detected (NotDetected) 09/21/20 03:28 U Marijuana (THC) Screen Detected (NotDetected) H 09/21/20 03:28 Serum Alcohol <10 mg/dL 09/21/20 03:28 09/22/20 09:36 IDENTIFYING DATA: Patient is a 24-year-old male who currently lives with his mother, has no kids is single and unemployed. HPI: Patient presented to the hospital for psychiatric evaluation after a supposed overdose at home on his risperidone. Patient apparently reported in the ER that he was feeling stressed and anxious and took 6-8 mg of his Risperdal and states that he "just wanted to sleep". Patient was petitioned by EPS nurse and admitted involuntarily to the psychiatric unit. Patient was recently discharge from the mental health unit earlier this month. Patient this morning. Poor hygiene and grooming. He has poor insight and judgment was impulsive. Patient had poor eye contact and mainly looking at the floor while eating interviewed. He was fairly guarded and evasive about the events that occurred prior to coming in the hospital. He states that he does not know why he is here. He claims that he "overtook my medications" and claims that she had no reason why. When pressed further he states that he was "being stupid" and claims that he needed to sleep. He claims that he does not need medications and also stated that the Risperdal "made me depressed". He did follow-up at [facility] upon his last discharge. Patient did admit to using marijuana every day. Patient denies any suicidal or homicidal ideations intent or plan. At this time patient denies any auditory or visual hallucinations. Patient admits to getting high however denies any drug use. He states that he does smoke cigarettes daily. PAST PSYCHIATRIC HISTORY: Patient states that he has a history of substance abuse psychotic episode in the past. Patient was previously on Zoloft and Risperdal. Patient's last mental health hospitalization was in early August 2020. Patient did show up to [facility] appointment. Patient denies any history of suicide attempts in the past. PMH: He claims that he has a right tricuspid valve replaced. ALLERGIES: as per EMR CHEMICAL DEPENDENCY HISTORY: as per HPI FAMILY PSYCHIATRIC/SUBSTANCE USE HISTORY: He states that his sister has schizophrenia. He claims that there is multiple people in his family with substance use problems. SOCIAL HISTORY: Patient was born and raised in [place] and moved to [facility]. He currently lives with his mother and has no kids is single and unemployed. He denies having worked in the past. He states that he did not finish high school. He denies any legal history. MENTAL STATUS EXAM: General Appearance: Patient appears to be stated age is lethargic, responding to internal stimuli however at times, uncooperative/guarded. Patient appears to have poor hygiene and grooming. Behavior: Patient is seated without any agitated behavior. Responding to internal stimuli at times. Speech: Patient's speech is fluent and nonpressured. Mumbling at times. [place] Mood/Affect: Patient reports their mood is "fine", affect is congruent and constricted. Suicidality/Homicidality: Patient denies having any homicidal ideation intent or plan. Denies any suicidal ideations intent or plan Perceptions: Patient denies any visual hallucinations and denies any auditory hallucinations however did state that he was hearing voices prior to coming into the hospital. Though content/process: Patient is concrete, poverty of content. Illogical at times Memory and concentration: AOX3, grossly intact for the purposes of this session. Can spell "WORLD" backwards Judgment and insight: poor STRENGTHS/WEAKNESSES: strength is that patient is resilient. Weakness is that patient has poor judgment and is impulsive INTELLECT: average IMPRESSIONS: Psychosis unspecified, rule out secondary to substance use. Nicotine dependence PLAN: -Patient is admitted under involuntary status to MHU for stabilization of psychiatric symptoms and safety. Patient has signed medication consent and is placed in patient's chart. A second clinical significant was completed and filed along with the petition to the court, we'll await deferral and full court hearing date. -Medications : Patient wants to be off of Risperdal however is agreeable to take Prolixin, we'll start 2 mg twice a day for psychosis. Continue with Zoloft 50 mg daily. -Ativan and Geodon PRN for agitation/aggression -Patient's UDS is positive for marijuana. -Patient was informed of the risks, benefits and side effects of the medication and patient verbally consented to taking the medications. Patient signed med consent form and was placed in chart. -Internal Medicine consult to perform medical evaluation and physical. -NRT - nicotine patch -SW on board for discharge planning. Encourage patient to participate in groups to work on coping skills. We'll speak with patient about possibly going to rehab upon discharge versus home. We'll await deferral and court hearing date.
[2020-09-22 21:16] LABS: Hemoglobin A1C 5.1 % (4.0-6.0)
[2020-09-23] MEDS: SERTRALINE 50 MG TAB PO SCH (08:26)
[2020-09-23] MEDS: NICOTINE 21MG/24HR PATCH TRANSDERM SCH ×2 (08:27→12:19)
--- NOTE | 2020-09-23 11:44 | P.PN ---
Progress Note - Text Progress Note Date: 09/23/20 Interval History: Patient was seen laying down in his bed this morning and was directable and ag reeable to speak with television script writer in the office. Patient continues to have poverty of content and speech. He has a soft tone of voice today. He claims that he is doing "fine". He states that he has been taking his medications however according to the MAR patient has not taken his Prolixin. He was agreeable to start taking it today however. He denied any voices or any problems with his sleep. He states that he is eating fairly. She had a very flat affect today. At this time patient denies any suicidal or homical ideations, intent or plan. Patient denies any auditory, visual hallucinations. Mental Status Exam: General Appearance: Patient appears to be stated age is more alert today, not responding to internal stimuli, and he is to be flat and uncooperative. Patient appears to have mildly improving hygiene and grooming. Behavior: Patient is seated without any agitated behavior. Speech: Patient's speech is fluent and nonpressured. Mumbling at times. [place] Mood/Affect: Patient reports their mood is "ok", affect is congruent and constricted. Suicidality/Homicidality: Patient denies having any homicidal ideation intent or plan. Denies any suicidal ideations intent or plan Perceptions: Patient denies any visual hallucinations and denies any auditory hallucinations Though content/process: Patient is concrete, poverty of content. Illogical at times Memory and concentration: AOX3, grossly intact for the purposes of this session Judgment and insight: poor Assessment Psychosis unspecified, rule out secondary to substance use. Nicotine dependence Plan: -Patient continues to meet criteria for inpatient psychiatric admission for symptom stabilization and safety. Patient has signed medication consent and was placed in patient's chart. Currently awaiting deferral and full court hearing date. -Medications: Continue with Prolixin 2 mg twice a day for psychosis. Continue Zoloft 50 mg daily for mood/anxiety. -When necessary Ativan and Geodon for agitation/aggression. -NRT - nicotine patch -SW on board for discharge planning. Encouraged the patient to participate in milieu. We'll speak with patient about possibly going to rehab upon discharge versus home. We'll await deferral and court hearing date.
[2020-09-24] MEDS: SERTRALINE 50 MG TAB PO SCH (08:46)
[2020-09-24] MEDS: NICOTINE 21MG/24HR PATCH TRANSDERM SCH (08:46)
--- NOTE | 2020-09-24 10:37 | P.PN ---
Progress Note - Text Progress Note Date: 09/24/20 Interval History: Patient was seen sitting in on group this morning and was directable and agree able to speak with marketing writer in the office. Patient continues to have poverty of content and speech. He offered no overnight complaints. She is not able to elaborate much on the content of the group he was in. He states he is able to sleep throughout the night. He claims that he feels the Prolixin has been helping him. Roller Skater spoke with patient about long-acting injection and patient was agreeable to take this. He states that his mood and anxiety improving. He was not responding to internal stimuli today. He denied any voices or any problems with his sleep. He denied any side effects today of medications. He states that he is eating fairly. Patient appeared to have a brighter affect this morning. At this time patient denies any suicidal or homical ideations, intent or plan. Patient denies any auditory, visual hallucinations. Patient was preoccupied with asking about Suboxone and a doctor in the area that would be able to prescribe it for him. Mental Status Exam: General Appearance: Patient appears to be stated age is more alert today, appears to be more cooperative however superficial. Patient appears to have mildly improving hygiene and grooming. Behavior: Patient is seated without any agitated behavior. Speech: Patient's speech is fluent and nonpressured. [place] Mood/Affect: Patient reports their mood is "ok", affect is congruent Suicidality/Homicidality: Patient denies having any homicidal ideation intent or plan. Denies any suicidal ideations intent or plan Perceptions: Patient denies any visual hallucinations and denies any auditory hallucinations Though content/process: Patient is concrete, poverty of content. More logical today. Superficial Memory and concentration: AOX3, grossly intact for the purposes of this session Judgment and insight: poor, improving mildly Assessment Psychosis unspecified, rule out secondary to substance use. Nicotine dependence Plan: -Patient continues to meet criteria for inpatient psychiatric admission for sym ptom stabilization and safety. Patient has signed medication consent and was placed in patient's chart. -Medications: Continue with Prolixin 2 mg twice a day for psychosis. Continue Zoloft 50 mg daily for mood/anxiety. The patient continues to do well on this medication and then patient will receive Prolixin-D 25 mg IM tomorrow to ensure compliance. -When necessary Ativan and Geodon for agitation/aggression. -NRT - nicotine patch -SW on board for discharge planning. Encouraged the patient to participate in milieu. Patient continues to be superficial and uninterested in substance use treatment. Patient will likely be discharged back home. Likely discharge in 1- 2 days after patient receives his long-acting injection.
[2020-09-25] MEDS: SERTRALINE 50 MG TAB PO SCH (08:49)
[2020-09-25] MEDS: NICOTINE 21MG/24HR PATCH TRANSDERM SCH (08:49)
--- NOTE | 2020-09-25 11:14 | P.PN ---
Progress Note - Text Progress Note Date: 09/25/20 Interval History: Patient was seen sitting in on group this morning and was directable and agree able to speak with insurance writer in the office. He offered no overnight complaints claims that he is doing better today overall with regards to his mood and anxiety. He states that he feels the old medication he was on was keeping him feeling "depressed". He does state that he has upper respiratory symptoms including sore throat cough and respiratory problems. He denied any fever overnight. He states he is able to sleep throughout the night. Loom Operator spoke with patient about long-acting injection and patient was agreeable to take this today. He states that his mood and anxiety improving. He denied any side effects today of medications. He states that he is eating fairly. At this time patient denies any suicidal or homical ideations, intent or plan. Patient denies any auditory, visual hallucinations. Mental Status Exam: General Appearance: Patient appears to be stated age is more alert today, appears to be more cooperative however superficial. Patient appears to have mildly improving hygiene and grooming. Behavior: Patient is seated without any agitated behavior. Speech: Patient's speech is fluent and nonpressured. [place] Mood/Affect: Patient reports their mood is "good", affect is congruent Suicidality/Homicidality: Patient denies having any homicidal ideation intent or plan. Denies any suicidal ideations intent or plan Perceptions: Patient denies any visual hallucinations and denies any auditory hallucinations Though content/process: Patient is concrete, poverty of content. More logical today. Superficial Memory and concentration: AOX3, grossly intact for the purposes of this session Judgment and insight: Chronically poor, improving mildly Assessment Psychosis unspecified, rule out secondary to substance use. Nicotine dependence Plan: -Patient continues to meet criteria for inpatient psychiatric admission for symptom stabilization and safety. Patient has signed medication consent and was placed in patient's chart. Patient's deferral will be set for September 27. -Medications: Continue with Prolixin 2 mg twice a day for psychosis. Continue Zoloft 50 mg daily for mood/anxiety. Ordered Prolixin-D 25 mg IM today to ensure compliance, will be due for next long-acting injection on 10/16/2020. -Due to patient's respiratory symptoms, patient will be tested for covid-19 and kept in seclusion. Also ordered chest x-ray, CBC with differential. -When necessary Ativan and [place] for agitation/aggression. -NRT - nicotine patch -SW on board for discharge planning. Encouraged the patient to participate in milieu. Patient continues to be uninterested in substance use treatment. Patient will likely be discharged back home. Likely discharge after patient signs deferral on .
--- NOTE | 2020-09-25 11:26 | XR ---
EXAMINATION TYPE: XR chest 1V DATE OF EXAM: 09/25/2020 CLINICAL HISTORY: cough. TECHNIQUE: Frontal view of the chest. COMPARISON: 08/30/2020 chest radiograph FINDINGS: Redemonstrated hyperinflation. Sternotomy wires and valvular prosthesis. The cardiomediast inal silhouette is within normal limits for size. Pulmonary vasculature is normal. There is no focal air space opacity, pleural effusion, or pneumothorax seen. The osseous structures are intact. IMPRESSION: No acute cardiopulmonary process.
[2020-09-25] MEDS ORDERED: fluPHENAZine DECANOATE 25 MG/ML 5ML MDV IM ONE (12:00)
[2020-09-25 12:59] LABS: Basophils % (A) 0 %; Eosinophils # (A) 0.1 k/uL (0-0.7); Eosinophils % (A) 1 %; HCT 47.9 % (39.0-53.0); HGB 15.6 gm/dL (13.0-17.5); Lymphocytes # (A) 1.2 k/uL (1.0-4.8); Lymphocytes % (A) 14 %; MCH 30.5 pg (25.0-35.0); MCHC 32.5 g/dL (31.0-37.0); MCV 94.1 fL (80.0-100.0); Mean Platelet Volume 7.1; Monocytes # (A) 0.5 k/uL (0-1.0); Monocytes % (A) 6 %; Neutrophils % (A) 78 %; Platelet Count 268 k/uL (150-450); RDW 13.3 % (11.5-15.5)
[2020-09-26] MEDS: SERTRALINE 50 MG TAB PO SCH (09:16)
[2020-09-26] MEDS: NICOTINE 21MG/24HR PATCH TRANSDERM SCH (09:16)
--- NOTE | 2020-09-26 10:20 | P.PN ---
Progress Note - Text Progress Note Date: 09/26/20 Interval History: Patient was seen sitting in on group this morning and was directable and agree able to speak with music writer in the office. He offered no overnight complaints claims that he is doing better today overall with regards to his mood and anxiety. He states that he feels the old medication he was on was keeping him feeling "depressed". He does state that he has upper respiratory symptoms including sore throat cough and respiratory problems. He denied any fever overnight. He states he is able to sleep throughout the night. Nuclear Control Room Operator spoke with patient about long-acting injection and patient was agreeable to take this today. He states that his mood and anxiety improving. He denied any side effects today of medications. He states that he is eating fairly. At this time patient denies any suicidal or homical ideations, intent or plan. Patient denies any auditory, visual hallucinations. Mental Status Exam: General Appearance: Patient appears to be stated age is more alert today, appears to be more cooperative however superficial. Patient appears to have mildly improving hygiene and grooming. Behavior: Patient is seated without any agitated behavior. Speech: Patient's speech is fluent and nonpressured. [place] Mood/Affect: Patient reports their mood is "good", affect is congruent Suicidality/Homicidality: Patient denies having any homicidal ideation intent or plan. Denies any suicidal ideations intent or plan Perceptions: Patient denies any visual hallucinations and denies any auditory hallucinations Though content/process: Patient is concrete, poverty of content. More logical today. Superficial Memory and concentration: AOX3, grossly intact for the purposes of this session Judgment and insight: Chronically poor, improving mildly Assessment Psychosis unspecified, rule out secondary to substance use. Nicotine dependence Plan: -Patient continues to meet criteria for inpatient psychiatric admission for symptom stabilization and safety. Patient has signed medication consent and was placed in patient's chart. Patient's deferral will be set for September 27. -Medications: Decreased Prolixin 1 mg twice a day for psychosis. Continue Zoloft 50 mg daily for mood/anxiety. Received Prolixin-D 25 mg IM on 09/25/2020, will be due for next long-acting injection on 10/16/2020. -Due to patient's respiratory symptoms, patient will be tested for covid-19 and kept in seclusion. Currently pending results. chest x-ray on 09/25/2020 - negative for any acute process. CBC with differential -wnl -When necessary Atpetar and [place] for agitation/aggression. -NRT - nicotine patch -SW on board for discharge planning. Encouraged the patient to participate in milieu. Patient continues to be uninterested in substance use treatment. Patient will likely be discharged back home. Likely discharge in 1-2 days, awaiting deferral tomorrow.
[2020-09-27 06:56] VITALS: BP 104/53; PULSE 73; RESP 17; TEMP 97.9
[2020-09-27] MEDS: NICOTINE 21MG/24HR PATCH TRANSDERM SCH (08:27)
[2020-09-27] MEDS: SERTRALINE 50 MG TAB PO SCH (08:27)
--- NOTE | 2020-09-27 09:46 | P.DS ---
Providers Date of admission: 09/21/20 11:54 Expected date of discharge: 09/27/20 Attending physician: Fidel Hernandez MD Consults: 09/21/20 12:53 Consult Physician Routine Consulting Provider: Nicolás Freed Consult Reason/Comments: [facility] & [facility] medical managment Do you want consulting provider notified?: Yes Primary care physician: Stated None - Discharge Diagnosis(es) (1) Unspecified psychosis Current Visit: Yes Status: Acute Priority: High (2) Nicotine dependence Current Visit: Yes Status: Acute Priority: Low Hospital Course: Admission HPI: Patient is a 24-year-old male who currently lives with his mother, has no kids is single and unemployed. Patient presented to the hospital for psychiatric evaluation after a supposed overdose at home on his risperidone. Patient apparently reported in the ER that he was feeling stressed and anxious and took 6-8 mg of his Risperdal and states that he "just wanted to sleep". Patient was petitioned by EPS nurse and admitted involuntarily to the psychiatric unit. Patient was recently discharge from the mental health unit earlier this month. Patient this morning. Poor hygiene and grooming. He has poor insight and judgment was impulsive. Patient had poor eye contact and mainly looking at the floor while eating interviewed. He was fairly guarded and evasive about the events that occurred prior to coming in the hospital. He states that he does not know why he is here. He claims that he "overtook my medications" and claims that she had no reason why. When pressed further he states that he was "being stupid" and claims that he needed to sleep. He claims that he does not need medications and also stated that the Risperdal "made me depressed". He did follow-up at [facility] upon his last discharge. Patient did admit to using marijuana every day. Patient denies any suicidal or homicidal ideations intent or plan. At this time patient denies any auditory or visual hallucinations. Patient admits to getting high however denies any drug use. He states that he does smoke cigarettes daily. Hospital course: Upon admission to the unit patient was initially bizarre, disorganized and psychotic. Patient was admitted involuntarily on a petition and certificate and a second certificate was completed and faxed to the courts. Patient ended up signing a deferral on day of discharge and also agreed to continue on with treatment and take medications. Patient got along well with other patients on the unit and followed unit protocol. Patient was compliant with the medications and denied any side effects throughout hospital course. Patient was started on Prolixin and titrated up to a dose of 2 mg twice a day for psychosis and was then given Prolixin D long-acting injection 25 mg IM on 09/25/2020 and will be due for his next long-acting injection 25 mg IM on 10/16/2020 in every 3 weeks thereafter. Patient will be weaned off of Prolixin by mouth over the next 5 days. Patient was also started on Zoloft 50 mg daily for mood/physiatry. Patient spoke of his stressors and engaged in therapy both group and individual. Patient was also seen by medical team for history and physical exam. Patient did have flulike symptoms including cough and nasal congestion and WBCs were drawn which did not show any concerns and chest x-ray was completed on 09/25/2020 which was negative for any acute process. Patient had a covid-19 test which the result was negative. Patient's flulike symptoms gradually improved on the unit prior to discharge. Throughout the course of the hospitalization patient gradually improved with regards to psychosis, mood/anxiety, sleep and became more future oriented with improved insight and judgment and returned to his baseline. On the day of discharge patient denied any suicidal or homicidal ideations intent or plan denied any auditory or visual hallucinations. Patient endorsed wanting to live for his future and his health. The patient denied any access to guns or weapons. Patient denied any paranoia and did not endorse any delusions. Patient does have a significant history of substance abuse and was counseled on abstaining from all substances including al cohol and marijuana. Patient was offered however declined inpatient substance- abuse rehab. Patient was also counseled on the medications and need for regular compliance and was encouraged to follow-up with their outpatient appointment for mental health and also for primary care. Prior to discharge a family meeting will be arranged by rn social work to answer any questions and ensure safety upon discharge. Patient will be discharged back home where he lives with his mother. Mental status exam: General Appearance: Patient appears to be stated age is alert, directable, and cooperative. Patient is in no acute distress and has improved hygiene and grooming Behavior: Patient is calmly seated without any agitated behavior. Appropriate. Speech: Patient's speech is fluent and nonpressured. [place]. Mood/Affect: Patient reports their mood is "better", affect is congruent and euthymic. Suicidality/Homicidality: Patient denies having any suicidal or homicidal ideation intent or plan. Perceptions: Patient denies any auditory or visual hallucinations. Though content/process: [place], logical. Poverty of content. Denies any delusions or paranoia. Memory and concentration: AOX3, grossly intact for the purposes of this session. Can spell "WORLD" backwards correctly. Judgment and insight: chronically poor, however has improved with guarded prognosis Impression: Psychosis unspecified, rule out secondary to substance use versus schizophrenia Nicotine dependence Plan: -Continue with discharge today as patient has improved and stabilized psychiatrically and is not currently an imminent threat to himself and/or others. Patient will remain at chronically elevated risk for harm to self and/or others due to his chronically poor insight and judgment. -Continue medications: Continue Zoloft 50 mg daily for mood/anxiety. Patient was offered and agreed to take Prolixin D long-acting injection 25 mg IM on 09/25/2020 and will be due for his next long-acting injection 25 mg IM on 12/16/2019 in every 3 weeks thereafter. Will be given a 4 day supply of Prolixin by mouth 1 mg daily as a bridge and then should be discontinued after 4 days. -Patient was counseled on the need for medication compliance and appropriate follow-up at mental health and also primary care for medical issues. Patient verbalized understanding and agreed. -Social work to arrange for and conduct family meeting to ensure safety upon discharge and answer any questions/concerns. Social work also to arrange for patients follow up appointments with [facility] for psychiatric care along with follow up with primary care provider. -Patient counseled on abstaining from recreational drugs and marijuana and alcohol. Was informed/educated on the adverse effects on their physical and mental health. Patient verbally agreed and understood. Patient was offered substance abuse treatment however declined at this time. -Patient was instructed to return to the hospital or seek immediate medical care if their psychiatric or medical symptoms do worsen or reoccur. Allergies Allergy/AdvReac Type Severity Reaction Status Date / Time Penicillins Allergy Unknown Unknown Verified 09/21/20 09:31 piperacillin [From Zosyn] Allergy Unknown Unknown Verified 09/21/20 09:31 tazobactam [From Zosyn] Allergy Unknown Unknown Verified 09/21/20 09:31 haloperidol [From Haldol] AdvReac Severe Anaphylaxis Verified 09/21/20 09:31 Laboratory Results WBC 9.0 k/uL (3.8-10.6) 09/25/20 12:35 RBC 5.10 m/uL (4.30-5.90) 09/25/20 12:35 Hgb 15.6 gm/dL (13.0-17.5) 09/25/20 12:35 Hct 47.9 % (39.0-53.0) 09/25/20 12:35 MCV 94.1 fL (80.0-100.0) 09/25/20 12:35 MCH 30.5 pg (25.0-35.0) 09/25/20 12:35 MCHC 32.5 g/dL (31.0-37.0) 09/25/20 12:35 RDW 13.3 % (11.5-15.5) 09/25/20 12:35 Plt Count 268 k/uL (150-450) 09/25/20 12:35 Neutrophils % 78 % 09/25/20 12:35 Lymphocytes % 14 % 09/25/20 12:35 Monocytes % 6 % 09/25/20 12:35 Eosinophils % 1 % 09/25/20 12:35 Basophils % 0 % 09/25/20 12:35 Neutrophils # 7.0 k/uL (1.3-7.7) 09/25/20 12:35 Lymphocytes # 1.2 k/uL (1.0-4.8) 09/25/20 12:35 Monocytes # 0.5 k/uL (0-1.0) 09/25/20 12:35 Eosinophils # 0.1 k/uL (0-0.7) 09/25/20 12:35 Basophils # 0.0 k/uL (0-0.2) 09/25/20 12:35 Sodium 138 mmol/L (137-145) 09/21/20 03:28 Potassium 4.1 mmol/L (3.5-5.1) 09/21/20 03:28 Chloride 109 mmol/L (98-107) H 09/21/20 03:28 Carbon Dioxide 21 mmol/L (22-30) L 09/21/20 03:28 Anion Gap 8 mmol/L 09/21/20 03:28 BUN 15 mg/dL (9-20) 09/21/20 03:28 Creatinine 0.82 mg/dL (0.66-1.25) 09/21/20 03:28 Est GFR (CKD-EPI)AfAm >90 (>60 ml/min/1.73 sqM) 09/21/20 03:28 Est GFR (CKD-EPI)NonAf >90 (>60 ml/min/1.73 sqM) 09/21/20 03:28 Glucose 106 mg/dL (74-99) H 09/21/20 03:[address] Glu mg/dL 100 09/21/20 03:28 Hemoglobin A1c 5.1 % (4.0-6.0) 09/21/20 03:28 Calcium 9.6 mg/dL (8.4-10.2) 09/21/20 03:28 Total Bilirubin 0.8 mg/dL (0.2-1.3) 09/21/20 03:28 AST 39 U/L (17-59) 09/21/20 03:28 ALT 77 U/L (4-49) H 09/21/20 03:28 Alkaline Phosphatase 90 U/L (38-126) 09/21/20 03:28 Total Protein 7.3 g/dL (6.3-8.2) 09/21/20 03:28 Albumin 4.3 g/dL (3.5-5.0) 09/21/20 03:28 Triglycerides 120 mg/dL (<150) 09/21/20 03:28 Cholesterol 151 mg/dL (<200) 09/21/20 03:28 LDL Cholesterol, Calc 72 mg/dL (0-99) 09/21/20 03:28 HDL Cholesterol 55 mg/dL (40-60) 09/21/20 03:28 TSH 0.898 mIU/L (0.465-4.680) 09/21/20 03:28 Salicylates <1.0 mg/dL 09/21/20 03:28 Urine Opiates Screen Not Detected (NotDetected) 09/21/20 03:28 Ur Oxycodone Screen Not Detected (NotDetected) 09/21/20 03:28 Urine Methadone Screen Not Detected (NotDetected) 09/21/20 03:28 Ur Propoxyphene Screen Not Detected (NotDetected) 09/21/20 03:28 Acetaminophen <10.0 ug/mL 09/21/20 03:28 Ur Barbiturates Screen Not Detected (NotDetected) 09/21/20 03:28 U Tricyclic Antidepress Not Detected (NotDetected) 09/21/20 03:28 Ur Phencyclidine Scrn Not Detected (NotDetected) 09/21/20 03:28 Ur Amphetamines Screen Not Detected (NotDetected) 09/21/20 03:28 U Methamphetamines Scrn Not Detected (NotDetected) 09/21/20 03:28 U Benzodiazepines Scrn Not Detected (NotDetected) 09/21/20 03:28 Urine Cocaine Screen Not Detected (NotDetected) 09/21/20 03:28 U Marijuana (THC) Screen Detected (NotDetected) H 09/21/20 03:28 Serum Alcohol <10 mg/dL 09/21/20 03:28 Coronavirus (PCR) Not Detected (Not Detected) 09/25/20 12:42 Vital Signs Temp 97.9 F 09/27/20 06:55 Pulse 73 09/27/20 06:55 Resp 17 09/27/20 06:55 BP 104/53 09/27/20 06:55 Pulse Ox 98 09/27/20 06:55 Patient Condition at Discharge: Stable Plan - Discharge Summary Discharge Rx Participant: No New Discharge Prescriptions: New Nicotine 21Mg/24Hr Patch [Habitrol] 1 patch TRANSDERM DAILY 14 Days patch fluPHENAZine [Prolixin] 1 mg PO DAILY #4 tab Acetaminophen Tab [Tylenol] 650 mg PO Q4HR PRN tab PRN Reason: Pain/Discomfort fluPHENAZine decanoate [Prolixin Decanoate] 25 mg IM ONCE #1 vial Continue Sertraline HCl [Zoloft] 50 mg PO DAILY 30 Days tab Discontinued Nicotine 21Mg/24Hr Patch [Habitrol] 1 patch TRANSDERM DAILY 14 Days patch Metoprolol Tartrate [Lopressor] 25 mg PO BID 30 Days tab risperiDONE [RisperDAL] 2 mg PO HS 30 Days tab Acetaminophen Tab [Tylenol] 650 mg PO Q4HR PRN tab PRN Reason: Pain/Discomfort Discharge Medication List Acetaminophen Tab [Tylenol] 650 mg PO Q4HR PRN tab 09/27/20 [Rx] Nicotine 21Mg/24Hr Patch [Habitrol] 1 patch TRANSDERM DAILY 14 Days patch 09/27/20 [Rx] Sertraline HCl [Zoloft] 50 mg PO DAILY 30 Days tab 09/27/20 [Rx] fluPHENAZine [Prolixin] 1 mg PO DAILY #4 tab 09/27/20 [Rx] fluPHENAZine decanoate [Prolixin Decanoate] 25 mg IM ONCE #1 vial 09/27/20 [Rx] Follow up Appointment(s)/Referral(s): None,Stated [Primary Care Provider] - 1-2 days Patient Instructions/Handouts: Psychotic Disorder (DC) Activity/Diet/Wound Care/Special Instructions: Activity and diet as tolerated. Avoid the use of street drugs and alcohol. Take all medications as prescribed. When you are in need of refills on your medications please contact your medical provider and/or outpatient psychiatrist to have this done. Please go to scheduled outpatient appointment for aftercare. If symptoms return or become worse call the crisis line at and/or go to the nearest emergency room for an evaluation. Discharge Disposition: HOME SELF-CARE
== END 2020-09-27 11:35 | disposition home or self-care (01) | DRG 885 ==
LOC: EC 02:42 → 3MHU 11:54
PROVIDERS: ADMIT Psychiatry & Neurology Psychiatry; ATTEND Psychiatry & Neurology Psychiatry
DX: F29 Unspecified psychosis not due to a substance or known physiological condition (principal); F12.90 Cannabis use, unspecified, uncomplicated; T43.592A Poisoning by other antipsychotics and neuroleptics, intentional self-harm, initial encounter; F31.9 Bipolar disorder, unspecified; F41.9 Anxiety disorder, unspecified; Z20.828 Contact with and (suspected) exposure to other viral communicable diseases; R45.87 Impulsiveness; I10 Essential (primary) hypertension; R05 Cough; R06.02 Shortness of breath; R09.81 Nasal congestion; F17.210 Nicotine dependence, cigarettes, uncomplicated; Z71.6 Tobacco abuse counseling; Z79.899 Other long term (current) drug therapy; Z56.0 Unemployment, unspecified; Z95.2 Presence of prosthetic heart valve; Z87.39 Personal history of other diseases of the musculoskeletal system and connective tissue; Z88.1 Allergy status to other antibiotic agents; Z88.0 Allergy status to penicillin; Z88.8 Allergy status to other drugs, medicaments and biological substances; Z81.8 Family history of other mental and behavioral disorders
CPT/HCPCS: 36415; 71045; 80053; 80061; 80306; 80320; 80329; 82075; 83036; 83520; 84443; 85025; 93005; 96360; 96361; 99285

== ENCOUNTER 2020-11-29 19:43 | Emergency (ER) | payer OTHER ==
[2020-11-29 19:49] VITALS: BP 112/83; PULSE 128; RESP 18; TEMP 98.2
[2020-11-29 20:37] LABS: Appearance,Urine Clear (Clear); Bilirubin,Urine Negative (Negative); Blood,Urine Negative (Negative); Color,Urine Yellow; Glucose,Urine (UA) Negative (Negative); Hyaline Casts,Urine 56 /lpf (0-2); Ketones,Urine Trace (Negative); Leukocyte Esterase,Urine Negative (Negative); Mucus,Urine Many /hpf; Nitrite,Urine Negative (Negative); Protein,Urine 2+ (Negative); RBC,Urine 1 /hpf (0-5); Specific Gravity,Urine 1.026 (1.001-1.035); Squamous Epithelial Cell,Urine 1 /hpf (0-4); WBC,Urine 6 /hpf (0-5)
--- NOTE | 2020-11-29 20:43 | ED ---
General Adult HPI - General Chief complaint: Urogenital Stated complaint: Infection Time Seen by Provider: 11/29/20 19:52 Source: patient, RN notes reviewed, old records reviewed Mode of arrival: ambulatory Limitations: no limitations - History of Present Illness Initial comments: 25 year old male patient to ED for hematospermia He reports he was masturbating 2 days ago and there is some blood in his semen. He reports that he then later on repeated that action and there was much smaller amount of blood tinged sperm. Denies any other complaints. Denies any pain. Denies any concern for STI. Systemic: Pt denies fatigue, fever/chills, rash. Pt denies weakness, night sweats, weight loss. Neuro: Pt denies headache, visual disturbances, syncope or pre-syncope. HEENT: Pt denies ocular discharge or irritation, otalgia, rhinorrhea, pharyngitis or notable lymphadenopathy. Cardiopulmonary: Pt denies chest pain, SOB, heart palpitations, dyspnea on e xertion. Abdominal/GI: Pt denies abdominal pain, n/v/d. : Pt denies dysuria, burning w/ urination, frequency/urgency. Denies new onset urinary or bowel incontinence. MSK: Pt denies myalgia, loss of strength or function in extremities. Neuro: Pt denies new onset weakness, paresthesias. - Related Data Previous Rx's Medication Instructions Recorded Acetaminophen Tab [Tylenol] 650 mg PO Q4HR PRN tab 09/27/20 Nicotine 21Mg/24Hr Patch [Habitrol] 1 patch TRANSDERM DAILY 14 Days 09/27/20 patch Sertraline HCl [Zoloft] 50 mg PO DAILY 30 Days tab 09/27/20 fluPHENAZine [Prolixin] 1 mg PO DAILY #4 tab 09/27/20 fluPHENAZine decanoate [Prolixin 25 mg IM ONCE #1 vial 09/27/20 Decanoate] Allergies Allergy/AdvReac Type Severity Reaction Status Date / Time Penicillins Allergy Unknown Unknown Verified 11/29/20 19:49 piperacillin [From Zosyn] Allergy Unknown Unknown Verified 11/29/20 19:49 tazobactam [From Zosyn] Allergy Unknown Unknown Verified 11/29/20 19:49 haloperidol [From Haldol] AdvReac Severe Anaphylaxis Verified 11/29/20 19:49 Review of Systems ROS Statement: Those systems with pertinent positive or pertinent negative responses have been documented in the HPI. ROS Other: All systems not noted in ROS Statement are negative. 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 Past Anesthesia/Blood Transfusion Reactions: No Reported Reaction Past Psychological History: Bipolar, Depression Smoking Status: Current every day smoker Past Alcohol Use History: None Reported Past Drug Use History: IV Drug Use, Marijuana, Methamphetamine - Past Family History family Additional Family Medical History / Comment(s): States multiple family members with heart disease on his mother's side of the family. General Exam - General Exam Comments Initial Comments: Constitutional: NAD, AOX3, Pt has pleasant affect. HEENT: NC/AT, trachea midline, neck supple, no lymphadenopathy. External ears appear normal, without discharge. Mucous membranes moist. Eyes PERRLA, EOM intact. There is no scleral icterus. No pallor noted. Cardiopulmonary: RRR, no murmurs, rubs or gallops, no JVD noted. Lungs CTAB in anterior and posterior aguilar. No peripheral edema. Abdominal exam: Abdomen soft and non-distended. Abdomen non-tender to palpation in all 4 quadrants. Neuro: CN II-XII grossly intact. . MSK: Full active ROM in upper and lower extremities, 5/5 stregnth. GY: No penile or scrotal lesions, no tenderness. Creamesteric reflex intact. Limitations: no limitations Course Vital Signs 11/29/20 19:45 Temperature 98.2 F Pulse Rate 128 H Respiratory 18 Rate Blood Pressure 112/83 O2 Sat by Pulse 95 Oximetry Medical Decision Making - Medical Decision Making 25-year-old male patient ED for hematospermia after initial history and physical patient woke emergency department. Case discussed with Dr. Gibson. - Lab Data Lab Results 11/29/20 Range/Units 20:23 Urine Color Yellow Urine Appearance Clear (Clear) Urine pH 6.0 (5.0-8.0) Ur Specific [place] 1.026 (1.001-1.035) Urine Protein 2+ H (Negative) Urine Glucose (UA) Negative (Negative) Urine Ketones Trace H (Negative) Urine Blood Negative (Negative) Urine Nitrite Negative (Negative) Urine Bilirubin Negative (Negative) Urine Urobilinogen 3.0 (<2.0) mg/dL Ur Leukocyte Esterase Negative (Negative) Urine RBC 1 (0-5) /hpf Urine WBC 6 H (0-5) /hpf Ur Squamous Epith Cells 1 (0-4) /hpf Hyaline Casts 56 H (0-2) /lpf Urine Mucus Many H (None) /hpf Disposition Clinical Impression: Hematospermia Disposition: Left Against Medical Advice Condition: Undetermined Is patient prescribed a controlled substance at d/c from ED?: No Referrals: None,Stated [Primary Care Provider] - 1-2 days
[2020-11-29 20:44] LABS: Amphetamine Screen,Urine Not Detected (NotDetected); Barbiturate Screen,Urine Not Detected (NotDetected); Benzodiazepines Screen,Urine Not Detected (NotDetected); Cocaine Screen,Urine Not Detected (NotDetected); Methadone Screen, Urine Not Detected (NotDetected); Opiate Screen,Urine Not Detected (NotDetected); Oxycodone Screen, Urine Not Detected (NotDetected); Phencyclidine Screen,Urine Not Detected (NotDetected); Tricyclic Antidepressant,Urine Not Detected (NotDetected); Urn Cannabinoid Scrn Detected (NotDetected)
== END 2020-11-29 20:27 | disposition left against medical advice (07) ==
LOC: EC 19:43
DX: R36.1 Hematospermia (principal); F17.200 Nicotine dependence, unspecified, uncomplicated; Z88.0 Allergy status to penicillin; Z88.1 Allergy status to other antibiotic agents; Z88.8 Allergy status to other drugs, medicaments and biological substances; Z53.29 Procedure and treatment not carried out because of patient's decision for other reasons
CPT/HCPCS: 80306; 81001; 87491; 87591; 99284

== ENCOUNTER 2021-05-31 20:16 | Inpatient (IN) | payer MEDICAID, OTHER ==
[2021-05-31] MEDS ORDERED: HALOPERIDOL LACTATE 5 MG/ML 1 ML VIAL IM STA (20:57)
[2021-05-31] MEDS ORDERED: LORazepam 2 MG/ML INJ IM STA (20:57)
[2021-05-31] MEDS ORDERED: diphenhydrAMINE 50 MG/ML 1 ML VIAL IVP STA (20:57)
[2021-05-31] MEDS ORDERED: diphenhydrAMINE 50 MG/ML 1 ML VIAL IM STA (20:57)
[2021-05-31 22:04] LABS: Basophils % (A) 0 %; Eosinophils # (A) 0.1 k/uL (0-0.7); Eosinophils % (A) 1 %; HCT 43.3 % (39.0-53.0); HGB 14.9 gm/dL (13.0-17.5); Lymphocytes # (A) 1.4 k/uL (1.0-4.8); Lymphocytes % (A) 16 %; MCH 30.8 pg (25.0-35.0); MCHC 34.5 g/dL (31.0-37.0); MCV 89.3 fL (80.0-100.0); Monocytes # (A) 0.7 k/uL (0-1.0); Monocytes % (A) 8 %; Neutrophils # (A) 6.6 k/uL (1.3-7.7); Neutrophils % (A) 74 %; Platelet Count 225 k/uL (150-450); RBC 4.84 m/uL (4.30-5.90); RDW 12.1 % (11.5-15.5); WBC 8.9 k/uL (3.8-10.6)
[2021-05-31 22:25] LABS: ALT 18 U/L (4-49); AST 21 U/L (17-59); Acetaminophen <10.0 ug/mL; African American GFR (CKD) >90 (>60 ml/min/1.73 sqM); Albumin 4.6 g/dL (3.5-5.0); Alkaline Phosphatase 103 U/L (38-126); Anion Gap 8 mmol/L; Blood Urea Nitrogen 15 mg/dL (9-20); Calcium 9.8 mg/dL (8.4-10.2); Carbon Dioxide 25 mmol/L (22-30); Chloride 108 mmol/L (98-107); Glucose 107 mg/dL (74-99); Non-African American GFR(CKD) >90 (>60 ml/min/1.73 sqM); Salicylate <1.0 mg/dL; Sodium 141 mmol/L (137-145); Total Bilirubin 0.5 mg/dL (0.2-1.3)
--- NOTE | 2021-05-31 22:58 | ED ---
Psych HPI - General Chief Complaint: Psychiatric Symptoms Stated Complaint: Mental Health Time Seen by Provider: 05/31/21 20:25 Source: patient Mode of arrival: ambulatory - History of Present Illness Initial Comments: Rudy is a 25-year-old male with a history of paranoid schizophrenia for which she's previously been on oral and ejection medications. He is apparently not had any medications in weeks to months. He is very paranoid and agitated. Patient screaming that he can see visual's is eyes. He states that someone is going live on his face spoke and going after his family. He states that this person deserves a bullet had. States that he came to the hospital because he wants this on installed from his head. - Related Data Home Medications Medication Instructions Recorded Confirmed Paliperidone IM [Invega Sustenna] 234 mg IM Q30D 05/31/21 05/31/21 risperiDONE [RisperDAL] 2 mg PO HS 05/31/21 05/31/21 Previous Rx's Medication Instructions Recorded Sertraline HCl [Zoloft] 50 mg PO DAILY 30 Days tab 09/27/20 Allergies Allergy/AdvReac Type Severity Reaction Status Date / Time Penicillins Allergy Unknown Unknown Verified 05/31/21 20:41 piperacillin [From Zosyn] Allergy Unknown Unknown Verified 05/31/21 20:41 tazobactam [From Zosyn] Allergy Unknown Unknown Verified 05/31/21 20:41 haloperidol [From Haldol] AdvReac Severe Anaphylaxis Verified 05/31/21 20:41 Review of Systems ROS Statement: Those systems with pertinent positive or pertinent negative responses have been documented in the HPI. ROS Other: All systems not noted in ROS Statement are negative. 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 Past Anesthesia/Blood Transfusion Reactions: No Reported Reaction Past Psychological History: Bipolar, Depression Smoking Status: Current every day smoker Past Alcohol Use History: Rare Past Drug Use History: IV Drug Use, Marijuana, Methamphetamine - Past Family History family Additional Family Medical History / Comment(s): States multiple family members with heart disease on his mother's side of the family. General Exam - General Exam Comments Initial Comments: Physical Exam GENERAL: Patient is well-developed and well-nourished. Patient is nontoxic and well-hydrated and is in no distress. HENT: Normocephalic, Atraumatic. EYES: PERRL, EOMI PULMONARY: Unlabored respirations. CARDIOVASCULAR: RRR Warm and well perfused extremities ABDOMEN: Non-distended SKIN: No rashes or bruising : Deferred NEUROLOGIC: Alert and oriented Normal speech Normal gait MUSCULOSKELETAL: Moving all extremities with no apparent injury PSYCHIATRIC: Acutely psychotic, hallucinating, agitated Limitations: no limitations Course Vital Signs 05/31/21 20:17 Temperature 98.1 F Pulse Rate 115 H Respiratory 20 Rate Blood Pressure 127/81 O2 Sat by Pulse 99 Oximetry Medical Decision Making - Medical Decision Making Patient was seen and evaluated history is obtained from patient and mother Patient with a psychiatric history noncompliant with medications appears to be acutely psychotic Patient asking for us to stop his hallucinations, patient was treated with Ativan and Benadryl patient medically cleared for evaluation by EPS - Lab Data Result diagrams: 05/31/21 21:52 05/31/21 21:52 Lab Results 05/31/21 05/31/21 Range/Units 21:52 21:52 WBC 8.9 (3.8-10.6) k/uL RBC 4.84 (4.30-5.90) m/uL Hgb 14.9 (13.0-17.5) gm/dL Hct 43.3 (39.0-53.0) % MCV 89.3 (80.0-100.0) fL MCH 30.8 (25.0-35.0) pg MCHC 34.5 (31.0-37.0) g/dL RDW 12.1 (11.5-15.5) % Plt Count 225 (150-450) k/uL MPV 7.0 Neutrophils % 74 % Lymphocytes % 16 % Monocytes % 8 % Eosinophils % 1 % Basophils % 0 % Neutrophils # 6.6 (1.3-7.7) k/uL Lymphocytes # 1.4 (1.0-4.8) k/uL Monocytes # 0.7 (0-1.0) k/uL Eosinophils # 0.1 (0-0.7) k/uL Basophils # 0.0 (0-0.2) k/uL Sodium 141 (137-145) mmol/L Potassium 4.0 (3.5-5.1) mmol/L Chloride 108 H (98-107) mmol/L Carbon Dioxide 25 (22-30) mmol/L Anion Gap 8 mmol/L BUN 15 (9-20) mg/dL Creatinine 1.11 (0.66-1.25) mg/dL Est GFR (CKD-EPI)AfAm >90 (>60 ml/min/1.73 sqM) Est GFR (CKD-EPI)NonAf >90 (>60 ml/min/1.73 sqM) Glucose 107 H (74-99) mg/dL Calcium 9.8 (8.4-10.2) mg/dL Total Bilirubin 0.5 (0.2-1.3) mg/dL AST 21 (17-59) U/L ALT 18 (4-49) U/L Alkaline Phosphatase 103 (38-126) U/L Total Protein 7.0 (6.3-8.2) g/dL Albumin 4.6 (3.5-5.0) g/dL Salicylates <1.0 mg/dL Acetaminophen <10.0 ug/mL Disposition Clinical Impression: Psychosis Disposition: TRANSFER TO PSYCH HOSP/UNIT Condition: Serious Referrals: None,Stated [Primary Care Provider] - 1-2 days
[2021-06-01] MEDS ORDERED: MAGNESIUM HYDROXIDE 2,400 MG/10 ML CUP PO PRN (02:49)
[2021-06-01] MEDS ORDERED: MAG HYDROX/AL HYDROX/SIMETH 30 ML CUP PO PRN (02:49)
[2021-06-01] MEDS ORDERED: ZIPRASIDONE 20 MG VIAL IM PRN (02:49)
[2021-06-01] MEDS ORDERED: ACETAMINOPHEN TAB 325 MG TAB PO PRN (02:49)
[2021-06-01] MEDS ORDERED: LORazepam 2 MG/ML INJ IM PRN (02:54)
[2021-06-01] MEDS ORDERED: ZIPRASIDONE 20 MG CAP PO PRN (02:56)
--- NOTE | 2021-06-01 03:12 | P.PN ---
Progress Note - Text Progress Note Date: 06/01/21 notified of admit, but patient medicated and inappropriate for evaluation at this time
[2021-06-01] MEDS: NICOTINE 14MG/24HR PATCH TRANSDERM SCH (09:16)
--- NOTE | 2021-06-01 11:02 | P.HP ---
Psychiatric H&P - . H&P Date: 06/01/21 History & Physical: IDENTIFYING DATA: Rudy is a 25-year-old single male admitted to the psychiatric unit involuntarily. His mother completed a petition for hospitalization that read: He has become aggressive throughout the day, yelling and screaming things that make no sense and said he would slit his throat. HISTORY OF PRESENT ILLNESS: I reviewed the medical record and interviewed the patient. He was last discharged from this unit in August 2020 with a diagnosis of unspecified psychosis and nicotine dependence. He was minimally cooperative with the interview and volunteered little information. He acknowledged that he was losing his temper resulting in his mother completed a petition. He talked vaguely about seeing people in the computer screen. He specifically mention an uncle who was present in the computer screen. He received messages and commands from the computer. These experiences were nonverbal where the "messages" were transmitted directly to his brain; "they told me what to do." He denied the use of drugs or alcohol. He specifically denied use of methamphetamine or cocaine. He did not provide a sample for a urine drug screen. He admitted to feeling depressed and having difficulty with sleep. He acknowledged that he had thoughts of suicide and told his mother that he thought about cutting his throat but at the time of interview denied thoughts of or suicide. He denied experiencing persistent uncontrolled anxiety outside of the psychotic experiences. He denied periods of increased anxiety suggestive of panic attack. He denied obsessions or compulsions. PAST PSYCHIATRIC HISTORY: This is his third admission to our psychiatric unit. He was first admitted in August 2018 and was diagnosed with a substance use psychotic disorder because his urine drug screen was positive for methampheta mine, opiates, cannabis and cocaine. However, his urine drug screen was only positive for marijuana on a psychiatric admission in August 2020. He last discharged from with diagnosis of a unspecified psychotic disorder. His discharge medications include Zoloft 50 mg daily and Prolixin Decanoate 25 mg monthly. He alleged that he attended community college briefly after his last discharge. PAST MEDICAL HISTORY: hypertension, tricuspid heart valve replacement due to substance abuse and 2012, history of endocarditis ALLERGIES: Penicillins, tazobactam, EPS secondary to Haldol SUBSTANCE USE HISTORY: He was guarded and not forthcoming about his substance abuse history. According to record he has a history of heroin, cocaine, marijuana and methamphetamine use. He had a binge pattern of methamphetamine use. He attended one 90 day substance abuse treatment program FAMILY PSYCHIATRIC/SUBSTANCE USE HISTORY: his sister has a history of bipolar illness. LEGAL HISTORY: He has current legal charges for open intoxicants and drug paraphernalia. He is on an alternate treatment order dated February 2021 SOCIAL HISTORY: He is single and has 1 daughter who lives with her mother in [place]. He is unemployed and lives with his mother. He left school in 11th grade. He has 1 biological sister. MENTAL STATUS EXAM: He presented to [facility] and a pale-looking male who seldom made eye contact and did not engage in the interview. He had no physical abnormalities or distinguishing features. He had a flat facial expression. He is alert and oriented to person, place and time he had psychomotor retardation with a slow but steady gait. His speech was not spontaneous and was often difficult to understand. His affect was flat and unexpressive. He denied suicidal ideation, wishes or homicidal ideation. He did not express clear feelings of hopelessness, helplessness or worthlessness. He described ideas of reference, paranoid ideation and delusional beliefs. His thinking was concrete but his associations appeared goal directed. He described visual hallucinations and I suspect he was also experiencing auditory hallucinations. However, he did not appear to be responding to internal stimuli during this interview. STRENGTHS: Supportive family, stable housing, good physical health WEAKNESSES: Poor complaince with mental health treatment, history of recurrent substance use and substance use problems, legal problems IMPRESSION: He is a 25-year-old male readmitted to the psychiatric hospital involuntarily with signs and symptoms of acute psychosis. He denied that he was using drugs prior to this admission but did not provide a urine sample for urine drug screen. He described visual hallucinations, auditory hallucinations, thought insertion, thought broadcasting and thought control. The hospitalization was prompted by mood lability and lost control of anger. He should be treated inpatient basis with combination of psychopharmacology and multimodal therapy. PRINCIPLE DIAGNOSIS: Unspecified psychotic disorder, rule out substance-induced psychotic disorder, rule out schizophrenia, rule out schizoaffective disorder, rule out continued use of cocaine, marijuana, methamphetamine etc. RECOMMENDATION: Admitted to the psychiatric unit. Proceed with involuntary hospitalization. Consult medicine for initial physical exam and medical history. 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 Begin Abilify 10 mg daily and titrated to clinical response; to transition to long-acting Abilify. Geodon 20 mg by mouth or IM twice a day for agitation acute psychosis as well as Ativan 1 mg by mouth or IM 3 times a day for anxiety, agitation acute psychosis. Obtain collateral information from family. Encourage participation in therapeutic groups and activities. Evaluate clinical status response to treatment daily basis. Allergies Allergy/AdvReac Type Severity Reaction Status Date / Time Penicillins Allergy Unknown Unknown Verified 06/01/21 03:38 piperacillin [From Zosyn] Allergy Unknown Unknown Verified 06/01/21 03:38 tazobactam [From Zosyn] Allergy Unknown Unknown Verified 06/01/21 03:38 haloperidol [From Haldol] AdvReac Severe Anaphylaxis Verified 06/01/21 03:38 Vital Signs Temp 97.9 F 06/01/21 01:54 Pulse 80 06/01/21 01:54 Resp 15 06/01/21 01:54 BP 127/66 06/01/21 01:54 Pulse Ox 96 06/01/21 01:54 Intake & Output 05/31/21 06/01/21 06/01/21 18:59 06:59 18:59 Weight 76.657 kg Laboratory Last Values WBC 8.9 k/uL (3.8-10.6) 05/31/21 21:52 RBC 4.84 m/uL (4.30-5.90) 05/31/21 21:52 Hgb 14.9 gm/dL (13.0-17.5) 05/31/21 21:52 Hct 43.3 % (39.0-53.0) 05/31/21 21:52 MCV 89.3 fL (80.0-100.0) 05/31/21 21:52 MCH 30.8 pg (25.0-35.0) 05/31/21 21:52 MCHC 34.5 g/dL (31.0-37.0) 05/31/21 21:52 RDW 12.1 % (11.5-15.5) 05/31/21 21:52 Plt Count 225 k/uL (150-450) 05/31/21 21:52 MPV 7.0 05/31/21 21:52 Neutrophils % 74 % 05/31/21 21:52 Lymphocytes % 16 % 05/31/21 21:52 Monocytes % 8 % 05/31/21 21:52 Eosinophils % 1 % 05/31/21 21:52 Basophils % 0 % 05/31/21 21:52 Neutrophils # 6.6 k/uL (1.3-7.7) 05/31/21 21:52 Lymphocytes # 1.4 k/uL (1.0-4.8) 05/31/21 21:52 Monocytes # 0.7 k/uL (0-1.0) 05/31/21 21:52 Eosinophils # 0.1 k/uL (0-0.7) 05/31/21 21:52 Basophils # 0.0 k/uL (0-0.2) 05/31/21 21:52 Sodium 141 mmol/L (137-145) 05/31/21 21:52 Potassium 4.0 mmol/L (3.5-5.1) 05/31/21 21:52 Chloride 108 mmol/L (98-107) H 05/31/21 21:52 Carbon Dioxide 25 mmol/L (22-30) 05/31/21 21:52 Anion Gap 8 mmol/L 05/31/21 21:52 BUN 15 mg/dL (9-20) 05/31/21 21:52 Creatinine 1.11 mg/dL (0.66-1.25) 05/31/21 21:52 Est GFR (CKD-EPI)AfAm >90 (>60 ml/min/1.73 sqM) 05/31/21 21:52 Est GFR (CKD-EPI)NonAf >90 (>60 ml/min/1.73 sqM) 05/31/21 21:52 Glucose 107 mg/dL (74-99) H 05/31/21 21:52 Calcium 9.8 mg/dL (8.4-10.2) 05/31/21 21:52 Total Bilirubin 0.5 mg/dL (0.2-1.3) 05/31/21 21:52 AST 21 U/L (17-59) 05/31/21 21:52 ALT 18 U/L (4-49) 05/31/21 21:52 Alkaline Phosphatase 103 U/L (38-126) 05/31/21 21:52 Total Protein 7.0 g/dL (6.3-8.2) 05/31/21 21:52 Albumin 4.6 g/dL (3.5-5.0) 05/31/21 21:52 TSH 1.950 mIU/L (0.465-4.680) 05/31/21 21:52 Salicylates <1.0 mg/dL 05/31/21 21:52 Acetaminophen <10.0 ug/mL 05/31/21 21:52 06/01/21 10:34
[2021-06-01] MEDS: ARIPiprazole 10 MG TAB PO SCH (11:12)
[2021-06-01] MEDS: LORazepam 1 MG TAB PO PRN (11:14)
--- NOTE | 2021-06-01 23:00 | P.MDCNMH ---
History of Present Illness H&P Date: 06/01/21 Chief Complaint: Medical evaluation 25-year-old male with history of endocarditis Patient comes in for paranoid schizophrenia currently denies any medical concerns he denies any fevers chills denies any coughing chest pain trouble breathing abdominal pain nausea vomiting diarrhea or urinary changes denies any GI bleeding Patient claims that he quit drugs and alcohol but he continues to smoke cigarettes Review of Systems Pertinent positives as noted in HPI. 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 Past Anesthesia/Blood Transfusion Reactions: No Reported Reaction Smoking Status: Current every day smoker - Past Family History family Additional Family Medical History / Comment(s): States multiple family members with heart disease on his mother's side of the family. Medications and Allergies Home Medications Medication Instructions Recorded Confirmed Type Sertraline HCl [Zoloft] 50 mg PO DAILY 30 Days tab 09/27/20 06/01/21 Rx Paliperidone IM [Invega Sustenna] 234 mg IM Q30D 05/31/21 06/01/21 History risperiDONE [RisperDAL] 2 mg PO HS 05/31/21 06/01/21 History Allergies Allergy/AdvReac Type Severity Reaction Status Date / Time Penicillins Allergy Unknown Unknown Verified 06/01/21 03:38 piperacillin [From Zosyn] Allergy Unknown Unknown Verified 06/01/21 03:38 tazobactam [From Zosyn] Allergy Unknown Unknown Verified 06/01/21 03:38 haloperidol [From Haldol] AdvReac Severe Anaphylaxis Verified 06/01/21 03:38 Physical Exam Vitals: Vital Signs Temp Pulse Resp BP Pulse Ox 06/01/21 01:54 97.9 F 80 15 127/66 96 Intake and Output 06/01/21 06/01/21 06/01/21 06:59 14:59 22:59 Other: Weight 76.657 kg Constitutional: No acute distress, conversant, pleasant Eyes: Anicteric sclerae, moist conjunctiva, Pupils equal round reactive to light ENMT: NC/AT Oropharynx clear, no erythema, or exudates Neck: Supple, FROM, no masses, or JVD No carotid bruits No thyromegaly Lungs: Clear to auscultation Clear to percussion Normal respiratory effort, no accessory muscle use Cardiovascular: Heart regular in rate and rhythm, No murmurs, gallops, or rubs No peripheral edema Abdominal: Soft Nontender, no guarding, rebound or rigidity Abdomen moving with respiration Normoactive bowel sounds No hepatomegaly, No splenomegaly No palpable mass No abdominal wall hernia noted Skin: Normal temperature, tone, texture, turgor No induration No subcutaneous nodules No rash, lesions No ulcers Extremities: No digital cyanosis No clubbing Pedal pulses intact and symmetrical Radial pulses intact and symmetrical No calf tenderness Psychiatric: Alert and oriented to person, place and time Appropriate affect Neuro Muscles Strength 5/5 in all 4 extremities Sensation to light touch grossly present throughout Cranial nerves II-XII grossly intact No focal sensory deficits Lymphatics: no palpable cervical or supraclavicular , or inguinal lymph nodes Cranial Nerve Examination - Cranial Nerves Cranial Nerve II- Optic: Intact Cranial Nerve III- Oculomotor: Intact Cranial Nerve IV- Trochlear: Intact Cranial Nerve V- Trigeminal: Intact Cranial Nerve - Abducens: Intact Cranial Nerve VII- Facial: Intact Cranial Nerve VIII- Auditory: Intact Cranial Nerve IX- Glossopharyngeal: Intact Cranial Nerve X- Vagus: Intact Cranial Nerve XI- Accessory: Intact Cranial Nerve XII- Hypoglossal: Intact Results CBC & Chem 7: 05/31/21 21:52 05/31/21 21:52 Assessment and Plan Assessment: Schizophrenia Management per psych Polysubstance abuse patient counseled to quit drug of abuse Labs reviewed unremarkable Thank you for allowing us to participate in the care of this patient. We will follow peripherally. Do not hesitate to contact us with questions. Someone can be reached from the [facility] hospitalist group at all hours of the day at [phone].
[2021-06-02] MEDS: ARIPiprazole 10 MG TAB PO SCH (08:39)
[2021-06-02] MEDS: NICOTINE 14MG/24HR PATCH TRANSDERM SCH (08:39)
--- NOTE | 2021-06-02 12:23 | P.PN ---
Progress Note - Text Progress Note Date: 06/02/21 Clinical Problems: Unspecified psychotic disorder, rule out substance-induced psychotic disorder, rule out schizophrenia, rule out schizoaffective disorder, rule out continued use of cocaine, marijuana, methamphetamine etc. Interim history: I reviewed the medical record and interviewed the patient. Today, he admitted that he was using methamphetamine prior to admission (he has yet to provide a sample for urine drug screening). He did not talk about receiving messages from the computer or experiencing ideas of reference. He perseverated about his eyes and alluded to experiencing visual hallucinations but I was uncertain whether he was talking about his current experiences or about the experiences prior to admission. He also talked about experiencing increasing fatigue. He denied side effects to the initial dose of Abilify and expressed a willingness to continue with the medication. Mental status exam: He presented as a casually groomed 25-year-old male wearing a hospital gown. He intermittently eye contact but appeared to attend to the interview. He had psychomotor retardation but no abnormal movements. His speech was spontaneous, slightly slurred with decreased volume. His affect was blunted and depressed. He denied suicidal ideation and wishes. He denied homicidal ideation. He did not appear paranoid did not express clear ideas reference or paranoid ideation. His thinking was concrete and not fully organized and goal directed. I was uncertain whether he is continuing to experience visual hallucinations. He does not appear to be responding to internal stimuli. Assessment: The changes in behavior psychotic symptoms are likely secondary to his use of methamphetamine. He is currently experiencing amphetamine withdrawal symptoms. Plan: Continue current treatment plan. Safety precautions. Continue Abilify 10 mg daily and titrated according to clinical response and tolerance. Continue Ativan and/or Geodon for acute anxiety, agitation acute psychosis. Encourage participation in therapeutic groups and activities. Evaluate clinical status response to treatment daily basis.
[2021-06-03] MEDS: NICOTINE 14MG/24HR PATCH TRANSDERM SCH (08:58)
[2021-06-03] MEDS: ARIPiprazole 10 MG TAB PO SCH ×2 (08:58→22:17)
--- NOTE | 2021-06-03 22:25 | PN ---
PROGRESS NOTE DATE OF SERVICE: 06/03/2021. CHIEF COMPLAINT: The patient was agitated and aggressive. He was screaming things that made no sense and stated he would slit his throat. INTERVAL HISTORY: Patient continues to struggle with his thought and function. Mostly he keeps to himself. He will wander some on the unit. He did not attend groups yesterday. He would make various random comments to others, though it is not clear he really had any appropriate interactions with others. He apparently slept fairly well last night. Today he has been up. He attended the leisure education group this morning. He was there for a limited amount of time. He left at one point and apparently returned. He was not noted to have any significant behavioral issues during the group. He has been compliant with care. When I talked to the patient, he was very disorganized in his thoughts and mostly things that he said were very difficult to discern the meaning. He did not really respond directly to any questions. Kept making random statements with a fairly intense manner. He was able to follow directions, though was not able to communicate any concerns or issues. He appears to tolerate his psychotropic medications. MENTAL STATUS: Patient came to the office when requested. As he walked in the office, he began talking and making very strange and disconnected comments. One example was that in the middle of me asking a question, he had "Two no I do not have computer." From there he went on rambled at length about something related to computers and other issues. He made some comments about messages being transmitted at 3 computers. Mostly he would talk in phrases rather than complete sentences. Where one phrase would often be tangential from the next. Through the course of the interview, he did seem to talk to some extent in circles where he would come back to some theme and essentially repeat himself. His affect was intense. His mood depressed. He was significantly distressed. He was quite disordered in his thinking and making delusional statements. He did not making any indication of thoughts of harm. He was oriented to self and his immediate situation. ASSESSMENT: I will continue the current diagnosis. He has symptoms of psychosis. There is some question of possible drug use. In addition, there may be questions regarding potential intellectual limitations and/or issues of autistic spectrum disorder. I will increase his Abilify to 10 mg twice a day. Targeted to his acute psychotic symptoms. We will need to coordinate with outpatient resources and perhaps get further input from family in regard to treatment and discharge planning. MMTOOTIE / NELSONN: [id number] /
[2021-06-04 07:26] VITALS: RESP 18
[2021-06-04] MEDS: ARIPiprazole 10 MG TAB PO SCH ×2 (09:01→20:43)
[2021-06-04] MEDS: NICOTINE 14MG/24HR PATCH TRANSDERM SCH (09:02)
--- NOTE | 2021-06-04 14:26 | PN ---
PROGRESS NOTE DATE OF SERVICE: 06/04/2021. CHIEF COMPLAINT: The patient was agitated and aggressive. He was screaming things that made no sense and stated he would slit his throat. INTERVAL HISTORY: The patient at best has been doing fair. He had a quiet day yesterday, he comes on the unit. He wanders about. He does not interact much with others. He has not been attending groups. He has continued to be fairly disorganized in his thoughts. He reports that he slept well last night, today he has been up and generally doing the same. It is noteworthy that when I talked to him today, his thoughts were significantly more organized and appropriate compared to yesterday. He was somewhat intense in his manner, though talked quite a bit about how his thoughts had gone awry and how much he felt things were better. At times he still made loose comments, though he was much more communicative and appropriate in his thoughts. It is noted that he is on Invega Sustenna. He had a contact with [facility] and was seen by his nurse practitioner, Ms. Salmeron May 31. At that time, his mother apparently had brought him to the appointment indicating that he was quite disorganized and delusional. He was also reporting visual hallucinations and mood difficulties. They had noted that he had received his Invega Sustenna injection on the , in addition he is prescribed Risperdal 2 mg a day and Zoloft 50 mg a day. When I reviewed medication issues with the patient, he had no specific complaints regarding his medications. MENTAL STATUS: Patient was somewhat animated and fairly active. We walked the halls as we talked. He walked in a fairly brisk manner, though not in too pressured of a way. He answered questions with direct responses. His thoughts were clear and coherent. At times, his thoughts were little disorganized, though for the most part he was fairly on track with the conversation. His affect was somewhat intense, his mood mildly dysphoric though not clearly down or depressed. He did not appear to be significantly distressed. He continues to show some indications of thought disorder, though things are improving for him. He voiced no thoughts of harm. Cognition was clear. ASSESSMENT: I will continue the current diagnosis and treatment plan. The patient will continue Abilify 10 mg twice a day. In addition, he has received Invega Sustenna 234 mg IM on May 31. He is showing progress. We will coordinate with [facility] and focus on stabilization and discharge planning. I would anticipate discharging the patient by the end of the week. MMTOOTIE / SAVANNA: [id number] / HERVE
[2021-06-05] MEDS: ARIPiprazole 10 MG TAB PO SCH ×2 (09:07→20:18)
[2021-06-05] MEDS: NICOTINE 14MG/24HR PATCH TRANSDERM SCH (09:07)
[2021-06-05] MEDS: SERTRALINE 50 MG TAB PO SCH (11:37)
--- NOTE | 2021-06-05 15:07 | PN ---
PROGRESS NOTE DATE OF SERVICE: 06/05/2021. CHIEF COMPLAINT: The patient was agitated and aggressive. He was screaming things that made no sense and stated he would slit his throat. INTERVAL HISTORY: Patient has been doing fair. He had a quiet day yesterday. He comes out on the unit. He will wander about. He does not interact with others much. He will respond appropriately. Mostly he will walk the unit and not pay too much attention to things going on around him. He attended one group yesterday. He slept well last night. Today he has been up and again has been keeping mostly to himself. He is clearer in his thoughts. He talked about discharge planning. I had a telephone call with the patient's mother. She notes that when he first got on Invega, she thought he was doing better, though recently, things seem to slip. He also was supposed to be on Risperdal and Zoloft though apparently he had not been taking those medications. He seemed to have a downturn in the last week to where he became quite agitated. Mother notes that in general, the patient does not engage much in productive activities. He mostly is at home. He does not work. He does not get involved in any schooling. She notes that recently he was spending a lot of time on the computer talking about things he was accomplishing on the computer, though in fact the computer screen was broke, so nothing was really happening. He apparently has only been seeing his [facility] ed case manager about once a month. Mother is hoping that he could be seen more often. He tolerates his psychotropic medications. MENTAL STATUS: Patient sat with some restlessness. He gave fairly good eye contact. He answered questions with brief responses. His thoughts were clear. His affect was somewhat blunted. His mood reserved. He did not appear to be significantly distressed. He continues to show some indications of thought disorder with some disorganized thinking though clearly he has been making progress. Cognition is clear. ASSESSMENT: I will continue the current diagnosis and treatment plan. The patient will continue Invega Sustenna 234 mg IM, oral Abilify has been added 10 mg twice a day. He does seem to be showing good response to that. I will start the patient on Zoloft, which he had just been started on through [facility]. He will start 50 mg a day. In Team meeting I discussed with [facility] options for him to have closer followup through [facility] and possibly working with him on opportunities for him to get into community activities. I provided him with information on finishing his high school diploma with the possibility of his doing potentially some college work. We will focus on stabilization and discharge planning. I anticipate the patient being discharged on Thursday. SYLVIA / SAVANNA: [id number] /
[2021-06-06] MEDS: NICOTINE 14MG/24HR PATCH TRANSDERM SCH (08:30)
[2021-06-06] MEDS: ARIPiprazole 10 MG TAB PO SCH ×2 (08:31→20:04)
[2021-06-06] MEDS: SERTRALINE 50 MG TAB PO SCH (08:31)
--- NOTE | 2021-06-06 13:02 | PN ---
PROGRESS NOTE DATE OF SERVICE: 06/06/2021. CHIEF COMPLAINT: The patient was agitated and aggressive. He was screaming things that made no sense and stated he would slit his throat. INTERVAL HISTORY: Patient has been doing fair. He had a quiet day yesterday. He comes out on the unit. He has been appropriate in his interactions. He notes that he feels his thoughts are clear and more organized. He has been attending groups and has done well in groups. He has been cooperative with all aspects of care. He slept well last night. Today he has been up. He comes out in the day area. He tends to keep to himself. He will wonder the unit. He has a quiet manner. He seems to pay attention to things going on around him. When I talked to him today, he did say he is willing to consider going into a substance abuse treatment program. He was given the telephone number for access. He acknowledges that there have been significant substance use problems that he has struggled with. The alternative is for him to return home with his mother. There was a discussion about possible alternative living situations, though that would be part of longer term plan. The patient tolerates his psychotropic medications. MENTAL STATUS: Patient sat without restlessness. He gave fairly good eye contact. He answered questions appropriately. His thoughts were clear. He was a little restless. His affect was somewhat constricted. His mood was quiet. He did not appear to be down or depressed. He did not appear to be distressed. He was not showing evidence of responding to internal stimuli. His thoughts generally were organized and coherent. He voiced no thoughts of harm. He was oriented and alert. ASSESSMENT: I will continue the current diagnosis and treatment plan. I will continue psychotropic medications the same. We are aiming on discharging the patient tomorrow. He will be looking at options for substance abuse treatment upon discharge. He has been given the number for access. Pending any other decisions, he will be discharged home tomorrow. MMMIKKIL / IJN: [id number] /
[2021-06-06] MEDS: LORazepam 1 MG TAB PO PRN (20:04)
[2021-06-07 06:54] VITALS: BP 112/64; PULSE 80; TEMP 97.5
[2021-06-07] MEDS: NICOTINE 14MG/24HR PATCH TRANSDERM SCH (08:38)
[2021-06-07] MEDS: ARIPiprazole 10 MG TAB PO SCH (08:38)
[2021-06-07] MEDS: SERTRALINE 50 MG TAB PO SCH (08:38)
--- NOTE | 2021-06-10 07:12 | DS ---
DISCHARGE SUMMARY DATE OF SERVICE: 06/07/2021 DATE OF ADMISSION: 06/01/2021. DATE OF DISCHARGE: 06/07/2021 ADMISSION AND DISCHARGE DIAGNOSIS: 1. Psychotic disorder. 2. Polysubstance induced psychosis. 3. Rule out chronic psychotic disorder. 4. Rule out polysubstance abuse and dependence. HISTORY OF PRESENTING ILLNESS: The patient is a 25-year-old male. He was petitioned to the hospital by his mother. He had become increasingly aggressive. He had disorganized behavior. He would be yelling and screaming things that made no sense. He made statements that he would slit his throat. He had a recent hospitalization here in August of 2020 with a diagnosis of psychosis. He described having visual hallucinations. He believed he was getting messages from the computer. He denied use of abusive substances, though also declined getting a urine drug screen. He was having problems with sleep. He acknowledged thoughts of suicide, though reported no intent or impulse at the time of the evaluation. He has a history of significant substance use issues. He was admitted for further evaluation. MENTAL STATUS EXAM: The patient did not engage in the interview. He had a flat facial expression. He was alert and oriented. He had psychomotor retardation, though did show an appropriate and steady gait. His affect was flat. He described ideas of reference, paranoid ideation and delusional beliefs. He voiced no thoughts of harm. COURSE OF HOSPITALIZATION: The patient was admitted for comprehensive medical psychiatric and psychosocial evaluation. We engaged the patient in individual and group therapeutic activity. On admission, the patient was started on Abilify 10 mg a day with consideration of titrating him to a long-acting injectable. Early on, the patient was a very disorganized in his thoughts. He would come out in the day area. He did attend a few groups and sometimes would come and go from a group. He did not have significant behavior issues, though it was very difficult to have any kind of meaningful conversation. He would just make random statements that had little or no meaning. It is noted that he has had recent followup with [facility]. About 1 month ago, he was started on Invega Sustenna and received the initial dose and a week later the followup dose. On May 31, he was seen by his [facility] nurse practitioner. He received his followup injection of Invega Sustenna 234 mg IM with the plan to continue it on a monthly basis. He had also been on Risperdal 2 mg a day and Zoloft 50 mg a day. Given that his thoughts were quite disorganized, his Abilify was increased to 10 mg twice a day. He was continued on the Zoloft. Respirdal was discontinued. It was noteworthy that within just 2 days the patient began showing improvement. He was present in a somewhat intense manner, though his thoughts were much clear. He was able to communicate appropriately. He became more involved in unit activities and attended groups. He was cooperative with care. He would socialize with others. When we talked about substance use issues, the patient was able to acknowledge that substance use problems may be in the picture for him. He tended to be somewhat vague in particulars about that, though when we talked he did suggest that he would be willing to go to a substance use program. He was able to cooperate with discharge planning. CONDITION AT DISCHARGE: Patient was stable. His mood was improved. His thoughts were much clearer. He voiced no thoughts of harm to self or others. He tolerated psychotropic medications. RECOMMENDATIONS AND FOLLOWUP: The patient is discharged to home. He returns to live with his mother. He has followup with [facility] on 06/11/2021 at 3:00 pm with Sanam Almaguer. She and 06/14/2021 at 4:30 pm with Ms Elliot NP. DISCHARGE MEDICATIONS: Abilify 10 mg twice a day and Zoloft 50 mg a day. It is also anticipated that he would continue on Invega Sustenna and would be due for a followup injection approximately June 30. MMODL / IJN: [id number] / MTDD
== END 2021-06-07 16:45 | disposition home or self-care (01) | DRG 885 ==
LOC: EC 20:16 → 3MHU 06-01 01:48
PROVIDERS: ADMIT Psychiatry & Neurology Psychiatry; ATTEND Psychiatry & Neurology Psychiatry
DX: F20.0 Paranoid schizophrenia (principal); F15.23 Other stimulant dependence with withdrawal; R45.851 Suicidal ideations; F17.200 Nicotine dependence, unspecified, uncomplicated; F31.9 Bipolar disorder, unspecified; F60.0 Paranoid personality disorder; I10 Essential (primary) hypertension; Z79.899 Other long term (current) drug therapy; Z86.79 Personal history of other diseases of the circulatory system; Z91.14 Patient's other noncompliance with medication regimen; Z95.2 Presence of prosthetic heart valve
CPT/HCPCS: 36415; 80053; 80143; 80179; 82075; 83036; 84443; 85025; 96372; 99285

== ENCOUNTER 2021-07-13 18:18 | Emergency (ER) | payer OTHER ==
[2021-07-13 18:38] VITALS: TEMP 98.3
[2021-07-13 18:50] VITALS: BP 116/78; RESP 16
[2021-07-13] MEDS ORDERED: LORazepam 1 MG TAB PO STA (18:50)
[2021-07-13 19:12] VITALS: PULSE 104
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
== END 2021-07-13 19:28 | disposition home or self-care (01) ==
LOC: EC 18:18
DX: R00.0 Tachycardia, unspecified (principal); I10 Essential (primary) hypertension; F41.9 Anxiety disorder, unspecified; F31.9 Bipolar disorder, unspecified; F17.200 Nicotine dependence, unspecified, uncomplicated; F12.90 Cannabis use, unspecified, uncomplicated; Z88.0 Allergy status to penicillin; Z88.1 Allergy status to other antibiotic agents
CPT/HCPCS: 93005; 99283

== ENCOUNTER 2022-06-12 19:39 | Emergency (ER) | payer OTHER ==
[2022-06-12 20:01] VITALS: BP 129/83; PULSE 111; RESP 22; TEMP 98.4
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
[2022-06-12] MEDS ORDERED: PALIPERIDONE IM 234 MG/1.5 ML SYG IM ONE (21:03)
== END 2022-06-12 21:41 | disposition home or self-care (01) ==
LOC: EC 19:39
DX: F29 Unspecified psychosis not due to a substance or known physiological condition (principal); I10 Essential (primary) hypertension; F41.9 Anxiety disorder, unspecified; F31.9 Bipolar disorder, unspecified; F17.200 Nicotine dependence, unspecified, uncomplicated; F12.90 Cannabis use, unspecified, uncomplicated; Z88.0 Allergy status to penicillin; Z88.8 Allergy status to other drugs, medicaments and biological substances; Z79.899 Other long term (current) drug therapy
CPT/HCPCS: 82075; 99284; J2426

== ENCOUNTER 2022-07-31 19:36 | Emergency (ER) | payer OTHER ==
[2022-07-31 19:44] VITALS: BP 113/72; PULSE 90; RESP 16; TEMP 97.7
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
== END 2022-07-31 20:23 | disposition left against medical advice (07) ==
LOC: EC 19:36
DX: U07.1 COVID-19 (principal); F17.200 Nicotine dependence, unspecified, uncomplicated; I10 Essential (primary) hypertension; Z53.21 Procedure and treatment not carried out due to patient leaving prior to being seen by health care provider; Z79.899 Other long term (current) drug therapy; Z88.0 Allergy status to penicillin; Z88.8 Allergy status to other drugs, medicaments and biological substances
CPT/HCPCS: 87635; 99283

== ENCOUNTER 2022-12-17 11:23 | Inpatient (IN) | payer MEDICAID, OTHER ==
[2022-12-17 13:16] LABS: Appearance,Urine Clear (Clear); Bilirubin,Urine Negative (Negative); Blood,Urine Negative (Negative); Color,Urine Light Yellow; Glucose,Urine (UA) Negative (Negative); Ketones,Urine Negative (Negative); Leukocyte Esterase,Urine Negative (Negative); Nitrite,Urine Negative (Negative); PH, Urine 5.5 (5.0-8.0); Protein,Urine Negative (Negative); Specific Gravity,Urine 1.007 (1.001-1.035); Urobilinogen,Urine <2.0 mg/dL (<2.0)
[2022-12-17 13:49] LABS: Amphetamine Screen,Urine Detected (NotDetected); Barbiturate Screen,Urine Not Detected (NotDetected); Benzodiazepines Screen,Urine Not Detected (NotDetected); Cocaine Screen,Urine Not Detected (NotDetected); Methadone Screen, Urine Not Detected (NotDetected); Opiate Screen,Urine Not Detected (NotDetected); Oxycodone Screen, Urine Not Detected (NotDetected); Phencyclidine Screen,Urine Not Detected (NotDetected); Tricyclic Antidepressant,Urine Not Detected (NotDetected); Urn Cannabinoid Scrn Detected (NotDetected)
--- NOTE | 2022-12-17 14:16 | ED ---
Psych HPI - General Chief Complaint: Psychiatric Symptoms Stated Complaint: mental health Time Seen by Provider: 12/17/22 11:31 Source: police Mode of arrival: ambulatory - History of Present Illness Initial Comments: Patient is a 27-year-old male who presents for psychiatric evaluation. Patient was ordered by the court to have psych eval today. 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 He regularly hears voices and has been on Invega injections for years. Patient stopped taking Invega recently as he does not think he needs the medication anymore. Patient does report hearing voices currently. No visual hallucinations. No SI or HI. Denies illicit drug use. Does admit to marijuauna use. Denies alcohol use.P jeane has no other concerns at this time including fever, chills, headache, shortness of breath, cough, chest pain, abdominal pain, nausea, vomiting, diarrhea, and burning with urination. - Related Data Home Medications Medication Instructions Recorded Confirmed Paliperidone IM [Invega Sustenna] 234 mg IM Q28D 05/31/21 12/17/22 Metoprolol Tartrate [Lopressor] 25 mg PO BID 06/14/22 12/17/22 Cholecalciferol [Vitamin D3 (125 125 mcg PO DAILY 12/17/22 12/17/22 Mcg = 5000 Iu)] Famotidine [Pepcid] 20 mg PO BID 12/17/22 12/17/22 Nicotine Gum (Polacrilex) 2 mg BUCCAL Q2H PRN 12/17/22 12/17/22 [Nicorette] diphenhydrAMINE [Benadryl] 25 mg PO HS 12/17/22 12/17/22 Allergies Allergy/AdvReac Type Severity Reaction Status Date / Time Penicillins Allergy Unknown Unknown Verified 12/17/22 12:57 piperacillin [From Zosyn] Allergy Unknown Unknown Verified 12/17/22 12:57 tazobactam [From Zosyn] Allergy Unknown Unknown Verified 12/17/22 12:57 haloperidol [From Haldol] AdvReac Severe Anaphylaxis Verified 12/17/22 12:57 Review of Systems ROS Statement: Those systems with pertinent positive or pertinent negative responses have been documented in the HPI. ROS Other: All systems not noted in ROS Statement are negative. Past Medical History Past Medical History: Hypertension Additional Past Medical History / Comment(s): Tricuspid Heart Valve replaced due to sub. abuse 2012; Endocarditis, bipolar disorder, recurrent shoulder dislocations History of Any Multi-Drug Resistant Organisms: None Reported Additional Past Surgical History / Comment(s): Tricuspid valve replacement secondary to endocarditis in 2011. Past Anesthesia/Blood Transfusion Reactions: No Reported Reaction Past Psychological History: Anxiety, Bipolar, Depression Smoking Status: Current every day smoker Past Alcohol Use History: Occasional Past Drug Use History: IV Drug Use, Marijuana, Methamphetamine - Past Family History family Additional Family Medical History / Comment(s): States multiple family members with heart disease on his mother's side of the family. General Exam Limitations: no limitations Course Vital Signs 12/17/22 12/17/22 11:28 12:00 Temperature 97.9 F Pulse Rate 122 H 84 Respiratory 22 18 Rate Blood Pressure 98/62 130/74 O2 Sat by Pulse 97 98 Oximetry Medical Decision Making - Medical Decision Making Was pt. sent in by a medical professional or institution (, PA, HOUSETRAILER SERVICER, urgent care, hospital, or correction...) When possible be specific @ -[No] Did you speak to anyone other than the patient for history (EMS, parent, family, police, friend...)? What history was obtained from this source @ -[No] Did you review nursing and triage notes (agree or disagree)? Why? @ -[I reviewed and agree with nursing and triage notes] Were old charts reviewed (outside hosp., previous admission, EMS record, old EKG, old radiological studies, urgent care reports/EKG's, correction records)? Report findings @ -[No old charts were reviewed] Differential Diagnosis (chest pain, altered mental status, abdominal pain women, abdominal pain men, vaginal bleeding, weakness, fever, dyspnea, syncope, headache, dizziness, GI bleed, back pain, seizure, CVA, palpatations, mental health)? @ -[not applicable] EKG interpreted by me (3pts min.). @ -[As above] X-rays interpreted by me (1pt min.). @ -[None done] CT interpreted by me (1pt min.). @ -[None done] U/S interpreted by me (1pt. min.). @ -[None done] What testing was considered but not performed or refused? (CT, X-rays, U/S, labs)? Why? @ -[None] What meds were considered but not given or refused? Why? @ -[None] Did you discuss the management of the patient with other professionals (professionals i.e. , PA, HOUSETRAILER SERVICER, lab, RT, psych nurse, social worker palliative care, model maker fiberglass, teacher, workplace rehabilitation officer, bilingual case manager)? Give summary @ -[No] Was smoking cessation discussed for >3mins.? @ -[No] Was critical care preformed (if so, how long)? @ -[No] Were there social determinants of health that impacted care today? How? (Homelessness, low income, unemployed, alcoholism, drug addiction, transportation, low edu. Level, literacy, decrease access to med. care, detention, rehab)? @ -[No] Was there de-escalation of care discussed even if they declined (Discuss DNR or withdrawal of care, Hospice)? DNR status @ -[No] What co-morbidities impacted this encounter? (DM, HTN, Smoking, COPD, CAD, Cancer, CVA, ARF, Chemo, Hep., AIDS, mental health diagnosis, sleep apnea, morbid obesity)? @ -[None] Was patient admitted / discharged? Hospital course, mention meds given and route, prescriptions, significant lab abnormalities, going to OR and other pertinent info. @ -This is a 27-year-old presenting for psych evaluation. Patient actively hallucinating. Urine drug screen shows methamphetamines, amphetamines, marijuana. Patient evaluated by EPS and will be admitted Undiagnosed new problem with uncertain prognosis? @ -[No] Drug Therapy requiring intensive monitoring for toxicity (Heparin, Nitro, Insulin, Cardizem)? @ -[No] Were any procedures done? @ -[No] Diagnosis/symptom? @ -drug induced psychosis Acute, or Chronic, or Acute on Chronic? @ -chronic Uncomplicated (without systemic symptoms) or Complicated (systemic symptoms)? @ -uncomplicated Side effects of treatment? @ -[No] Exacerbation, Progression, or Severe Exacerbation? @ -[No] Poses a threat to life or bodily function? How? (Chest pain, [place], [place], pneumonia, PE, COPD, DKA, ARF, appy, cholecystitis, CVA, Diverticulitis, Homicidal, Suicidal, threat to staff... and all critical care pts) @ -[No] Dr. Barros is my attending. - Lab Data Lab Results 12/17/22 12/17/22 Range/Units 11:31 12:47 Urine Color Light Yellow Urine Appearance Clear (Clear) Urine pH 5.5 (5.0-8.0) Ur Specific [place] 1.007 (1.001-1.035) Urine Protein Negative (Negative) Urine Glucose (UA) Negative (Negative) Urine Ketones Negative (Negative) Urine Blood Negative (Negative) Urine Nitrite Negative (Negative) Urine Bilirubin Negative (Negative) Urine Urobilinogen <2.0 (<2.0) mg/dL Ur Leukocyte Esterase Negative (Negative) Urine Opiates Screen Not Detected (NotDetected) Ur Oxycodone Screen Not Detected (NotDetected) Urine Methadone Screen Not Detected (NotDetected) Ur Propoxyphene Screen Not Detected (NotDetected) Ur Barbiturates Screen Not Detected (NotDetected) U Tricyclic Antidepress Not Detected (NotDetected) Ur Phencyclidine Scrn Not Detected (NotDetected) Ur Amphetamines Screen Detected H (NotDetected) U Methamphetamines Scrn Detected H (NotDetected) U Benzodiazepines Scrn Not Detected (NotDetected) Urine Cocaine Screen Not Detected (NotDetected) U Marijuana (THC) Screen Detected H (NotDetected) Disposition Clinical Impression: Substance-induced psychotic disorder Disposition: TRANSFER TO PSYCH HOSP/UNIT Referrals: [facility] [Primary Care Provider] - 1-2 days Time of Disposition: 14:37
[2022-12-17] MEDS ORDERED: MAGNESIUM HYDROXIDE 2,400 MG/10 ML CUP PO PRN (15:00)
[2022-12-17] MEDS ORDERED: LORazepam 2 MG/ML INJ IM PRN (15:02)
[2022-12-17] MEDS ORDERED: flUPHENAZine 2.5 MG/ML (MDV) 10 ML VIAL IM PRN (15:06)
[2022-12-17] MEDS ORDERED: PALIPERIDONE 3 MG TAB.ER.24 PO SCH (21:00)
[2022-12-17] MEDS: METOPROLOL TARTRATE 25 MG TAB PO SCH (21:42)
--- NOTE | 2022-12-18 01:38 | P.CONS ---
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 The patient was admitted to the mental health unit where he was seen and evaluated. The patient reports that he develops to take his psychiatric medications as he felt that they were not helping. He reported feeling tired at the time of interview. Reports smoking 1 pack of cigarettes daily but denied any ongoing alcohol. Patient does report polysubstance abuse including marijuana and amphetamines.. The patient denied experiencing chest pain, shortness of breath, fever, chills, cough, nausea, vomiting, abdominal pain, diarrhea. Urine toxicology was positive for marijuana and methamphetamines. Review of systems: Pertinent positives and negatives as discussed in HPI, a complete review of systems was performed and all other systems are negative. Physical examination: General: non toxic, no distress, appears at stated age, normal weight Derm: no unusual rashes/lesions, no unusual ecchymoses, warm, dry Head: atraumatic, normocephalic, symmetric Eyes: EOMI, no lid lag, anicteric sclera ENT: Nose and ears atraumatic, no thrush, no pharyngeal erythema Neck: trachea midline, supple Mouth: no lip lesion, mucus membranes moist Cardiovascular: S1S2 reg, no murmur, no edema Lungs: CTA bilateral, no rhonchi, no rales , no accessory muscle use Abdominal: soft, nontender to palpation, no guarding Ext: no gross muscle atrophy, no contractures, Neuro: No gross focal neuro deficits noted Psych: Alert, oriented, appropriate affect Assessment/plan History of infective endocarditis status post tricuspid valve replacement -Continue with home medication Lopressor Polysubstance abuse -Strongly advised on importance of cessation Thank you for allowing us to participate in the care of this patient. We will follow peripherally. Do not hesitate to contact us with questions. Someone can be reached from the [facility] hospitalist group at all hours of the day at [phone]. 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 Past Anesthesia/Blood Transfusion Reactions: No Reported Reaction Past Psychological History: Anxiety, Bipolar, Depression Smoking Status: Current every day smoker Past Alcohol Use History: Occasional Past Drug Use History: IV Drug Use, Marijuana, Methamphetamine Additional Drug Use History / Comment(s): amphetamines - Past Family History family Additional Family Medical History / Comment(s): States multiple family members with heart disease on his mother's side of the family. Medications and Allergies Home Medications Medication Instructions Recorded Confirmed Type Paliperidone IM [Invega Sustenna] 234 mg IM Q28D 05/31/21 12/17/22 History Metoprolol Tartrate [Lopressor] 25 mg PO BID 06/14/22 12/17/22 History Cholecalciferol [Vitamin D3 (125 125 mcg PO DAILY 12/17/22 12/17/22 History Mcg = 5000 Iu)] Famotidine [Pepcid] 20 mg PO BID 12/17/22 12/17/22 History Nicotine Gum (Polacrilex) 2 mg BUCCAL Q2H PRN 12/17/22 12/17/22 History [Nicorette] diphenhydrAMINE [Benadryl] 25 mg PO HS 12/17/22 12/17/22 History Allergies Allergy/AdvReac Type Severity Reaction Status Date / Time Penicillins Allergy Unknown Unknown Verified 12/17/22 12:57 piperacillin [From Zosyn] Allergy Unknown Unknown Verified 12/17/22 12:57 tazobactam [From Zosyn] Allergy Unknown Unknown Verified 12/17/22 12:57 haloperidol [From Haldol] AdvReac Severe Anaphylaxis Verified 12/17/22 12:57 Physical Exam Vitals: Vital Signs Temp Pulse Pulse Resp BP BP Pulse Ox 12/17/22 15:46 97.7 F 67 16 109/77 12/17/22 15:00 104 H 18 105/55 98 12/17/22 12:00 84 18 130/74 98 12/17/22 11:28 97.9 F 122 H 22 98/62 97 Intake and Output 12/17/22 12/17/22 12/18/22 14:59 22:59 06:59 Other: Weight 86.183 kg 92.618 kg Results Labs: Abnormal Lab Results - Last 24 Hours (Table) 12/17/22 Range/Units 11:31 Ur Amphetamines Screen Detected H (NotDetected) U Methamphetamines Scrn Detected H (NotDetected) U Marijuana (THC) Screen Detected H (NotDetected)
[2022-12-18] MEDS: METOPROLOL TARTRATE 25 MG TAB PO SCH ×2 (08:52→19:58)
[2022-12-18] MEDS: NICOTINE 14MG/24HR PATCH TRANSDERM SCH (08:52)
--- NOTE | 2022-12-18 13:25 | P.HP ---
Psychiatric H&P - . H&P Date: 12/18/22 History & Physical: Allergies Allergy/AdvReac Type Severity Reaction Status Date / Time Penicillins Allergy Unknown Unknown Verified 12/17/22 12:57 piperacillin [From Zosyn] Allergy Unknown Unknown Verified 12/17/22 12:57 tazobactam [From Zosyn] Allergy Unknown Unknown Verified 12/17/22 12:57 haloperidol [From Haldol] AdvReac Severe Anaphylaxis Verified 12/17/22 12:57 Vital Signs Temp 97.5 F L 12/18/22 08:54 Pulse 115 H 12/18/22 08:54 Resp 16 12/18/22 08:54 BP 108/64 12/18/22 08:54 Pulse Ox 98 12/17/22 15:00 FiO2 Intake & Output 12/17/22 12/18/22 12/18/22 18:59 06:59 18:59 Weight 92.618 kg Laboratory Last Values Urine Color Light Yellow 12/17/22 12:47 Urine Appearance Clear (Clear) 12/17/22 12:47 Urine pH 5.5 (5.0-8.0) 12/17/22 12:47 Ur Specific Stone 1.007 (1.001-1.035) 12/17/22 12:47 Urine Protein Negative (Negative) 12/17/22 12:47 Urine Glucose (UA) Negative (Negative) 12/17/22 12:47 Urine Ketones Negative (Negative) 12/17/22 12:47 Urine Blood Negative (Negative) 12/17/22 12:47 Urine Nitrite Negative (Negative) 12/17/22 12:47 Urine Bilirubin Negative (Negative) 12/17/22 12:47 Urine Urobilinogen <2.0 mg/dL (<2.0) 12/17/22 12:47 Ur Leukocyte Esterase Negative (Negative) 12/17/22 12:47 Urine Opiates Screen Not Detected (NotDetected) 12/17/22 11:31 Ur Oxycodone Screen Not Detected (NotDetected) 12/17/22 11:31 Urine Methadone Screen Not Detected (NotDetected) 12/17/22 11:31 Ur Propoxyphene Screen Not Detected (NotDetected) 12/17/22 11:31 Ur Barbiturates Screen Not Detected (NotDetected) 12/17/22 11:31 U Tricyclic Antidepress Not Detected (NotDetected) 12/17/22 11:31 Ur Phencyclidine Scrn Not Detected (NotDetected) 12/17/22 11:31 Ur Amphetamines Screen Detected (NotDetected) H 12/17/22 11:31 U Methamphetamines Scrn Detected (NotDetected) H 12/17/22 11:31 U Benzodiazepines Scrn Not Detected (NotDetected) 12/17/22 11:31 Urine Cocaine Screen Not Detected (NotDetected) 12/17/22 11:31 U Marijuana (THC) Screen Detected (NotDetected) H 12/17/22 11:31 Coronavirus (PCR) Not Detected (Not Detectd) 12/17/22 14:24 12/18/22 13:25 IDENTIFYING DATA: Patient is a 27-year-old male with significant history of bipolar 1 disorder and methamphetamine use disorder who presented to our hospital on a pickup order by police for nonadherence with court ordered psychiatric care and uncontrolled psychotic symptoms. HPI: Patient presented to the hospital on 12/17/2021, brought in by police on a pickup order. As per petition filled out by the patient's [facility] clinician, the patient was not complying with medication and has been speaking of a.m./FM radio controlling his thoughts. He continues to make other delusional statements. The patient is also on a [facility] order. He was subsequently admitted to the psychiatric unit. Upon evaluation on the psychiatric unit, the patient continues to endorse multiple bizarre delusional statements. He continues to report that he experiences auditory hallucinations in the form of radio waves from AM/FM radio that are constantly contacting him. He has a superficial cut on his left wrist which he admits was self induced a week prior to this admission. Before stating what happened, he expressed to this provider he did not want "anything on paper so that way it cannot be traced back to me." He then reported he cut himself in order to stop the auditory hallucinations from happening. He vehemently denies that there was any intention to take his own life. He continues to report that the radio waves continue to affect him. He did test positive for methamphetamines on admission and admits to use 5 days prior to this admission. He states he uses methamphetamines in order to "know what's real." He again st ates he would like everything to not be written down. In regards to mood, the patient is not reporting any depression symptoms. He denies any suicidal or homicidal ideation, intention, and/or plan. He reports no prior attempts at suicide. He does report periods of excessive energy, poor sleep, and bizarre delusional thought content. As per [facility], the patient has not been adherent with his court ordered mental health treatment. Patient reports he was unaware he missed his appointments. His last Invega sustenna injection was on 09/19/2022. There is also concern that he was supposed to have a surgery for heart valve replacement but missed this appointment as well. He is admitted for stabilization. Patient is agreeable to sign himself voluntarily onto the psychiatric unit. PAST PSYCHIATRIC HISTORY: Patient has previous diagnoses of bipolar 1 disorder, methamphetamine-induced psychotic disorder, cannabis use disorder, and opiate use disorder. The patient recalls being prescribed Invega senna injection however he has been nonadherent. He has had other trials of medications including Wellbutrin, Risperdal, metoprolol, and Zoloft. The patient's last inpatient psychiatric admission was in May 2021. The patient has been nonadherent with his outpatient follow-ups with [facility]. 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 Past Anesthesia/Blood Transfusion Reactions: No Reported Reaction Past Psychological History: Anxiety, Bipolar, Depression Smoking Status: Current every day smoker Past Alcohol Use History: Occasional Past Drug Use History: IV Drug Use, Marijuana, Methamphetamine Additional Drug Use History / Comment(s): amphetamines ALLERGIES: Penicillin, piperacillin, Tazobactam, haloperidol CHEMICAL DEPENDENCY HISTORY: The patient reports he smokes one pack per day of tobacco. He reports he is marijuana daily. He denies any alcohol use. He reports that he has started using methamphetamine since he was 20 years old. He reports that he is methamphetamines twice per week. He states that his last use was 5 days prior to admission. He denies any other illicit substance use at this time. FAMILY PSYCHIATRIC/SUBSTANCE USE HISTORY: The patient reports that he has a sister with bipolar disorder. SOCIAL HISTORY: Patient was born and raised in [place], [place]. He currently lives with his mother and her boyfriend. He is single, never , but has one 6-year-old daughter. He states that he has been applying for social security but has been constantly denied due to his substance abuse. The patient dropped out of school in the 10th grade. He denies any legal issues at this time. He is under an [facility] order. MENTAL STATUS EXAM: General Appearance: Patient appears to be stated age is alert, directable, and attempts to cooperate. Patient appears to have fair hygiene and grooming. Behavior: Patient is seated without any agitated behavior. Eye contact is appropriate. Speech: Patient's speech is fluent and nonpressured. Mood/Affect: Patient reports their mood is "feeling okay," affect is pleasantly psychotic Suicidality/Homicidality: Patient denies any suicidal or homicidal ideation. Perceptions: Patient denies any visual hallucinations however endorses auditory hallucinations that are times commanding. Though content/process: Patient endorses numerous delusional thoughts. He is paranoid. He reports delusions of control. Memory and concentration: AOX3, grossly intact for the purposes of this session. Can spell "WORLD" backwards Judgment and insight: Poor STRENGTHS/WEAKNESSES: Strength is that the patient is agreeable with treatment. Weakness is that patient engages in severe substance use. INTELLECT: Below average to average IMPRESSIONS: Bipolar 1 disorder, with psychotic features versus schizoaffective disorder, bipolar type Methamphetamine use disorder Cannabis use disorder Tobacco use disorder PLAN: -Patient is admitted under voluntary status to MHU for stabilization of psychiatric symptoms and safety. Patient signed adult voluntary form and medication consent and is placed in patient's chart. -Medications : Will start patient on Invega 6 mg by mouth at bedtime for schizoaffective disorder/bipolar disorder Trazodone 100 mg by mouth at bedtime for insomnia -Ativan and Prolixin PRN for agitation/aggression -Patient was counselled on substance abuse and desired to cut back on use. However he is pre-contemplative regarding methamphetamine use. -Patient was informed of the risks, benefits and side effects of the medication and patient verbally consented to taking the medications. Patient signed med consent form and was placed in chart. -Internal Medicine consult to perform medical evaluation and physical. -NRT - nicotine patch -SW on board for discharge planning. Encourage patient to participate in groups to work on coping skills. 12/18/22 13:25
[2022-12-18] MEDS: ACETAMINOPHEN TAB 325 MG TAB PO PRN (16:01)
[2022-12-18] MEDS: LORazepam 1 MG TAB PO PRN (16:04)
[2022-12-18] MEDS: traZODone HCL 100 MG TAB PO SCH (19:58)
[2022-12-18] MEDS ORDERED: PALIPERIDONE 6 MG TAB.ER.24 PO SCH (21:00)
[2022-12-19 06:44] LABS: Basophils % (A) 1 %; Eosinophils # (A) 0.1 k/uL (0-0.7); Eosinophils % (A) 2 %; HCT 45.8 % (39.0-53.0); HGB 14.9 gm/dL (13.0-17.5); Lymphocytes # (A) 2.1 k/uL (1.0-4.8); Lymphocytes % (A) 34 %; MCH 27.7 pg (25.0-35.0); MCHC 32.5 g/dL (31.0-37.0); MCV 85.2 fL (80.0-100.0); Mean Platelet Volume 7.5; Monocytes # (A) 0.5 k/uL (0-1.0); Monocytes % (A) 9 %; Neutrophils # (A) 3.3 k/uL (1.3-7.7); Neutrophils % (A) 53 %; Platelet Count 241 k/uL (150-450); RBC 5.37 m/uL (4.30-5.90); RDW 13.8 % (11.5-15.5); WBC 6.2 k/uL (3.8-10.6)
[2022-12-19 06:51] LABS: ALT 43 U/L (4-49); AST 34 U/L (17-59); African American GFR (CKD) >90 (>60 ml/min/1.73 sqM); Albumin 4.4 g/dL (3.5-5.0); Alkaline Phosphatase 103 U/L (38-126); Anion Gap 7 mmol/L; Blood Urea Nitrogen 14 mg/dL (9-20); Calcium 9.7 mg/dL (8.4-10.2); Carbon Dioxide 24 mmol/L (22-30); Chloride 109 mmol/L (98-107); Glucose 88 mg/dL (74-99); Non-African American GFR(CKD) >90 (>60 ml/min/1.73 sqM); Potassium 4.6 mmol/L (3.5-5.1); Sodium 140 mmol/L (137-145); Total Protein 7.3 g/dL (6.3-8.2)
[2022-12-19] MEDS: METOPROLOL TARTRATE 25 MG TAB PO SCH ×2 (08:25→21:14)
[2022-12-19] MEDS: NICOTINE 14MG/24HR PATCH TRANSDERM SCH (08:25)
--- NOTE | 2022-12-19 12:06 | P.PN ---
Progress Note - Text Progress Note Date: 12/19/22 Interval History: Patient was seen resting in bed and was directable and agreeable to speak with report writer in the office. Patient is currently reporting no auditory or visual hallucinations. He reports no paranoia or other delusions. He denies any radio waves or ideas of reference today. He has been adherent with his medications and is not reporting any side effects. He continues to be precontemplative regarding methamphetamine use despite being on a [facility] order (which he violated), and having cardiac issues (needs cardiology follow up for valve replacement). He reports no suicidal or homicidal ideation. He reports no medical issues or concerns. He denies any chest pain, palpitations, or SOB. He reports no issues regarding sleep or appetite. Mental Status Exam: General Appearance: Patient appears to be stated age is alert, directable, and cooperative. Behavior: Patient is calmly seated without any agitated behavior. Speech: Patient's speech is fluent and nonpressured. Mood/Affect: Mood is improving mildly, affect is congruent and constricted. Suicidality/Homicidality: Patient denies having any suicidal or homicidal ideation intent or plan. Perceptions: Patient denies any visual hallucinations and denies any auditory hallucinations Though content/process: There is no evidence of any delusional thought content and thought process is linear and goal-directed. Precontemplative regarding methamphetamine use (using for years twice weekly). Memory and concentration: AOX3, grossly intact for the purposes of this session Judgment and insight: Improving mildly Vital Signs Temp 97.5 F L 12/18/22 08:54 Pulse 115 H 12/18/22 08:54 Resp 16 12/18/22 08:54 BP 108/64 12/18/22 08:54 Pulse Ox 98 12/17/22 15:00 FiO2 Laboratory Results - Last 24 Hours 12/19/22 12/19/22 12/19/22 06:12 06:12 06:12 WBC 6.2 RBC 5.37 Hgb 14.9 Hct 45.8 MCV 85.2 MCH 27.7 MCHC 32.5 RDW 13.8 Plt Count 241 MPV 7.5 Neutrophils % 53 Lymphocytes % 34 Monocytes % 9 Eosinophils % 2 Basophils % 1 Neutrophils # 3.3 Lymphocytes # 2.1 Monocytes # 0.5 Eosinophils # 0.1 Basophils # 0.0 Sodium 140 Potassium 4.6 Chloride 109 H Carbon Dioxide 24 Anion Gap 7 BUN 14 Creatinine 1.07 Est GFR (CKD-EPI)AfAm >90 Est GFR (CKD-EPI)NonAf >[address] Glu mg/dL 126 Hemoglobin A1c 6.0 Calcium 9.7 Total Bilirubin 1.0 AST 34 ALT 43 Alkaline Phosphatase 103 Total Protein 7.3 Albumin 4.4 TSH 2.210 Assessment Bipolar 1 disorder, with psychotic features versus schizoaffective disorder, bipolar type Methamphetamine use disorder Cannabis use disorder Tobacco use disorder Plan: -Patient continues to meet criteria for inpatient psychiatric admission for symptom stabilization and safety. Patient has signed adult voluntary form and medication consent and was placed in patient's chart. -Medications: Invega 9 mg by mouth at bedtime for schizoaffective disorder/bipolar disorder - will administer invega sustenna 234 mg IM on Thursday in anticipation for discharge early next week. Trazodone 100 mg by mouth at bedtime for insomnia -Ativan and Prolixin PRN for agitation/aggression -Patient was counselled on substance abuse and desired to cut back on use. However he is pre-contemplative regarding methamphetamine use. -Patient was informed of the risks, benefits and side effects of the medication and patient verbally consented to taking the medications. Patient signed med consent form and was placed in chart. -Internal Medicine consult to perform medical evaluation and physical. -NRT - nicotine patch -SW on board for discharge planning. Encourage patient to participate in groups to work on coping skills.
[2022-12-19] MEDS: LORazepam 1 MG TAB PO PRN (14:57)
[2022-12-19] MEDS ORDERED: PALIPERIDONE 3 MG TAB.ER.24 PO SCH (21:00)
[2022-12-19] MEDS: traZODone HCL 100 MG TAB PO SCH (21:14)
[2022-12-20] MEDS: METOPROLOL TARTRATE 25 MG TAB PO SCH ×2 (08:17→20:25)
[2022-12-20] MEDS: NICOTINE 14MG/24HR PATCH TRANSDERM SCH (08:17)
[2022-12-20] MEDS: LORazepam 1 MG TAB PO PRN ×2 (11:56→20:51)
[2022-12-20] MEDS: MAG HYDROX/AL HYDROX/SIMETH 30 ML CUP PO PRN (16:37)
--- NOTE | 2022-12-20 18:33 | P.PN ---
Progress Note - Text Progress Note Date: 12/20/22 Interval history: Patient was seen the in the hallway socializing with female peer, and was directable and agreeable to speak with field underwriter. He reports his mood is "still anxious" and requests Buspar. He reports good sleep with Trazodone and ok appetite. He endorses auditory hallucinations of multiple people he knows and he endorses bizarre delusional thought content of computers sending voices to him, and the collision worker of a past apartment would manipulate his thoughts and put thoughts into his thoughts through the electric heating system of his old apartment. At this time patient, denies any suicidal or homicidal ideation, intent or plan. Denies any auditory or visual hallucinations. Patient denies any side effects from the medications and has been compliant with meds. Mental status exam: General Appearance: Patient appears to be stated age, well-nourished adult male with fair hygiene dressed in hospital gown. Behavior: No agitated behavior. Patient is calm and directable. Speech: Patient's speech is fluent and non-pressured. Mood/Affect: Mood is "still anxious", affect is blunted and constricted. Suicidality/Homicidality: Patient denies having any suicidal or homicidal ideation intent or plan. Perceptions: Patient endorses auditory hallucinations and denies visual hallucinations. Though content/process: There is evidence of bizarre delusional thought content including delusions of control and thought insertion and thought process is circumstantial. Memory and concentration: AOX3, grossly intact for the purposes of this session Judgment and insight: fair to poor Assessment/Plan: Continue with current diagnosis. Patient continues to meet criteria for inpatient psychiatric admission for symptom stabilization and safety. Decrease oral Invega to 6 mg QHS for psychosis starting tonight and give Invega Sustenna 234 mg IM x 1 tonight for psychosis. Monitor for medication compliance and for any psychotropic medication side effects. Will continue to monitor ongoing response to treatment. Encouraged participation in milieu.
[2022-12-20] MEDS: PALIPERIDONE 3 MG TAB.ER.24 PO SCH (20:25)
[2022-12-20] MEDS: traZODone HCL 100 MG TAB PO SCH (20:27)
[2022-12-20] MEDS ORDERED: PALIPERIDONE IM 234 MG/1.5 ML SYG IM SCH (21:00)
[2022-12-21] MEDS: METOPROLOL TARTRATE 25 MG TAB PO SCH ×2 (08:10→20:24)
[2022-12-21] MEDS: NICOTINE 14MG/24HR PATCH TRANSDERM SCH (08:10)
[2022-12-21] MEDS: LORazepam 1 MG TAB PO PRN ×2 (08:11→16:32)
[2022-12-21] MEDS ORDERED: PALIPERIDONE IM 234 MG/1.5 ML SYG IM SCH (10:00)
[2022-12-21] MEDS: ACETAMINOPHEN TAB 325 MG TAB PO PRN (10:35)
[2022-12-21 17:06] VITALS: RESP 16
[2022-12-21] MEDS ORDERED: NEOMYCIN-BACITRACIN-POLY OINT 14 GM TUBE TOPICAL PRN (17:58)
[2022-12-21] MEDS: traZODone HCL 100 MG TAB PO SCH (20:24)
[2022-12-21] MEDS: PALIPERIDONE 3 MG TAB.ER.24 PO SCH (20:24)
[2022-12-21] MEDS ORDERED: LORazepam 0.5 MG TAB PO PRN (20:29)
[2022-12-21] MEDS: MAG HYDROX/AL HYDROX/SIMETH 30 ML CUP PO PRN (22:58)
--- NOTE | 2022-12-21 22:59 | P.PN ---
Progress Note - Text Progress Note Date: 12/21/22 Interval history: Patient was seen resting in bed, and was directable and agreeable to speak with assembly instructions writer. He reports his good mood, sleep and appetite. He denies auditory or visual hallucinations today. No overt delusional thoughts expressed to me today. At this time patient, denies any suicidal or homicidal ideation, intent or plan. Denies any auditory or visual hallucinations. Patient denies any side effects from the medications and has been compliant with meds. He received his Invega Sustenna 234 mg IM last night and is tolerating it well. He received Ativan 1 mg po x 2 today and x 2 yesterday as well for anxiety. Mental status exam: General Appearance: Patient appears to be stated age, well-nourished adult male with fair hygiene dressed in hospital gown. Behavior: No agitated behavior. Patient is calm and directable. Speech: Patient's speech is fluent and non-pressured. Mood/Affect: Mood is improving mildly, affect is blunted and constricted. Suicidality/Homicidality: Patient denies having any suicidal or homicidal ideation intent or plan. Perceptions: Patient endorses auditory hallucinations and denies visual hallucinations. Though content/process: There is no evidence of any and thought process is circumstantial. Memory and concentration: AOX3, grossly intact for the purposes of this session Judgment and insight: fair to poor Assessment/Plan: Continue with current diagnosis. Patient continues to meet criteria for inpatient psychiatric admission for symptom stabilization and safety. Decrease oral Invega to 3 mg QHS for psychosis starting tomorrow night. Invega Sustenna 234 mg IM given yesterday 12/20/22 for psychosis. Decrease Ativan 1 mg po QID PRN to 0.5 mg po QID PRN for anxiety. Monitor for medication compliance and for any psychotropic medication side effects. Will continue to monitor ongoing response to treatment. Encouraged participation in milieu.
[2022-12-21 23:45] VITALS: BP 116/68; PULSE 94; TEMP 97.9
[2022-12-22] MEDS: NICOTINE 14MG/24HR PATCH TRANSDERM SCH (09:05)
[2022-12-22] MEDS: METOPROLOL TARTRATE 25 MG TAB PO SCH (09:05)
--- NOTE | 2022-12-22 11:44 | P.DS ---
Providers Date of admission: 12/17/22 14:59 Expected date of discharge: 12/22/22 Attending physician: Slava Wellington MD Consults: 12/17/22 15:00 Consult Physician Routine Consulting Provider: Nicolás Freed Consult Reason/Comments: H&P Do you want consulting provider notified?: Yes Primary care physician: [facility] Emergency Department Diagnosis(es) (1) Severe manic bipolar 1 disorder with psychotic behavior Current Visit: Yes Status: Acute Priority: High (2) Methamphetamine use disorder, severe, dependence Current Visit: Yes Status: Acute Priority: High (3) Tobacco use disorder Current Visit: Yes Status: Chronic Priority: Medium (4) Cannabis use disorder Current Visit: Yes Status: Chronic Priority: Medium Hospital Course: Admission HPI: Patient is a 27-year-old male with significant history of bipolar 1 disorder and methamphetamine use disorder who presented to our hospital on a pickup order by police for nonadherence with court ordered psychiatric care and uncontrolled psychotic symptoms. Patient presented to the hospital on 12/17/2021, brought in by police on a pickup order. As per petition filled out by the patient's [facility] clinician, the patient was not complying with medication and has been speaking of a.m./FM radio controlling his thoughts. He continues to make other delusional statements. The patient is also on a [place] order. He was subsequently admitted to the psychiatric unit. Upon evaluation on the psychiatric unit, the patient continues to endorse multiple bizarre delusional statements. He continues to report that he experiences auditory hallucinations in the form of radio waves from AM/FM radio that are constantly contacting him. He has a superficial cut on his left wrist which he admits was self induced a week prior to this admission. Before stating what happened, he expressed to this provider he did not want "anything on paper so that way it cannot be traced back to me." He then reported he cut himself in order to stop the auditory hallucinations from happening. He vehemently denies that there was any intention to take his own life. He continues to report that the radio waves continue to affect him. He did test positive for methamphetamines on admission and admits to use 5 days prior to this admission. He states he uses methamphetamines in order to "know what's real." He again states he would like everything to not be written down. In regards to mood, the patient is not reporting any depression symptoms. He denies any suicidal or homicidal ideation, intention, and/or plan. He reports no prior attempts at suicide. He does report periods of excessive energy, poor sleep, and bizarre delusional thought content. As per [facility], the patient has not been adherent with his court ordered mental health treatment. Patient reports he was unaware he missed his appointments. His last Invega sustenna injection was on 09/19/2022. There is also concern that he was supposed to have a surgery for heart valve replacement but missed this appointment as well. He is admitted for stabilization. Patient is agreeable to sign himself voluntarily onto the psychiatric unit. Patient has previous diagnoses of bipolar 1 disorder, methamphetamine-induced psychotic disorder, cannabis use disorder, and opiate use disorder. The patient recalls being prescribed Invega senna injection however he has been nonadherent. He has had other trials of medications including Wellbutrin, Risperdal, metoprolol, and Zoloft. The patient's last inpatient psychiatric admission was in May 2021. The patient has been nonadherent with his outpatient follow-ups with [facility]. Hospital course: Upon admission to the unit patient was initially endorsing significant psychotic symptoms including delusions of control, auditory hallucinations, and ideas of reference. Patient was however directable and agreeable to commence treatment. Patient got along well with other patients on the unit and followed unit protocol. Patient was compliant with the medications and denied any side effects throughout hospital course. Patient was started on invega with plans to transition him back to invega sustenna as he was long past due his previous invega sustenna administration. Patient was also seen by medical team for history and physical exam. Over the course of the hospitalization, the patient displayed significant improvement in regards to his target symptoms of psychosis. His invega was titrated and he receivd invega sustenna 234 mg IM on 12/20/2022. On the day of discharge, the patient is not reporting any suicidal or homicidal ideation, intention, and/or plan. He reports no access to firearms or other weapons. He denies any auditory or visual hallucinations. He reports no paranoia or other delusions. The patient expresses a desire to live for himself and for his family. He does have a significant history of substance abuse however was counseled at great length on abstaining from all substances including alcohol, marijuana, and especially methamphetamines. He does express a desire to stop however is not in agreement with inpatient rehab. Patient was also counseled on the medications and need for regular compliance and was encouraged to follow-up with their outpatient appointment for mental health and also for primary care. Mental status exam: General Appearance: Patient appears to be stated age is alert, pleasant, and cooperative. Patient is in no acute distress and has fair hygiene and grooming Behavior: Patient is calmly seated without any agitated behavior. Speech: Patient's speech is fluent and nonpressured. Mood/Affect: Patient reports their mood is "much better", affect is congruent and euthymic. Constricted in range. Suicidality/Homicidality: Patient denies having any suicidal or homicidal ideation intent or plan. Perceptions: Patient denies any auditory or visual hallucinations. Though content/process: There is no evidence of any delusional thought content and thought process is linear and goal-directed. Future oriented. Memory and concentration: AOX3, grossly intact for the purposes of this session. Can spell "WORLD" backwards correctly. Judgment and insight: Improved with guarded prognosis Impression: Bipolar 1 disorder, with psychotic features Methamphetamine use disorder Cannabis use disorder Tobacco use disorder Plan: -Continue with discharge today as patient has improved and stabilized psychiatrically and is not currently an imminent threat to himself and/or others. Patient will remain at chronically elevated risk for harm to self and/or others due to his impulsivity and polysubstance abuse. -Continue medications: Invega sustenna 234 mg IM was administered 12/20/2022. Next loading dose invega sustenna 156 mg IM due on 12/27/2022. Trazodone 100 mg by mouth at bedtime for insomnia Habitrol patches for nicotine cessation -Patient was counseled on the need for medication compliance and appropriate follow-up at mental health and also primary care for medical issues. Patient verbalized understanding and agreed. -Social work to arrange for and conduct family meeting to ensure safety upon discharge and answer any questions/concerns. Social work also to arrange for patients follow up appointments with [facility] for psychiatric care along with follow up with primary care provider. -Patient counseled on abstaining from recreational drugs and marijuana and alcohol. Was informed/educated on the adverse effects on their physical and mental health. Patient verbally agreed and understood. Patient was offered substance abuse treatment however declined at this time.] -Patient was instructed to return to the hospital or seek immediate medical care if their psychiatric or medical symptoms do worsen or reoccur. -Psychoeducation and supportive therapy provided to patient. Risks and benefits of pharmacological treatment versus the risks and benefits of nontreatment weight and discussed. Informed consent discussion held. Common side effects of psychotropics discussed such as, but not limited to headache, GI disturbance, sexual dysfunction, movement disorders, sedation, and orthostatic hypotension. Life threatening and blackbox warnings of prescribed medications also discussed. Potential risks of operating a vehicle or heavy machinery discussed with patient at length. Advised on importance of compliance and a reliable and responsible manner. Patient advised to review FDA consumer labeling of all medications prior to taking. Patient verbalized understanding of potential risks, and agrees with current treatment plan. Patient advised to medically contact physician/emergency personnel if any acute changes in condition occur. Vital Signs Temp 97.9 F 12/21/22 23:44 Pulse 94 12/21/22 23:44 Resp 16 12/21/22 23:44 BP 116/68 12/21/22 23:44 Pulse Ox 98 12/21/22 23:44 FiO2 Intake & Output 12/21/22 12/22/22 12/22/22 18:59 06:59 18:59 Weight 92.7 kg Laboratory Results WBC 6.2 k/uL (3.8-10.6) 12/19/22 06:12 RBC 5.37 m/uL (4.30-5.90) 12/19/22 06:12 Hgb 14.9 gm/dL (13.0-17.5) 12/19/22 06:12 Hct 45.8 % (39.0-53.0) 12/19/22 06:12 MCV 85.2 fL (80.0-100.0) 12/19/22 06:12 MCH 27.7 pg (25.0-35.0) 12/19/22 06:12 MCHC 32.5 g/dL (31.0-37.0) 12/19/22 06:12 RDW 13.8 % (11.5-15.5) 12/19/22 06:12 Plt Count 241 k/uL (150-450) 12/19/22 06:12 MPV 7.5 12/19/22 06:12 Neutrophils % 53 % 12/19/22 06:12 Lymphocytes % 34 % 12/19/22 06:12 Monocytes % 9 % 12/19/22 06:12 Eosinophils % 2 % 12/19/22 06:12 Basophils % 1 % 12/19/22 06:12 Neutrophils # 3.3 k/uL (1.3-7.7) 12/19/22 06:12 Lymphocytes # 2.1 k/uL (1.0-4.8) 12/19/22 06:12 Monocytes # 0.5 k/uL (0-1.0) 12/19/22 06:12 Eosinophils # 0.1 k/uL (0-0.7) 12/19/22 06:12 Basophils # 0.0 k/uL (0-0.2) 12/19/22 06:12 Sodium 140 mmol/L (137-145) 12/19/22 06:12 Potassium 4.6 mmol/L (3.5-5.1) 12/19/22 06:12 Chloride 109 mmol/L (98-107) H 12/19/22 06:12 Carbon Dioxide 24 mmol/L (22-30) 12/19/22 06:12 Anion Gap 7 mmol/L 12/19/22 06:12 BUN 14 mg/dL (9-20) 12/19/22 06:12 Creatinine 1.07 mg/dL (0.66-1.25) 12/19/22 06:12 Est GFR (CKD-EPI)AfAm >90 (>60 ml/min/1.73 sqM) 12/19/22 06:12 Est GFR (CKD-EPI)NonAf >90 (>60 ml/min/1.73 sqM) 12/19/22 06:12 Glucose 88 mg/dL (74-99) 12/19/22 06:[address] Glu mg/dL 126 12/19/22 06:12 Hemoglobin A1c 6.0 % (0.0-6.0) 12/19/22 06:12 Calcium 9.7 mg/dL (8.4-10.2) 12/19/22 06:12 Total Bilirubin 1.0 mg/dL (0.2-1.3) 12/19/22 06:12 AST 34 U/L (17-59) 12/19/22 06:12 ALT 43 U/L (4-49) 12/19/22 06:12 Alkaline Phosphatase 103 U/L (38-126) 12/19/22 06:12 Total Protein 7.3 g/dL (6.3-8.2) 12/19/22 06:12 Albumin 4.4 g/dL (3.5-5.0) 12/19/22 06:12 TSH 2.210 mIU/L (0.465-4.680) 12/19/22 06:12 Urine Color Light Yellow 12/17/22 12:47 Urine Appearance Clear (Clear) 12/17/22 12:47 Urine pH 5.5 (5.0-8.0) 12/17/22 12:47 Ur Specific [place] 1.007 (1.001-1.035) 12/17/22 12:47 Urine Protein Negative (Negative) 12/17/22 12:47 Urine Glucose (UA) Negative (Negative) 12/17/22 12:47 Urine Ketones Negative (Negative) 12/17/22 12:47 Urine Blood Negative (Negative) 12/17/22 12:47 Urine Nitrite Negative (Negative) 12/17/22 12:47 Urine Bilirubin Negative (Negative) 12/17/22 12:47 Urine Urobilinogen <2.0 mg/dL (<2.0) 12/17/22 12:47 Ur Leukocyte Esterase Negative (Negative) 12/17/22 12:47 Urine Opiates Screen Not Detected (NotDetected) 12/17/22 11:31 Ur Oxycodone Screen Not Detected (NotDetected) 12/17/22 11:31 Urine Methadone Screen Not Detected (NotDetected) 12/17/22 11:31 Ur Propoxyphene Screen Not Detected (NotDetected) 12/17/22 11:31 Ur Barbiturates Screen Not Detected (NotDetected) 12/17/22 11:31 U Tricyclic Antidepress Not Detected (NotDetected) 12/17/22 11:31 Ur Phencyclidine Scrn Not Detected (NotDetected) 12/17/22 11:31 Ur Amphetamines Screen Detected (NotDetected) H 12/17/22 11:31 U Methamphetamines Scrn Detected (NotDetected) H 12/17/22 11:31 U Benzodiazepines Scrn Not Detected (NotDetected) 12/17/22 11:31 Urine Cocaine Screen Not Detected (NotDetected) 12/17/22 11:31 U Marijuana (THC) Screen Detected (NotDetected) H 12/17/22 11:31 Coronavirus (PCR) Not Detected (Not Detectd) 12/17/22 14:24 Allergies Allergy/AdvReac Type Severity Reaction Status Date / Time Penicillins Allergy Unknown Unknown Verified 12/17/22 12:57 piperacillin [From Zosyn] Allergy Unknown Unknown Verified 12/17/22 12:57 tazobactam [From Zosyn] Allergy Unknown Unknown Verified 12/17/22 12:57 haloperidol [From Haldol] AdvReac Severe Anaphylaxis Verified 12/17/22 12:57 Patient Condition at Discharge: Stable Plan - Discharge Summary New Discharge Prescriptions: New traZODone HCL [Desyrel] 100 mg PO HS 30 Days #30 tab Nicotine 14Mg/24Hr Patch [Habitrol] 1 patch TRANSDERM DAILY 30 Days #30 patch Paliperidone IM [Invega Sustenna] 156 mg IM Q28D #1 ml Continue Metoprolol Tartrate [Lopressor] 25 mg PO BID diphenhydrAMINE [Benadryl] 25 mg PO HS Cholecalciferol [Vitamin D3 (125 Mcg = 5000 Iu)] 125 mcg PO DAILY Discontinued Paliperidone IM [Invega Sustenna] 234 mg IM Q28D Nicotine Gum (Polacrilex) [Nicorette] 2 mg BUCCAL Q2H PRN PRN Reason: Nicotine Cravings Famotidine [Pepcid] 20 mg PO BID Discharge Medication List Metoprolol Tartrate [Lopressor] 25 mg PO BID 06/14/22 [History] Cholecalciferol [Vitamin D3 (125 Mcg = 5000 Iu)] 125 mcg PO DAILY 12/17/22 [History] diphenhydrAMINE [Benadryl] 25 mg PO HS 12/17/22 [History] Nicotine 14Mg/24Hr Patch [Habitrol] 1 patch TRANSDERM DAILY 30 Days #30 patch 12/22/22 [Rx] Paliperidone IM [Invega Sustenna] 156 mg IM Q28D #1 ml 12/22/22 [Rx] traZODone HCL [Desyrel] 100 mg PO HS 30 Days #30 tab 12/22/22 [Rx] Follow up Appointment(s)/Referral(s): [facility] [Outside] - 12/23/22 9:30 am (12/23/2022 9:30AM - 10:30AM BRIANA REEVES 12/24/2022 9:00AM - 9:30AM MAGDI GREEN ) [facility] [Primary Care Provider] - 1-2 days Patient Instructions/Handouts: How to Stop Smoking (DC) Activity/Diet/Wound Care/Special Instructions: Avoid the use of street drugs and alcohol. Take all prescriptions as prescribed. When you are in need of refills on your medications, please contact your medical provider and/or outpatient psychiatrist to have this done. Please go to scheduled outpatient appointment for aftercare treatment. If symptoms return or become worse, call the crisis line at and/or go to the nearest emergency room for evaluation Discharge Disposition: HOME SELF-CARE
[2022-12-22] MEDS ORDERED: PALIPERIDONE 3 MG TAB.ER.24 PO SCH (21:00)
== END 2022-12-22 12:25 | disposition home or self-care (01) | DRG 885 ==
LOC: EC 11:23 → EEVIPCON 11:23 → 3MHU 14:59
PROVIDERS: ADMIT Psychiatry & Neurology Psychiatry; ATTEND Psychiatry & Neurology Psychiatry
DX: F31.2 Bipolar disorder, current episode manic severe with psychotic features (principal); F15.20 Other stimulant dependence, uncomplicated; F12.90 Cannabis use, unspecified, uncomplicated; F17.210 Nicotine dependence, cigarettes, uncomplicated; F41.9 Anxiety disorder, unspecified; G47.00 Insomnia, unspecified; I07.9 Rheumatic tricuspid valve disease, unspecified; I10 Essential (primary) hypertension; S61.512A Laceration without foreign body of left wrist, initial encounter; Z79.899 Other long term (current) drug therapy; Z81.8 Family history of other mental and behavioral disorders; Z91.14 Patient's other noncompliance with medication regimen; Z95.2 Presence of prosthetic heart valve; Z20.822 Contact with and (suspected) exposure to COVID-19
CPT/HCPCS: 80053; 80306; 81003; 82075; 83036; 84443; 85025; 87635; 99285

== ENCOUNTER 2023-06-05 16:31 | Emergency (ER) | payer OTHER ==
--- NOTE | 2023-06-05 17:08 | ED ---
Psych HPI - General Chief Complaint: Psychiatric Symptoms Stated Complaint: mental health Time Seen by Provider: 06/05/23 16:54 Source: patient, family, RN notes reviewed, old records reviewed Mode of arrival: ambulatory Limitations: no limitations - History of Present Illness Initial Comments: This is a 19-year-old male the ER today. Patient Dese for evaluation regards to psychiatric illness history of significant psychiatric illness and depression seen thinks her case with racing thoughts. Patient denies drugs or alcohol today. Patient states he needs psychiatric evaluation he missed medication outpatient MD Complaint: feels depressed, altered mental status -: days(s) Associated Psychiatric Symptoms: depression, racing thoughts, auditory hallucinations, visual hallucinations Quality: constant, getting worse Improves With: none Worsens With: none Context: not taking psychiatric medications, significant life stressor Associated Symptoms: denies other symptoms Treatments Prior to Arrival: placed on mental health hold - Related Data Home Medications Medication Instructions Recorded Confirmed Metoprolol Tartrate [Lopressor] 25 mg PO BID 06/14/22 12/17/22 Cholecalciferol [Vitamin D3 (125 125 mcg PO DAILY 12/17/22 12/17/22 Mcg = 5000 Iu)] diphenhydrAMINE [Benadryl] 25 mg PO HS 12/17/22 12/17/22 Previous Rx's Medication Instructions Recorded Nicotine 14Mg/24Hr Patch [Habitrol] 1 patch TRANSDERM DAILY 30 Days 12/22/22 #30 patch Paliperidone IM [Invega Sustenna] 156 mg IM Q28D #1 ml 12/22/22 traZODone HCL [Desyrel] 100 mg PO HS 30 Days #30 tab 12/22/22 Allergies Allergy/AdvReac Type Severity Reaction Status Date / Time Penicillins Allergy Unknown Unknown Verified 06/05/23 16:45 piperacillin [From Zosyn] Allergy Unknown Unknown Verified 06/05/23 16:45 tazobactam [From Zosyn] Allergy Unknown Unknown Verified 06/05/23 16:45 haloperidol [From Haldol] AdvReac Severe Anaphylaxis Verified 06/05/23 16:45 Review of Systems ROS Statement: Those systems with pertinent positive or pertinent negative responses have been documented in the HPI. ROS Other: All systems not noted in ROS Statement are negative. 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 Past Anesthesia/Blood Transfusion Reactions: No Reported Reaction Past Psychological History: Anxiety, Bipolar, Depression Smoking Status: Current every day smoker Past Alcohol Use History: Occasional Past Drug Use History: IV Drug Use, Marijuana, Methamphetamine - Past Family History family Additional Family Medical History / Comment(s): States multiple family members with heart disease on his mother's side of the family. General Exam Limitations: no limitations General appearance: alert, in no apparent distress Head exam: Present: atraumatic, normocephalic, normal inspection Eye exam: Present: normal appearance, PERRL, EOMI. Absent: scleral icterus, conjunctival injection, periorbital swelling ENT exam: Present: normal exam, mucous membranes moist Neck exam: Present: normal inspection. Absent: tenderness, meningismus, lymphadenopathy Respiratory exam: Present: normal lung sounds bilaterally. Absent: respiratory distress, wheezes, rales, rhonchi, stridor Cardiovascular Exam: Present: regular rate, normal rhythm, normal heart sounds. Absent: systolic murmur, diastolic murmur, rubs, gallop, clicks GI/Abdominal exam: Present: soft, normal bowel sounds. Absent: distended, tenderness, guarding, rebound, rigid Extremities exam: Present: normal inspection, full ROM, normal capillary refill. Absent: tenderness, pedal edema, joint swelling, calf tenderness Back exam: Present: normal inspection Neurological exam: Present: alert, oriented X3, CN II-XII intact Psychiatric exam: Present: normal affect, normal mood Skin exam: Present: warm, dry, intact, normal color. Absent: rash Course Vital Signs 06/05/23 06/05/23 16:40 18:05 Temperature 98.7 F 97.8 F Pulse Rate 122 H 102 H Respiratory 18 17 Rate Blood Pressure 117/82 123/86 O2 Sat by Pulse 98 100 Oximetry - Reevaluation(s) Reevaluation #1: 06/05/23 21:05 Medical records reviewed Reevaluation #2: 06/05/23 21:05 Medical clear for psychiatric evaluation Medical Decision Making - Medical Decision Making 27 male seen and evaluated by psychiatry here in the ER stable for discharge home Disposition Clinical Impression: Acute paranoia, Unspecified psychosis, Impulsive Disposition: HOME SELF-CARE Condition: Fair Instructions (If sedation given, give patient instructions): Depression (ED) Is patient prescribed a controlled substance at d/c from ED?: No Referrals: [facility] [Primary Care Provider] - 1-2 days
[2023-06-05 18:10] VITALS: TEMP 97.8
[2023-06-05] MEDS ORDERED: PALIPERIDONE IM 234 MG/1.5 ML SYG IM STA (20:13)
[2023-06-05 21:09] VITALS: BP 118/78; PULSE 98; RESP 16
== END 2023-06-05 21:09 | disposition home or self-care (01) ==
LOC: EC 16:31
DX: F22 Delusional disorders (principal); F29 Unspecified psychosis not due to a substance or known physiological condition; I10 Essential (primary) hypertension; F17.200 Nicotine dependence, unspecified, uncomplicated; F12.90 Cannabis use, unspecified, uncomplicated; F15.90 Other stimulant use, unspecified, uncomplicated; Z79.899 Other long term (current) drug therapy; Z88.0 Allergy status to penicillin; Z88.8 Allergy status to other drugs, medicaments and biological substances
CPT/HCPCS: 82075; 99284; 96372; J2426

== ENCOUNTER 2023-06-06 16:55 | Inpatient (IN) | payer OTHER ==
--- NOTE | 2023-06-06 18:06 | ED ---
General Adult HPI - General Chief complaint: Psychiatric Symptoms Stated complaint: Mental Health Time Seen by Provider: 06/06/23 17:10 Source: patient, RN notes reviewed Mode of arrival: ambulatory Limitations: no limitations - History of Present Illness Initial comments: 27-year-old male with past medical history significant for polysubstance abuse presents the emergency department with a chief complaint of hallucinations. Patient reports that for the last 4 years he has believed that there are people from the, watching him and making an inpatient on the economy. He denies visual or auditory hallucinations he just believes that they are there. She denies any suicidal or homicidal ideation at this time. He denies any illicit drug use. Denies any recent alcohol use. Denies any other specific complaints at this time. He reports that he was seen at this facility yesterday for the same where he received an injection for his symptoms however he reports that he feels like his hallucinations have worsened. - Related Data Home Medications Medication Instructions Recorded Confirmed Metoprolol Tartrate [Lopressor] 25 mg PO DAILY 06/14/22 06/06/23 Paliperidone IM [Invega Sustenna] 234 mg IM ONCE 06/06/23 06/06/23 Allergies Allergy/AdvReac Type Severity Reaction Status Date / Time Penicillins Allergy Unknown Unknown Verified 06/06/23 18:50 piperacillin [From Zosyn] Allergy Unknown Unknown Verified 06/06/23 18:50 tazobactam [From Zosyn] Allergy Unknown Unknown Verified 06/06/23 18:50 haloperidol [From Haldol] AdvReac Severe Anaphylaxis Verified 06/06/23 18:50 Review of Systems ROS Statement: Those systems with pertinent positive or pertinent negative responses have been documented in the HPI. ROS Other: All systems not noted in ROS Statement are negative. 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 Past Anesthesia/Blood Transfusion Reactions: No Reported Reaction Past Psychological History: Anxiety, Bipolar, Depression Smoking Status: Current every day smoker Past Alcohol Use History: Occasional Past Drug Use History: IV Drug Use, Marijuana, Methamphetamine - Past Family History family Additional Family Medical History / Comment(s): States multiple family members with heart disease on his mother's side of the family. General Exam - General Exam Comments Initial Comments: General: Alert, in no acute distress Head: atraumatic normocephalic. Eyes PERRL, EOMI intact, mucous membranes moist Respiratory: Lungs clear to auscultation bilaterally Cardiovascular: Heart rate regular rate and rhythm Abdominal: Soft without guarding or rebound Extremities: Normal inspection with full range of motion and normal capillary refill Neuroogic: alert and oriented 3, CN II-XII intact, able to ambulate with steady gait Skin: warm dry and intact with normal color Limitations: no limitations Course Vital Signs 06/06/23 17:05 Temperature 97.6 F Pulse Rate 118 H Respiratory 20 Rate Blood Pressure 118/82 O2 Sat by Pulse 98 Oximetry - Reevaluation(s) Reevaluation #1: 06/06/23 17:35 EPS notified of need for psychiatric evaluation Reevaluation #2: 06/06/23 20:42 Case discussed with Lili DOMINGUEZ who believes the patient needs inpatient psychiatric criteria. Medical Decision Making - Medical Decision Making Was pt. sent in by a medical professional or institution (MERON Goodrich, MONTESS[employer] PROGRAM DIRECTOR, urgent care, hospital, or prison...) When possible be specific @ -[No] Did you speak to anyone other than the patient for history (EMS, parent, family, police, friend...)? What history was obtained from this source @ -[No] Did you review nursing and triage notes (agree or disagree)? Why? @ -[I reviewed and agree with nursing and triage notes] Were old charts reviewed (outside hosp., previous admission, EMS record, old EKG, old radiological studies, urgent care reports/EKG's, prison records)? Report findings @ -[No old charts were reviewed] Differential Diagnosis (chest pain, altered mental status, abdominal pain women, abdominal pain men, vaginal bleeding, weakness, fever, dyspnea, syncope, headache, dizziness, GI bleed, back pain, seizure, CVA, palpatations, mental health, musculoskeletal)? @ -[not applicable] EKG interpreted by me (3pts min.). @ -[As above] X-rays interpreted by me (1pt min.). @ -[None done] CT interpreted by me (1pt min.). @ -[None done] U/S interpreted by me (1pt. min.). @ -[None done] What testing was considered but not performed or refused? (CT, X-rays, U/S, labs)? Why? @ -[None] What meds were considered but not given or refused? Why? @ -[None] Did you discuss the management of the patient with other professionals (professionals i.e. Dr., PA, M[employer]ESS[employer] PROGRAM DIRECTOR, lab, RT, psych nurse, secondary social studies teacher, risk mgr, teacher, aoc aadc operations staff officer, porter sample case)? Give summary @ -[No] Was smoking cessation discussed for >3mins.? @ -[No] Was critical care preformed (if so, how long)? @ -[No] Were there social determinants of health that impacted care today? How? (Home lessness, low income, unemployed, alcoholism, drug addiction, transportation, low edu. Level, literacy, decrease access to med. care, halfway, rehab)? @ -[No] Was there de-escalation of care discussed even if they declined (Discuss DNR or withdrawal of care, Hospice)? DNR status @ -[No] What co-morbidities impacted this encounter? (DM, HTN, Smoking, COPD, CAD, Cancer, CVA, ARF, Chemo, Hep., AIDS, mental health diagnosis, sleep apnea, morbid obesity)? @ -[None] Was patient admitted / discharged? Hospital course, mention meds given and route, prescriptions, significant lab abnormalities, going to OR and other pertinent info. @ Admission to psychiatric unit. This is a 27-year-old male presents to the emergency department with worsening hallucinations. Patient had a thorough history and physical exam performed on the ED. Physical exam essentially unremarkable. Patient rate regular rate and rhythm, lungs clear to auscultation, abdomen soft nontender. Patient continues to have active hallucinations during the course of the ED. He was seen and evaluated by the [facility] nurse, Who Believes the Patient Meets for Inpatient Criteria. Case Discussed with PAGE Freeman who agrees with plan of care Undiagnosed new problem with uncertain prognosis? @ -[No] Drug Therapy requiring intensive monitoring for toxicity (Heparin, Nitro, Insulin, Cardizem)? @ -[No] Were any procedures done? @ -[No] Diagnosis/symptom? @ -Hallucinations Acute, or Chronic, or Acute on Chronic? @ -Acute Uncomplicated (without systemic symptoms) or Complicated (systemic symptoms)? @ -Complicated Side effects of treatment? @ -[No] Exacerbation, Progression, or Severe Exacerbation? @ -[No] Poses a threat to life or bodily function? How? (Chest pain, USA, VT, pneumonia, PE, COPD, DKA, ARF, appy, cholecystitis, CVA, Diverticulitis, Homicidal, Suicidal, threat to staff... and all critical care pts) @ -High Likelihood - Lab Data Lab Results 06/06/23 Range/Units 20:01 Coronavirus (PCR) Not Detected (Not Detectd) Disposition Clinical Impression: Hallucination Disposition: ADMITTED IP TO THIS HOSP Condition: Fair Is patient prescribed a controlled substance at d/c from ED?: No Time of Disposition: 00:46
[2023-06-06] MEDS ORDERED: MAG HYDROX/AL HYDROX/SIMETH 30 ML CUP PO PRN (20:36)
[2023-06-06] MEDS ORDERED: MAGNESIUM HYDROXIDE 2,400 MG/30 ML CUP PO PRN (20:36)
[2023-06-06] MEDS ORDERED: ACETAMINOPHEN TAB 325 MG TAB PO PRN (20:36)
[2023-06-06] MEDS ORDERED: LORazepam 2 MG/ML INJ IM PRN (20:39)
[2023-06-07] MEDS ORDERED: flUPHENAZine 2.5 MG/ML (MDV) 10 ML VIAL IM PRN (07:41)
[2023-06-07 08:40] LABS: Basophils % (A) 0 %; Eosinophils # (A) 0.1 k/uL (0-0.7); Eosinophils % (A) 2 %; HCT 48.3 % (39.0-53.0); HGB 15.1 gm/dL (13.0-17.5); Lymphocytes # (A) 1.4 k/uL (1.0-4.8); Lymphocytes % (A) 20 %; MCH 28.5 pg (25.0-35.0); MCHC 31.3 g/dL (31.0-37.0); MCV 91.3 fL (80.0-100.0); Mean Platelet Volume 8.1; Monocytes # (A) 0.6 k/uL (0-1.0); Monocytes % (A) 9 %; Neutrophils # (A) 4.5 k/uL (1.3-7.7); Neutrophils % (A) 66 %; Platelet Count 221 k/uL (150-450); RBC 5.29 m/uL (4.30-5.90); RDW 14.4 % (11.5-15.5); WBC 6.8 k/uL (3.8-10.6)
[2023-06-07 08:56] LABS: ALT 39 U/L (4-49); AST 43 U/L (17-59); African American GFR (CKD) >90 (>60 ml/min/1.73 sqM); Albumin 4.2 g/dL (3.5-5.0); Alkaline Phosphatase 105 U/L (38-126); Anion Gap 7 mmol/L; Blood Urea Nitrogen 10 mg/dL (9-20); Calcium 9.4 mg/dL (8.4-10.2); Carbon Dioxide 26 mmol/L (22-30); Chloride 107 mmol/L (98-107); Glucose 89 mg/dL (74-99); Non-African American GFR(CKD) >90 (>60 ml/min/1.73 sqM); Potassium 4.6 mmol/L (3.5-5.1); Sodium 140 mmol/L (137-145); Total Bilirubin 1.9 mg/dL (0.2-1.3); Total Protein 6.9 g/dL (6.3-8.2)
[2023-06-07] MEDS: METOPROLOL TARTRATE 25 MG TAB PO SCH (09:26)
--- NOTE | 2023-06-07 12:35 | P.HP ---
Psychiatric H&P - . History & Physical: Allergies Allergy/AdvReac Type Severity Reaction Status Date / Time Penicillins Allergy Unknown Unknown Verified 06/06/23 18:50 piperacillin [From Zosyn] Allergy Unknown Unknown Verified 06/06/23 18:50 tazobactam [From Zosyn] Allergy Unknown Unknown Verified 06/06/23 18:50 haloperidol [From Haldol] AdvReac Severe Anaphylaxis Verified 06/06/23 18:50 Vital Signs Temp 97.5 F L 06/06/23 22:31 Pulse 96 06/06/23 22:31 Resp 18 06/06/23 22:31 BP 118/74 06/06/23 22:31 Pulse Ox 97 06/06/23 22:31 FiO2 Intake & Output 06/06/23 06/07/23 06/07/23 18:59 06:59 18:59 Weight 95.254 kg 88.904 kg 88.9 kg Laboratory Last Values WBC 6.8 k/uL (3.8-10.6) 06/07/23 08:10 RBC 5.29 m/uL (4.30-5.90) 06/07/23 08:10 Hgb 15.1 gm/dL (13.0-17.5) 06/07/23 08:10 Hct 48.3 % (39.0-53.0) 06/07/23 08:10 MCV 91.3 fL (80.0-100.0) 06/07/23 08:10 MCH 28.5 pg (25.0-35.0) 06/07/23 08:10 MCHC 31.3 g/dL (31.0-37.0) 06/07/23 08:10 RDW 14.4 % (11.5-15.5) 06/07/23 08:10 Plt Count 221 k/uL (150-450) 06/07/23 08:10 MPV 8.1 06/07/23 08:10 Neutrophils % 66 % 06/07/23 08:10 Lymphocytes % 20 % 06/07/23 08:10 Monocytes % 9 % 06/07/23 08:10 Eosinophils % 2 % 06/07/23 08:10 Basophils % 0 % 06/07/23 08:10 Neutrophils # 4.5 k/uL (1.3-7.7) 06/07/23 08:10 Lymphocytes # 1.4 k/uL (1.0-4.8) 06/07/23 08:10 Monocytes # 0.6 k/uL (0-1.0) 06/07/23 08:10 Eosinophils # 0.1 k/uL (0-0.7) 06/07/23 08:10 Basophils # 0.0 k/uL (0-0.2) 06/07/23 08:10 Sodium 140 mmol/L (137-145) 06/07/23 08:10 Potassium 4.6 mmol/L (3.5-5.1) 06/07/23 08:10 Chloride 107 mmol/L (98-107) 06/07/23 08:10 Carbon Dioxide 26 mmol/L (22-30) 06/07/23 08:10 Anion Gap 7 mmol/L 06/07/23 08:10 BUN 10 mg/dL (9-20) 06/07/23 08:10 Creatinine 1.10 mg/dL (0.66-1.25) 06/07/23 08:10 Est GFR (CKD-EPI)AfAm >90 (>60 ml/min/1.73 sqM) 06/07/23 08:10 Est GFR (CKD-EPI)NonAf >90 (>60 ml/min/1.73 sqM) 06/07/23 08:10 Glucose 89 mg/dL (74-99) 06/07/23 08:10 Calcium 9.4 mg/dL (8.4-10.2) 06/07/23 08:10 Total Bilirubin 1.9 mg/dL (0.2-1.3) H 06/07/23 08:10 AST 43 U/L (17-59) 06/07/23 08:10 ALT 39 U/L (4-49) 06/07/23 08:10 Alkaline Phosphatase 105 U/L (38-126) 06/07/23 08:10 Total Protein 6.9 g/dL (6.3-8.2) 06/07/23 08:10 Albumin 4.2 g/dL (3.5-5.0) 06/07/23 08:10 TSH 0.965 mIU/L (0.465-4.680) 06/07/23 08:10 Coronavirus (PCR) Not Detected (Not Detectd) 06/06/23 20:01 06/07/23 12:28 IDENTIFYING DATA: Patient is a 27-year-old male with significant history of bipolar 1 disorder and methamphetamine use disorder who presented to our hospital for paranoia and hallucinations HPI: Attempted to speak with patient several times today. Each time he refused interview and asked manual writer to come back later. History below has been obtained from the chart. Patient presented to the ER 2 days ago. He presented for significant depression after his father had recently killed himself. He received his long-acting injectable on 06/05/2023 in the ER. He then presented again to the ER yesterday due to lack of improvement, as well as paranoia and hallucinations. PAST PSYCHIATRIC HISTORY: Patient has previous diagnoses of bipolar 1 disorder, methamphetamine-induced psychotic disorder, cannabis use disorder, and opiate use disorder. Has had multiple admissions. Received invega sustenna 234 mg in ER on 06/05/23. He has had other trials of medications including Wellbutrin, Risperdal, metoprolol, and Zoloft. The patient's last inpatient psychiatric admission was in November, at which time he was discharged on INvega sustenna. History of noncompliance. 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 Past Anesthesia/Blood Transfusion Reactions: No Reported Reaction Past Psychological History: Anxiety, Bipolar, Depression Smoking Status: Current every day smoker Past Alcohol Use History: Occasional Past Drug Use History: IV Drug Use, Marijuana, Methamphetamine Additional Drug Use History / Comment(s): amphetamines ALLERGIES: Penicillin, piperacillin, Tazobactam, haloperidol CHEMICAL DEPENDENCY HISTORY: The patient reports he smokes one pack per day of tobacco. He reports he is marijuana daily. He denies any alcohol use. He reports that he has started using methamphetamine since he was 20 years old. He reports that he is methamphetamines twice per week. He states that his last use was 5 days prior to admission. He denies any other illicit substance use at this time. FAMILY PSYCHIATRIC/SUBSTANCE USE HISTORY: The patient reports that he has a sister with bipolar disorder. SOCIAL HISTORY: Patient was born and raised in [place], [place]. He currently lives with his mother and her boyfriend. He is single, never , but has one 6-year-old daughter. He states that he has been applying for social security but has been constantly denied due to his substance abuse. The patient dropped out of school in the 10th grade. He denies any legal issues at this time. He is under an [facility] order. MENTAL STATUS EXAM: General Appearance: Patient appears to be stated age is alert, directable, and attempts to cooperate. Patient appears to have fair hygiene and grooming. Behavior: Patient is seated without any agitated behavior. Eye contact is appropriate. Speech: Patient's speech is fluent and nonpressured. Mood/Affect: Patient reports their mood is "feeling okay," affect is pleasantly psychotic Suicidality/Homicidality: Patient denies any suicidal or homicidal ideation. Perceptions: Patient denies any visual hallucinations however endorses auditory hallucinations that are times commanding. Though content/process: Patient endorses numerous delusional thoughts. He is paranoid. He reports delusions of control. Memory and concentration: AOX3, grossly intact for the purposes of this session. Can spell "WORLD" backwards Judgment and insight: Poor STRENGTHS/WEAKNESSES: Strength is that the patient is agreeable with treatment. Weakness is that patient engages in severe substance use. INTELLECT: Below average to average IMPRESSIONS: Bipolar 1 disorder, with psychotic features Methamphetamine use disorder Cannabis use disorder Tobacco use disorder PLAN: -Medications : Received invega sustenna 234 mg 2 days ago, will start Risperdal 1 mg qhs, it is possible that Invega sustenna may take time to take full effect -Ativan and Prolixin PRN for agitation/aggression -Internal Medicine consult to perform medical evaluation and physical. -SW on board for discharge planning. Encourage patient to participate in groups to work on coping skills 06/07/23 12:30
[2023-06-07 13:48] LABS: Chol/HDL Ratio 2.52 Ratio; LDL Cholesterol,Calculated 52.3 mg/dL (0.0-131.0); VLDL Calculation 15.94 mg/dL (5.00-40.00)
[2023-06-07 17:48] LABS: Amorphous Sediment,Urine Rare /hpf; Appearance,Urine Cloudy (Clear); Bilirubin,Urine Negative (Negative); Blood,Urine Negative (Negative); Color,Urine Yellow; Glucose,Urine (UA) Negative (Negative); Ketones,Urine Negative (Negative); Leukocyte Esterase,Urine Negative (Negative); Mucus,Urine Rare /hpf; Nitrite,Urine Negative (Negative); Protein,Urine Negative (Negative); RBC,Urine <1 /hpf (0-5); Specific Gravity,Urine 1.009 (1.001-1.035); Squamous Epithelial Cell,Urine <1 /hpf (0-4); WBC,Urine 1 /hpf (0-5)
[2023-06-07 17:56] LABS: Amphetamine Screen,Urine Detected (NotDetected); Barbiturate Screen,Urine Not Detected (NotDetected); Benzodiazepines Screen,Urine Not Detected (NotDetected); Cocaine Screen,Urine Not Detected (NotDetected); Methadone Screen, Urine Not Detected (NotDetected); Opiate Screen,Urine Not Detected (NotDetected); Oxycodone Screen, Urine Not Detected (NotDetected); Phencyclidine Screen,Urine Not Detected (NotDetected); Tricyclic Antidepressant,Urine Not Detected (NotDetected); Urn Cannabinoid Scrn Detected (NotDetected)
[2023-06-07] MEDS: risperiDONE 1 MG TAB PO SCH (20:11)
[2023-06-08] MEDS: LORazepam 1 MG TAB PO PRN (01:03)
[2023-06-08] MEDS: NICOTINE 14MG/24HR PATCH TRANSDERM SCH ×2 (09:17→17:45)
[2023-06-08] MEDS: METOPROLOL TARTRATE 25 MG TAB PO SCH (09:17)
--- NOTE | 2023-06-08 10:30 | P.PN ---
Progress Note - Text Progress Note Date: 06/08/23 Interval History: Patient was seen resting in bed and was directable and agreeable to speak with sports writer in the office. Currently, The patient presented he is feeling better. He is currently not reporting any suicidal or homicidal ideation, intention, and/or plan. He does however report that he is experiencing auditory hallucinations in the form of whispers. He states that he cannot recall what they are telling him. He also reports that he was having some visual dist urbances and paranoia. The patient did receive Invega Sustenna 234 mg IM on 06/05/2023. We discussed at length his use of methamphetamines to which she initially denied however later admitted that "you people were using it next to me and I took a hit." He reports no issues regarding his sleep or his appetite. He has been adherent with his medications and only reports mild sedation as a side effect at this time. Mental Status Exam: General Appearance: Patient appears to be stated age is alert, directable, and cooperative. Behavior: Patient is calmly seated without any agitated behavior. Speech: Patient's speech is fluent and nonpressured. Mood/Affect: Mood is improving mildly, affect is congruent and constricted. Suicidality/Homicidality: Patient denies having any suicidal or homicidal ideation intent or plan. Perceptions: Patient denies any visual hallucinations and denies any auditory hallucinations Though content/process: There is no evidence of any delusional thought content and thought process is linear and goal-directed. Memory and concentration: AOX3, grossly intact for the purposes of this session Judgment and insight: Improving mildly Vital Signs Temp 97.8 F 06/08/23 01:42 Pulse 105 H 06/08/23 01:42 Resp 18 06/08/23 01:42 BP 112/72 06/08/23 01:42 Pulse Ox 99 06/08/23 01:42 FiO2 Intake & Output 06/07/23 06/08/23 06/08/23 18:59 06:59 18:59 Weight 88.9 kg Laboratory Results WBC 6.8 k/uL (3.8-10.6) 06/07/23 08:10 RBC 5.29 m/uL (4.30-5.90) 06/07/23 08:10 Hgb 15.1 gm/dL (13.0-17.5) 06/07/23 08:10 Hct 48.3 % (39.0-53.0) 06/07/23 08:10 MCV 91.3 fL (80.0-100.0) 06/07/23 08:10 MCH 28.5 pg (25.0-35.0) 06/07/23 08:10 MCHC 31.3 g/dL (31.0-37.0) 06/07/23 08:10 RDW 14.4 % (11.5-15.5) 06/07/23 08:10 Plt Count 221 k/uL (150-450) 06/07/23 08:10 MPV 8.1 06/07/23 08:10 Neutrophils % 66 % 06/07/23 08:10 Lymphocytes % 20 % 06/07/23 08:10 Monocytes % 9 % 06/07/23 08:10 Eosinophils % 2 % 06/07/23 08:10 Basophils % 0 % 06/07/23 08:10 Neutrophils # 4.5 k/uL (1.3-7.7) 06/07/23 08:10 Lymphocytes # 1.4 k/uL (1.0-4.8) 06/07/23 08:10 Monocytes # 0.6 k/uL (0-1.0) 06/07/23 08:10 Eosinophils # 0.1 k/uL (0-0.7) 06/07/23 08:10 Basophils # 0.0 k/uL (0-0.2) 06/07/23 08:10 Sodium 140 mmol/L (137-145) 06/07/23 08:10 Potassium 4.6 mmol/L (3.5-5.1) 06/07/23 08:10 Chloride 107 mmol/L (98-107) 06/07/23 08:10 Carbon Dioxide 26 mmol/L (22-30) 06/07/23 08:10 Anion Gap 7 mmol/L 06/07/23 08:10 BUN 10 mg/dL (9-20) 06/07/23 08:10 Creatinine 1.10 mg/dL (0.66-1.25) 06/07/23 08:10 Est GFR (CKD-EPI)AfAm >90 (>60 ml/min/1.73 sqM) 06/07/23 08:10 Est GFR (CKD-EPI)NonAf >90 (>60 ml/min/1.73 sqM) 06/07/23 08:10 Glucose 89 mg/dL (74-99) 06/07/23 08:[address] Glu mg/dL 114 mg/dL 06/07/23 08:10 Hemoglobin A1c 5.6 % (<=6.0) 06/07/23 08:10 Calcium 9.4 mg/dL (8.4-10.2) 06/07/23 08:10 Total Bilirubin 1.9 mg/dL (0.2-1.3) H 06/07/23 08:10 AST 43 U/L (17-59) 06/07/23 08:10 ALT 39 U/L (4-49) 06/07/23 08:10 Alkaline Phosphatase 105 U/L (38-126) 06/07/23 08:10 Total Protein 6.9 g/dL (6.3-8.2) 06/07/23 08:10 Albumin 4.2 g/dL (3.5-5.0) 06/07/23 08:10 Triglycerides 79.70 mg/dL (0.00-149.00) 06/07/23 08:10 Cholesterol 113.00 mg/dL (0.00-200.00) 06/07/23 08:10 LDL Cholesterol, Calc 52.3 mg/dL (0.0-131.0) 06/07/23 08:10 VLDL Cholesterol, Calc 15.94 mg/dL (5.00-40.00) 06/07/23 08:10 HDL Cholesterol 44.80 mg/dL (40.00-60.00) 06/07/23 08:10 Cholesterol/HDL Ratio 2.52 Ratio 06/07/23 08:10 TSH 0.965 mIU/L (0.465-4.680) 06/07/23 08:10 Urine Color Yellow 06/07/23 17:15 Urine Appearance Cloudy (Clear) 06/07/23 17:15 Urine pH 8.0 (5.0-8.0) 06/07/23 17:15 Ur Specific [place] 1.009 (1.001-1.035) 06/07/23 17:15 Urine Protein Negative (Negative) 06/07/23 17:15 Urine Glucose (UA) Negative (Negative) 06/07/23 17:15 Urine Ketones Negative (Negative) 06/07/23 17:15 Urine Blood Negative (Negative) 06/07/23 17:15 Urine Nitrite Negative (Negative) 06/07/23 17:15 Urine Bilirubin Negative (Negative) 06/07/23 17:15 Urine Urobilinogen 8.0 mg/dL (<2.0) 06/07/23 17:15 Ur Leukocyte Esterase Negative (Negative) 06/07/23 17:15 Urine RBC <1 /hpf (0-5) 06/07/23 17:15 Urine WBC 1 /hpf (0-5) 06/07/23 17:15 Ur Squamous Epith Cells <1 /hpf (0-4) 06/07/23 17:15 Amorphous Sediment Rare /hpf (None) H 06/07/23 17:15 Urine Mucus Rare /hpf (None) H 06/07/23 17:15 Urine Opiates Screen Not Detected (NotDetected) 06/07/23 17:15 Ur Oxycodone Screen Not Detected (NotDetected) 06/07/23 17:15 Urine Methadone Screen Not Detected (NotDetected) 06/07/23 17:15 Ur Propoxyphene Screen Not Detected (NotDetected) 06/07/23 17:15 Ur Barbiturates Screen Not Detected (NotDetected) 06/07/23 17:15 U Tricyclic Antidepress Not Detected (NotDetected) 06/07/23 17:15 Ur Phencyclidine Scrn Not Detected (NotDetected) 06/07/23 17:15 Ur Amphetamines Screen Detected (NotDetected) H 06/07/23 17:15 U Methamphetamines Scrn Detected (NotDetected) H 06/07/23 17:15 U Benzodiazepines Scrn Not Detected (NotDetected) 06/07/23 17:15 Urine Cocaine Screen Not Detected (NotDetected) 06/07/23 17:15 U Marijuana (THC) Screen Detected (NotDetected) H 06/07/23 17:15 Coronavirus (PCR) Not Detected (Not Detectd) 06/06/23 20:01 Assessment Bipolar 1 disorder, with psychotic features Methamphetamine use disorder Cannabis use disorder Tobacco use disorder Plan: -Patient continues to meet criteria for inpatient psychiatric admission for symptom stabilization and safety. Patient has signed adult voluntary form and medication consent and was placed in patient's chart. -Medications: Invega Sustenna 234 mg IM was administered on 06/05/2023. Continue Risperdal 1 mg by mouth at bedtime for psychosis -When necessary Ativan and Prolixin for agitation/aggression. -NRT - nicotine patch -SW on board for discharge planning. Encouraged the patient to participate in milieu.
[2023-06-08] MEDS ORDERED: NICOTINE 14MG/24HR PATCH TRANSDERM SCH (17:49)
[2023-06-08] MEDS: risperiDONE 1 MG TAB PO SCH (21:04)
--- NOTE | 2023-06-09 06:45 | P.MDCNMH ---
History of Present Illness H&P Date: 06/08/23 Chief Complaint: medical eval 27 year old male with no significant past medical history coming in for evaluation due to hallucination. he does participate during the interview , but ED chart review showed he denies auditory or visual hallucinations, but he knows people are there watching him . he denies any medical concerns he denies illicit drugs , however, urine drug screen was positive for marijuana and meth PMHX polysubstance abuse review of systems Pertinent positives as noted in HPI. All other systems were reviewed and are negative on exam Constitutional: No acute distress, conversant, pleasant Eyes: Anicteric sclerae, moist conjunctiva, Pupils equal round reactive to light Lungs: Clear to auscultation Clear to percussion Normal respiratory effort, no accessory muscle use Cardiovascular: Heart regular in rate and rhythm, No murmurs, gallops, or rubs No peripheral edema Abdominal: Soft Nontender, no guarding, rebound or rigidity Abdomen moving with respiration Normoactive bowel sounds Extremities: No digital cyanosis Pedal pulses intact and symmetrical Radial pulses intact and symmetrical No calf tenderness Psychiatric: Alert and oriented to person, place and time Neuro Muscles Strength 5/5 in all 4 extremities , sensation grossly intact 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 Past Anesthesia/Blood Transfusion Reactions: No Reported Reaction Past Psychological History: Anxiety, Bipolar, Depression Smoking Status: Current every day smoker Past Alcohol Use History: Occasional Past Drug Use History: IV Drug Use, Marijuana, Methamphetamine - Past Family History family Additional Family Medical History / Comment(s): States multiple family members with heart disease on his mother's side of the family. Medications and Allergies Home Medications Medication Instructions Recorded Confirmed Type Metoprolol Tartrate [Lopressor] 25 mg PO DAILY 06/14/22 06/06/23 History Paliperidone IM [Invega Sustenna] 234 mg IM ONCE 06/06/23 06/06/23 History Allergies Allergy/AdvReac Type Severity Reaction Status Date / Time Penicillins Allergy Unknown Unknown Verified 06/06/23 18:50 piperacillin [From Zosyn] Allergy Unknown Unknown Verified 06/06/23 18:50 tazobactam [From Zosyn] Allergy Unknown Unknown Verified 06/06/23 18:50 haloperidol [From Haldol] AdvReac Severe Anaphylaxis Verified 06/06/23 18:50 Physical Exam Vitals: Vital Signs BP 06/08/23 08:37 116/76 Cranial Nerve Examination - Cranial Nerves Cranial Nerve II- Optic: Intact Cranial Nerve III- Oculomotor: Intact Cranial Nerve IV- Trochlear: Intact Cranial Nerve V- Trigeminal: Intact Cranial Nerve - Abducens: Intact Cranial Nerve VII- Facial: Intact Cranial Nerve VIII- Auditory: Intact Cranial Nerve IX- Glossopharyngeal: Intact Cranial Nerve X- Vagus: Intact Cranial Nerve XI- Accessory: Intact Cranial Nerve XII- Hypoglossal: Intact Results CBC & Chem 7: 06/07/23 08:10 06/07/23 08:10 Assessment and Plan Assessment: acute psychosis management per psych polysubstance abuse urine positive for marijuana and meth , however patient denies counseled to quit drug of abuse labs reviewed and unremarkable thank you for this consultation
[2023-06-09] MEDS: NICOTINE 14MG/24HR PATCH TRANSDERM SCH (09:29)
[2023-06-09] MEDS: METOPROLOL TARTRATE 25 MG TAB PO SCH (09:29)
--- NOTE | 2023-06-09 10:22 | P.PN ---
Progress Note - Text Progress Note Date: 06/09/23 Interval History: Patient was seen resting in bed and was directable and agreeable to speak with science writer in the office. Currently, the patient reports that he is not doing well today. He states that it all started with very bizarre dreams and nightmares that he was having. He reports that they felt very real. He states now that he believes what was going on in his dreams and is asking this provider who is putting these dreams into his head. The patient then goes on numerous tangents regarding paranoia and things happening to him. He endorses numerous magical and bizarre thoughts. He is not endorsing any suicidal or homicidal ideation, intention, and/or plan. He is not reporting any auditory or visual hallucinations. He does report some tactile hallucinations in the form of zaps into his brain. He is otherwise adherent with his medication and is not repor ting any significant side effects. He denies any chest pain, shyness of breath, heart palpitations. He is agreeable to EKG to evaluate tachycardia and to consider the initiation of another antipsychotic. Mental Status Exam: General Appearance: Patient appears to be stated age is alert, directable, and cooperative. Behavior: Patient is seated however displays elevated psychomotor activity. Speech: Patient's speech is fluent and nonpressured. Nonlinear, difficult to follow. Hyperverbal. Mood/Affect: Mood is "not good," affect is nervous and anxious Suicidality/Homicidality: Patient denies having any suicidal or homicidal ideation intent or plan. Perceptions: Patient denies any visual hallucinations and denies any auditory hallucinations Though content/process: The patient presents with a flight of ideas, loose associations, and magical thinking. Memory and concentration: AOX3, grossly intact for the purposes of this session Judgment and insight: Fair Vital Signs Temp 98.4 F 06/09/23 07:00 Pulse 131 H 06/09/23 09:30 Resp 17 06/09/23 07:00 BP 109/76 06/09/23 09:30 Pulse Ox 99 06/09/23 07:00 FiO2 Assessment Bipolar 1 disorder, with psychotic features Methamphetamine use disorder Cannabis use disorder Tobacco use disorder Plan: -Patient continues to meet criteria for inpatient psychiatric admission for symptom stabilization and safety. Patient has signed adult voluntary form and medication consent and was placed in patient's chart. -Medications: Invega Sustenna 234 mg IM was administered on 06/05/2023. Discontinue Risperdal. Order Imipramine 25 mg at bedtime for parasomnia. Pending EKG. Will start Prolixin. -When necessary Ativan and Prolixin for agitation/aggression. -NRT - nicotine patch -SW on board for discharge planning. Encouraged the patient to participate in milieu.
[2023-06-09] MEDS: LORazepam 1 MG TAB PO PRN ×2 (11:13→20:21)
[2023-06-09] MEDS: IMIPRAMINE 25 MG TAB PO SCH (20:21)
[2023-06-10 07:00] VITALS: RESP 14; TEMP 97.8
[2023-06-10] MEDS: NICOTINE 14MG/24HR PATCH TRANSDERM SCH (09:23)
[2023-06-10] MEDS: METOPROLOL TARTRATE 25 MG TAB PO SCH (09:23)
--- NOTE | 2023-06-10 11:08 | P.PN ---
Progress Note - Text Progress Note Date: 06/10/23 Interval History: Patient was seen resting in bed and was directable and agreeable to speak with mortgage or loan underwriter in the office. The patient reports that he is feeling better. He is inquiring about discharge. He is currently not reporting any suicidal or homicidal ideation, intention, and/or plan. He is not reporting any auditory or visual hallucinations. He denies any paranoia or delusions. He has been adherent with his medication and is not reporting any significant side effects. The patient states that he had no abnormal sleep or nightmares last night. Mental Status Exam: General Appearance: Patient appears to be stated age is alert, directable, and cooperative. Behavior: Patient displays normal psychomotor activity Speech: Patient's speech is fluent and nonpressured. Linear today. Mood/Affect: Mood is "better." Affect is euthymic. Suicidality/Homicidality: Patient denies having any suicidal or homicidal ideation intent or plan. Perceptions: Patient denies any visual hallucinations and denies any auditory hallucinations Though content/process: Linear and logical in short conversation today. Memory and concentration: AOX3, grossly intact for the purposes of this session Judgment and insight: Fair Vital Signs Temp 97.8 F 06/10/23 06:32 Pulse 78 06/10/23 06:32 Resp 14 06/10/23 06:32 BP 102/60 06/10/23 06:32 Pulse Ox 99 06/10/23 06:32 FiO2 Assessment Bipolar 1 disorder, with psychotic features Methamphetamine use disorder Cannabis use disorder Tobacco use disorder Plan: -Patient continues to meet criteria for inpatient psychiatric admission for symptom stabilization and safety. Patient has signed adult voluntary form and medication consent and was placed in patient's chart. -Medications: Invega Sustenna 234 mg IM was administered on 06/05/2023. Continue Imipramine 25 mg at bedtime for parasomnia. -When necessary Ativan and Prolixin for agitation/aggression. -NRT - nicotine patch -SW on board for discharge planning. Encouraged the patient to participate in milieu.
[2023-06-10] MEDS: IMIPRAMINE 25 MG TAB PO SCH (20:30)
[2023-06-10] MEDS: LORazepam 1 MG TAB PO PRN (20:30)
[2023-06-11 07:05] VITALS: BP 93/52; PULSE 89
[2023-06-11] MEDS: NICOTINE 14MG/24HR PATCH TRANSDERM SCH (09:19)
[2023-06-11] MEDS: METOPROLOL TARTRATE 25 MG TAB PO SCH (09:19)
--- NOTE | 2023-06-11 11:28 | P.DS ---
Providers Date of admission: 06/06/23 20:32 Expected date of discharge: 06/11/23 Attending physician: Slava Wellington MD Consults: 06/06/23 20:36 Consult Physician Routine Consulting Provider: Nicolás Freed Consult Reason/Comments: medical management Do you want consulting provider notified?: Yes Primary care physician: [facility] Diagnosis(es) (1) Bipolar 1 disorder Current Visit: Yes Status: Acute Priority: High (2) Methamphetamine use disorder, severe, dependence Current Visit: Yes Status: Acute Priority: High (3) Cannabis use disorder Current Visit: Yes Status: Chronic Priority: Medium (4) Tobacco use disorder Current Visit: Yes Status: Chronic Priority: Low Hospital Course: Admission HPI: Initial psychiatric evaluation was completed by Dr Logan on 06/07/2023 who wrote: IDENTIFYING DATA: Patient is a 27-year-old male with significant history of bipolar 1 disorder and methamphetamine use disorder who presented to our hospital for paranoia and hallucinations HPI: Attempted to speak with patient several times today. Each time he refused interview and asked adjusto writer operator to come back later. History below has been obtained from the chart. Patient presented to the ER 2 days ago. He presented for significant depression after his father had recently killed himself. He received his long-acting injectable on 06/05/2023 in the ER. He then presented again to the ER yesterday due to lack of improvement, as well as paranoia and hallucinations. PAST PSYCHIATRIC HISTORY: Patient has previous diagnoses of bipolar 1 disorder, methamphetamine-induced psychotic disorder, cannabis use disorder, and opiate use disorder. Has had multiple admissions. Received invega sustenna 234 mg in ER on 06/05/23. He has had other trials of medications including Wellbutrin, Risperdal, metoprolol, and Zoloft. The patient's last inpatient psychiatric admission was in November, at which time he was discharged on INvega sustenna. History of noncompliance. Hospital course: Upon admission to the unit patient was initially presenting as psychotic but pleasant. Patient was directable and agreeable to commence treatment. Patient got along well with other patients on the unit and followed unit protocol. Patient was compliant with the medications and denied any side effects throughout hospital course. Patient was started on Risperdal oral medication to augment his Invega Sustenna 234 mg IM that he was 2 days prior to his admission. Patient spoke of his stressors and engaged in therapy however preferred individual versus group activities. Patient was also seen by medical team for history and physical exam. During the hospitalization, the patient did admit to methamphetamine use. He did report significant symptoms indicative of parasomnia and the patient was transitioned from Risperdal to imipramine. On this regimen, the patient despite significant improvement in regards to his target symptoms of psychosis. He became more future and goal oriented and much more grounded in reality. He developed better insight and judgment. On the day of discharge, the patient is not reporting any suicidal or homicidal ideation, intention, and/or plan. He reports no access to firearms or other weapons. He denies any paranoia or other delusions. He reports no auditory or visual hallucinations. The patient does have a significant history of substance abuse and was counseled at great length on abstaining from all substances including tobacco, alcohol, marijuana, and especially amphetamines. The patient was adherent with his medications and reported no significant side effects. He reported no medical issues or concerns and denied any chest pain, shortness of breath, palpitations, akathisia, or tardive dyskinesia. He was counseled at length importance of medication adherence and appropriate outpatient follow-up. As the patient no longer met criteria for continued inpatient psychiatric hospitals a she, he was subsequently discharged after appropriate safety planning. Mental status exam: General Appearance: Patient appears to be stated age is alert, pleasant, and cooperative. Patient is in no acute distress and has fair hygiene and grooming Behavior: Patient is calmly seated without any agitated behavior. Speech: Patient's speech is fluent and nonpressured. Mood/Affect: Patient reports their mood is "much better", affect is congruent and euthymic. Suicidality/Homicidality: Patient denies having any suicidal or homicidal ideation intent or plan. Perceptions: Patient denies any auditory or visual hallucinations. Though content/process: There is no evidence of any delusional thought content and thought process is linear and goal-directed. Patient is future oriented Memory and concentration: AOX3, grossly intact for the purposes of this session. Can spell "WORLD" backwards correctly. Judgment and insight: Improved with guarded prognosis Impression: Bipolar 1 disorder, with psychotic features Methamphetamine use disorder Cannabis use disorder Tobacco use disorder Plan: -Continue with discharge today as patient has improved and stabilized psychiatrically and is not currently an imminent threat to himself and/or others. Patient will remain at chronically elevated risk due to the severity of his mental illness and his ongoing methamphetamine abuse. -Continue medications: Invega Sustenna 234 mg IM was administered on 06/05/2023. Imipramine 25 mg at bedtime for parasomnia. Nicorette gum for nicotine cessation. -Patient was counseled on the need for medication compliance and appropriate follow-up at mental health and also primary care for medical issues. Patient verbalized understanding and agreed. -Social work to arrange for and conduct family meeting to ensure safety upon discharge and answer any questions/concerns. Social work also to arrange for patients follow up appointments with [facility] for psychiatric care along with follow up with primary care provider. -Patient counseled on abstaining from recreational drugs and marijuana and alcohol. Was informed/educated on the adverse effects on their physical and mental health. Patient verbally agreed and understood. Patient was offered substance abuse treatment however declined at this time. -Patient was instructed to return to the hospital or seek immediate medical care if their psychiatric or medical symptoms do worsen or reoccur. -Psychoeducation and supportive therapy provided to patient. Risks and benefits of pharmacological treatment versus the risks and benefits of nontreatment weighed and discussed. Informed consent discussion held. Common side effects of psychotropics discussed such as, but not limited to headache, GI disturbance, sexual dysfunction, movement disorders, sedation, and orthostatic hypotension. Life threatening and blackbox warnings of prescribed medications also discussed. Potential risks of operating a vehicle or heavy machinery discussed with patient at length. Advised on importance of compliance and a reliable and responsible manner. Patient advised to review FDA consumer labeling of all medications prior to taking. Patient verbalized understanding of potential risks, and agrees with current treatment plan. Patient advised to medically contact physician/emergency personnel if any acute changes in condition occur. Vital Signs Temp 97.8 F 06/11/23 06:32 Pulse 89 06/11/23 06:32 Resp 14 06/11/23 06:32 BP 93/52 06/11/23 06:32 Pulse Ox 99 06/10/23 06:32 FiO2 Laboratory Results WBC 6.8 k/uL (3.8-10.6) 06/07/23 08:10 RBC 5.29 m/uL (4.30-5.90) 06/07/23 08:10 Hgb 15.1 gm/dL (13.0-17.5) 06/07/23 08:10 Hct 48.3 % (39.0-53.0) 06/07/23 08:10 MCV 91.3 fL (80.0-100.0) 06/07/23 08:10 MCH 28.5 pg (25.0-35.0) 06/07/23 08:10 MCHC 31.3 g/dL (31.0-37.0) 06/07/23 08:10 RDW 14.4 % (11.5-15.5) 06/07/23 08:10 Plt Count 221 k/uL (150-450) 06/07/23 08:10 MPV 8.1 06/07/23 08:10 Neutrophils % 66 % 06/07/23 08:10 Lymphocytes % 20 % 06/07/23 08:10 Monocytes % 9 % 06/07/23 08:10 Eosinophils % 2 % 06/07/23 08:10 Basophils % 0 % 06/07/23 08:10 Neutrophils # 4.5 k/uL (1.3-7.7) 06/07/23 08:10 Lymphocytes # 1.4 k/uL (1.0-4.8) 06/07/23 08:10 Monocytes # 0.6 k/uL (0-1.0) 06/07/23 08:10 Eosinophils # 0.1 k/uL (0-0.7) 06/07/23 08:10 Basophils # 0.0 k/uL (0-0.2) 06/07/23 08:10 Sodium 140 mmol/L (137-145) 06/07/23 08:10 Potassium 4.6 mmol/L (3.5-5.1) 06/07/23 08:10 Chloride 107 mmol/L (98-107) 06/07/23 08:10 Carbon Dioxide 26 mmol/L (22-30) 06/07/23 08:10 Anion Gap 7 mmol/L 06/07/23 08:10 BUN 10 mg/dL (9-20) 06/07/23 08:10 Creatinine 1.10 mg/dL (0.66-1.25) 06/07/23 08:10 Est GFR (CKD-EPI)AfAm >90 (>60 ml/min/1.73 sqM) 06/07/23 08:10 Est GFR (CKD-EPI)NonAf >90 (>60 ml/min/1.73 sqM) 06/07/23 08:10 Glucose 89 mg/dL (74-99) 06/07/23 08:[address] Glu mg/dL 114 mg/dL 06/07/23 08:10 Hemoglobin A1c 5.6 % (<=6.0) 06/07/23 08:10 Calcium 9.4 mg/dL (8.4-10.2) 06/07/23 08:10 Total Bilirubin 1.9 mg/dL (0.2-1.3) H 06/07/23 08:10 AST 43 U/L (17-59) 06/07/23 08:10 ALT 39 U/L (4-49) 06/07/23 08:10 Alkaline Phosphatase 105 U/L (38-126) 06/07/23 08:10 Total Protein 6.9 g/dL (6.3-8.2) 06/07/23 08:10 Albumin 4.2 g/dL (3.5-5.0) 06/07/23 08:10 Triglycerides 79.70 mg/dL (0.00-149.00) 06/07/23 08:10 Cholesterol 113.00 mg/dL (0.00-200.00) 06/07/23 08:10 LDL Cholesterol, Calc 52.3 mg/dL (0.0-131.0) 06/07/23 08:10 VLDL Cholesterol, Calc 15.94 mg/dL (5.00-40.00) 06/07/23 08:10 HDL Cholesterol 44.80 mg/dL (40.00-60.00) 06/07/23 08:10 Cholesterol/HDL Ratio 2.52 Ratio 06/07/23 08:10 TSH 0.965 mIU/L (0.465-4.680) 06/07/23 08:10 Urine Color Yellow 06/07/23 17:15 Urine Appearance Cloudy (Clear) 06/07/23 17:15 Urine pH 8.0 (5.0-8.0) 06/07/23 17:15 Ur Specific [place] 1.009 (1.001-1.035) 06/07/23 17:15 Urine Protein Negative (Negative) 06/07/23 17:15 Urine Glucose (UA) Negative (Negative) 06/07/23 17:15 Urine Ketones Negative (Negative) 06/07/23 17:15 Urine Blood Negative (Negative) 06/07/23 17:15 Urine Nitrite Negative (Negative) 06/07/23 17:15 Urine Bilirubin Negative (Negative) 06/07/23 17:15 Urine Urobilinogen 8.0 mg/dL (<2.0) 06/07/23 17:15 Ur Leukocyte Esterase Negative (Negative) 06/07/23 17:15 Urine RBC <1 /hpf (0-5) 06/07/23 17:15 Urine WBC 1 /hpf (0-5) 06/07/23 17:15 Ur Squamous Epith Cells <1 /hpf (0-4) 06/07/23 17:15 Amorphous Sediment Rare /hpf (None) H 06/07/23 17:15 Urine Mucus Rare /hpf (None) H 06/07/23 17:15 Urine Opiates Screen Not Detected (NotDetected) 06/07/23 17:15 Ur Oxycodone Screen Not Detected (NotDetected) 06/07/23 17:15 Urine Methadone Screen Not Detected (NotDetected) 06/07/23 17:15 Ur Propoxyphene Screen Not Detected (NotDetected) 06/07/23 17:15 Ur Barbiturates Screen Not Detected (NotDetected) 06/07/23 17:15 U Tricyclic Antidepress Not Detected (NotDetected) 06/07/23 17:15 Ur Phencyclidine Scrn Not Detected (NotDetected) 06/07/23 17:15 Ur Amphetamines Screen Detected (NotDetected) H 06/07/23 17:15 U Methamphetamines Scrn Detected (NotDetected) H 06/07/23 17:15 U Benzodiazepines Scrn Not Detected (NotDetected) 06/07/23 17:15 Urine Cocaine Screen Not Detected (NotDetected) 06/07/23 17:15 U Marijuana (THC) Screen Detected (NotDetected) H 06/07/23 17:15 Coronavirus (PCR) Not Detected (Not Detectd) 06/06/23 20:01 Allergies Allergy/AdvReac Type Severity Reaction Status Date / Time Penicillins Allergy Unknown Unknown Verified 06/06/23 18:50 piperacillin [From Zosyn] Allergy Unknown Unknown Verified 06/06/23 18:50 tazobactam [From Zosyn] Allergy Unknown Unknown Verified 06/06/23 18:50 haloperidol [From Haldol] AdvReac Severe Anaphylaxis Verified 06/06/23 18:50 Patient Condition at Discharge: Stable Plan - Discharge Summary Discharge Rx Participant: No New Discharge Prescriptions: New Imipramine [Tofranil] 25 mg PO HS 30 Days #30 tab Nicotine Gum (Polacrilex) [Nicorette] 2 mg BUCCAL Q4H #180 piece gum Continue Metoprolol Tartrate [Lopressor] 25 mg PO DAILY Paliperidone IM [Invega Sustenna] 234 mg IM ONCE Discharge Medication List Metoprolol Tartrate [Lopressor] 25 mg PO DAILY 06/14/22 [History] Paliperidone IM [Invega Sustenna] 234 mg IM ONCE 06/06/23 [History] Imipramine [Tofranil] 25 mg PO HS 30 Days #30 tab 06/11/23 [Rx] Nicotine Gum (Polacrilex) [Nicorette] 2 mg BUCCAL Q4H #180 piece gum 06/11/23 [Rx] Follow up Appointment(s)/Referral(s): [facility] [Outside] - 06/12/23 1:00 pm (06/12/2023 1:00PM - 2:00PM BRIANA REEVES 06/16/2023 11:30AM - 12:00PM MAGDI GREEN ) [facility] [Primary Care Provider] - 1-2 days Patient Instructions/Handouts: How to Stop Smoking (DC), Bipolar Disorder (DC), Depression (DC), Polysubstance Abuse (ED) Activity/Diet/Wound Care/Special Instructions: Avoid the use of street drugs and alcohol. Take all medications as prescribed. When you are in need of refills on your medications, please contact your medical provider and/or outpatient psychiatrist to have this done. Please go to [facility] outpatient appointments for aftercare treatment. If symptoms return or become worse, call the crisis line at and/or go to the nearest emergency room for evaluation. Discharge Disposition: HOME SELF-CARE
== END 2023-06-11 12:18 | disposition home or self-care (01) | DRG 753 ==
LOC: EC 16:55 → 3MHU 20:32
PROVIDERS: ADMIT Psychiatry & Neurology Psychiatry; ATTEND Psychiatry & Neurology Psychiatry
DX: F31.9 Bipolar disorder, unspecified (principal); F11.10 Opioid abuse, uncomplicated; F15.20 Other stimulant dependence, uncomplicated; F12.10 Cannabis abuse, uncomplicated; Z20.822 Contact with and (suspected) exposure to COVID-19; F41.9 Anxiety disorder, unspecified; I10 Essential (primary) hypertension; F17.210 Nicotine dependence, cigarettes, uncomplicated; Z71.6 Tobacco abuse counseling; Z79.899 Other long term (current) drug therapy; Z95.2 Presence of prosthetic heart valve; Z88.1 Allergy status to other antibiotic agents; Z88.0 Allergy status to penicillin; Z88.8 Allergy status to other drugs, medicaments and biological substances; Z71.41 Alcohol abuse counseling and surveillance of alcoholic; Z71.51 Drug abuse counseling and surveillance of drug abuser; Z81.8 Family history of other mental and behavioral disorders
CPT/HCPCS: 80053; 80061; 80306; 81001; 82075; 83036; 84443; 85025; 87635; 93005; 99285

== ENCOUNTER 2023-09-17 19:15 | Emergency (ER) | payer OTHER ==
--- NOTE | 2023-09-17 19:55 | ED ---
Chest Pain HPI - General Chief Complaint: Chest Pain Stated Complaint: chest pains Time Seen by Provider: 09/17/23 19:52 Source: patient, family, RN notes reviewed Mode of arrival: ambulatory Limitations: no limitations - History of Present Illness Initial Comments: This is a 27 year old male who presents to the emergency department for chest pain. This has been intermittent since this morning. He has had a tricuspid valve replacement and sees cardiology at [facility], and has an upcoming appointment on 10/13. Patient is not a great historian, and makes statements like "my heart is bleeding", and his mother provides most of the history. MD Complaint: chest pain - Related Data Home Medications Medication Instructions Recorded Confirmed Metoprolol Tartrate [Lopressor] 25 mg PO BID 06/14/22 08/27/23 Paliperidone IM [Invega Sustenna] 234 mg IM Q28D 06/06/23 08/27/23 Cholecalciferol (Vitamin D3) 125 mcg PO DAILY 08/27/23 08/27/23 [Vitamin D3 (125 MCG = 5,000 IU)] Famotidine [Pepcid] 20 mg PO BID 08/27/23 08/27/23 Allergies Allergy/AdvReac Type Severity Reaction Status Date / Time Penicillins Allergy Unknown Unknown Verified 09/17/23 19:52 piperacillin [From Zosyn] Allergy Unknown Unknown Verified 09/17/23 19:52 tazobactam [From Zosyn] Allergy Unknown Unknown Verified 09/17/23 19:52 haloperidol [From Haldol] AdvReac Severe Anaphylaxis Verified 09/17/23 19:52 Review of Systems ROS Statement: Those systems with pertinent positive or pertinent negative responses have been documented in the HPI. ROS Other: All systems not noted in ROS Statement are negative. 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 Past Anesthesia/Blood Transfusion Reactions: No Reported Reaction Past Psychological History: Anxiety, Bipolar, Depression Smoking Status: Current every day smoker Past Alcohol Use History: Occasional Past Drug Use History: IV Drug Use, Marijuana, Methamphetamine - Past Family History family Additional Family Medical History / Comment(s): States multiple family members with heart disease on his mother's side of the family. General Exam - General Exam Comments Initial Comments: Visual Physical Exam Vital signs reviewed General: Well-appearing, nontoxic, no acute distress. Head: Normocephalic, atraumatic Eyes: PERRLA, EOMI ENT: Airway patent Chest: Nonlabored breathing Skin: No visual rash, normal skin tone Neuro: Alert and oriented 3 Musculoskeletal: No gross abnormalities I performed the QuickNote portion of this chart. Signed Yulissa Suarez PA-C. Course Vital Signs 09/17/23 19:52 Temperature 98.2 F Pulse Rate 80 Respiratory 18 Rate Blood Pressure 145/93 O2 Sat by Pulse 98 Oximetry Chest Pain MDM - MDM Patient eloped from the emergency department prior to completion and review of t he ordered testing. Disposition Clinical Impression: Chest pain Disposition: LEFT AGAINST MEDICAL ADVICE Referrals: [facility] [Primary Care Provider] - 1-2 days
[2023-09-17 19:58] VITALS: BP 145/93; PULSE 80; RESP 18; TEMP 98.2
== END 2023-09-17 20:43 | disposition left against medical advice (07) ==
LOC: EC 19:15
DX: R07.9 Chest pain, unspecified (principal); I10 Essential (primary) hypertension; F31.9 Bipolar disorder, unspecified; F41.9 Anxiety disorder, unspecified; F12.90 Cannabis use, unspecified, uncomplicated; F17.200 Nicotine dependence, unspecified, uncomplicated; Z79.899 Other long term (current) drug therapy; Z88.0 Allergy status to penicillin; Z88.8 Allergy status to other drugs, medicaments and biological substances; Z53.29 Procedure and treatment not carried out because of patient's decision for other reasons
CPT/HCPCS: 93005; 99284

== ENCOUNTER 2023-10-29 07:21 | Emergency (ER) | payer OTHER ==
--- NOTE | 2023-10-29 07:52 | ED ---
Chest Pain HPI - General Chief Complaint: Chest Pain Stated Complaint: Chest Pain Time Seen by Provider: 10/29/23 07:30 Source: patient Mode of arrival: wheelchair Limitations: no limitations - History of Present Illness Initial Comments: 28-year-old male with past nuchal history of tricuspid valve replacement secondary to endocarditis who presents to the emergency department reporting chest pain. States the pain started 45 minutes prior to hospital arrival. Describes it as a sharp shooting pain over the left side of his chest wall without radiation. Denies any associated shortness of breath. No nausea or vomiting. Denies any fevers. Denies drug use. He saw his supervisor international reservations earlier this month. He is scheduled for a new valve on December 25. He was told that he needs his valve replaced every 10 years and last one was performed when he was 27 years old. He denies any abdominal pain. No numbness, tingling or weakness in his extremities. No other alleviating, precipitating or modifying factors - Related Data Home Medications Medication Instructions Recorded Confirmed Metoprolol Tartrate [Lopressor] 25 mg PO BID 06/14/22 10/29/23 Paliperidone IM [Invega Sustenna] 234 mg IM Q28D 06/06/23 10/29/23 Cholecalciferol (Vitamin D3) 125 mcg PO DAILY 08/27/23 10/29/23 [Vitamin D3 (125 MCG = 5,000 IU)] Famotidine [Pepcid] 20 mg PO BID 08/27/23 10/29/23 Allergies Allergy/AdvReac Type Severity Reaction Status Date / Time Penicillins Allergy Unknown Unknown Verified 10/29/23 09:54 piperacillin [From Zosyn] Allergy Unknown Unknown Verified 10/29/23 09:54 tazobactam [From Zosyn] Allergy Unknown Unknown Verified 10/29/23 09:54 haloperidol [From Haldol] AdvReac Severe Anaphylaxis Verified 10/29/23 09:54 Review of Systems ROS Statement: Those systems with pertinent positive or pertinent negative responses have been documented in the HPI. ROS Other: All systems not noted in ROS Statement are negative. 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 Past Anesthesia/Blood Transfusion Reactions: No Reported Reaction Past Psychological History: Anxiety, Bipolar, Depression Smoking Status: Current every day smoker Past Alcohol Use History: Occasional Past Drug Use History: IV Drug Use, Marijuana, Methamphetamine - Past Family History family Additional Family Medical History / Comment(s): States multiple family members with heart disease on his mother's side of the family. General Exam Limitations: no limitations General appearance: alert, in no apparent distress Head exam: Present: atraumatic, normocephalic, normal inspection Eye exam: Present: normal appearance, PERRL, EOMI. Absent: scleral icterus, conjunctival injection, periorbital swelling ENT exam: Present: normal exam, mucous membranes moist Neck exam: Present: normal inspection. Absent: tenderness, meningismus, lymphadenopathy Respiratory exam: Present: normal lung sounds bilaterally. Absent: respiratory distress, wheezes, rales, rhonchi, stridor Cardiovascular Exam: Present: regular rate, normal rhythm, systolic murmur. Absent: diastolic murmur, rubs, gallop, clicks GI/Abdominal exam: Present: soft, normal bowel sounds. Absent: distended, tenderness, guarding, rebound, rigid Extremities exam: Present: normal inspection, full ROM, normal capillary refill. Absent: tenderness, pedal edema, joint swelling, calf tenderness Back exam: Present: normal inspection Neurological exam: Present: alert, oriented X3, CN II-XII intact Psychiatric exam: Present: normal affect, normal mood Skin exam: Present: warm, dry, intact, normal color. Absent: rash Course Vital Signs 10/29/23 10/29/23 10/29/23 07:27 08:02 08:05 Temperature 98.2 F Pulse Rate 80 75 Pulse Rate [ 66 Support Engineer ] Respiratory 16 18 Rate Blood Pressure 103/67 97/57 O2 Sat by Pulse 99 98 Oximetry 10/29/23 09:56 Temperature 98.0 F Pulse Rate 61 Pulse Rate [ Support Engineer ] Respiratory 20 Rate Blood Pressure 105/76 O2 Sat by Pulse 100 Oximetry Chest Pain MDM - MDM Was pt. sent in by a medical professional or institution (, PA, PRESSURE SUPERVISOR, urgent care, hospital, or assisted...) When possible be specific @ -No Did you speak to anyone other than the patient for history (EMS, parent, family, police, friend...)? What history was obtained from this source @ -mom Did you review nursing and triage notes (agree or disagree)? Why? @ -I reviewed and agree with nursing and triage notes Were old charts reviewed (outside hosp., previous admission, EMS record, old EKG, old radiological studies, urgent care reports/EKG's, assisted records)? Report findings @ -yes, i reviewed ed visit in august where pt was seen for chest pain Differential Diagnosis (chest pain, altered mental status, abdominal pain women, abdominal pain men, vaginal bleeding, weakness, fever, dyspnea, syncope, headache, dizziness, GI bleed, back pain, seizure, CVA, palpatations, mental health, musculoskeletal)? @ -endocaritis, pericarditis, dysrthymia EKG interpreted by me (3pts min.). @ -Yes and demonstrates sinus rhythm rate of 85. CO interval 159. QRS 109. QTC of 406. No acute ST segment elevations or depressions. Morphology is the same as previous EKG X-rays interpreted by me (1pt min.). @ -yes and demonstrates no acute process CT interpreted by me (1pt min.). @ -None done U/S interpreted by me (1pt. min.). @ -None done What testing was considered but not performed or refused? (CT, X-rays, U/S, labs)? Why? @ -None What meds were considered but not given or refused? Why? @ -None Did you discuss the management of the patient with other professionals (professionals i.e. , PA, PRESSURE SUPERVISOR, lab, RT, psych nurse, social staff worker, key account coordinator, te acher, radio division officer, pillowcase cleaner)? Give summary @ -No Was smoking cessation discussed for >3mins.? @ -No Was critical care preformed (if so, how long)? @ -No Were there social determinants of health that impacted care today? How? (Homelessness, low income, unemployed, alcoholism, drug addiction, transportation, low edu. Level, literacy, decrease access to med. care, usp, rehab)? @ -No Was there de-escalation of care discussed even if they declined (Discuss DNR or withdrawal of care, Hospice)? DNR status @ -No What co-morbidities impacted this encounter? (DM, HTN, Smoking, COPD, CAD, Cancer, CVA, ARF, Chemo, Hep., AIDS, mental health diagnosis, sleep apnea, morbid obesity)? @ -endocarditis with valve replacement hx Was patient admitted / discharged? Hospital course, mention meds given and route, prescriptions, significant lab abnormalities, going to OR and other pertinent info. @ -discharged. labs and xray peformed. results discussed with pt and mother. patient requesting discharge as he feels better. patient must see supervisor [employer] in outpatient setting with echo within 1 week. return for new symptoms Undiagnosed new problem with uncertain prognosis? @ -yes Drug Therapy requiring intensive monitoring for toxicity (Heparin, Nitro, Insulin, Cardizem)? @ -No Were any procedures done? @ -No Diagnosis/symptom? @ -acute chest pain, hx endocarditis Acute, or Chronic, or Acute on Chronic? @ -acute Uncomplicated (without systemic symptoms) or Complicated (systemic symptoms)? @ -complicated Side effects of treatment? @ -No Exacerbation, Progression, or Severe Exacerbation? @ -No Poses a threat to life or bodily function? How? (Chest pain, [place], [place], pneumonia, PE, COPD, DKA, ARF, appy, cholecystitis, CVA, Diverticulitis, Homicidal, Suicidal, threat to staff... and all critical care pts) @ -No Disposition Clinical Impression: Chest pain Disposition: HOME SELF-CARE Condition: Stable Instructions (If sedation given, give patient instructions): Chest Pain (ED) Additional Instructions: Please follow-up with your supervisor [employer] to return for any new or worsening symptoms Is patient prescribed a controlled substance at d/c from ED?: No Referrals: [facility] [Primary Care Provider] - 1-2 days Time of Disposition: 10:04
[2023-10-29 08:06] LABS: Basophils % (A) 1 %; Eosinophils # (A) 0.2 k/uL (0-0.7); Eosinophils % (A) 3 %; HCT 43.2 % (39.0-53.0); HGB 14.2 gm/dL (13.0-17.5); Lymphocytes # (A) 1.6 k/uL (1.0-4.8); Lymphocytes % (A) 23 %; MCH 29.4 pg (25.0-35.0); MCHC 32.8 g/dL (31.0-37.0); MCV 89.4 fL (80.0-100.0); Mean Platelet Volume 7.6; Monocytes # (A) 0.5 k/uL (0-1.0); Monocytes % (A) 8 %; Neutrophils # (A) 4.5 k/uL (1.3-7.7); Neutrophils % (A) 64 %; Platelet Count 240 k/uL (150-450); RBC 4.83 m/uL (4.30-5.90); RDW 13.9 % (11.5-15.5)
[2023-10-29 08:18] LABS: INR 1.1 (<1.2); Partial Thromboplastin Time 24.8 sec (22.0-30.0); Prothrombin Time 11.7 sec (10.0-12.5)
--- NOTE | 2023-10-29 08:19 | XR ---
EXAMINATION TYPE: XR chest 2V DATE OF EXAM: 10/29/2023 COMPARISON: 09/25/2020 HISTORY: Chest pain TECHNIQUE: Frontal and lateral views of the chest are obtained. FINDINGS: There is no focal air space opacity. Median sternotomy and cardiac valvular prosthesis. No evidence for pneumothorax. No pleural effusion. The cardiac silhouette size is within normal limits. The osseous structures are grossly intact. IMPRESSION: 1. No acute cardiopulmonary process.
[2023-10-29 08:27] LABS: ALT 28 U/L (4-49); AST 24 U/L (17-59); African American GFR (CKD) >90 (>60 ml/min/1.73 sqM); Albumin 4.3 g/dL (3.5-5.0); Alkaline Phosphatase 102 U/L (38-126); Anion Gap 10 mmol/L; Blood Urea Nitrogen 10 mg/dL (9-20); Calcium 9.6 mg/dL (8.4-10.2); Carbon Dioxide 24 mmol/L (22-30); Chloride 106 mmol/L (98-107); Glucose 89 mg/dL (74-99); Magnesium 1.8 mg/dL (1.6-2.3); Non-African American GFR(CKD) >90 (>60 ml/min/1.73 sqM); Potassium 4.2 mmol/L (3.5-5.1); Sodium 140 mmol/L (137-145); Total Bilirubin 0.9 mg/dL (0.2-1.3); Total Protein 7.3 g/dL (6.3-8.2)
[2023-10-29 08:35] LABS: NT-Pro-B-Type Natriuretic Pept 242 pg/mL
[2023-10-29 09:43] LABS: C Reactive Protein <0.5 mg/dL (<1.0)
[2023-10-29 10:00] VITALS: BP 105/76; PULSE 61; RESP 20; TEMP 98
== END 2023-10-29 10:16 | disposition home or self-care (01) ==
LOC: EC 07:21 → EEVIPCON 07:21 → EC 10:16
DX: R07.89 Other chest pain (principal); I10 Essential (primary) hypertension; F31.9 Bipolar disorder, unspecified; F41.9 Anxiety disorder, unspecified; F17.200 Nicotine dependence, unspecified, uncomplicated; F12.90 Cannabis use, unspecified, uncomplicated; Z86.79 Personal history of other diseases of the circulatory system; Z88.0 Allergy status to penicillin; Z88.8 Allergy status to other drugs, medicaments and biological substances; Z79.899 Other long term (current) drug therapy
CPT/HCPCS: 36415; 71046; 80053; 83735; 83880; 84484; 85025; 85610; 85730; 86140; 93005; 99285

== ENCOUNTER 2023-11-14 20:41 | Emergency (ER) | payer OTHER ==
[2023-11-14 20:53] VITALS: RESP 18; TEMP 98.2
[2023-11-14 21:29] LABS: Basophils % (A) 0 %; Eosinophils # (A) 0.1 k/uL (0-0.7); Eosinophils % (A) 1 %; HCT 42.1 % (39.0-53.0); HGB 13.8 gm/dL (13.0-17.5); Lymphocytes # (A) 0.8 k/uL (1.0-4.8); Lymphocytes % (A) 10 %; MCH 29.5 pg (25.0-35.0); MCHC 32.9 g/dL (31.0-37.0); MCV 89.7 fL (80.0-100.0); Mean Platelet Volume 7.6; Monocytes # (A) 0.5 k/uL (0-1.0); Monocytes % (A) 7 %; Neutrophils # (A) 6.5 k/uL (1.3-7.7); Neutrophils % (A) 81 %; Platelet Count 243 k/uL (150-450); RBC 4.69 m/uL (4.30-5.90); RDW 13.9 % (11.5-15.5)
[2023-11-14 21:39] LABS: Partial Thromboplastin Time 23.8 sec (22.0-30.0)
[2023-11-14 21:44] LABS: ALT 25 U/L (4-49); AST 22 U/L (17-59); African American GFR (CKD) >90 (>60 ml/min/1.73 sqM); Albumin 3.9 g/dL (3.5-5.0); Alkaline Phosphatase 119 U/L (38-126); Anion Gap 9 mmol/L; Blood Urea Nitrogen 13 mg/dL (9-20); Calcium 9.5 mg/dL (8.4-10.2); Carbon Dioxide 23 mmol/L (22-30); Chloride 106 mmol/L (98-107); Glucose 131 mg/dL (74-99); Magnesium 1.7 mg/dL (1.6-2.3); Non-African American GFR(CKD) >90 (>60 ml/min/1.73 sqM); Potassium 4.3 mmol/L (3.5-5.1); Sodium 138 mmol/L (137-145); Total Bilirubin 0.8 mg/dL (0.2-1.3); Total Protein 6.7 g/dL (6.3-8.2)
[2023-11-14 21:52] LABS: NT-Pro-B-Type Natriuretic Pept 400 pg/mL
[2023-11-14 22:29] VITALS: BP 96/61; PULSE 73
--- NOTE | 2023-11-14 22:33 | XR ---
EXAMINATION TYPE: XR chest 2V DATE OF EXAM: 11/14/2023 9:27 PM CLINICAL INDICATION:Male, 28 years old with history of Chest Pain; [facility] COMPARISON: 10/29/2023 TECHNIQUE: XR chest 2V. Frontal PA and lateral views of the chest. FINDINGS: Lines/Tubes: EKG leads overlie the chest. No indwelling lines are seen. Heart/mediastinum: Cardiomediastinal silhouette is well defined. Heart size is stable, mildly enlarge d. Mediastinum appears normal. Prosthetic heart valve and sternotomy wires again noted. Pulmonary vascularity: Not increased, Lungs/Pleura: There is no evidence of pleural effusion, focal consolidation, or pneumothorax. Musculoskeletal: No acute osseous abnormality demonstrated in the limits of the exam. Other findings: None. IMPRESSION: No acute cardiopulmonary abnormality.
--- NOTE | 2023-11-14 23:24 | ED ---
Chest Pain HPI - General Chief Complaint: Chest Pain Stated Complaint: Chest Pain Time Seen by Provider: 11/14/23 21:12 Source: patient, EMS Mode of arrival: EMS Limitations: no limitations - History of Present Illness Initial Comments: 28-year-old male with past history of endocarditis requiring tricuspid valve replacement who presents emergency department reporting chest pain. States that his symptoms started around 7 PM tonight. He describes it as a sharp shooting pressure over the left side of his chest. Denies associated shortness of breath. No nausea or vomiting. Denies any recent drug use. He saw his software release manager in September and is scheduled for a valve replacement on December 25. He denies any provocative factors. No fevers, chills or cough. No other alleviating, precipitating or modifying factors - Related Data Home Medications Medication Instructions Recorded Confirmed Metoprolol Tartrate [Lopressor] 25 mg PO BID 06/14/22 11/14/23 Paliperidone IM [Invega Sustenna] 234 mg IM Q28D 06/06/23 11/14/23 Cholecalciferol (Vitamin D3) 125 mcg PO DAILY 08/27/23 11/14/23 [Vitamin D3 (125 MCG = 5,000 IU)] Famotidine [Pepcid] 20 mg PO BID 08/27/23 11/14/23 Allergies Allergy/AdvReac Type Severity Reaction Status Date / Time Penicillins Allergy Unknown Unknown Verified 10/29/23 09:54 piperacillin [From Zosyn] Allergy Unknown Unknown Verified 10/29/23 09:54 tazobactam [From Zosyn] Allergy Unknown Unknown Verified 10/29/23 09:54 haloperidol [From Haldol] AdvReac Severe Anaphylaxis Verified 10/29/23 09:54 Review of Systems ROS Statement: Those systems with pertinent positive or pertinent negative responses have been documented in the HPI. ROS Other: All systems not noted in ROS Statement are negative. 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 Past Anesthesia/Blood Transfusion Reactions: No Reported Reaction Past Psychological History: Anxiety, Bipolar, Depression Smoking Status: Current every day smoker Past Alcohol Use History: Occasional Past Drug Use History: IV Drug Use, Marijuana, Methamphetamine - Past Family History family Additional Family Medical History / Comment(s): States multiple family members with heart disease on his mother's side of the family. General Exam Limitations: no limitations General appearance: alert, in no apparent distress Head exam: Present: atraumatic, normocephalic, normal inspection Eye exam: Present: normal appearance, PERRL, EOMI. Absent: scleral icterus, conjunctival injection, periorbital swelling ENT exam: Present: normal exam, mucous membranes moist Neck exam: Present: normal inspection. Absent: tenderness, meningismus, lymphadenopathy Respiratory exam: Present: normal lung sounds bilaterally. Absent: respiratory distress, wheezes, rales, rhonchi, stridor Cardiovascular Exam: Present: regular rate, normal rhythm, normal heart sounds. Absent: systolic murmur, diastolic murmur, rubs, gallop, clicks GI/Abdominal exam: Present: soft, normal bowel sounds. Absent: distended, tenderness, guarding, rebound, rigid Extremities exam: Present: normal inspection, full ROM, normal capillary refill. Absent: tenderness, pedal edema, joint swelling, calf tenderness Back exam: Present: normal inspection Neurological exam: Present: alert, oriented X3, CN II-XII intact Psychiatric exam: Present: normal affect, normal mood Skin exam: Present: warm, dry, intact, normal color. Absent: rash Course Vital Signs 11/14/23 11/14/23 20:43 22:22 Temperature 98.2 F Pulse Rate 88 73 Respiratory 18 18 Rate Blood Pressure 98/71 96/61 O2 Sat by Pulse 99 98 Oximetry Chest Pain MDM - MDM Was pt. sent in by a medical professional or institution (, PA, MEDICAL INSURANCE CODER, urgent care, hospital, or care home...) When possible be specific @ -No Did you speak to anyone other than the patient for history (EMS, parent, family, police, friend...)? What history was obtained from this source @ -Spoke with the patient's mother for history Did you review nursing and triage notes (agree or disagree)? Why? @ -I reviewed and agree with nursing and triage notes Were old charts reviewed (outside hosp., previous admission, EMS record, old EKG, old radiological studies, urgent care reports/EKG's, care home records)? Report findings @ - old charts were reviewed - patient's recent visit for chest pain in September was reviewed Differential Diagnosis (chest pain, altered mental status, abdominal pain women, abdominal pain men, vaginal bleeding, weakness, fever, dyspnea, syncope, headache, dizziness, GI bleed, back pain, seizure, CVA, palpatations, mental health, musculoskeletal)? @ -Differential Chest Pain: Stable Angina, Unstable Angina, STEMI, NSTEMI Aortic Dissection, Pneumothorax, Musculoskeletal, Esophageal Spasm GERD, Cholecystitis, Pancreatitis, Zoster, this is not meant to be an all-inclusive list. EKG interpreted by me (3pts min.). @ -Yes and demonstrates sinus rhythm with a rate of 84. VA interval 162. QRS 100. QTC 382. No acute ST segment elevations or depressions X-rays interpreted by me (1pt min.). @ -Yes and demonstrates no acute process CT interpreted by me (1pt min.). @ -None done U/S interpreted by me (1pt. min.). @ -None done What testing was considered but not performed or refused? (CT, X-rays, U/S, labs)? Why? @ -None What meds were considered but not given or refused? Why? @ -None Did you discuss the management of the patient with other professionals (professionals i.e. , PA, MEDICAL INSURANCE CODER, lab, RT, psych nurse, neonatal social worker, stumper feller, teacher, boat officer, case making machine operator)? Give summary @ -No Was smoking cessation discussed for >3mins.? @ -No Was critical care preformed (if so, how long)? @ -No Were there social determinants of health that impacted care today? How? (Homelessness, low income, unemployed, alcoholism, drug addiction, transportation, low edu. Level, literacy, decrease access to med. care, detention, rehab)? @ -No Was there de-escalation of care discussed even if they declined (Discuss DNR or withdrawal of care, Hospice)? DNR status @ -No What co-morbidities impacted this encounter? (DM, HTN, Smoking, COPD, CAD, Cancer, CVA, ARF, Chemo, Hep., AIDS, mental health diagnosis, sleep apnea, morbid obesity)? @ -tricuspid valve replacement Was patient admitted / discharged? Hospital course, mention meds given and route, prescriptions, significant lab abnormalities, going to OR and other pertinent info. @ -Upon arrival patient was placed into room 2. Thorough history and physical exam was performed. IV access is established. Laboratory studies are conducted. Pelvic EKG was performed. Patient was given nitro by EMS and states that this completely alleviated his symptoms. He is pain-free at this time. Chest x-ray was performed. Upon return of the results they're discussed with the patient. Patient and mother are equal for discharge. Patient will be discharged home and instructed to follow up with his software release manager. They require echo for his reoccurring chest pain. Return for any new or worsening symptoms that patient agreed with plan and was discharged in stable condition Undiagnosed new problem with uncertain prognosis? @ -No Drug Therapy requiring intensive monitoring for toxicity (Heparin, Nitro, Insulin, Cardizem)? @ -No Were any procedures done? @ -No Diagnosis/symptom? @ -Acute chest pain, history of tricuspid valve replacement Acute, or Chronic, or Acute on Chronic? @ -Acute Uncomplicated (without systemic symptoms) or Complicated (systemic symptoms)? @ -complicated Side effects of treatment? @ -No Exacerbation, Progression, or Severe Exacerbation? @ -No Poses a threat to life or bodily function? How? (Chest pain, [place], [place], pneumonia, PE, COPD, DKA, ARF, appy, cholecystitis, CVA, Diverticulitis, Homicidal, Suicidal, threat to staff... and all critical care pts) @ -No Disposition Clinical Impression: Chest pain Disposition: HOME SELF-CARE Condition: Stable Instructions (If sedation given, give patient instructions): Chest Pain (ED) Additional Instructions: Please call your software release manager. I recommend an echo. Return for any new or worsening symptoms Is patient prescribed a controlled substance at d/c from ED?: No Referrals: [facility] [Primary Care Provider] - 1-2 days Time of Disposition: 23:24
== END 2023-11-14 23:31 | disposition home or self-care (01) ==
LOC: EC 20:41
DX: R07.89 Other chest pain (principal); I10 Essential (primary) hypertension; F17.200 Nicotine dependence, unspecified, uncomplicated; F12.90 Cannabis use, unspecified, uncomplicated; F15.90 Other stimulant use, unspecified, uncomplicated; Z86.59 Personal history of other mental and behavioral disorders; Z88.0 Allergy status to penicillin; Z79.899 Other long term (current) drug therapy; Z88.8 Allergy status to other drugs, medicaments and biological substances
CPT/HCPCS: 36415; 71046; 80053; 83735; 83880; 84484; 85025; 85610; 85730; 93005; 99285

== ENCOUNTER 2024-02-24 19:04 | Inpatient (IN) | payer MEDICAID, OTHER ==
[2024-02-24] MEDS: LORazepam 2 MG/ML INJ IM STA (21:23)
--- NOTE | 2024-02-24 22:46 | ED ---
General Adult HPI - General Chief complaint: Psychiatric Symptoms Stated complaint: Petition - Mental Health Time Seen by Provider: 02/24/24 19:54 Source: patient, RN notes reviewed Mode of arrival: ambulatory Limitations: no limitations - History of Present Illness Initial comments: 28-year-old male presents to the emergency department as a court ordered petition. Patient has been off of his Invega injection for the past 3 months. He states that he is here for an injection today. Patient states that he is doing well otherwise. He denies SI, HI. He does note that he hears things that are not there. Patient seems to be delusional, tangential thinking. Mother states that she does not believe he is a harm to himself but she is concerned for his mental health. - Related Data Home Medications Medication Instructions Recorded Confirmed Metoprolol Tartrate [Lopressor] 25 mg PO BID 06/14/22 11/14/23 Paliperidone IM [Invega Sustenna] 234 mg IM Q28D 06/06/23 11/14/23 Cholecalciferol (Vitamin D3) 125 mcg PO DAILY 08/27/23 11/14/23 [Vitamin D3 (125 MCG = 5,000 IU)] Famotidine [Pepcid] 20 mg PO BID 08/27/23 11/14/23 Allergies Allergy/AdvReac Type Severity Reaction Status Date / Time Penicillins Allergy Unknown Unknown Verified 02/24/24 19:15 piperacillin [From Zosyn] Allergy Unknown Unknown Verified 02/24/24 19:15 tazobactam [From Zosyn] Allergy Unknown Unknown Verified 02/24/24 19:15 haloperidol [From Haldol] AdvReac Severe Anaphylaxis Verified 02/24/24 19:15 Review of Systems ROS Statement: Those systems with pertinent positive or pertinent negative responses have been documented in the HPI. ROS Other: All systems not noted in ROS Statement are negative. 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 Past Anesthesia/Blood Transfusion Reactions: No Reported Reaction Past Psychological History: Anxiety, Bipolar, Depression Smoking Status: Current every day smoker Past Alcohol Use History: Occasional Past Drug Use History: IV Drug Use, Marijuana, Methamphetamine - Past Family History family Additional Family Medical History / Comment(s): States multiple family members with heart disease on his mother's side of the family. General Exam Limitations: no limitations General appearance: anxious Head exam: Present: atraumatic, normocephalic, normal inspection Eye exam: Present: normal appearance, PERRL, EOMI. Absent: scleral icterus, conjunctival injection, periorbital swelling ENT exam: Present: normal exam, mucous membranes moist Neck exam: Present: normal inspection. Absent: tenderness, meningismus, lymphadenopathy Respiratory exam: Present: normal lung sounds bilaterally. Absent: respiratory distress, wheezes, rales, rhonchi, stridor Cardiovascular Exam: Present: regular rate, normal rhythm, other (murmur). Absent: rubs, gallop, clicks Extremities exam: Present: normal inspection, full ROM, normal capillary refill. Absent: tenderness, pedal edema, joint swelling, calf tenderness Back exam: Present: normal inspection Neurological exam: Present: alert, oriented X3 Psychiatric exam: Present: agitated Skin exam: Present: warm, dry, intact, normal color. Absent: rash Course Vital Signs 02/24/24 02/24/24 19:09 23:42 Temperature 97.7 F Pulse Rate 76 78 Respiratory 18 18 Rate Blood Pressure 135/95 128/72 O2 Sat by Pulse 100 100 Oximetry Medical Decision Making - Medical Decision Making Was pt. sent in by a medical professional or institution (, PA, CAMP BOSS, urgent care, hospital, or [facility]...) When possible be specific @ -No Did you speak to anyone other than the patient for history (EMS, parent, family, police, friend...)? What history was obtained from this source @ -No Did you review nursing and triage notes (agree or disagree)? Why? @ -I reviewed and agree with nursing and triage notes Were old charts reviewed (outside hosp., previous admission, EMS record, old EKG, old radiological studies, urgent care reports/EKG's, [facility] records)? Report findings @ -No old charts were reviewed Differential Diagnosis (chest pain, altered mental status, abdominal pain women, abdominal pain men, vaginal bleeding, weakness, fever, dyspnea, syncope, headache, dizziness, GI bleed, back pain, seizure, CVA, palpatations, mental health, musculoskeletal)? @ -Differential Mental Health Depression, anxiety, bipolar, psychosis, schizophrenia, borderline personality, situational depression, adjustment disorder, behavioral disorder, brain tumor, malingering, substance abuse, encephalopathy, medication reaction, dementia, hypothyroidism, degenerative neurologic disorder, lupus.... This is not meant to be all-inclusive list EKG interpreted by me (3pts min.). @ -EKG at 2304 shows sinus rhythm rate 92, RI 152, QRS 102, QTQTc [id number], compared to prior EKG X-rays interpreted by me (1pt min.). @ -None done CT interpreted by me (1pt min.). @ -None done U/S interpreted by me (1pt. min.). @ -None done What testing was considered but not performed or refused? (CT, X-rays, U/S, labs)? Why? @ -None What meds were considered but not given or refused? Why? @ -None Did you discuss the management of the patient with other professionals (professionals i.e. , PA, CAMP BOSS, lab, RT, psych nurse, school social worker, auto service station attendant, teacher, aadc plans staff officer, case resolution specialist)? Give summary @ -Discussed with EPS, recommending inpatient treatment for this patient Was smoking cessation discussed for >3mins.? @ -No Was critical care preformed (if so, how long)? @ -No Were there social determinants of health that impacted care today? How? (Derrick elessness, low income, unemployed, alcoholism, drug addiction, transportation, low edu. Level, literacy, decrease access to med. care, senior living, rehab)? @ -No Was there de-escalation of care discussed even if they declined (Discuss DNR or withdrawal of care, Hospice)? DNR status @ -No What co-morbidities impacted this encounter? (DM, HTN, Smoking, COPD, CAD, Cancer, CVA, ARF, Chemo, Hep., AIDS, mental health diagnosis, sleep apnea, morbid obesity)? @ -None Was patient admitted / discharged? Hospital course, mention meds given and route, prescriptions, significant lab abnormalities, going to OR and other pertinent info. @ -Admitted. Patient presented to the emergency department for "Invega injection "he was court ordered petitioned. Patient was very agitated initially, he eloped from the ED and was brought back by [employer]. He received 2 mg IM Ativan. Patient denies SI, HI. He does admit to hallucinations. Patient was evaluated by EPS, inpatient treatment was recommended. Undiagnosed new problem with uncertain prognosis? @ -No Drug Therapy requiring intensive monitoring for toxicity (Heparin, Nitro, Insulin, Cardizem)? @ -No Were any procedures done? @ -No Diagnosis/symptom? @ -Psychosis, schizophrenia Acute, or Chronic, or Acute on Chronic? @ -Acute Uncomplicated (without systemic symptoms) or Complicated (systemic symptoms)? @ -Uncomplicated Side effects of treatment? @ -No Exacerbation, Progression, or Severe Exacerbation? @ -Exacerbation Poses a threat to life or bodily function? How? (Chest pain, USA, CT, pneumonia, PE, COPD, DKA, ARF, appy, cholecystitis, CVA, Diverticulitis, Homicidal, Suicidal, threat to staff... and all critical care pts) @ -Harm to self - Lab Data Lab Results 02/24/24 Range/Units 23:01 Urine Opiates Screen Not Detected (NotDetected) Ur Oxycodone Screen Not Detected (NotDetected) Urine Methadone Screen Not Detected (NotDetected) Ur Barbiturates Screen Not Detected (NotDetected) U Tricyclic Antidepress Not Detected (NotDetected) Ur Phencyclidine Scrn Not Detected (NotDetected) Ur Amphetamines Screen Detected H (NotDetected) U Methamphetamines Scrn Detected H (NotDetected) U Benzodiazepines Scrn Not Detected (NotDetected) Urine Cocaine Screen Not Detected (NotDetected) U Marijuana (THC) Screen Detected H (NotDetected) Disposition Clinical Impression: Acute psychosis Disposition: TRANSFER TO PSYCH HOSP/UNIT Condition: Stable Is patient prescribed a controlled substance at d/c from ED?: No Referrals: [facility] [Primary Care Provider] - 1-2 days
[2024-02-24 23:47] LABS: Amphetamine Screen,Urine Detected (NotDetected); Barbiturate Screen,Urine Not Detected (NotDetected); Benzodiazepines Screen,Urine Not Detected (NotDetected); Cocaine Screen,Urine Not Detected (NotDetected); Methadone Screen, Urine Not Detected (NotDetected); Opiate Screen,Urine Not Detected (NotDetected); Oxycodone Screen, Urine Not Detected (NotDetected); Phencyclidine Screen,Urine Not Detected (NotDetected); Tricyclic Antidepressant,Urine Not Detected (NotDetected); Urn Cannabinoid Scrn Detected (NotDetected)
[2024-02-25] MEDS ORDERED: MAGNESIUM HYDROXIDE 2,400 MG/30 ML CUP PO PRN (00:45)
[2024-02-25] MEDS ORDERED: IBUPROFEN 600 MG TAB PO PRN (00:45)
[2024-02-25] MEDS ORDERED: OLANZapine 10 MG VIAL IM PRN (01:00)
[2024-02-25] MEDS: LORazepam 2 MG/ML INJ IM STA (01:19)
[2024-02-25] MEDS: chlorproMAZINE 25 MG/ML 2 ML AMP IM ONE ×2 (01:54→06:34)
[2024-02-25] MEDS ORDERED: MAG HYDROX/AL HYDROX/SIMETH 355 ML BOTTLE PO PRN (04:00)
[2024-02-25] MEDS: METOPROLOL TARTRATE 25 MG TAB PO SCH (08:58)
[2024-02-25] MEDS: NICOTINE 14MG/24HR PATCH TRANSDERM SCH (08:58)
[2024-02-25] MEDS: BENZTROPINE 2 MG/2 ML AMP IM ONE (19:10)
--- NOTE | 2024-02-26 04:47 | P.PN ---
Progress Note - Text Progress Note Date: 02/26/24 Attempted to see the patient in the mental health unit. Advised by the mental health unit RN that the patient was sedated and inappropriate for evaluation at this time.
[2024-02-26 08:54] LABS: Basophils % (A) 1 %; Eosinophils # (A) 0.1 k/uL (0-0.7); Eosinophils % (A) 1 %; HCT 48.7 % (39.0-53.0); HGB 15.1 gm/dL (13.0-17.5); Lymphocytes # (A) 1.4 k/uL (1.0-4.8); Lymphocytes % (A) 18 %; MCH 28.5 pg (25.0-35.0); MCV 91.9 fL (80.0-100.0); Mean Platelet Volume 7.7; Monocytes # (A) 0.7 k/uL (0-1.0); Monocytes % (A) 10 %; Neutrophils # (A) 5.2 k/uL (1.3-7.7); Neutrophils % (A) 69 %; Platelet Count 255 k/uL (150-450); RDW 14.3 % (11.5-15.5); WBC 7.6 k/uL (3.8-10.6)
[2024-02-26 09:14] LABS: ALT 33 U/L (4-49); AST 33 U/L (17-59); African American GFR (CKD) >90 (>60 ml/min/1.73 sqM); Albumin 3.8 g/dL (3.5-5.0); Alkaline Phosphatase 131 U/L (38-126); Anion Gap 9 mmol/L; Bilirubin, Delta 0.2 mg/dL (0.0-0.2); Bilirubin,Unconjugated 1.3 mg/dL (0.0-1.1); Blood Urea Nitrogen 10 mg/dL (9-20); Calcium 9.4 mg/dL (8.4-10.2); Carbon Dioxide 21 mmol/L (22-30); Chloride 111 mmol/L (98-107); Glucose 89 mg/dL (74-99); Non-African American GFR(CKD) >90 (>60 ml/min/1.73 sqM); Potassium 4.1 mmol/L (3.5-5.1); Sodium 141 mmol/L (137-145); Total Bilirubin 1.5 mg/dL (0.2-1.3); Total Protein 6.6 g/dL (6.3-8.2)
[2024-02-26] MEDS ORDERED: OLANZapine 10 MG VIAL IM PRN (09:56)
--- NOTE | 2024-02-26 10:11 | P.HP ---
Psychiatric H&P - . H&P Date: 02/26/24 History & Physical: Allergies Allergy/AdvReac Type Severity Reaction Status Date / Time Penicillins Allergy Unknown Unknown Verified 02/25/24 00:55 piperacillin from Zosyn Allergy Unknown Unknown Verified 02/25/24 00:55 tazobactam from Zosyn Allergy Unknown Unknown Verified 02/25/24 00:55 haloperidol from Haldol AdvReac Severe Anaphylaxis Verified 02/25/24 00:55 Vital Signs Temp 97.8 F 02/25/24 02:48 Pulse 109 H 02/25/24 18:13 Resp 20 02/25/24 18:13 BP 125/72 02/25/24 18:13 Pulse Ox 97 02/25/24 18:13 FiO2 Laboratory Last Values WBC 7.6 k/uL (3.8-10.6) 02/26/24 08:28 RBC 5.30 m/uL (4.30-5.90) 02/26/24 08:28 Hgb 15.1 gm/dL (13.0-17.5) 02/26/24 08:28 Hct 48.7 % (39.0-53.0) 02/26/24 08:28 MCV 91.9 fL (80.0-100.0) 02/26/24 08:28 MCH 28.5 pg (25.0-35.0) 02/26/24 08:28 MCHC 31.0 g/dL (31.0-37.0) 02/26/24 08:28 RDW 14.3 % (11.5-15.5) 02/26/24 08:28 Plt Count 255 k/uL (150-450) 02/26/24 08:28 MPV 7.7 02/26/24 08:28 Neutrophils % 69 % 02/26/24 08:28 Lymphocytes % 18 % 02/26/24 08:28 Monocytes % 10 % 02/26/24 08:28 Eosinophils % 1 % 02/26/24 08:28 Basophils % 1 % 02/26/24 08:28 Neutrophils # 5.2 k/uL (1.3-7.7) 02/26/24 08:28 Lymphocytes # 1.4 k/uL (1.0-4.8) 02/26/24 08:28 Monocytes # 0.7 k/uL (0-1.0) 02/26/24 08:28 Eosinophils # 0.1 k/uL (0-0.7) 02/26/24 08:28 Basophils # 0.0 k/uL (0-0.2) 02/26/24 08:28 Urine Opiates Screen Not Detected (NotDetected) 02/24/24 23:01 Ur Oxycodone Screen Not Detected (NotDetected) 02/24/24 23:01 Urine Methadone Screen Not Detected (NotDetected) 02/24/24 23:01 Ur Barbiturates Screen Not Detected (NotDetected) 02/24/24 23:01 U Tricyclic Antidepress Not Detected (NotDetected) 02/24/24 23:01 Ur Phencyclidine Scrn Not Detected (NotDetected) 02/24/24 23:01 Ur Amphetamines Screen Detected (NotDetected) H 02/24/24 23:01 U Methamphetamines Scrn Detected (NotDetected) H 02/24/24 23:01 U Benzodiazepines Scrn Not Detected (NotDetected) 02/24/24 23:01 Urine Cocaine Screen Not Detected (NotDetected) 02/24/24 23:01 U Marijuana (THC) Screen Detected (NotDetected) H 02/24/24 23:01 SARS-CoV-2 (PCR) Not Detected (Not Detectd) 02/24/24 23:01 02/26/24 09:09 IDENTIFYING DATA: Patient is a 28 year old male, with significant drug use history. HPI: Patient presented to the hospital on 02/23. Brought in by [employer] on a garbage pick up worker order, as per EPS note, "Pt was brought in on a garbage pick up worker order/petition. Pt did elope for ER and was picked up by [employer] and brought back. Pt is on a current court order for treatment until 05/02/24 Per [place]. Mother states that he had court this morning and he did not go, his mother went for him as his guardian and she stated that this garbage pick up worker order was done because of his noncompliance. Pt has not seen [facility] since October 2023 and has not had his IM Invega since 12/01/23. Per petition by mother it states, "he has not had his invega shot since dec 02 is hearing voices & responding back & refusing to participate in [facility] treatment. he's typing on blank screens & delusions the electronics are working". During assessment pt is tangential, has loose associations, nonsensical thinking, and flight of ideas. Pt is exhibiting increased delusions per mother since being off the IM. Whe talking about his court order he states, "The injection is for the powerball, I have been doing reading on it". "What happens to the birthdays, do they go into google, where do they go". Pt believes that he is apart of an "international entity process" about [employer] view to [employer]. He believes he was there and seen a ditch, "the turkish commander his goal is 300 sacrifies...[place] has a clue". "I have seen the other side of people and the kept secret at [facility]...the computers, the paperwork..." "Hail to all...the secret talk". Pt denies Hallucinations but mother states that he has been telling her that her hears a recording in his head and hearing other voices and responding/yelling at them. Mother finds an increase in the delusions/hallucinations since being off his medication. Pt denies SI,HI. When asked about methampthemine use he states, "I can say no, I need the nathanael in the wall to answer that question, I accept the terms and what they do for me...". Pt them states he used a few weeks ago. Unclear of last use. Pt denies ETOH or other substances. Per mother he is supposed to have another tricuspid value surgery soon as his last one was in 2011, but recently refused the open heart option. Mother is looking into other options. Patient is asleep quite soundly, patient was not very cooperative with the interview. he only answered a few questions today. He denied hearing any voices or visual hallucinations. He denies any suicidal homicidal ideations intent or plan. Patient was asked several other questions however did not respond due to sedation. Patient UDS positive for methamphetamines, amphetamines, and marijuana. PAST PSYCHIATRIC HISTORY: Patient has previous diagnoses of bipolar 1 disorder, methamphetamine-induced psychotic disorder, cannabis use disorder, and opiate use disorder. Has had multiple admissions. R. He has had other trials of medications including Wellbutrin, Risperdal, metoprolol, and Zoloft. The patient's last inpatient psychiatric admission was in May, at which time he was discharged on INvega sustenna 234 mg IM q. 28 days. History of noncompliance. Noncompliant with [facility], last [facility] 12/01/23. PMH:As per ER note ALLERGIES: as per EMR CHEMICAL DEPENDENCY HISTORY:as per EMR FAMILY PSYCHIATRIC/SUBSTANCE USE HISTORY: The patient reports that he has a sister with bipolar disorder. SOCIAL HISTORY: Patient was born and raised in Patient was born and raised in [place], [place]. He currently lives with his mother and her boyfriend. He is single, never , but has one 6-year-old daughter. He states that he has been applying for social security but has been constantly denied due to his substance abuse. The patient dropped out of school in the 10th grade. He denies any legal issues at this time. He is under an [place] order.. MENTAL STATUS EXAM: General Appearance: Patient appears to be stated age is not very alert, sle eping. Patient appears to have poor hygiene and grooming. Behavior: Patient is hard to wake, unable to assess Speech: Patient's speech is mumbling Mood/Affect: unable to assess Suicidality/Homicidality: denies Perceptions: Patient denies any visual hallucinations and denies any auditory hallucinations Though content/process: unable to assess Memory and concentration: unable to assess Judgment and insight: chronically poor STRENGTHS/WEAKNESSES: strength is that patient is resilient. Weakness is that patient has poor judgment and is impulsive INTELLECT: average IMPRESSIONS: schizoaffective disorder, bipolar type methamphetamine use disorder cannabis use disorder nicotine dependance noncompliance with medication PLAN: -Patient is admitted under involuntary status to MHU for stabilization of psychiatric symptoms and safety. Patient on a court order until 05/02/24. -Medications : Will start patient on Invega 3mg bid for psychosis, if patient refuses Zyprexa IM, as patient is on court order -zyprexa PRN for agitation/aggression -Patient was counselled on substance abuse and desired to cut back on use] -Patient was informed of the risks, benefits and side effects of the medication -Internal Medicine consult to perform medical evaluation and physical. -NRT - nicotine patch -SW on board for discharge planning. Encourage patient to participate in groups to work on coping skills. On a court order until 05/02/24 02/26/24 09:49 02/26/24 10:08
[2024-02-26 16:17] LABS: Chol/HDL Ratio 3.03 Ratio; LDL Cholesterol,Calculated 73.6 mg/dL (0.0-131.0); VLDL Calculation 12.82 mg/dL (5.00-40.00)
[2024-02-26] MEDS: PALIPERIDONE 3 MG TAB.ER.24 PO SCH (22:45)
--- NOTE | 2024-02-26 23:59 | P.PN ---
Progress Note - Text Progress Note Date: 02/26/24 Attempted to see the patient in the mental health unit. The patient refused to be seen or be evaluated.
[2024-02-27] MEDS: ACETAMINOPHEN TAB 325 MG TAB PO PRN (02:28)
--- NOTE | 2024-02-27 11:50 | P.PN ---
Progress Note - Text Progress Note Date: 02/27/24 Interval History: Patient was seen agreeable to speak with chief writer bedside. he appears to be somnolent this morning. He says that he would like to make people "pay for their crimes". Patient is quite tangential in describing this further and says "it would be against what I know in court". He did not want to discuss this further. He says he does not believe he needs to be on any psychotropic medications although he has been compliant with Invega yesterday and today so far. He reports sleeping and eating well. At this time patient denies any suicidal or homicidal ideations, intent or plan. Patient denies any auditory, visual hallucinations and denies any paranoia or delusions. Patient denies any side effects from the medications and has been compliant with meds. Vital Signs Temp 97.6 F 02/26/24 15:15 Pulse 80 02/27/24 06:56 Resp 18 02/26/24 15:15 BP 105/61 02/27/24 06:56 Pulse Ox 98 02/26/24 15:15 FiO2 Intake & Output 02/26/24 02/27/24 02/27/24 18:59 06:59 18:59 Intake Total 240 Balance 240 Intake: Oral 240 Mental Status Exam: General Appearance: Patient appears to be stated age is not very alert, somnolent. Patient appears to have poor hygiene and grooming. Behavior: Superficially cooperative Speech: Patient's speech is mumbling Mood/Affect: "fine", affect constricted Suicidality/Homicidality: denies both Perceptions: Patient denies any visual hallucinations and denies any auditory hallucinations Though content/process: tangential Memory and concentration: Reduced attention to interview Judgment and insight: chronically poor Assessment schizoaffective disorder, bipolar type methamphetamine use disorder cannabis use disorder nicotine dependance noncompliance with medication PLAN: -Patient is admitted under involuntary status to MHU for stabilization of psychiatric symptoms and safety. second certificate completed. -Medications : Increase Invega to 9 mg qHS for psychosis -zyprexa PRN for agitation/aggression -Patient was counselled on substance abuse and desired to cut back on use -Patient was informed of the risks, benefits and side effects of the medication -Internal Medicine consult to perform medical evaluation and physical. -NRT - nicotine patch -SW on board for discharge planning. Encourage patient to participate in groups to work on coping skills. Will await court hearing or deferral date with hand tire trimmer.
[2024-02-27] MEDS: MULTIVITAMINS, THERA 1 EACH TAB PO SCH (14:13)
[2024-02-27] MEDS: OLANZapine 5 MG TAB PO PRN (17:53)
[2024-02-27] MEDS: PALIPERIDONE 3 MG TAB.ER.24 PO SCH (21:19)
--- NOTE | 2024-02-28 01:55 | P.CONS ---
History of Present Illness - Reason for Consult Consult date: 02/28/24 - History of Present Illness The patient is a 28-year-old male with a PMH of polysubstance abuse who was brought to the emergency room after a court ordered petition and for failure to comply with his medications. The patient was admitted to the mental health unit where he was seen and evaluated. The patient denied any physical complaints at the time of interview. He reports that he is scheduled to undergo tricuspid valve surgery but did not wish to disclose any more information including with home he is scheduled and when. He also did not wish to discuss when he was diagnosed with tricuspid valve issues or what they are. He denied substance use but urine toxicology was positive for methamphetamines, and marijuana. He does report to smoking 1 pack of cigarettes daily. Denied alcohol use. Review of systems: Pertinent positives and negatives as discussed in HPI, a complete review of systems was performed and all other systems are negative. Physical examination: General: non toxic, no distress, appears at stated age, normal weight Derm: no unusual rashes/lesions, no unusual ecchymoses, warm, dry Head: atraumatic, normocephalic, symmetric Eyes: EOMI, no lid lag, anicteric sclera ENT: Nose and ears atraumatic, no thrush, no pharyngeal erythema Neck: trachea midline, supple Mouth: no lip lesion, mucus membranes moist Cardiovascular: S1S2 reg, no murmur, no edema Lungs: CTA bilateral, no rhonchi, no rales , no accessory muscle use Abdominal: soft, nontender to palpation, no guarding Ext: no gross muscle atrophy, no contractures, Neuro: No gross focal neuro deficits noted Psych: Alert, oriented, appropriate affect Assessment: Polysubstance abuse History of psychosis Unknown tricuspid valve issues, scheduled for surgery at outside facility Imaging: EKG in the emergency room revealed sinus rhythm with an incomplete right bundle branch block at 92 bpm as reviewed by me. Data Review: Laboratory evaluation was remarkable for total bilirubin 1.5 with urine toxicology positive for amphetamines and marijuana. Plan: Advised on the importance of cessation from substance use Defer management of psychosis to primary psychiatry service Thank you for allowing us to participate in the care of this patient. We will follow peripherally. Do not hesitate to contact us with questions. Someone can be reached from the [facility] hospitalist group at all hours of the day at [phone]. 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 Past Anesthesia/Blood Transfusion Reactions: No Reported Reaction Past Psychological History: Anxiety, Bipolar, Depression Smoking Status: Current every day smoker Past Alcohol Use History: Occasional Past Drug Use History: IV Drug Use, Marijuana, Methamphetamine - Past Family History family Additional Family Medical History / Comment(s): States multiple family members with heart disease on his mother's side of the family. Medications and Allergies Home Medications Medication Instructions Recorded Confirmed Type Metoprolol Tartrate [Lopressor] 25 mg PO BID 06/14/22 11/14/23 History Paliperidone IM [Invega Sustenna] 234 mg IM Q28D 06/06/23 11/14/23 History Cholecalciferol (Vitamin D3) 125 mcg PO DAILY 08/27/23 02/25/24 History [Vitamin D3 (125 MCG = 5,000 IU)] Famotidine [Pepcid] 20 mg PO BID 08/27/23 11/14/23 History Allergies Allergy/AdvReac Type Severity Reaction Status Date / Time Penicillins Allergy Unknown Unknown Verified 02/25/24 00:55 piperacillin [From Zosyn] Allergy Unknown Unknown Verified 02/25/24 00:55 tazobactam [From Zosyn] Allergy Unknown Unknown Verified 02/25/24 00:55 haloperidol [From Haldol] AdvReac Severe Anaphylaxis Verified 02/25/24 00:55 Physical Exam Vitals: Vital Signs Temp Pulse Resp BP Pulse Ox 02/27/24 21:26 98.0 F 82 16 104/58 98 02/27/24 06:56 80 105/61 Results CBC & Chem 7: 02/26/24 08:28 02/26/24 08:28
--- NOTE | 2024-02-28 11:52 | P.PN ---
Progress Note - Text Progress Note Date: 02/28/24 Interval History: Patient was seen agreeable to speak with mortgage underwriter bedside. He Says that his mood is "not too bad ". He proceeds to ask about if he is going to be discharged today which he was told he is unable to be discharged today. Patient is somewhat abrupt and refuses to discuss this further. He reports sleeping well. He admits to fair appetite and low energy. He reports tolerating the medications well and has been compliant with Invega. However, he is of the impression that he received Invega injection recently and was told that this was not the case. Patient has not been agitated but was given Zyprexa 5 mg Prn yesterday at 1753 due to anxiety. At this time patient denies any suicidal or homicidal ideations, intent or plan. Patient denies any auditory, visual hallucinations and denies any paranoia or delusions. Patient denies any side effects from the medications and has been compliant with meds. Vital Signs Temp 98.0 F 02/27/24 21:26 Pulse 82 02/27/24 21:26 Resp 16 02/27/24 21:26 BP 104/58 02/27/24 21:26 Pulse Ox 98 02/27/24 21:26 FiO2 Mental Status Exam: General Appearance: Patient appears to be stated age is not very alert, somnolent. Patient appears to have poor hygiene and grooming. Behavior: Superficially cooperative Speech: Patient's speech is mumbling Mood/Affect: "fine", affect constricted Suicidality/Homicidality: denies both Perceptions: Patient denies any visual hallucinations and denies any auditory hallucinations Though content/process: tangential Memory and concentration: Reduced attention to interview Judgment and insight: chronically poor Assessment schizoaffective disorder, bipolar type methamphetamine use disorder cannabis use disorder nicotine dependance noncompliance with medication PLAN: -Patient is admitted under involuntary status to [facility] for stabilization of psychiatric symptoms and safety. second certificate completed. -Medications : Invega 9 mg qHS for psychosis -zyprexa PRN for agitation/aggression -Patient was counselled on substance abuse and desired to cut back on use -Patient was informed of the risks, benefits and side effects of the medication -Internal Medicine consult to perform medical evaluation and physical. -NRT - nicotine patch -SW on board for discharge planning. Encourage patient to participate in groups to work on coping skills. Will await court hearing or deferral date with senior attorney.
--- NOTE | 2024-02-29 11:47 | P.PN ---
Progress Note - Text Progress Note Date: 02/29/24 Interval History: Patient was seen in his room and was directable and agreeable to speak with wr iter at the bedside. Patient states that he needs to be discharged today. Patient very demanding. Patient continues to seclude himself to his room. Intake Assessor explained the court process to the patient, patient still argumentative, stating to call [facility] and he can leave today. claims that he wants to go home to and does not beleive that he needs medications and to be in the hospital. Intake Assessor told the patient that the deferral with the assistant prosecuting attorney is tomorrow, patient sated he will not defer, and he just wants to leave. At this time patient denies any suicidal or homicidal ideations, intent or plan. Patient denies any auditory, visual hallucinations and denies any paranoia or delusions. Patient denies any side effects from the medications and has been compliant with meds. Mental Status Exam: General Appearance: Patient appears to be stated age, is alert disheveled appearance. Behavior: [Patient is demanding and agitated. superficial. Speech: Patient's speech is fluent and nonpressured. demanding Mood/Affect: Mood is improving mildly, affect is congruent and constricted. Suicidality/Homicidality: Patient denies having any suicidal or homicidal ideation intent or plan. Perceptions: Patient denies any visual hallucinations [and denies any auditory hallucinations] Though content/process: [There is no evidence of any delusional thought content Memory and concentration: AOX3, grossly intact for the purposes of this session Judgment and insight: chronically poor Assessment schizoaffective disorder, bipolar type methamphetamine use disorder cannabis use disorder nicotine dependance noncompliance with medication Plan: -Patient continues to meet criteria for inpatient psychiatric admission for symptom stabilization and safety. Patient is admitted involuntarily, a second cert was completed, Deferral with assistant prosecuting attorney is tomorrow. will await to see if patient defers with assistant prosecuting attorney. Patient stated he will not -Medications: increase Invega 12 mg qHS for psychosis, will need to transition patient onto BRITTON to help ensure compliance. -When necessary Ativan and Haldol for agitation/aggression. -NRT - [nicotine patch] -SW on board for discharge planning. Encouraged the patient to participate in milieu. Currently awaiting deferral (4/2) with assistant prosecuting attorney and court date. Will need to transition patient onto long-acting injection prior to discharge to help with compliance.
[2024-02-29] MEDS: PALIPERIDONE 6 MG TAB.ER.24 PO SCH (19:43)
--- NOTE | 2024-03-01 11:00 | P.PN ---
Progress Note - Text Progress Note Date: 03/01/24 Interval History: Patient was seen in his room and was directable and agreeable to speak with wr iter at the bedside. Patient states he is doing all right today. Patient is secluding himself to his room, and not attending groups. Continues to have a disheveled appearance. Patient has been taking his medications. His deferral is today, yesterday, he stated that he would not defer. Full hearing is 03/09. At this time patient denies any suicidal or homicidal ideations, intent or plan. Patient denies any auditory, visual hallucinations and denies any paranoia or delusions. Patient denies any side effects from the medications and has been compliant with meds. Mental Status Exam: General Appearance: Patient appears to be stated age, is alert disheveled appearance. Behavior: Patient is laying in bed, with a wilson on, fully covered. Speech: Patient's speech is fluent and nonpressured. Mood/Affect: Mood is improving mildly, affect is congruent and constricted. Suicidality/Homicidality: Patient denies having any suicidal or homicidal ideation intent or plan. Perceptions: Patient denies any visual hallucinations and denies any auditory hallucinations Though content/process: There is no evidence of any delusional thought content Memory and concentration: AOX3, grossly intact for the purposes of this session Judgment and insight: chronically poor Assessment: schizoaffective disorder, bipolar type methamphetamine use disorder cannabis use disorder nicotine dependance noncompliance with medication Plan: -Patient continues to meet criteria for inpatient psychiatric admission for symptom stabilization and safety. Patient is admitted involuntarily, a second cert was completed, Deferral with divorce attorney is tomorrow. will await to see if patient defers with divorce attorney. Patient stated he will not -Medications: Invega 12 mg qHS for psychosis, will need to transition patient onto BRITTON to help ensure compliance. -When necessary Ativan and Haldol for agitation/aggression. -NRT -nicotine patch -SW on board for discharge planning. Encouraged the patient to participate in milieu. Currently awaiting deferral (03/01) with divorce attorney and court date (03/09). Will need to transition patient onto long-acting injection prior to discharge to help with compliance.
--- NOTE | 2024-03-02 11:32 | P.PN ---
Progress Note - Text Progress Note Date: 03/02/24 Interval History: Patient was seen in the hallway, and was directable and agreeable to speak with selling underwriter at the bedside. Patient states he is doing good today. Patient is secluding himself to his room, and not attending groups. Patient focused on being discharged today, selling underwriter explained to patient that he needs to receive a BRITTON prior to discharge to ensure compliance with medication. Patient hesitantly agreed. Patient has been taking his medications. Patient did defer with his thermite welder yesterday and continues to be fairly focused on discharge. Appears to have mildly improving thought content and thought process. At this time patient denies any suicidal or homicidal ideations, intent or plan. Patient denies any auditory, visual hallucinations and denies any paranoia or delusions. Patient denies any side effects from the medications and has been compliant with meds. Mental Status Exam: General Appearance: Patient appears to be stated age, is alert disheveled appearance. Improving mildly Behavior: Patient is sitting on bed. Focused on discharge. Improving mildly, mildly more cooperative today. Speech: Patient's speech is fluent and nonpressured. Mood/Affect: Mood is improving mildly, affect is congruent and constricted. Suicidality/Homicidality: Patient denies having any suicidal or homicidal ideation intent or plan. Perceptions: Patient denies any visual hallucinations and denies any auditory hallucinations Though content/process: There is no evidence of any delusional thought content focused on discharge. Memory and concentration: AOX3, grossly intact for the purposes of this session Judgment and insight: chronically poor improving mildly Assessment: schizoaffective disorder, bipolar type methamphetamine use disorder cannabis use disorder nicotine dependance noncompliance with medication Plan: -Patient continues to meet criteria for inpatient psychiatric admission for symptom stabilization and safety. Patient is admitted involuntarily, a second cert was completed,Patient deferred with his thermite welder -Medications: decrease Invega 9 mg qHS for psychosis,with plan to taper down, add loading dose Invega Sustenna 234mg IM today, 03/02, next dose of 156mg IM will be on 03/09, monthly maintenance dose of 234 mg IM will be due on 04/06 -When necessary Ativan and Haldol for agitation/aggression. -NRT -nicotine patch -SW on board for discharge planning. Encouraged the patient to participate in milieu. Patient deferred with his thermite welder. Patient receiving loading dose of BRITTON today, 03/02. Likely discharge tomorrow if patient is improving and tolerating medications well.
[2024-03-02] MEDS: PALIPERIDONE IM 234 MG/1.5 ML SYG IM STA (12:51)
[2024-03-02] MEDS: PALIPERIDONE 3 MG TAB.ER.24 PO SCH (19:50)
[2024-03-03 08:16] VITALS: TEMP 97.6
[2024-03-03 08:58] VITALS: BP 116/64; PULSE 104; RESP 16
--- NOTE | 2024-03-03 10:18 | P.DS ---
Providers Date of admission: 02/25/24 00:31 Expected date of discharge: 03/03/24 Attending physician: Fidel Hernandez MD Consults: 02/25/24 00:45 Consult Physician Routine Consulting Provider: Nicolás Freed Consult Reason/Comments: For H & P for Medical Follow Up Do you want consulting provider notified?: Yes Primary care physician: [facility] MH - Discharge Diagnosis(es) (1) Schizoaffective disorder, bipolar type Current Visit: Yes Status: Acute Priority: High (2) Noncompliance with medication regimen Current Visit: Yes Status: Acute Priority: High (3) Cannabis use disorder, mild, abuse Current Visit: No Status: Acute Priority: Medium (4) Methamphetamine use disorder, severe, dependence Current Visit: No Status: Acute Priority: High (5) Nicotine dependence Current Visit: No Status: Acute Priority: Low Hospital Course: Admission HPI: Admission note was completed by caption writer "Patient presented to the hospital on 02/23. Brought in by [facility] on a pickler helper order, as per EPS note, "Pt was brought in on a pickler helper order/petition. Pt did elope for ER and was picked up by [facility] and brought back. Pt is on a current court order for treatment until 05/02/24 Per [place]. Mother states that he had court this morning and he did not go, his mother went for him as his guardian and she stated that this pickler helper order was done because of his noncompliance. Pt has not seen [facility] since October 2023 and has not had his IM Invega since 12/01/23. Per petition by mother it states, "he has not had his invega shot since dec 02 is hearing voices & responding back & refusing to participate in [facility] treatment. he's typing on blank screens & delusions the electronics are working". During assessment pt is tangential, has loose associations, nonsensical thinking, and flight of ideas. Pt is exhibiting increased delusions per mother since being off the IM. Whe talking about his court order he states, "The injection is for the powerball, I have been doing reading on it". "What happens to the birthdays, do they go into [employer], where do they go". Pt believes that he is apart of an "international entity process" about [employer] view to [place]. He believes he was there and seen a ditch, "the tristanian commander his goal is 300 sacrifies...[place] has a clue". "I have seen the other side of people and the kept secret at [facility]...the computers, the paperwork..." "Hail to all...the secret talk". Pt denies Hallucinations but mother states that he has been telling her that her hears a recording in his head and hearing other voices and responding/yelling at them. Mother finds an increase in the delusions/hallucinations since being off his medication. Pt denies SI,HI. When asked about methampthemine use he states, "I can say no, I need the nathanael in the wall to answer that question, I accept the terms and what they do for me...". Pt them states he used a few weeks ago. Un clear of last use. Pt denies ETOH or other substances. Per mother he is supposed to have another tricuspid value surgery soon as his last one was in 2011, but recently refused the open heart option. Mother is looking into other options. Patient is asleep quite soundly, patient was not very cooperative with the interview. he only answered a few questions today. He denied hearing any voices or visual hallucinations. He denies any suicidal homicidal ideations intent or plan. Patient was asked several other questions however did not respond due to sedation. Patient UDS positive for methamphetamines, amphetamines, and marijuana." Hospital course: Upon admission to the unit patient was admitted involuntarily on a petition and certificate and a second certificate was completed and faxed with the courts. Patient ended up signing a deferral with the litigation attorney and agreeing to treatment. Patient got along well with other patients on the unit and followed unit protocol. Patient was compliant with the medications and denied any side effects throughout hospital course. Patient was started on invega up to 12 mg nightly for psychosis p.o, patient was given Invega Sustenna 234 mg IM loading dose on 03/02, next dose of 156 mg IM will be due on 03/09, monthly maintenance dose of 234 mg IM will be due on 04/06. Patient requested to be on Benadryl nightly as needed for insomnia. Patient spoke of his stressors and engaged in therapy both group and individual. Patient was also seen by medical team for history and physical exam. Throughout the course of the hospitalization patient gradually improved with regards to mood, anxiety, psychosis, sleep and returned back to their baseline level of functioning. On the day of discharge patient denied any suicidal or homicidal ideations intent or plan denied any auditory or visual hallucinations. Patient endorsed wanting to live for his health and family. The patient denied any access to guns or weapons. Patient denied any paranoia and did not endorse any delusions. Patient does have a significant history of substance abuse and was counseled on abstaining from all substances including alcohol and marijuana. Patient was offered however declined inpatient substance-abuse rehab. Patient elected to do outpatient substance use treatment program through [facility]. Patient was also counseled on the medications and need for regular compliance and was encouraged to follow-up with their outpatient appointment for mental health and also for primary care. Prior to discharge a family meeting will be arranged by secondary social studies teacher to answer any questions and ensure safety upon discharge. Patient will be discharged to his mother's house. He will have close monitoring and follow-up with [facility]. Mental status exam: General Appearance: Patient appears to be unshaven, short hair, stated age is alert, pleasant, and cooperative. Patient is in no acute distress and has improved hygiene and grooming Behavior: Patient is calmly seated without any agitated behavior. Speech: Patient's speech is fluent and nonpressured. Mood/Affect: Patient reports their mood is "good", affect is congruent Suicidality/Homicidality: Patient denies having any suicidal or homicidal ideation intent or plan. Perceptions: Patient denies any auditory or visual hallucinations. Though content/process: There is no evidence of any delusional thought content and thought process is linear and goal-directed. Memory and concentration: AOX3, grossly intact for the purposes of this session. Can spell "WORLD" backwards correctly. Judgment and insight: Chronically poor, however has improved with guarded prognosis Impression: schizoaffective disorder, bipolar type methamphetamine use disorder cannabis use disorder nicotine dependance noncompliance with medication Plan: -Continue with discharge today as patient has improved and stabilized psychiatrically and is not currently an imminent threat to himself and/or others. -Continue medications: Continue Invega 6 mg nightly p.o. for 3 more days then discontinue. Patient was given Invega Sustenna 234 mg IM loading dose on 03/02, next dose of 156 mg IM will be due on 03/09, monthly maintenance dose of 234 mg IM will be due on 04/06 -Patient was counseled on the need for medication compliance and appropriate follow-up at mental health and also primary care for medical issues. Patient verbalized understanding and agreed. -Social work to arrange for and conduct family meeting to ensure safety upon discharge and answer any questions/concerns. Social work also to arrange for patients follow up appointments with [facility] for psychiatric care along with follow up with primary care provider. -Patient counseled on abstaining from recreational drugs and marijuana and alcohol. Was informed/educated on the adverse effects on their physical and mental health. Patient verbally agreed and understood. Patient was offered substance abuse treatment however declined at this time. -Patient was instructed to return to the hospital or seek immediate medical care if their psychiatric or medical symptoms do worsen or reoccur. Allergies Allergy/AdvReac Type Severity Reaction Status Date / Time Penicillins Allergy Unknown Unknown Verified 02/25/24 00:55 piperacillin from Zosyn Allergy Unknown Unknown Verified 02/25/24 00:55 tazobactam from Zosyn Allergy Unknown Unknown Verified 02/25/24 00:55 haloperidol from Haldol AdvReac Severe Anaphylaxis Verified 02/25/24 00:55 Laboratory Results WBC 7.6 k/uL (3.8-10.6) 02/26/24 08:28 RBC 5.30 m/uL (4.30-5.90) 02/26/24 08:28 Hgb 15.1 gm/dL (13.0-17.5) 02/26/24 08:28 Hct 48.7 % (39.0-53.0) 02/26/24 08:28 MCV 91.9 fL (80.0-100.0) 02/26/24 08:28 MCH 28.5 pg (25.0-35.0) 02/26/24 08:28 MCHC 31.0 g/dL (31.0-37.0) 02/26/24 08:28 RDW 14.3 % (11.5-15.5) 02/26/24 08:28 Plt Count 255 k/uL (150-450) 02/26/24 08:28 MPV 7.7 02/26/24 08:28 Neutrophils % 69 % 02/26/24 08:28 Lymphocytes % 18 % 02/26/24 08:28 Monocytes % 10 % 02/26/24 08:28 Eosinophils % 1 % 02/26/24 08:28 Basophils % 1 % 02/26/24 08:28 Neutrophils # 5.2 k/uL (1.3-7.7) 02/26/24 08:28 Lymphocytes # 1.4 k/uL (1.0-4.8) 02/26/24 08:28 Monocytes # 0.7 k/uL (0-1.0) 02/26/24 08:28 Eosinophils # 0.1 k/uL (0-0.7) 02/26/24 08:28 Basophils # 0.0 k/uL (0-0.2) 02/26/24 08:28 Sodium 141 mmol/L (137-145) 02/26/24 08:28 Potassium 4.1 mmol/L (3.5-5.1) 02/26/24 08:28 Chloride 111 mmol/L (98-107) H 02/26/24 08:28 Carbon Dioxide 21 mmol/L (22-30) L 02/26/24 08:28 Anion Gap 9 mmol/L 02/26/24 08:28 BUN 10 mg/dL (9-20) 02/26/24 08:28 Creatinine 1.06 mg/dL (0.66-1.25) 02/26/24 08:28 Est GFR (CKD-EPI)AfAm >90 (>60 ml/min/1.73 sqM) 02/26/24 08:28 Est GFR (CKD-EPI)NonAf >90 (>60 ml/min/1.73 sqM) 02/26/24 08:28 Glucose 89 mg/dL (74-99) 02/26/24 08:[address] Glu mg/dL 117 mg/dL 02/26/24 08:28 Hemoglobin A1c 5.7 % (<=6.0) 02/26/24 08:28 Calcium 9.4 mg/dL (8.4-10.2) 02/26/24 08:28 Total Bilirubin 1.5 mg/dL (0.2-1.3) H 02/26/24 08:28 Conjugated Bilirubin 0.0 mg/dL (0.0-0.3) 02/26/24 08:28 Unconjugated Bilirubin 1.3 mg/dL (0.0-1.1) H 02/26/24 08:28 Delta Bilirubin 0.2 mg/dL (0.0-0.2) 02/26/24 08:28 AST 33 U/L (17-59) 02/26/24 08:28 ALT 33 U/L (4-49) 02/26/24 08:28 Alkaline Phosphatase 131 U/L (38-126) H 02/26/24 08:28 Total Protein 6.6 g/dL (6.3-8.2) 02/26/24 08:28 Albumin 3.8 g/dL (3.5-5.0) 02/26/24 08:28 Triglycerides 64.10 mg/dL (0.00-149.00) 02/26/24 08:28 Cholesterol 129.00 mg/dL (0.00-200.00) 02/26/24 08:28 LDL Cholesterol, Calc 73.6 mg/dL (0.0-131.0) 02/26/24 08:28 VLDL Cholesterol, Calc 12.82 mg/dL (5.00-40.00) 02/26/24 08:28 HDL Cholesterol 42.60 mg/dL (40.00-60.00) 02/26/24 08:28 Cholesterol/HDL Ratio 3.03 Ratio 02/26/24 08:28 TSH 1.260 mIU/L (0.465-4.680) 02/26/24 08:28 Urine Opiates Screen Not Detected (NotDetected) 02/24/24 23:01 Ur Oxycodone Screen Not Detected (NotDetected) 02/24/24 23:01 Urine Methadone Screen Not Detected (NotDetected) 02/24/24 23:01 Ur Barbiturates Screen Not Detected (NotDetected) 02/24/24 23:01 U Tricyclic Antidepress Not Detected (NotDetected) 02/24/24 23:01 Ur Phencyclidine Scrn Not Detected (NotDetected) 02/24/24 23:01 Ur Amphetamines Screen Detected (NotDetected) H 02/24/24 23:01 U Methamphetamines Scrn Detected (NotDetected) H 02/24/24 23:01 U Benzodiazepines Scrn Not Detected (NotDetected) 02/24/24 23:01 Urine Cocaine Screen Not Detected (NotDetected) 02/24/24 23:01 U Marijuana (THC) Screen Detected (NotDetected) H 02/24/24 23:01 SARS-CoV-2 (PCR) Not Detected (Not Detectd) 02/24/24 23:01 Vital Signs Temp 97.6 F 03/03/24 06:57 Pulse 104 H 03/03/24 08:56 Resp 16 03/03/24 08:56 BP 116/64 03/03/24 08:56 Pulse Ox 99 03/02/24 06:48 FiO2 Patient Condition at Discharge: Stable Plan - Discharge Summary Discharge Rx Participant: No New Discharge Prescriptions: New Paliperidone [Invega] 6 mg PO HS 3 Days #6 tab Paliperidone IM [Invega Sustenna] 156 mg IM ONCE #1 ml Acetaminophen Tab [Tylenol] 650 mg PO Q4HR PRN tab PRN Reason: Mild Pain (Scale 1 To 3) diphenhydrAMINE [Benadryl] 50 mg PO HS PRN 14 Days #14 capsule PRN Reason: Insomnia Nicotine 14Mg/24Hr Patch [Habitrol] 1 patch TRANSDERM DAILY 14 Days #14 patch Ibuprofen [Motrin] 600 mg PO Q6HR PRN tab PRN Reason: Moderate Pain (Scale 4 To 6) Multivitamins, Thera [Multivitamin (formulary)] 1 each PO DAILY tab Continue Paliperidone IM [Invega Sustenna] 234 mg IM Q28D #1 ml Metoprolol Tartrate [Lopressor] 25 mg PO BID 30 Days #60 tab Famotidine [Pepcid] 20 mg PO BID Cholecalciferol (Vitamin D3) [Vitamin D3 (125 MCG = 5,000 IU)] 125 mcg PO DAILY Discharge Medication List Cholecalciferol (Vitamin D3) [Vitamin D3 (125 MCG = 5,000 IU)] 125 mcg PO DAILY 08/27/23 [History] Famotidine [Pepcid] 20 mg PO BID 08/27/23 [History] Acetaminophen Tab [Tylenol] 650 mg PO Q4HR PRN tab 03/03/24 [Rx] Ibuprofen [Motrin] 600 mg PO Q6HR PRN tab 03/03/24 [Rx] Metoprolol Tartrate [Lopressor] 25 mg PO BID 30 Days #60 tab 03/03/24 [Rx] Multivitamins, Thera [Multivitamin (formulary)] 1 each PO DAILY tab 03/03/24 [Rx] Nicotine 14Mg/24Hr Patch [Habitrol] 1 patch TRANSDERM DAILY 14 Days #14 patch 03/03/24 [Rx] Paliperidone IM [Invega Sustenna] 156 mg IM ONCE #1 ml 03/03/24 [Rx] Paliperidone IM [Invega Sustenna] 234 mg IM Q28D #1 ml 03/03/24 [Rx] Paliperidone [Invega] 6 mg PO HS 3 Days #6 tab 03/03/24 [Rx] diphenhydrAMINE [Benadryl] 50 mg PO HS PRN 14 Days #14 capsule 03/03/24 [Rx] Follow up Appointment(s)/Referral(s): [facility] [Outside] - 1 Week [facility] [NON-STAFF] - 1 Week [facility] [Primary Care Provider] - 1-2 days Patient Instructions/Handouts: How to Stop Smoking (ED), Schizoaffective Disorder (ED), Cannabis Abuse (DC), Methamphetamine Abuse (IP) Activity/Diet/Wound Care/Special Instructions: Avoid the use of street drugs and alcohol. Take all medications as prescribed. When you are in need of refills on your medications, please contact your medical provider and/or outpatient psychiatrist/provider to have this done. Please go to your scheduled outpatient appointment for aftercare treatment. If symptoms return or become worse, call the crisis line at and/or go to the nearest emergency room for evaluation. National Suicide Hotline 962. Discharge Disposition: HOME SELF-CARE
[2024-03-09] MEDS ORDERED: PALIPERIDONE IM 156 MG/ML SYG IM ONE (09:00)
== END 2024-03-03 11:50 | disposition home or self-care (01) | DRG 750 ==
LOC: EC 19:04 → 3MHU 02-25 00:31
PROVIDERS: ADMIT Psychiatry & Neurology Psychiatry; ATTEND Psychiatry & Neurology Psychiatry
DX: F25.0 Schizoaffective disorder, bipolar type (principal); Z91.148 Patient's other noncompliance with medication regimen for other reason; F15.20 Other stimulant dependence, uncomplicated; F11.10 Opioid abuse, uncomplicated; F12.10 Cannabis abuse, uncomplicated; I10 Essential (primary) hypertension; I45.10 Unspecified right bundle-branch block; Z95.2 Presence of prosthetic heart valve; Z11.52 Encounter for screening for COVID-19; Z28.310 Unvaccinated for COVID-19; Z91.199 Patient's noncompliance with other medical treatment and regimen due to unspecified reason; F17.210 Nicotine dependence, cigarettes, uncomplicated; Z71.6 Tobacco abuse counseling; Z79.899 Other long term (current) drug therapy; Z88.1 Allergy status to other antibiotic agents; Z88.0 Allergy status to penicillin; Z88.8 Allergy status to other drugs, medicaments and biological substances; Z71.51 Drug abuse counseling and surveillance of drug abuser; Z81.8 Family history of other mental and behavioral disorders
CPT/HCPCS: 80053; 80061; 80306; 82075; 82248; 83036; 84443; 85025; 87635; 93005; 96372; 99285

== ENCOUNTER 2024-10-25 12:35 | Emergency (ER) | payer OTHER ==
--- NOTE | 2024-10-25 13:09 | ED ---
Psych HPI - General Chief Complaint: Psychiatric Symptoms Stated Complaint: Petitioned Time Seen by Provider: 10/25/24 12:43 Source: patient, EMS Mode of arrival: EMS - History of Present Illness Initial Comments: This patient is a 28-year-old man with history of psychiatric disease who is brought to have court mandated evaluation. He is accompanied by paperwork stating that there has been noncompliant with his medical regimen. When I interviewed the patient, he states that he feels well. He does not have any homicidal ideation or suicidal ideation. Patient denying hallucinations. MD Complaint: other -: days(s) Associated Psychiatric Symptoms: none History of same: Yes Quality: other Improves With: none Worsens With: none Associated Symptoms: denies other symptoms - Related Data Home Medications Medication Instructions Recorded Confirmed prednisoLONE ACETATE 1% OPHTH 1 drop BOTH EYES TID 10/25/24 10/25/24 [Pred Forte 1%] Allergies Allergy/AdvReac Type Severity Reaction Status Date / Time haloperidol [From Haldol] Allergy Severe Anaphylaxis Verified 10/25/24 13:41 Penicillins Allergy Unknown Unknown Verified 10/25/24 13:41 piperacillin [From Zosyn] Allergy Unknown Unknown Verified 10/25/24 13:41 tazobactam [From Zosyn] Allergy Unknown Unknown Verified 10/25/24 13:41 Review of Systems ROS Statement: Those systems with pertinent positive or pertinent negative responses have been documented in the HPI. ROS Other: All systems not noted in ROS Statement are negative. 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 Past Anesthesia/Blood Transfusion Reactions: No Reported Reaction Past Psychological History: Anxiety, Bipolar, Depression Smoking Status: Current every day smoker Past Alcohol Use History: Occasional Past Drug Use History: IV Drug Use, Marijuana, Methamphetamine - Past Family History family Additional Family Medical History / Comment(s): States multiple family members with heart disease on his mother's side of the family. General Exam Limitations: no limitations General appearance: alert, in no apparent distress Head exam: Present: atraumatic, normocephalic Eye exam: Present: normal appearance. Absent: scleral icterus, conjunctival injection Neck exam: Present: normal inspection Respiratory exam: Present: normal lung sounds bilaterally. Absent: respiratory distress, wheezes, rales, rhonchi, stridor, accessory muscle use Cardiovascular Exam: Present: regular rate, normal rhythm, normal heart sounds. Absent: systolic murmur, diastolic murmur, rubs, gallop GI/Abdominal exam: Present: soft. Absent: distended, tenderness, guarding, rebound, rigid Extremities exam: Present: normal inspection, normal capillary refill. Absent: pedal edema, calf tenderness Back exam: Present: normal inspection Neurological exam: Present: alert Psychiatric exam: Present: normal mood. Absent: depressed, agitated, anxious, flat affect, manic, homicidal ideation, suicidal ideation Skin exam: Present: warm, dry, intact, normal color. Absent: rash Course Vital Signs 10/25/24 12:48 Temperature 97.4 F L Pulse Rate 91 Respiratory 18 Rate Blood Pressure 148/93 O2 Sat by Pulse 100 Oximetry Medical Decision Making - Medical Decision Making Was pt. sent in by a medical professional or institution (, PA, DESIGN INSERTER, urgent care, hospital, or [facility]...) When possible be specific @ -[No] Did you speak to anyone other than the patient for history (EMS, parent, family, police, friend...)? What history was obtained from this source @ -[No] Did you review nursing and triage notes (agree or disagree)? Why? @ -[I reviewed and agree with nursing and triage notes] Were old charts reviewed (outside hosp., previous admission, EMS record, old EKG, old radiological studies, urgent care reports/EKG's, [facility] records)? Report findings @ -[I reviewed the paperwork accompanying the patient Differential Diagnosis (chest pain, altered mental status, abdominal pain women, abdominal pain men, vaginal bleeding, weakness, fever, dyspnea, syncope, headache, dizziness, GI bleed, back pain, seizure, CVA, palpatations, mental health, musculoskeletal)? @ -[Differential Mental Health Depression, anxiety, bipolar, psychosis, schizophrenia, borderline personality, situational depression, adjustment disorder, behavioral disorder, brain tumor, malingering, substance abuse, encephalopathy, medication reaction, dementia, hypothyroidism, degenerative neurologic disorder, lupus.... This is not meant to be all-inclusive list EKG interpreted by me (3pts min.). @ - X-rays interpreted by me (1pt min.). @ -[None done] CT interpreted by me (1pt min.). @ -[None done] U/S interpreted by me (1pt. min.). @ -[None done] What testing was considered but not performed or refused? (CT, X-rays, U/S, labs)? Why? @ -[None] What meds were considered but not given or refused? Why? @ -[None] Did you discuss the management of the patient with other professionals (professionals i.e. , PA, DESIGN INSERTER, lab, RT, psych nurse, mental health social worker, construction field engineer, teacher, chief environmental commitment officer, manager of case)? Give summary @ -[Case discussed with EPS personnel and they staffed the case with the psychiatrist Was smoking cessation discussed for >3mins.? @ -[No] Was critical care preformed (if so, how long)? @ -[No] Were there social determinants of health that impacted care today? How? (Homelessness, low income, unemployed, alcoholism, drug addiction, transportation, low edu. Level, literacy, decrease access to med. care, usp, rehab)? @ -[No] Was there de-escalation of care discussed even if they declined (Discuss DNR or withdrawal of care, Hospice)? DNR status @ -[No] What co-morbidities impacted this encounter? (DM, HTN, Smoking, COPD, CAD, Cancer, CVA, ARF, Chemo, Hep., AIDS, mental health diagnosis, sleep apnea, morbid obesity)? @ -[Underlying psychiatric disease Was patient admitted / discharged? Hospital course, mention meds given and route, prescriptions, significant lab abnormalities, going to OR and other pertinent info. @ -[Patient is a 28-year-old man who is brought to have court mandated evaluation. The patient was cleared for EPS and they saw the patient and staffed the case with psychiatrist. At this point the patient does not meet admission criteria. Patient to follow-up with [facility]. Undiagnosed new problem with uncertain prognosis? @ -[No] Drug Therapy requiring intensive monitoring for toxicity (Heparin, Nitro, Insulin, Cardizem)? @ -[No] Were any procedures done? @ -[No] Diagnosis/symptom? @ -[Court mandated psychiatric evaluation Acute, or Chronic, or Acute on Chronic? @ -[Acute Uncomplicated (without systemic symptoms) or Complicated (systemic symptoms)? @ -[Uncomplicated Side effects of treatment? @ -[No] Exacerbation, Progression, or Severe Exacerbation? @ -[No] Poses a threat to life or bodily function? How? (Chest pain, [place], [place], pneumonia, PE, COPD, DKA, ARF, appy, cholecystitis, CVA, Diverticulitis, Homicidal, Suicidal, threat to staff... and all critical care pts) @ -[No] Disposition Clinical Impression: Noncompliance with medication regimen, Psychiatric exam requested by authority Disposition: HOME SELF-CARE Condition: Good Is patient prescribed a controlled substance at d/c from ED?: No Referrals: [facility] [Primary Care Provider] - 1-2 days
[2024-10-25 15:35] VITALS: BP 119/73; PULSE 67; RESP 19; TEMP 97.9
== END 2024-10-25 15:40 | disposition home or self-care (01) ==
LOC: EC 12:35
DX: Z04.6 Encounter for general psychiatric examination, requested by authority (principal); Z91.148 Patient's other noncompliance with medication regimen for other reason; F17.200 Nicotine dependence, unspecified, uncomplicated; F12.90 Cannabis use, unspecified, uncomplicated; F15.90 Other stimulant use, unspecified, uncomplicated; Z88.0 Allergy status to penicillin; Z88.8 Allergy status to other drugs, medicaments and biological substances
CPT/HCPCS: 82075; 99285

== ENCOUNTER 2024-11-19 15:58 | Observation (INO) | payer OTHER ==
--- NOTE | 2024-11-19 16:37 | XR ---
EXAMINATION TYPE: XR chest 2V DATE OF EXAM: 11/19/2024 4:33 PM COMPARISON: Multiple prior chest radiograph, most recently dated 11/14/2023. CLINICAL INDICATION: Male, 29 years old with history of Chest Pain; [facility] TECHNIQUE: XR chest 2V Frontal and lateral views of the chest. FINDINGS: Mild cardiomegaly. Median sternotomy wires. Prosthetic valve. No acute focal consolidation. No pleural effusion. No pneumothorax. IMPRESSION: No acute cardiopulmonary disease/process. [facility], , 11/19/2024 4:34 PM
[2024-11-19 16:41] LABS: Partial Thromboplastin Time 23.4 sec (22.0-30.0); Prothrombin Time 11.5 sec (10.0-12.5)
[2024-11-19] MEDS: ASPIRIN 81 MG PO STA (16:51)
[2024-11-19] MEDS: SODIUM CHLORIDE 0.9% 1,000 ML IV STA (16:51)
[2024-11-19] MEDS: NITROGLYCERIN SL TABS 0.4 MG TAB SUBLINGUAL STA (16:51)
[2024-11-19 17:01] LABS: ALT 104 U/L (4-49); AST 54 U/L (17-59); African American GFR (CKD) >90 (>60 ml/min/1.73 sqM); Albumin 5.4 g/dL (3.5-5.0); Alkaline Phosphatase 142 U/L (38-126); Anion Gap 13 mmol/L; Blood Urea Nitrogen 21 mg/dL (9-20); Calcium 10.8 mg/dL (8.4-10.2); Carbon Dioxide 21 mmol/L (22-30); Chloride 105 mmol/L (98-107); Glucose 130 mg/dL (74-99); Magnesium 1.6 mg/dL (1.6-2.3); Non-African American GFR(CKD) 85 (>60 ml/min/1.73 sqM); Potassium 4.3 mmol/L (3.5-5.1); Sodium 139 mmol/L (137-145); Total Bilirubin 1.4 mg/dL (0.2-1.3); Total Protein 8.7 g/dL (6.3-8.2)
--- NOTE | 2024-11-19 17:02 | ED ---
General Adult HPI - General Chief complaint: Chest Pain Stated complaint: chest pain Time Seen by Provider: 11/19/24 16:16 Source: patient, family Mode of arrival: wheelchair Limitations: no limitations - History of Present Illness Initial comments: This is a 29-year-old gentleman presenting today for chest pain. 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 States pain began this afternoon as a dull ache in the left side of his chest. It is nonradiating currently rates it as 4 out of 510. States he took a home metopro lol 10 mg prior to arrival. No other pain medication prior to arrival. Patient is set to see Dr. Puentes this coming November for reassessment of his tricuspid valve (previously replaced in [address] Bobby). His history of prior PE postsurgery, is not currently on blood thinners. He has been off and on have his metoprolol as his primary care doctor stopped about 6 months ago. He has not any history of IA or prior CVA. No recent surgeries hospitalizations or travel. No lower extremity swelling. Does note over the last 2 to 3 months has had exertional dyspnea and sometimes dizziness with exertion. No first-degree relatives with prior CVA or IA. He is a current smoker. Denies hemoptysis, denies fevers chills, cough, nausea, vomiting, diarrhea, black or bloody stools, new numbness. - Related Data Home Medications Medication Instructions Recorded Confirmed prednisoLONE ACETATE 1% OPHTH 1 drop BOTH EYES QID 10/25/24 11/19/24 [Pred Forte 1%] Aspirin EC [Ecotrin Low Dose] 81 mg PO DAILY 11/19/24 11/19/24 Metoprolol Tartrate [Lopressor] 25 mg PO DAILY PRN 11/19/24 11/19/24 fluPHENAZine HCl 5 mg PO BID 11/19/24 11/19/24 Allergies Allergy/AdvReac Type Severity Reaction Status Date / Time haloperidol [From Haldol] Allergy Severe Anaphylaxis Verified 11/19/24 17:19 Penicillins Allergy Unknown Unknown Verified 11/19/24 17:19 piperacillin [From Zosyn] Allergy Unknown Unknown Verified 11/19/24 17:19 tazobactam [From Zosyn] Allergy Unknown Unknown Verified 11/19/24 17:19 Review of Systems ROS Statement: Those systems with pertinent positive or pertinent negative responses have been documented in the HPI. ROS Other: All systems not noted in ROS Statement are negative. 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 Past Anesthesia/Blood Transfusion Reactions: No Reported Reaction Past Psychological History: Anxiety, Bipolar, Depression Smoking Status: Current every day smoker Past Alcohol Use History: Occasional Past Drug Use History: IV Drug Use, Marijuana, Methamphetamine - Past Family History family Additional Family Medical History / Comment(s): States multiple family members with heart disease on his mother's side of the family. General Exam - General Exam Comments Initial Comments: PE: CONSTITUTIONAL: No apparent distress, well appearing SKIN: Warm, dry, no jaundice, hives or petechiae EYES: Pupils are equally round, extraocular movements intact without nystagmus, clear conjunctiva, non-icteric sclera HENT: Normocephalic, atraumatic, moist mucus membranes, oropharynx clear without exudates NECK: , Full range of motion, normal appearance PULMONARY: Clear to auscultation without wheezes, rhonchi, or rales, normal e xcursion, no accessory muscle use and no stridor CARDIOVASCULAR: Regular rate, rhythm, normal S1 and S2. No appreciated murmurs, rubs or gallops. Strong radial pulses with intact distal perfusion. No lower extremity edema GASTROINTESTINAL: Soft, active bowel sounds throughout, non-tender, non-disten ded, no palpable masses, no rebound or guarding. No hepatosplenomegaly GENITOURINARY: MUSCULOSKELETAL: Extremities have no gross deformity, no edema, redness, or swelling. No calf swelling NEUROLOGIC:_a/o x 3, GCS 15, normal mentation and speech. 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 ] Respiratory 20 20 18 Rate Blood Pressure 114/81 107/82 O2 Sat by Pulse 99 97 Oximetry 11/19/24 11/19/24 11/19/24 17:00 18:34 20:53 Temperature 97.7 F Pulse Rate 92 80 73 Pulse Rate [ [employer]aming [employer] Supervisor ] Respiratory 18 16 18 Rate Blood Pressure 102/66 100/59 112/90 O2 Sat by Pulse 95 98 97 Oximetry EKG Findings - EKG Comments: EKG Findings:: Sinus tachycardia, rate 118 bpm, WI interval 132 ms, QRS duration 98 ms, QT/QTc 340/420 ms, normal axis, no ST elevations or depressions, incomplete t right bundle branch block, QRS complexes appear inverted in V3 when compared to prior otherwise no significant changes from prior Medical Decision Making - Medical Decision Making Was pt. sent in by a medical professional or institution (, PA, WOOL DYER, urgent care, hospital, or custodial...) When possible be specific @ -No Did you speak to anyone other than the patient for history (EMS, parent, family, police, friend...)? What history was obtained from this source @ -No Did you review nursing and triage notes (agree or disagree)? Why? @ -I reviewed and agree with nursing and triage notes Were old charts reviewed (outside hosp., previous admission, EMS record, old EKG, old radiological studies, urgent care reports/EKG's, custodial records)? Report findings @Medical records reviewedReviewed cardiology note from them patient saw cardiology here in 2021 for chest pain was seen by cardiology and they did not feel chest pain was indicative of ACS, okay for discharge from cardiology standpoint and scheduled for outpatient stress test Differential Diagnosis (chest pain, altered mental status, abdominal pain women, abdominal pain men, vaginal bleeding, weakness, fever, dyspnea, syncope, headache, dizziness, GI bleed, back pain, seizure, CVA, palpatations, mental he alth, musculoskeletal)? Differential Chest Pain: Stable Angina, Unstable Angina, STEMI, NSTEMI pericarditis, pleurisy, chostochondirits, Pneumothorax, Musculoskeletal, Esophageal Spasm GERD, Cholec ystitis, Pancreatitis, Zoster, this is not meant to be an all-inclusive list. EKG interpreted by me (3pts min.). @ -As above X-rays interpreted by me (1pt min.). @I see no cardiomegaly, consolidations or pleural effusions, I see no widening of the mediastinum CT interpreted by me (1pt min.). @No large vessel PE or visible PE U/S interpreted by me (1pt. min.). @ -None done What testing was considered but not performed or refused? (CT, X-rays, U/S, labs)? Why? @ -None What meds were considered but not given or refused? Why? @ -None Did you discuss the management of the patient with other professionals (professionals i.e. , PA, WOOL DYER, lab, RT, psych nurse, social service coordinator, marketing assistant manager, teacher, desk officer, oil field caser)? Give summary @ -No Was smoking cessation discussed for >3mins.? @ -Yes, we discussed that smoking cessation would decrease patient's cardiac risk factors Was critical care preformed (if so, how long)? @ -No Were there social determinants of health that impacted care today? How? (Homelessness, low income, unemployed, alcoholism, drug addiction, transportation, low edu. Level, literacy, decrease access to med. care, senior care, rehab)? @ -No Was there de-escalation of care discussed even if they declined (Discuss DNR or withdrawal of care, Hospice)? @ -No What co-morbidities impacted this encounter? (DM, HTN, Smoking, COPD, CAD, Cancer, CVA, ARF, Chemo, Hep., AIDS, mental health diagnosis, sleep apnea, morbid obesity)? @History of tricuspid valve replacement, remote history IV drug abuse, currently in remission Was patient admitted / discharged? Hospital course, mention meds given and route, prescriptions, significant lab abnormalities, going to OR and other pertinent info. Admission -patient is a pleasant 29-year-old gentleman presenting today for chest pain, history of prior PE, tricuspid valve replacement. Tachycardic on arrival, blood pressure stable, EKG overall unchanged from prior. Plan for CT PE study due to elevated Wells score, chest pain labs, aspirin, sublingual nitroglycerin, will reassess. Labs and imaging reviewed. Grossly within normal limits. Abnormal values not concerning for acute pathology related to presenting complaint. I assessment patient endorses improvement of pain states it is currently 4-10 however now only intermittent. Will give morphine as patient's blood pressure is on the lower side MAP of 81 but blood pressure 100/59 my assessment. Due to patient's cardiac history I plan for admission for observation, patient is agreeable plan. Discussed case with Dr. Ybarra, kindly accepts patient for admission. Patient ad mitted in stable condition. Undiagnosed new problem with uncertain prognosis? @ -No Drug Therapy requiring intensive monitoring for toxicity (Heparin, Nitro, Insulin, Cardizem)? @ -No Were any procedures done? @ -No Diagnosis/symptom? @Chest pain Acute, or Chronic, or Acute on Chronic? @ -Acute Uncomplicated (without systemic symptoms) or Complicated (systemic symptoms)? @ -Complicated Side effects of treatment? @ -No Exacerbation, Progression, or Severe Exacerbation? @ -No Poses a threat to life or bodily function? How? (Chest pain, USA, IA, pneumonia, PE, COPD, DKA, ARF, appy, cholecystitis, CVA, Diverticulitis, Homicidal, Suicidal, threat to staff... and all critical care pts) @Yes, potentially - Lab Data Result diagrams: 11/19/24 16:25 11/19/24 16:25 Lab Results 11/19/24 11/19/24 11/19/24 Range/Units 16:25 16:25 16:25 WBC 9.3 (3.8-10.6) k/uL RBC 5.95 H (4.30-5.90) m/uL Hgb 18.0 H (13.0-17.5) gm/dL Hct 54.2 H (39.0-53.0) % MCV 91.1 (80.0-100.0) fL MCH 30.2 (25.0-35.0) pg MCHC 33.1 (31.0-37.0) g/dL RDW 13.6 (11.5-15.5) % Plt Count 301 (150-450) k/uL MPV 7.5 Neutrophils % 72 % Lymphocytes % 17 % Monocytes % 8 % Eosinophils % 1 % Basophils % 1 % Neutrophils # 6.8 (1.3-7.7) k/uL Lymphocytes # 1.6 (1.0-4.8) k/uL Monocytes # 0.7 (0-1.0) k/uL Eosinophils # 0.1 (0-0.7) k/uL Basophils # 0.1 (0-0.2) k/uL PT 11.5 (10.0-12.5) sec INR 1.0 (<1.2) APTT 23.4 (22.0-30.0) sec Sodium 139 (137-145) mmol/L Potassium 4.3 (3.5-5.1) mmol/L Chloride 105 (98-107) mmol/L Carbon Dioxide 21 L (22-30) mmol/L Anion Gap 13 mmol/L BUN 21 H (9-20) mg/dL Creatinine 1.16 (0.66-1.25) mg/dL Est GFR (CKD-EPI)AfAm >90 (>60 ml/min/1.73 sqM) Est GFR (CKD-EPI)NonAf 85 (>60 ml/min/1.73 sqM) Glucose 130 H (74-99) mg/dL Calcium 10.8 H (8.4-10.2) mg/dL Magnesium 1.6 (1.6-2.3) mg/dL Total Bilirubin 1.4 H (0.2-1.3) mg/dL AST 54 (17-59) U/L ALT 104 H (4-49) U/L Alkaline Phosphatase 142 H (38-126) U/L Troponin I (0.000-0.034) ng/mL NT-Pro-B Natriuret Pep pg/mL Total Protein 8.7 H (6.3-8.2) g/dL Albumin 5.4 H (3.5-5.0) g/dL Lipase (23-300) U/L 11/19/24 11/19/24 11/19/24 Range/Units 16:25 16:25 17:00 WBC (3.8-10.6) k/uL RBC (4.30-5.90) m/uL Hgb (13.0-17.5) gm/dL Hct (39.0-53.0) % MCV (80.0-100.0) fL MCH (25.0-35.0) pg MCHC (31.0-37.0) g/dL RDW (11.5-15.5) % Plt Count (150-450) k/uL MPV Neutrophils % % Lymphocytes % % Monocytes % % Eosinophils % % Basophils % % Neutrophils # (1.3-7.7) k/uL Lymphocytes # (1.0-4.8) k/uL Monocytes # (0-1.0) k/uL Eosinophils # (0-0.7) k/uL Basophils # (0-0.2) k/uL PT 11.9 (10.0-12.5) sec INR 1.1 (<1.2) APTT 23.8 (22.0-30.0) sec Sodium (137-145) mmol/L Potassium (3.5-5.1) mmol/L Chloride (98-107) mmol/L Carbon Dioxide (22-30) mmol/L Anion Gap mmol/L BUN (9-20) mg/dL Creatinine (0.66-1.25) mg/dL Est GFR (CKD-EPI)AfAm (>60 ml/min/1.73 sqM) Est GFR (CKD-EPI)NonAf (>60 ml/min/1.73 sqM) Glucose (74-99) mg/dL Calcium (8.4-10.2) mg/dL Magnesium 1.6 (1.6-2.3) mg/dL Total Bilirubin (0.2-1.3) mg/dL AST (17-59) U/L ALT (4-49) U/L Alkaline Phosphatase (38-126) U/L Troponin I <0.012 (0.000-0.034) ng/mL NT-Pro-B Natriuret Pep 183 pg/mL Total Protein (6.3-8.2) g/dL Albumin (3.5-5.0) g/dL Lipase 52 (23-300) U/L 11/19/24 Range/Units 17:00 WBC (3.8-10.6) k/uL RBC (4.30-5.90) m/uL Hgb (13.0-17.5) gm/dL Hct (39.0-53.0) % MCV (80.0-100.0) fL MCH (25.0-35.0) pg MCHC (31.0-37.0) g/dL RDW (11.5-15.5) % Plt Count (150-450) k/uL MPV Neutrophils % % Lymphocytes % % Monocytes % % Eosinophils % % Basophils % % Neutrophils # (1.3-7.7) k/uL Lymphocytes # (1.0-4.8) k/uL Monocytes # (0-1.0) k/uL Eosinophils # (0-0.7) k/uL Basophils # (0-0.2) k/uL PT (10.0-12.5) sec INR (<1.2) APTT (22.0-30.0) sec Sodium (137-145) mmol/L Potassium (3.5-5.1) mmol/L Chloride (98-107) mmol/L Carbon Dioxide (22-30) mmol/L Anion Gap mmol/L BUN (9-20) mg/dL Creatinine (0.66-1.25) mg/dL Est GFR (CKD-EPI)AfAm (>60 ml/min/1.73 sqM) Est GFR (CKD-EPI)NonAf (>60 ml/min/1.73 sqM) Glucose (74-99) mg/dL Calcium (8.4-10.2) mg/dL Magnesium (1.6-2.3) mg/dL Total Bilirubin (0.2-1.3) mg/dL AST (17-59) U/L ALT (4-49) U/L Alkaline Phosphatase (38-126) U/L Troponin I <0.012 (0.000-0.034) ng/mL NT-Pro-B Natriuret Pep pg/mL Total Protein (6.3-8.2) g/dL Albumin (3.5-5.0) g/dL Lipase (23-300) U/L Disposition Clinical Impression: Chest pain Disposition: ADMITTED IP TO THIS HOSP Condition: Good
[2024-11-19 17:13] LABS: Basophils # (A) 0.1 k/uL (0-0.2); Basophils % (A) 1 %; Eosinophils # (A) 0.1 k/uL (0-0.7); Eosinophils % (A) 1 %; HCT 54.2 % (39.0-53.0); Lymphocytes # (A) 1.6 k/uL (1.0-4.8); Lymphocytes % (A) 17 %; MCH 30.2 pg (25.0-35.0); MCHC 33.1 g/dL (31.0-37.0); MCV 91.1 fL (80.0-100.0); Mean Platelet Volume 7.5; Monocytes # (A) 0.7 k/uL (0-1.0); Monocytes % (A) 8 %; Neutrophils # (A) 6.8 k/uL (1.3-7.7); Neutrophils % (A) 72 %; Platelet Count 301 k/uL (150-450); RBC 5.95 m/uL (4.30-5.90); RDW 13.6 % (11.5-15.5); WBC 9.3 k/uL (3.8-10.6)
[2024-11-19 17:23] LABS: Magnesium 1.6 mg/dL (1.6-2.3)
[2024-11-19 17:25] LABS: INR 1.1 (<1.2); Partial Thromboplastin Time 23.8 sec (22.0-30.0); Prothrombin Time 11.9 sec (10.0-12.5)
--- NOTE | 2024-11-19 17:33 | CT ---
EXAMINATION TYPE: CT chest angio for PE DATE OF EXAM: 11/19/2024 5:26 PM COMPARISON: Chest radiograph same day. CLINICAL INDICATION: Male, 29 years old with history of left chest pain, prior PE; chest pain TECHNIQUE/CONTRAST: CTA scan of the thorax is performed with IV Contrast, patient injected with 100 mL of Isovue 370, MIP images are created and reviewed these are created on a separate workstation.. CT DLP: 427.2 mGycm, Automated exposure control for dose reduction was used. FINDINGS: Pulmonary Artery: There is no evidence for a filling defect within the pulmonary vasculature to sugge st acute pulmonary embolism. The pulmonary artery is of normal size. 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 Lungs/Pleura: No evidence of focal consolidation, pleural effusion or pneumothorax. Mild lower lobe a telectasis. Airway: Large airways are patent. Heart: Heart is within normal limits for size. Evidence of previous tricuspid valve replacement/repai r. Vasculature: No evidence of aortic aneurysm. Mediastinum: No gross evidence of adenopathy. Musculoskeletal: No acute osseous abnormalities. Median sternotomy wires. Soft Tissues/lymph nodes: Unremarkable. Lower neck: No significant findings. Upper Abdomen: No significant findings. IMPRESSION: No evidence of acute pulmonary embolism or acute pulmonary pathology. [facility], , 11/19/2024 5:31 PM
[2024-11-19 18:35] VITALS: TEMP 97.7
[2024-11-19] MEDS: ONDANSETRON 4 MG/2 ML VIAL IVP STA (18:46)
[2024-11-19] MEDS: MORPHINE SULFATE 4 MG/ML SYRINGE IVP STA (19:12)
[2024-11-19] MEDS ORDERED: MAG HYDROX/AL HYDROX/SIMETH 30 ML CUP PO PRN (19:14)
[2024-11-19] MEDS ORDERED: ONDANSETRON 4 MG/2 ML VIAL IVP PRN (19:14)
[2024-11-19] MEDS ORDERED: traMADol 50 MG TAB PO PRN (19:14)
[2024-11-19] MEDS ORDERED: CALCIUM CARBONATE 500 MG CHEWABLE PO PRN (19:14)
[2024-11-19] MEDS ORDERED: ACETAMINOPHEN TAB 325 MG TAB PO PRN (19:14)
[2024-11-19] MEDS ORDERED: NALOXONE 0.4 MG/ML 1 ML VIAL IV PRN (19:14)
[2024-11-19] MEDS ORDERED: METOPROLOL TARTRATE 25 MG TAB PO PRN (19:16)
[2024-11-19] MEDS: FAMOTIDINE 20 MG TAB PO SCH (20:52)
[2024-11-19 20:54] VITALS: RESP 18
[2024-11-20] MEDS: MORPHINE SULFATE 4 MG/ML SYRINGE IV PRN (01:22)
[2024-11-20 05:00] VITALS: BP 112/75; PULSE 75
--- NOTE | 2024-11-20 07:46 | P.HPIM ---
History of Present Illness H&P Date: 11/19/24 Chief Complaint: chest pain 29 year old male with history of tricuspid valve replacement post infective endocarditis patient coming in for evaluation of sudden onset left sided chest pain , that started suddenly while he was resting doing nothing 5/10 severity stabbing , a ssociated with sweating, SOB, Dizziness, denies any N/V or palpitations denies any fever, chills, nausea abd pain , diarrhea , changes in urinary habits patient took nothing for this , he waited out couple hours but did not improve , and decided to come in he does have history of PE post surgery , and his doctor stopped his blood thinners about 6 months ago. review of systems Pertinent positives as noted in HPI. All other systems were reviewed and are negative on exam Constitutional: No acute distress, conversant, pleasant Eyes: Anicteric sclerae, moist conjunctiva, Pupils equal round reactive to light ENMT: NC/AT Oropharynx clear, no erythema, or exudates Neck: Supple, no masses, or JVD No carotid bruits No thyromegaly Lungs: Clear to auscultation Clear to percussion Normal respiratory effort, no accessory muscle use Cardiovascular: Heart regular in rate and rhythm, No murmurs, gallops, or rubs No peripheral edema Abdominal: Soft Nontender, no guarding, rebound or rigidity Abdomen moving with respiration Normoactive bowel sounds Extremities: No digital cyanosis No clubbing Pedal pulses intact and symmetrical Radial pulses intact and symmetrical No calf tenderness Psychiatric: Alert and oriented to person, place and time Appropriate affect fair judgement Neuro Muscles Strength 5/5 in all 4 extremities Sensation to light touch grossly present throughout Cranial nerves II-XII grossly intact Past Medical History Past Medical History: Hypertension Additional Past Medical History / Comment(s): 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 Past Anesthesia/Blood Transfusion Reactions: No Reported Reaction Past Psychological History: Anxiety, Bipolar, Depression Smoking Status: Current every day smoker Past Alcohol Use History: Occasional Past Drug Use History: IV Drug Use, Marijuana, Methamphetamine - Past Family History family Additional Family Medical History / Comment(s): States multiple family members with heart disease on his mother's side of the family. Medications and Allergies Home Medications Medication Instructions Recorded Confirmed Type prednisoLONE ACETATE 1% OPHTH 1 drop BOTH EYES QID 10/25/24 11/19/24 History [Pred Forte 1%] Aspirin EC [Ecotrin Low Dose] 81 mg PO DAILY 11/19/24 11/19/24 History Metoprolol Tartrate [Lopressor] 25 mg PO DAILY PRN 11/19/24 11/19/24 History fluPHENAZine HCl 5 mg PO BID 11/19/24 11/19/24 History Allergies Allergy/AdvReac Type Severity Reaction Status Date / Time haloperidol [From Haldol] Allergy Severe Anaphylaxis Verified 11/19/24 17:19 Penicillins Allergy Unknown Unknown Verified 11/19/24 17:19 piperacillin [From Zosyn] Allergy Unknown Unknown Verified 11/19/24 17:19 tazobactam [From Zosyn] Allergy Unknown Unknown Verified 11/19/24 17:19 Physical Exam Vitals: Vital Signs Temp Pulse Pulse Resp BP Pulse Ox 11/20/24 04:59 75 18 112/75 11/19/24 20:53 73 18 112/90 97 11/19/24 18:34 97.7 F 80 16 100/59 98 11/19/24 17:00 92 18 102/66 95 11/19/24 16:47 90 18 107/82 97 11/19/24 16:31 115 H 20 11/19/24 16:03 97.3 F L 118 H 20 114/81 99 Intake and Output 11/19/24 11/20/24 11/20/24 22:59 06:59 14:59 Other: Weight 99.79 kg Results CBC & Chem 7: 11/19/24 16:25 11/19/24 16:25 Labs: Abnormal Lab Results - Last 24 Hours (Table) 11/19/24 11/19/24 Range/Units 16:25 16:25 RBC 5.95 H (4.30-5.90) m/uL Hgb 18.0 H (13.0-17.5) gm/dL Hct 54.2 H (39.0-53.0) % Carbon Dioxide 21 L (22-30) mmol/L BUN 21 H (9-20) mg/dL Glucose 130 H (74-99) mg/dL Calcium 10.8 H (8.4-10.2) mg/dL Total Bilirubin 1.4 H (0.2-1.3) mg/dL ALT 104 H (4-49) U/L Alkaline Phosphatase 142 H (38-126) U/L Total Protein 8.7 H (6.3-8.2) g/dL Albumin 5.4 H (3.5-5.0) g/dL Assessment and Plan Assessment: 29-year-old male with history of tricuspid valve replacement due to endocarditis complicated by PE patient stopped his blood thinners about 6 months ago. Patient coming in for chest pain I discussed case with ED doctor and accepted the admission for atypical chest pain rule out acute coronary syndrome Atypical chest pain rule out acute coronary syndrome Troponins negative EKG sinus tachycardia no acute ST changes Continue with nitro for pain as needed Continue with aspirin 81 mg daily Check lipid profile Check thyroid profile Cardiology consult Cardiac monitoring Monitor vital signs Elevated hematocrit 54% Consider outpatient workup to rule out sleep apnea, polycythemia vera Patient denies smoking History of venous thromboembolism Patient had a PE postsurgery CTA of the lungs no acute pulmonary involvement History of infective endocarditis status post tricuspid valve replacement Full code DVT prophylaxis Lovenox subcu 40 mg daily Otherwise blood work overall unremarkable white count 9.3, renal function unremarkable BUN 21 creatinine 1.1 sodium 139 potassium 4.3
[2024-11-20] MEDS ORDERED: NICOTINE 14MG/24HR PATCH TRANSDERM SCH (09:00)
[2024-11-20] MEDS ORDERED: ASPIRIN 81 MG PO SCH (09:00)
[2024-11-20] MEDS ORDERED: ENOXAPARIN 40 MG/0.4 ML SYRINGE SQ SCH (09:00)
--- NOTE | 2024-11-20 13:46 | P.DS ---
Providers Date of admission: 11/19/24 19:14 Expected date of discharge: 11/20/24 Attending physician: Alexis Ybarra Consults: 11/19/24 19:14 Consult Physician Routine Consulting Provider: Thien Mcarthur Consult Reason/Comments: Chest pain, prior tricuspid valve replacement Do you want consulting provider notified?: Yes, Notify in am Primary care physician: [facility] Course: Patient left AGAINST MEDICAL ADVICE. Per nursing, patient left AGAINST MEDICAL ADVICE on 11/20/2024 at 7:35 AM. I did not see, assess, or provide any care for this patient during this admission. This document was prepared using [employer] dictation software. Please allow for errors in club attendant, while rare they do occur. . Patient Condition at Discharge: Undetermined Plan - Discharge Summary New Discharge Prescriptions: No Action prednisoLONE ACETATE 1% OPHTH [Pred Forte 1%] 1 drop BOTH EYES QID fluPHENAZine HCl 5 mg PO BID Metoprolol Tartrate [Lopressor] 25 mg PO DAILY PRN PRN Reason: chest pain/high bp Aspirin EC [Ecotrin Low Dose] 81 mg PO DAILY Discharge Medication List prednisoLONE ACETATE 1% OPHTH [Pred Forte 1%] 1 drop BOTH EYES QID 10/25/24 [History] Aspirin EC [Ecotrin Low Dose] 81 mg PO DAILY 11/19/24 [History] Metoprolol Tartrate [Lopressor] 25 mg PO DAILY PRN 11/19/24 [History] fluPHENAZine HCl 5 mg PO BID 11/19/24 [History] Follow up Appointment(s)/Referral(s): [facility] [Primary Care Provider] - 1-2 days Discharge Disposition: LEFT AGAINST MEDICAL ADVICE
== END 2024-11-20 07:30 | disposition left against medical advice (07) ==
LOC: EC 15:58 → 6NMEDSUR 19:14
PROVIDERS: ADMIT Student in an Organized Health Care Education/Training Program; ATTEND Student in an Organized Health Care Education/Training Program
DX: R07.89 Other chest pain (principal); R00.0 Tachycardia, unspecified; I45.10 Unspecified right bundle-branch block; Z95.2 Presence of prosthetic heart valve; F17.200 Nicotine dependence, unspecified, uncomplicated; Z79.82 Long term (current) use of aspirin; Z79.899 Other long term (current) drug therapy; Z88.0 Allergy status to penicillin; Z88.1 Allergy status to other antibiotic agents; Z88.8 Allergy status to other drugs, medicaments and biological substances; Z87.898 Personal history of other specified conditions; Z86.711 Personal history of pulmonary embolism; Z86.19 Personal history of other infectious and parasitic diseases; Z86.718 Personal history of other venous thrombosis and embolism; Z53.29 Procedure and treatment not carried out because of patient's decision for other reasons
CPT/HCPCS: 96376; 96374; 96375; 99285; 36415; 93005; 83880; 80053; 83690; 83735; 84484 ×2; 85025; 85610; 85730; 71046; 71275; G0378 ×2; J2270 ×2; J2405; Q9967

== ENCOUNTER 2025-01-11 22:29 | Emergency (ER) | payer OTHER ==
[2025-01-11 22:35] VITALS: RESP 18
[2025-01-11] MEDS: LORazepam 1 MG TAB PO STA (22:53)
[2025-01-11] MEDS: METOPROLOL TARTRATE 25 MG TAB PO STA (22:53)
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
[2025-01-12] MEDS: ZIPRASIDONE 20 MG VIAL IM STA
[2025-01-12 04:39] VITALS: BP 130/82; PULSE 86; TEMP 97.6
== END 2025-01-12 05:00 | disposition home or self-care (01) ==
LOC: EC 22:29
DX: S41.112A Laceration without foreign body of left upper arm, initial encounter (principal); S09.90XA Unspecified injury of head, initial encounter; F43.20 Adjustment disorder, unspecified; F31.9 Bipolar disorder, unspecified; R00.0 Tachycardia, unspecified; F17.200 Nicotine dependence, unspecified, uncomplicated; Y04.0XXA Assault by unarmed brawl or fight, initial encounter
CPT/HCPCS: 82075; 93005; 99284; 96372; J3486

== ENCOUNTER 2025-03-02 16:55 | Inpatient (IN) | payer MEDICAID, OTHER ==
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
[2025-03-02] MEDS ORDERED: MAGNESIUM HYDROXIDE 2,400 MG/30 ML CUP PO PRN (20:36)
[2025-03-02] MEDS ORDERED: LORazepam 2 MG/ML INJ IM PRN (20:39)
[2025-03-02] MEDS ORDERED: flUPHENAZine 2.5 MG/ML (MDV) 10 ML VIAL IM PRN (20:41)
[2025-03-02] MEDS: METOPROLOL TARTRATE 25 MG TAB PO PRN (22:50)
[2025-03-03] MEDS: NICOTINE 14MG/24HR PATCH TRANSDERM SCH (09:15)
[2025-03-03] MEDS ORDERED: flUPHENAZine 2.5 MG/ML (MDV) 10 ML VIAL IM PRN (12:22)
--- NOTE | 2025-03-03 12:42 | P.HP ---
Psychiatric H&P - . H&P Date: 03/03/25 History & Physical: Allergies Allergy/AdvReac Type Severity Reaction Status Date / Time haloperidol from Haldol Allergy Severe Anaphylaxis Verified 03/02/25 18:52 Penicillins Allergy Unknown Unknown Verified 03/02/25 18:52 piperacillin from Zosyn Allergy Unknown Unknown Verified 03/02/25 18:52 tazobactam from Zosyn Allergy Unknown Unknown Verified 03/02/25 18:52 Vital Signs Temp 98.2 F 03/03/25 09:00 Pulse 84 03/03/25 09:00 Resp 16 03/03/25 09:00 BP 121/69 03/03/25 09:00 Pulse Ox 97 03/03/25 09:00 FiO2 Intake & Output 03/02/25 03/03/25 03/03/25 18:59 06:59 18:59 Weight 90.718 kg Laboratory Last Values SARS-CoV-2 (PCR) Not Detected (Not Detectd) 03/02/25 18:55 03/03/25 12:28 IDENTIFYING DATA: Patient is a 29-year-old male, with guardian and living at home with mom CHIEF COMPLAINT: Nonadherence with meds, psychosis HPI: Patient presented to the hospital via pickup order with nonadherence with psychotropic medications. EPS, "Pt did see his worker at [facility] today, she expressed concerns with how pt was presenting and guardian agreed to have pt sent to the ER for an evaluation. Pt has been no showing apts and not taking his medications. Pt is on a current order until 03/08/25. Guardian states that he has not taken his medications in 3 weeks and the last week he has been rambling and unwell. Upon assessment pt appeared to be responding to IS, pt was laughing and talking. Pt was unable to answer questions appropriatley. Pt has loose associations, flight of ideas, and tangential. Pt appears disheleved and unkempt. Per guardian he also has increased aggression and agitation. He has not expressed SI or HI to guardian. When asked about SI/HI he would answer, "caleb said I'm ammune to [place]...whenever education is different...perfect nature of any source...radio shack.. any standard time lived to except her". RN tried to discuss if pt has been using any substances he replied, "hallucins in the air..system green air condensed, to harvest me of air". Pt states he statys up all night and doesn't sleep much during the day. It is unclear the last time the pt slept. Pt at this time does not have a logical train of thought." Patient seen and evaluated in his room and was agreeable with speaking to service writer advisor in room. He demonstrated some nonsensical talk, stated there is something airborne at his home, displaying flight of ideas. He states he does not need help from [facility] admit they ultimately sent him here. He was reminded of the court order to which she states he plans on finding this as he does not need mental health kamlesh atment despite his previous diagnosis of bipolar disorder to which he disagrees. He did not appear to be responding internally during encounter however he did take 2 doses of Prolixin. Patient denied any sleep or appetite difficulties, paranoia, anhedonia, anxiety only reporting low energy. Patient denies any suicidal or homicidal ideations intent or plan. At this time patient denies any auditory or visual hallucinations. Patient denies any flight of ideas racing thoughts and increased in goal directed behavior. Patient admits to using nicotine, reports smoking a half a pack a day however denied any other substance use however UDS has not been completed. PAST PSYCHIATRIC HISTORY: Patient has a history of schizoaffective disorder, methamphetamine use disorder, cannabis use disorder, nicotine dependence. Patient denies being on any psychiatric medications. He is currently prescribed however Prolixin 7.5 mg twice daily. He has previously tried Abilify p.o., Abilify Aristada, Invega Sustenna, Risperdal, Wellbutrin, Zoloft. Patient has had at least 7 inpatient hospitalizations at this facility most recent being January 2024. Patient is supposed to follow-up with [facility] however has been intermittent with his follow-up. Patient denies any history of suicide attempts in the past. PMH: as per ER note ALLERGIES: as per EMR SUBSTANCE USE HISTORY: Patient does have a history of methamphetamine abuse however he denies any current use, UDS ordered but not completed. He only reports smoking a half a pack per day of cigarettes. FAMILY PSYCHIATRIC/SUBSTANCE USE HISTORY: Denies SOCIAL HISTORY: Patient lives with his mother who is also his guardian. He is single, has no kids, completed high school and is currently on SSD. MENTAL STATUS EXAM: General Appearance: Patient appears to be stated age is fatigued but directable, and attempts to cooperate. Patient appears to have poor hygiene and grooming. Behavior: Patient is laying without any agitated behavior. Speech: Patient's speech is nonsensical and fast rate. Mood/Affect: Patient reports their mood is "all right", affect is congruent and constricted. Suicidality/Homicidality: Patient denies having any homicidal ideation intent or plan. Denies any suicidal ideations intent or plan Perceptions: Patient denies any visual hallucinations and denies any auditory hallucinations he did not appear internally preoccupied during encounter Though content/process: There is evidence of flight of ideas, disorganization, delusions Memory and concentration: AOX3, grossly intact for the purposes of this session. Can spell "WORLD" backwards Judgment and insight: Poor STRENGTHS/WEAKNESSES: strength is that patient is resilient and has a guardian, mom support. Weakness is that patient has poor judgment nonadherent with medications and is impulsive INTELLECT: Average IMPRESSIONS: Schizoaffective disorder, bipolar type History of methamphetamine use disorder Nicotine dependence Noncompliance with medication PLAN: -Patient is admitted under involuntary status to [facility] for stabilization of psychiatric symptoms and safety. Patient has not signed adult voluntary form and and is placed in patient's chart. A second certification was completed and along with petition will be filed for court. Patient is currently on an GHADA that expires on 03/08/25 -Medications : Continue Prolixin 5 mg twice daily for psychosis with as needed IM backup per court order if patient refuses. Start trazodone 50 mg at bedtime for insomnia -Ativan and Prolixin PRN for agitation/aggression -Patient was counselled on substance abuse and desired to cut back on use-Will offer patient subtance use rehab -Patient was informed of the risks, benefits and side effects of the medication and patient verbally consented to taking the medications. Patient signed med consent form and was placed in chart. [Patient offered and declined patient education sheet for antipsychotics.] -Internal Medicine consult to perform medical evaluation and physical. -NRT -nicotine patch -SW on board for discharge planning. Encourage patient to participate in groups to work on coping skills. Will await deferral and court date.
[2025-03-03] MEDS: traZODone HCL 50 MG TAB PO SCH (21:09)
--- NOTE | 2025-03-04 11:41 | P.PN ---
Progress Note - Text Progress Note Date: 03/04/25 Interval history: Patient was seen laying in his bed today and was directable and agreeable to speak with residential mortgage underwriter. Patient had the sheets covering him, he was fairly evasive, guarded. Appears to have very poor insight poor judgment. Does not believe needs to be in the hospital. He did appear to be irritable however did claim that he is taking his medications. Very poor impulse control, claims that he slept fairly last night. Has been eating. At this time patient denies any suicidal or homicidal ideations intent or plan. Denies any Auditory or visual hallucinations. Patient denies any side effects from the medications and has been compliant with meds. Mental status exam: General Appearance: Patient appears to be covering with blankets, stated age is alert, directable, and guarded and uncooperative Behavior: No agitated behavior. Patient is calm and directable, somewhat irrit able, uncooperative Speech: Patient's speech is fluent and nonpressured. [place], monotone Mood/Affect: Mood is "not good" affect is congruent and constricted. Suicidality/Homicidality: Patient denies having any suicidal or homicidal ideation intent or plan. Perceptions: Patient denies any auditory or visual hallucinations. Though content/process: Minimizing his need to be in the hospital, fairly concrete, poverty of content Memory and concentration: AOX3, grossly intact for the purposes of this session Judgment and insight: Chronically poor Assessment/Plan: Continue with current diagnosis. Patient continues to meet criteria for inpatient psychiatric admission for symptom stabilization and safety. Patient will be maintained on current psychotropic medication regimen. Monitor for medication compliance and for any psychotropic medication side effects. Will continue to monitor ongoing response to treatment. Encouraged participation in milieu.
[2025-03-04] MEDS: LORazepam 1 MG TAB PO PRN (18:32)
--- NOTE | 2025-03-04 20:06 | P.CONS ---
History of Present Illness - Reason for Consult Consult date: 03/04/25 - History of Present Illness Patient is a 29-year-old male with history of hypertension, polysubstance abuse presented to the emergency department on pickup order. Patient's guardian and mother states that he has not been taking his medications as instructed. Patient was seen and evaluated in the mental health unit with MHU RN present. States he smokes a half pack a day. Denies alcohol and drug use. Denies fever, chills, chest pain, shortness of breath, abdominal pain, urinary symptoms. Pertinent positives and negatives as discussed above, a complete review of systems was performed and all other systems are negative. Vitals: Signs Reviewed Physical Exam: General: nontoxic, no distress, appears at stated age Derm: warm, dry, intact Head: atraumatic, normocephalic, symmetric Eyes: EOMI, anicteric sclera Mouth: no lip lesion, mucus membranes moist Cardiovascular: S1 S2 reg, no murmur, rubs, or gallops Lungs: CTA bilateral, no rhonchi, no rales, no accessory muscle use Abdominal: soft, non-tender to palpataion, no appreciable organomegaly Extremities: no gross muscle atrophy, no edema, no contractures Neuro: Alert, Oriented, CNII-XII grossly intact, gait normal Psych: well appearing, appropriate affect Assessment and Plan: Hypertension Continue with metoprolol 25 mg p.o. twice daily as needed Polysubstance abuse Nicotine dependence Methamphetamine use disorder Counseled patient on the importance of cessation Schizoaffective disorder, bipolar type Noncompliance with medication Defer management to primary psychiatry service. Cuauhtemoc Davis MD PGY-1 IM Dictation was produced using [employer] dictation software. please excuse any grammatical, word or spelling errors. ' I Discussed the case with the resident and agree with the resident's findings I edited the assessment and plan as necessary as documented in the resident's note. 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 Past Anesthesia/Blood Transfusion Reactions: No Reported Reaction Past Psychological History: Anxiety, Bipolar, Depression Smoking Status: Current every day smoker Past Alcohol Use History: Occasional Past Drug Use History: IV Drug Use, Marijuana, Methamphetamine - Past Family History family Additional Family Medical History / Comment(s): States multiple family members with heart disease on his mother's side of the family. Medications and Allergies Home Medications Medication Instructions Recorded Confirmed Type Metoprolol Tartrate [Lopressor] 25 mg PO BID PRN 11/19/24 03/02/25 History Allergies Allergy/AdvReac Type Severity Reaction Status Date / Time haloperidol [From Haldol] Allergy Severe Anaphylaxis Verified 03/02/25 18:52 Penicillins Allergy Unknown Unknown Verified 03/02/25 18:52 piperacillin [From Zosyn] Allergy Unknown Unknown Verified 03/02/25 18:52 tazobactam [From Zosyn] Allergy Unknown Unknown Verified 03/02/25 18:52 Physical Exam Vitals: Vital Signs Temp Pulse Resp BP Pulse Ox 03/04/25 09:00 98.6 F 97 100/68 97 03/03/25 21:08 98 F 97 16 99
--- NOTE | 2025-03-05 10:38 | P.PN ---
Progress Note - Text Progress Note Date: 03/05/25 Interval history: Patient was seen laying in his bed today and was directable and agreeable to speak with report writer. Patient was fairly guarded. He was fairly focused on discharge. Had a poor understanding of his need for hospitalization. Patient had the sheets covering him, he was fairly evasive, guarded. claims that he slept fairly last night. Has been eating. At this time patient denies any suicidal or homicidal ideations intent or plan. Denies any Auditory or visual hallucinations. Patient denies any side effects from the medications and has been compliant with meds. Mental status exam: General Appearance: Patient appears to be covering with blankets, stated age is alert, directable, and guarded and uncooperative Behavior: No agitated behavior. Patient is calm and directable, somewhat irritable, uncooperative, improving mildly Speech: Patient's speech is fluent and nonpressured. [place], monotone, improving mildly Mood/Affect: Mood is "not good" affect is congruent and constricted. Suicidality/Homicidality: Patient denies having any suicidal or homicidal ideation intent or plan. Perceptions: Patient denies any auditory or visual hallucinations. Though content/process: Minimizing his need to be in the hospital, fairly concrete, poverty of content Memory and concentration: AOX3, grossly intact for the purposes of this session Judgment and insight: Chronically poor Assessment/Plan: Continue with current diagnosis. Patient continues to meet criteria for inpatient psychiatric admission for symptom stabilization and safety. Patient will be maintained on current psychotropic medication regimen. Monitor for medication compliance and for any psychotropic medication side effects. Will continue to monitor ongoing response to treatment. Encouraged participation in milieu.
[2025-03-05] MEDS: IBUPROFEN 600 MG TAB PO PRN (21:24)
--- NOTE | 2025-03-06 13:15 | P.PN ---
Progress Note - Text Progress Note Date: 03/06/25 Interval History: Patient was seen in bed and was directable and agreeable to speak with customs entry writer in the room. Patient continues to be isolative to his room. He states the weekend went well, denying any visitors over the weekend however he has spoken to his mom and she reportedly wants him home. Patient was future oriented today, strong desire to be discharged home. He has been adherent with his psychotropic medications, requiring no as needed backup as per court order. Discussed with patient the need to speak to a family lawyer prior to discharge and he was in agreement with transitioning to Prolixin Decanoate today given his history of nonadherence. At this time patient denies any suicidal or homicidal ideations, intent or plan. Patient denies any auditory, visual hallucinations and denies any paranoia or delusions. Patient denies any side effects from the medications and has been compliant with meds. Mental Status Exam: General Appearance: Patient appears to be stated age is alert, directable, and cooperative. Behavior: Patient is calmly laying without any agitated behavior. Speech: Patient's speech is fluent and nonpressured. Mood/Affect: Mood is improving mildly, affect is congruent and constricted. Suicidality/Homicidality: Patient denies having any suicidal or homicidal ideation intent or plan. Perceptions: Patient denies any visual hallucinations and denies any auditory hallucinations Though content/process: There is no evidence of any delusional thought content and thought process is linear and goal-directed. Memory and concentration: AOX3, grossly intact for the purposes of this session Judgment and insight: Historically poor however improving mildly Assessment Schizoaffective disorder, bipolar type History of methamphetamine use disorder Nicotine dependence Noncompliance with medication Plan: -Patient continues to meet criteria for inpatient psychiatric admission for symptom stabilization and safety. Patient has not signed adult voluntary form and medication consent and was placed in patient's chart. Patient on an GHADA that expires on 03/08/25 -Medications: Transition to Prolixin Decanoate 12.5 mg IM to be given today, next dose to be given in 2 weeks. Continue oral Prolixin 5 mg twice daily, trazodone 50 mg at bedtime for insomnia -When necessary Ativan and Prolixin for agitation/aggression. -Labs: UDS ordered however not completed -NRT - nicotine patch -SW on board for discharge planning. Encouraged the patient to participate in milieu. Anticipate discharge back home with mom in 1-2 days pending speaking to
[2025-03-06] MEDS: fluPHENAZine DECANOATE 25 MG/ML 5ML MDV IM ONE (15:14)
[2025-03-07] MEDS: ACETAMINOPHEN TAB 325 MG TAB PO PRN (09:12)
--- NOTE | 2025-03-07 13:29 | P.PN ---
Progress Note - Text Progress Note Date: 03/07/25 Interval History: Patient was seen in bed and was directable and agreeable to speak with sports book writer in the room. Patient tolerated the BRITTON yesterday, denying any arm soreness or any other adverse effects. Patient has not submitted a urine sample for drug screen however patient denied any substance use prior to arrival, denying that substances could be related to his current presentation. Patient otherwise reports Ativan helpful for anxiety. He was informed that the scanner operator will be by today to speak to him about possibly signing a deferral or going to court tomorrow. At this time patient denies any suicidal or homicidal ideations, intent or plan. Patient denies any auditory, visual hallucinations and denies any paranoia or delusions. Patient denies any side effects from the medications and has been compliant with meds. Mental Status Exam: General Appearance: Patient appears to be stated age is alert, directable, and cooperative. Behavior: Patient is calmly laying without any agitated behavior. Speech: Patient's speech is fluent and nonpressured. Mood/Affect: Mood is improving mildly, affect is congruent and constricted. Suicidality/Homicidality: Patient denies having any suicidal or homicidal ideation intent or plan. Perceptions: Patient denies any visual hallucinations and denies any auditory hallucinations Though content/process: There is no evidence of any delusional thought content and thought process is linear and goal-directed. Memory and concentration: AOX3, grossly intact for the purposes of this session Judgment and insight: Historically poor however improving mildly Assessment Schizoaffective disorder, bipolar type History of methamphetamine use disorder Nicotine dependence Noncompliance with medication Plan: -Patient continues to meet criteria for inpatient psychiatric admission for symptom stabilization and safety. Patient has not signed adult voluntary form and medication consent and was placed in patient's chart. Patient currently on an GHADA that expires on 03/08/25 -Medications: Patient received Prolixin Decanoate 12.5 mg yesterday, every 2 weeks with next being due on 03/20/2025. Decrease oral Prolixin to 5 mg daily today to be continued until next BRITTON dose, continue trazodone 50 mg at bedtime for insomnia -When necessary Ativan and Prolixin for agitation/aggression. -Labs: UDS ordered however not completed -NRT - nicotine patch -SW on board for discharge planning. Encouraged the patient to participate in milieu. Currently awaiting deferral with banking attorney and court date. Anticipate discharge back home with mom tomorrow
[2025-03-07] MEDS: MAG HYDROX/AL HYDROX/SIMETH 355 ML BOTTLE PO PRN (18:00)
[2025-03-08 11:25] VITALS: BP 109/71; PULSE 120; RESP 20; TEMP 97
== END 2025-03-08 11:50 | disposition home or self-care (01) | DRG 761 ==
LOC: EC 16:55 → 3MHU 20:28
PROVIDERS: ADMIT Psychiatry & Neurology Psychiatry; ATTEND Psychiatry & Neurology Psychiatry
DX: F25.0 Schizoaffective disorder, bipolar type (principal); F17.210 Nicotine dependence, cigarettes, uncomplicated; Z11.52 Encounter for screening for COVID-19; F15.10 Other stimulant abuse, uncomplicated; Z71.6 Tobacco abuse counseling; F41.9 Anxiety disorder, unspecified; I10 Essential (primary) hypertension; Z79.899 Other long term (current) drug therapy; Z91.148 Patient's other noncompliance with medication regimen for other reason; Z95.2 Presence of prosthetic heart valve; Z71.51 Drug abuse counseling and surveillance of drug abuser
CPT/HCPCS: 82075; 87635; 99285